=== PATIENT | male | born 1945 | race Caucasian/White ===

== ENCOUNTER 2016-09-28 15:08 | Inpatient (IN) | payer MEDICARE ==
[2016-09-28] MEDS ORDERED: MECLIZINE 25 MG TAB PO STA (15:15)
[2016-09-28] MEDS ORDERED: METOCLOPRAMIDE 5 MG/ML 2 ML VIAL IVP STA (15:15)
[2016-09-28] MEDS ORDERED: SODIUM CHLORIDE 0.9% 500 ML IV ONE (15:16)
[2016-09-28] MEDS ORDERED: DIAZEPAM 5 MG/ML 2 ML SYRINGE IVP STA (15:16)
[2016-09-28 16:15] LABS: INR 1.2 (<1.1); Partial Thromboplastin Time 22.5 sec (22.0-30.0); Prothrombin Time 11.7 sec (9.0-12.0)
[2016-09-28 16:17] LABS: ALT 80 U/L (21-72); AST 43 U/L (17-59); Alkaline Phosphatase 104 U/L (38-126); Anion Gap 13 mmol/L; Blood Urea Nitrogen 18 mg/dL (9-20); Calcium 9.4 mg/dL (8.4-10.2); Carbon Dioxide 26 mmol/L (22-30); Chloride 103 mmol/L (98-107); Glucose 159 mg/dL (74-99); Magnesium 1.7 mg/dL (1.6-2.3); Non-African American GFR(MDRD) >60 (>60 ml/min/1.73 sqM); Potassium 3.7 mmol/L (3.5-5.1); Sodium 142 mmol/L (137-145); Total Bilirubin 0.8 mg/dL (0.2-1.3); Total Protein 7.1 g/dL (6.3-8.2)
--- NOTE | 2016-09-28 16:17 | ED ---
General Adult HPI - General Stated complaint: NAUEA, VOMITING, DIZZINESS Time Seen by Provider: 09/28/16 15:10 Source: RN notes reviewed - History of Present Illness Initial comments: This is a 70-year-old male who presents to the emergency department stating that all of a sudden he turned around the whole room started spinning he became very off balance nauseated and started to vomit. Patient states every time he turns his head the symptoms get worse per patient states he shut his eye the symptoms improve. Patient denies any headache patient denies numbness or focal weakness. Patient denies any chest pain palpitations difficulty breathing or shortness of breath per patient denies any recent fever chills or cough. Patient denies abdominal pain. Patient denies any recent diarrhea. Patient denies any similar symptoms. Patient denies any ringing in ears recently or hearing loss. - Related Data Home Medications Medication Instructions Recorded Confirmed Cholecalciferol [Vitamin D3] 1,000 unit PO DAILY 07/01/15 09/28/16 Losartan/Hydrochlorothiazide 1 tab PO DAILY 07/01/15 09/28/16 [Losartan-Hctz 100-25 mg Tab] Metoprolol Tartrate [Lopressor] 100 mg PO BID 07/01/15 09/28/16 Multivitamin [Men's Multi-Vitamin] 1 tab PO DAILY 07/01/15 09/28/16 Simvastatin 10 mg PO HS 07/01/15 09/28/16 Verapamil HCl [Verapamil ER] 360 mg PO DAILY 07/01/15 09/28/16 Gabapentin [Neurontin] 100 mg PO TID 06/02/16 09/28/16 Glimepiride [Amaryl] 1 mg PO BID 06/07/16 09/28/16 Aspirin EC [Ecotrin Low Dose] 81 mg PO DAILY 09/28/16 09/28/16 Fish Oil/Dha/Epa [Fish Oil 1,200 1 cap PO DAILY 09/28/16 09/28/16 mg Fish Oil] metFORMIN HCL [Glucophage] 1,000 mg PO BID 09/28/16 09/28/16 Allergies Allergy/AdvReac Type Severity Reaction Status Date / Time No Known Allergies Allergy Verified 09/28/16 15:49 Review of Systems ROS Statement: Those systems with pertinent positive or pertinent negative responses have been documented in the HPI. ROS Other: All systems not noted in ROS Statement are negative. Past Medical History Past Medical History: Coronary Artery Disease (CAD), Diabetes Mellitus, Hyperlipidemia, Hypertension Additional Past Medical History / Comment(s): "thin, dry skin", Last Myocardial Infarction Date:: 1996 History of Any Multi-Drug Resistant Organisms: None Reported Past Surgical History: Heart Catheterization With Stent, Joint Replacement Additional Past Surgical History / Comment(s): RT HIP REPLACEMENT, EXPLORATORY LAP, EPIDURAL INJ. STENT X1 Past Anesthesia/Blood Transfusion Reactions: Previous Problems w/ Anesthesia Additional Past Anesthesia/Blood Transfusion Reaction / Comment(s): STATES POST EPIDURAL INJ HAD A HARD TIME WAKING UP Date of Last Stent Placement:: 1996 Past Psychological History: No Psychological Hx Reported Smoking Status: Former smoker Past Alcohol Use History: Rare Additional Past Alcohol Use History / Comment(s): quit smoking 45 yrs ago, smoked for 5 yrs Past Drug Use History: None Reported - Past Family History Mother Family Medical History: No Reported History Father Family Medical History: Coronary Artery Disease (CAD), Myocardial Infarction (PA ) General Exam - General Exam Comments Initial Comments: GENERAL: Patient is well-developed and well-nourished. Patient is nontoxic and well- hydrated and is in mild distress. ENT: Neck is soft and supple. No significant lymphadenopathy is noted. Oropharynx is clear. Moist mucous membranes. Neck has full range of motion without eliciting any pain. Patient has some nystagmus looking to the right EYES: The sclera were anicteric and conjunctiva were pink and moist. Extraocular movements were intact and pupils were equal round and reactive to light. Eyelids were unremarkable. PULMONARY: Unlabored respirations. Good breath sounds bilaterally. No audible rales rhonchi or wheezing was noted. CARDIOVASCULAR: There is a regular rate and rhythm without any murmurs gallops or rubs. ABDOMEN: Soft and nontender with normal bowel sounds. No palpable organomegaly was noted. There is no palpable pulsatile mass. SKIN: Skin is clear with no lesions or rashes and otherwise unremarkable. NEUROLOGIC: Patient is alert and oriented x3. Cranial nerves II through XII are grossly intact. Motor and sensory are also intact. Normal speech, volume and content. Symmetrical smile. Finger-nose testing is normal bilaterally MUSCULOSKELETAL: Normal extremities with adequate strength and full range of motion. No lower extremity swelling or edema. No calf tenderness. LYMPHATICS: No significant lymphadenopathy is noted PSYCHIATRIC: Normal psychiatric evaluation. Normal interpersonal interactions appears functionally intact in deals appropriately with others. No signs of depression. No signs of anxiety. Medical Decision Making - Medical Decision Making A G shows normal sinus rhythm at 64 bpm TN interval 166 dresses 90 QT interval 464 QTC is 478. Patient's EKG shows Q waves in leads 3 and aVF there is no ST segment elevation or T wave abnormalities. Patient was given Antivert Valium and Reglan when he arrived his symptoms seemed to improve. Patient's troponin came back elevated 0.12 because of this the patient needs to be admitted and ruled out. Patient never expressed any chest pain difficult to breathing or shortness of breath. - Lab Data Result diagrams: 09/28/16 15:25 09/28/16 15:25 Lab Results 09/28/16 09/28/16 09/28/16 Range/Units 15:25 15:25 15:25 WBC 5.6 (3.8-10.6) k/uL RBC 4.90 (4.30-5.90) m/uL Hgb 15.4 (13.0-17.5) gm/dL Hct 45.8 (39.0-53.0) % MCV 93.5 (80.0-100.0) fL MCH 31.3 (25.0-35.0) pg MCHC 33.5 (31.0-37.0) g/dL RDW 15.0 (11.5-15.5) % Plt Count 206 (150-450) k/uL Neutrophils % 72 % Lymphocytes % 18 % Monocytes % 7 % Eosinophils % 2 % Basophils % 1 % Neutrophils # 4.0 (1.3-7.7) k/uL Lymphocytes # 1.0 (1.0-4.8) k/uL Monocytes # 0.4 (0-1.0) k/uL Eosinophils # 0.1 (0-0.7) k/uL Basophils # 0.1 (0-0.2) k/uL PT (9.0-12.0) sec INR (<1.1) APTT (22.0-30.0) sec Sodium 142 (137-145) mmol/L Potassium 3.7 (3.5-5.1) mmol/L Chloride 103 (98-107) mmol/L Carbon Dioxide 26 (22-30) mmol/L Anion Gap 13 mmol/L BUN 18 (9-20) mg/dL Creatinine 0.67 (0.66-1.25) mg/dL Est GFR (MDRD) Af Amer >60 (>60 ml/min/1.73 sqM) Est GFR (MDRD) Non-Af >60 (>60 ml/min/1.73 sqM) Glucose 159 H (74-99) mg/dL Calcium 9.4 (8.4-10.2) mg/dL Magnesium 1.7 (1.6-2.3) mg/dL Total Bilirubin 0.8 (0.2-1.3) mg/dL AST 43 (17-59) U/L ALT 80 H (21-72) U/L Alkaline Phosphatase 104 (38-126) U/L Total Creatine Kinase 24 L (55-170) U/L CK-MB (CK-2) 0.4 (0.0-2.4) ng/mL CK-MB (CK-2) Rel Index 1.7 Troponin I 0.120 H* (0.000-0.034) ng/mL Total Protein 7.1 (6.3-8.2) g/dL Albumin 4.3 (3.5-5.0) g/dL 09/28/16 Range/Units 15:25 WBC (3.8-10.6) k/uL RBC (4.30-5.90) m/uL Hgb (13.0-17.5) gm/dL Hct (39.0-53.0) % MCV (80.0-100.0) fL MCH (25.0-35.0) pg MCHC (31.0-37.0) g/dL RDW (11.5-15.5) % Plt Count (150-450) k/uL Neutrophils % % Lymphocytes % % Monocytes % % Eosinophils % % Basophils % % Neutrophils # (1.3-7.7) k/uL Lymphocytes # (1.0-4.8) k/uL Monocytes # (0-1.0) k/uL Eosinophils # (0-0.7) k/uL Basophils # (0-0.2) k/uL PT 11.7 (9.0-12.0) sec INR 1.2 (<1.1) APTT 22.5 (22.0-30.0) sec Sodium (137-145) mmol/L Potassium (3.5-5.1) mmol/L Chloride (98-107) mmol/L Carbon Dioxide (22-30) mmol/L Anion Gap mmol/L BUN (9-20) mg/dL Creatinine (0.66-1.25) mg/dL Est GFR (MDRD) Af Amer (>60 ml/min/1.73 sqM) Est GFR (MDRD) Non-Af (>60 ml/min/1.73 sqM) Glucose (74-99) mg/dL Calcium (8.4-10.2) mg/dL Magnesium (1.6-2.3) mg/dL Total Bilirubin (0.2-1.3) mg/dL AST (17-59) U/L ALT (21-72) U/L Alkaline Phosphatase (38-126) U/L Total Creatine Kinase (55-170) U/L CK-MB (CK-2) (0.0-2.4) ng/mL CK-MB (CK-2) Rel Index Troponin I (0.000-0.034) ng/mL Total Protein (6.3-8.2) g/dL Albumin (3.5-5.0) g/dL Disposition Clinical Impression: Vertigo, Elevated troponin Disposition: ADMITTED IP TO THIS [facility] Time of Disposition: 16:51
[2016-09-28 16:18] LABS: Basophils # (A) 0.1 k/uL (0-0.2); Basophils % (A) 1 %; CH 32.9; CHCM 35.4; Eosinophils # (A) 0.1 k/uL (0-0.7); Eosinophils % (A) 2 %; HCT 45.8 % (39.0-53.0); HDW 3.14; HGB 15.4 gm/dL (13.0-17.5); Luc # (Auto) 0.08; Luc % (Auto) 1; Lymphocytes % (A) 18 %; MCH 31.3 pg (25.0-35.0); MCHC 33.5 g/dL (31.0-37.0); MCV 93.5 fL (80.0-100.0); Mean Platelet Volume 7.6; Monocytes # (A) 0.4 k/uL (0-1.0); Monocytes % (A) 7 %; Neutrophils % (A) 72 %; WBC 5.6 k/uL (3.8-10.6); WBC (Perox) 5.52
[2016-09-28 16:40] LABS: Creatine Kinase MB 0.4 ng/mL (0.0-2.4)
[2016-09-28 16:43] LABS: Troponin I 0.12 ng/mL (0.000-0.034)
[2016-09-28] MEDS ORDERED: ASPIRIN 81 MG CHEW PO STA (16:51)
[2016-09-28] MEDS ORDERED: NITROGLYCERIN SL TABS 0.4 MG TAB SUBLINGUAL PRN (16:51)
[2016-09-28] MEDS ORDERED: MECLIZINE 25 MG TAB PO PRN (16:55)
--- NOTE | 2016-09-28 17:06 | CT ---
EXAMINATION TYPE: CT brain wo con DATE OF EXAM: 09/28/2016 4:55 PM HISTORY: weakness CT DLP: 1266 mGycm. Automated Exposure Control for Dose Reduction was Utilized. TECHNIQUE: CT scan of the head is performed without contrast. COMPARISON: CT brain May 11, 2010. FINDINGS: There is no acute intracranial hemorrhage or midline shift identified. There is diffuse v entricular and sulcal prominence consistent with diffuse age-related cerebral atrophy. There is low- attenuation in the periventricular white matter consistent with chronic small vessel ischemic change. There is mild to moderate mucosal thickening in the visualized portion of bilateral maxillary sinuse s. Nondeformed right frontal sinus is noted. Vascular consultation of distal internal carotid arterie s is present bilaterally. Visualized portion of both globes are intact. IMPRESSION: No acute intracranial hemorrhage or midline shift. There is mild diffuse age-related ce rebral atrophy and chronic small vessel ischemic change noted on current study. Some chronic bilater al maxillary sinus disease is present.
--- NOTE | 2016-09-28 17:08 | XR ---
EXAMINATION TYPE: XR chest 2V DATE OF EXAM: 09/28/2016 5:04 PM COMPARISON: Prior chest x-ray July 09, 2015 HISTORY: Chest pain. TECHNIQUE: Frontal and lateral views of the chest are obtained. FINDINGS: There is no focal air space opacity, pleural effusion, or pneumothorax seen. The cardiac silhouette size is stable and enlarged. Multilevel spurring and spine is present. IMPRESSION: Cardiomegaly without acute pulmonary process.
[2016-09-28] MEDS: NITROGLYCERIN OINT 1 INCH/GM PACKET TOPICAL SCH (18:37)
[2016-09-28 19:59] LABS: Glucose,Whole Blood 143 mg/dL (75-99)
[2016-09-28] MEDS ORDERED: ATORVASTATIN 10 MG TAB PO SCH (21:00)
[2016-09-28] MEDS: METOPROLOL TARTRATE 50 MG TAB PO SCH (21:29)
[2016-09-28] MEDS: GABAPENTIN 100 MG CAP PO SCH (21:29)
[2016-09-28] MEDS: INSULIN LISPRO (humaLOG) 300 UNIT/3 ML VIAL SQ SCH (21:30)
[2016-09-28] MEDS: metFORMIN 500 MG TAB PO SCH (21:30)
[2016-09-28 22:33] LABS: Creatine Kinase <20 U/L (55-170)
[2016-09-28 22:46] LABS: Creatine Kinase MB 0.3 ng/mL (0.0-2.4)
[2016-09-28 22:47] LABS: Troponin I 0.085 ng/mL (0.000-0.034)
[2016-09-29] MEDS: NITROGLYCERIN OINT 1 INCH/GM PACKET TOPICAL SCH ×3 (02:33→12:59)
[2016-09-29 03:49] LABS: Cholesterol 179 mg/dL (<200); HDL Cholesterol 41 mg/dL (40-60); Triglycerides 268 mg/dL (<150)
[2016-09-29 03:58] LABS: Creatine Kinase 20 U/L (55-170)
[2016-09-29 04:12] LABS: Creatine Kinase MB <0.2 ng/mL (0.0-2.4)
[2016-09-29 04:14] LABS: Troponin I 0.102 ng/mL (0.000-0.034)
[2016-09-29 06:14] LABS: Glucose,Whole Blood 110 mg/dL (75-99)
[2016-09-29] MEDS: INSULIN LISPRO (humaLOG) 300 UNIT/3 ML VIAL SQ SCH ×2 (06:43→12:59)
[2016-09-29] MEDS: metFORMIN 500 MG TAB PO SCH (06:44)
[2016-09-29 07:14] VITALS: TEMP 98.1
[2016-09-29] MEDS ORDERED: GLIMEPIRIDE 1 MG TAB PO SCH (07:30)
[2016-09-29] MEDS ORDERED: AMINOPHYLLINE 500 MG/20 ML VIAL IV PRN (08:29)
[2016-09-29] MEDS ORDERED: REGADENOSON 0.4 MG/5 ML SYRINGE IV ONE (08:45)
[2016-09-29] MEDS ORDERED: ALPRAZolam 0.25 MG TAB PO STA (08:53)
[2016-09-29] MEDS ORDERED: LOSARTAN-HCTZ 50-12.5 MG 1 EACH TAB PO SCH (09:00)
[2016-09-29] MEDS ORDERED: VERAPAMIL SR 180 MG TABLET.ER PO SCH (09:00)
[2016-09-29] MEDS ORDERED: ASPIRIN 325 MG TAB PO SCH (09:00)
--- NOTE | 2016-09-29 09:31 | CONS ---
DATE OF CONSULTATION: CHIEF COMPLAINT: Dizziness and vertigo. Abdoulaye is a 70-year-old gentleman with history of CAD, status post angioplasty, hypertension, dyslipidemia, [id number] diabetes who follows with my associate, Dr. Calzada on a regular basis, comes in complaining of having had an episode of severe dizziness. It came on at rest, came on suddenly, severe intensity without clear-cut relieving or exacerbating factors. He felt that the room was spinning. He became nauseous and on his way to hospital had episodes of vomiting. He did not have chest pain, difficulty in breathing, palpitations, syncope, or focal neurological deficits. After coming to the hospital, his symptoms have gradually subsided. They did troponins on him. They came back abnormal at 0.1, 0.08 and 0.1. EKG does not reveal ischemic changes. Given the unexplained elevation in troponin, I am advising the patient to undergo a stress test to evaluate for ischemia. I am not asking him to go through a cardiac catheterization at this stage as he really did not have any symptoms suggestive of angina or any coronary artery disease at this time. His symptoms were clearly related to vertigo and he has had problems with his ears and is to see an ENT doctor in the near future. Past medical history is significant for CAD, status post angioplasty, hypertension, dyslipidemia, diabetes. Medications at home included metformin 1000 b.i.d., verapamil 360 q. daily, simvastatin 10 q. daily, multivitamin, Lopressor 100 b.i.d., losartan, Amaryl, Neurontin, fish oil, aspirin. ALLERGIES: No known drug allergies. Family history is negative for premature coronary artery disease. Social history is negative for current smoking, EtOH abuse or drug abuse. REVIEW OF SYSTEMS: HEENT: Significant for vertigo. CARDIAC: As described above. RESPIRATORY: Negative. GI: Negative. GENITOURINARY: Negative. ALLERGY/IMMUNOLOGY: Negative. SKIN: Negative. MUSCULOSKELETAL: Negative. ENDOCRINE: Negative. DERMATOLOGIC: Negative. CONSTITUTIONAL: Negative. ONCOLOGICAL: Negative. The rest of the system review is not relevant. On exam, comfortable at rest. Vital signs are stable. There is no jugular venous distention. Carotid upstroke is normal. There is no bruit. Chest exam reveals good air entry bilaterally. Heart exam reveals first and second heart sounds. No gallop. No murmur, no rub. Abdomen is soft, nontender. Exam of the extremities revealed trace edema. Peripheral pulses are felt. EKG is reviewed. Labs are as described above. Hemoglobin is normal at 15.4 platelet count is 204. Creatinine is 0.67. ASSESSMENT: 1. Elevated troponin of unclear clinical significance. 2. Coronary artery disease, status post angioplasty. 3. Vertigo. 4. Hypertension. 5. Diabetes. PLAN: I am advising the patient to undergo an echocardiogram to evaluate LV function and wall motion and the patient will also have a stress test done to evaluate for ischemic heart disease. If the stress test is normal, he can be discharged home and pursue workup for vertigo. If it is abnormal, I am going to have Dr. Calzada do cardiac catheterization on him.
--- NOTE | 2016-09-29 11:39 | EST ---
DATE OF SERVICE: 09/29/2016 AGE: 70Y SEX: M HT: 5'9" WT: 260 lbs. Protocol Alonso: Other: Lexiscan Cardiolite Stage: Dur. of Exercise: *Heart Rate Blood Pressure *Rest: 67 Rest: 139/48 * *Max. Achieved: 86 Maximum BP: 146/53 85% PMHR: 100% PMHR: *METS: INDICATIONS: Elevated troponin. MEDICATIONS: INDICATION OF THE STUDY: Chest pain. STRESS DATA: Heart rate 67, pressure is 139/48 mmHg. Baseline EKG showed sinus mechanism. 0.4 mg of Lexiscan was given to the patient over 15 seconds per protocol. Max heart rate was 86 beats per minute and maximum pressure was 146/53 mmHg. Clinically, the patient developed some shortness of breath. The EKG did not show any significant ST or T wave abnormalities consistent with ischemia. CONCLUSION: 1. Nondiagnostic electrocardiogram stress testing in response to Lexiscan. 2. Please follow up on the Cardiolite portion on a separate report from the radiology department.
[2016-09-29 12:53] LABS: Glucose,Whole Blood 148 mg/dL (75-99)
[2016-09-29 12:56] VITALS: BP 138/83; PULSE 78; RESP 18
[2016-09-29] MEDS: GABAPENTIN 100 MG CAP PO SCH ×2 (12:58→15:59)
[2016-09-29] MEDS: METOPROLOL TARTRATE 50 MG TAB PO SCH (12:59)
--- NOTE | 2016-09-29 15:14 | NM ---
EXAMINATION TYPE: NM stress lexiscan cardiolite DATE OF EXAM: 09/29/2016 12:10 PM COMPARISON: Nuclear medicine stress test May 04, 2010 HISTORY: History of prior tobacco use, hypertension, prior heart attack 1969, hypercholesterolemia, f amily history of coronary artery disease, diabetes, and prior catheterization with 1 vessel angioplas ty presents with shortness of breath and elevated troponin. TECHNIQUE: After the intravenous administration of 11 mCi Tc 99m Sestamibi - Cardiolite resting SPEC T images acquired 45 minutes post injection. The patient received 0.4mg Lexiscan, 27.5 mCi Tc 99m Sestamibi - Stress images obtained [address] injection FINDINGS: Review of stress and rest SPECT images demonstrates no distinct perfusion abnormality. Some diminishe d uptake inferolateral left ventricular wall towards the apex on stress and rest SPECT images may ref lect area of old infarct. Gated analysis shows normal wall motion with an estimated left ventricular ejection fraction of 55 %. IMPRESSION: No scintigraphic evidence for reversible ischemia.
--- NOTE | 2016-09-29 17:08 | HP ---
DATE OF ADMISSION: This dictation is both H&P and discharge summary. Patient is a 70-year-old who came in with complaints of vertigo with the room spinning around, which started yesterday morning around 10:00 a.m. Patient was having URI symptoms, nasal congestion and has been going on for about a few days and patient's vertigo is constant, does not change with the movement of the head. He had an episode of vomiting. Patient was diagnosed with vertigo, which is probably related to labyrinthitis with resolved symptoms at this point of time. Patient was although admitted because of elevated troponin. Patient's highest troponin was 0.0120 followed by 0.085, followed by 0.102. Patient was evaluated by Cardiology. Patient underwent a stress test, which was negative. Patient denied any chest pain, denied any shortness of breath, denied any fevers or chills, lightheadedness, shortness of breath. REVIEW OF SYSTEMS: CONSTITUTIONAL: No fever, no malaise, no fatigue. HEENT: No recent visual problems or hearing problems. Denied any sore throat. CARDIOVASCULAR: No chest pain, orthopnea, PND, no palpitations, no syncope. PULMONARY: No shortness of breath, no cough, no hemoptysis. GASTROINTESTINAL: No diarrhea, no nausea, no vomiting, no abdominal pain. Normoactive bowel sounds. NEUROLOGICAL: As described in HPI. HEMATOLOGICAL: Denies any bleeding or petechiae. GENITOURINARY: Denies any burning micturition, frequency, or urgency. MUSCULOSKELETAL/RHEUMATOLOGICAL: Denies any joint pain, swelling, or any muscle pain. ENDOCRINE: Denies any polyuria or polydipsia. The rest of the 14 point review of systems is negative. Home medications include: Cholecalciferol, losartan, hydrochlorothiazide, metoprolol, simvastatin, verapamil, gabapentin, glimepiride, aspirin, metformin. ALLERGIES: No known drug allergies. PAST MEDICAL HISTORY: Coronary artery disease, diabetes mellitus, hyperlipidemia, hypertension, cardiac catheterization, stent placement in the past. SOCIAL HISTORY: Former smoker. Quit smoking about 5 years ago. Denied any alcohol abuse or drug abuse. FAMILY HISTORY: Coronary artery disease and myocardial infarction in the family. Mother had no reported history. PHYSICAL EXAMINATION: VITAL SIGNS: Temperature 98.1, pulse of 98, respiratory rate of 18, blood pressure 138/83, saturating at 97% on room air. GENERAL: Patient appears to have some generalized ( ), which as per the family is normal for him. Alert and oriented x3. HEENT: Pupils are round and equally reacting to light. EOMI. No scleral icterus. No conjunctival pallor. Normocephalic, atraumatic. No pharyngeal erythema. No thyromegaly. CARDIOVASCULAR: S1 and S2 present. No murmurs, rubs, or gallops. PULMONARY: Chest is clear to auscultation, no wheezing or crackles. ABDOMEN: Soft, nontender, nondistended, normoactive bowel sounds. No palpable organomegaly. MUSCULOSKELETAL: No joint swelling or deformity. EXTREMITIES: No cyanosis, clubbing, or pedal edema. NEUROLOGICAL: Gross neurological examination did not reveal any focal deficits. SKIN: No rashes. LABORATORY DATA: CBC, CMP, essentially within normal. Troponins as mentioned above. EKG did not show any acute ST-T wave changes. ASSESSMENT AND PLAN: 1. Peripheral vertigo secondary to labyrinthitis, which improved. No medications are necessary at this point of time. Possibly labyrinthitis. 2. Labyrinthitis and viral in etiology. Symptoms have resolved and will not need any further intervention regarding that. 3. Elevated troponins. Etiology is unclear. The patient had a recent angioplasty. Patient's stress test is negative. 4. Diabetes mellitus type 2. 5. Hyperlipidemia. 6. Hypertension. 7. Obesity. Regarding obesity counseling was provided. For the rest of the above-mentioned chronic medical problems, patient will continue his home medications. Patient will be discharged today. Patient will follow with Dr. Erick Cheatham as an outpatient. Activity as tolerated. Cardiac and diabetic 1800 calorie diet.
--- NOTE | 2016-09-30 10:08 | ECHOF ---
Referral Reason:tropo MEASUREMENTS -------- HEIGHT: 170.2 cm WEIGHT: 121.1 kg BP: 123/65 RVIDd: 3.1 cm (< 3.3) IVSd: 1.5 cm (0.6 - 1.1) LVIDd: 4.7 cm (3.9 - 5.3) LVPWd: 1.5 cm (0.6 - 1.1) IVSs: 1.9 cm LVIDs: 3.4 cm LVPWs: 2.0 cm LA Diam: 3.4 cm (2.7 - 3.8) LAESV Index (A-L): 24.88 ml/m Ao Diam: 3.7 cm (2.0 - 3.7) AV Cusp: 2.6 cm (1.5 - 2.6) MV EXCURSION: 20.282 mm (> 18.000) MV EF SLOPE: 48 mm/s (70 - 150) EPSS: 0.7 cm MV E Landry: 0.74 m/s MV DecT: 236 ms MV A Landry: 0.94 m/s MV E/A Ratio: 0.79 RAP: 5.00 mmHg RVSP: 36.57 mmHg FINDINGS -------- Sinus rhythm. This was a technically difficult study with suboptimal apical views. The left ventricular size is normal. There is moderate concentric left ventricular hypertrophy. Overall left ventricular systolic function is mildly impaired with, an EF between 45 - 50 %. Basal inferoseptal LV wall motion is hypokinetic. The right ventricle is normal in size and function. The left atrium is normal in size. Normal LA size by volume 22+/-6 ml/m2. The right atrium is normal in size. 1.5mg of Definity was utilized for enhancement of images Aortic valve is trileaflet and is mildly thickened. Mild mitral annular calcification present. Mild tricuspid regurgitation present. There is mild pulmonary hypertension. The pulmonic valve was not well visualized. The aortic root is dilated measuring 3.7cm. There is no pericardial effusion. CONCLUSIONS -------- 1. Sinus rhythm. 2. 1.5mg of Definity was utilized for enhancement of images 3. Aortic valve is trileaflet and is mildly thickened. 4. Mild mitral annular calcification present. 5. Mild tricuspid regurgitation present. 6. There is mild pulmonary hypertension. 7. The pulmonic valve was not well visualized. 8. The aortic root is dilated measuring 3.7cm. 9. There is no pericardial effusion. 10. This was a technically difficult study with suboptimal apical views. 11. The left ventricular size is normal. 12. There is moderate concentric left ventricular hypertrophy. 13. Overall left ventricular systolic function is mildly impaired with, an EF between 45 - 50 %. 14. Basal inferoseptal LV wall motion is hypokinetic. 15. The right ventricle is normal in size and function. 16. Normal LA size by volume 22+/-6 ml/m2. 17. The right atrium is normal in size. BRAND PLANNER: Judy Glover RDCS
== END 2016-09-29 16:59 | disposition home or self-care (01) | DRG 149 ==
LOC: EC 15:08 → 6SEL 16:51
PROVIDERS: ADMIT Family Medicine; ATTEND Family Medicine
DX: H83.09 Labyrinthitis, unspecified ear (principal); I10 Essential (primary) hypertension; H81.399 Other peripheral vertigo, unspecified ear; E11.9 Type 2 diabetes mellitus without complications; R74.8 Abnormal levels of other serum enzymes; E66.9 Obesity, unspecified; E78.5 Hyperlipidemia, unspecified; I25.10 Atherosclerotic heart disease of native coronary artery without angina pectoris; I25.2 Old myocardial infarction; Z68.41 Body mass index [BMI] 40.0-44.9, adult; Z96.641 Presence of right artificial hip joint; Z87.891 Personal history of nicotine dependence; Z79.82 Long term (current) use of aspirin; Z79.84 Long term (current) use of oral hypoglycemic drugs; Z79.899 Other long term (current) drug therapy; Z98.61 Coronary angioplasty status; Z82.49 Family history of ischemic heart disease and other diseases of the circulatory system
CPT/HCPCS: 36415; 70450; 71020; 78452; 80053; 80061; 82550; 82553; 83036; 83735; 84484; 85025; 85610; 85730; 93005; 93017; 93306; 96361; 96374; 96375; 99285

== ENCOUNTER 2016-12-14 11:26 | Observation (INO) | payer MEDICARE ==
--- NOTE | 2016-12-14 11:50 | ED ---
General Adult HPI - General Chief complaint: Chest Pain Stated complaint: Chest Pain Time Seen by Provider: 12/14/16 11:34 Source: EMS, RN notes reviewed, old records reviewed Mode of arrival: EMS Limitations: no limitations - History of Present Illness Initial comments: This is a 71-year-old male the ER for evaluation of chest pain. Patient has anterior substernal heaviness, elephant sitting on chest classic chest pain. Patient also collated shortness of breath and she diaphoresis. Patient has history of CAD with stent. Patient states he had some vertigo symptoms month ago and the urinary stress test. Since there is had no pain. Since his heart attack 7 years ago he has had no cardiac issues. Patient denies fever cough or congestion, no travel history. - Related Data Home Medications Medication Instructions Recorded Confirmed Cholecalciferol [Vitamin D3] 1,000 unit PO DAILY 07/01/15 09/28/16 Losartan/Hydrochlorothiazide 1 tab PO DAILY 07/01/15 09/28/16 [Losartan-Hctz 100-25 mg Tab] Metoprolol Tartrate [Lopressor] 100 mg PO BID 07/01/15 09/28/16 Multivitamin [Men's Multi-Vitamin] 1 tab PO DAILY 07/01/15 09/28/16 Simvastatin 10 mg PO HS 07/01/15 09/28/16 Verapamil HCl [Verapamil ER] 360 mg PO DAILY 07/01/15 09/28/16 Gabapentin [Neurontin] 100 mg PO TID 06/02/16 09/28/16 Glimepiride [Amaryl] 1 mg PO BID 06/07/16 09/28/16 Aspirin EC [Ecotrin Low Dose] 81 mg PO DAILY 09/28/16 09/28/16 Fish Oil/Dha/Epa [Fish Oil 1,200 1 cap PO DAILY 09/28/16 09/28/16 mg Fish Oil] metFORMIN HCL [Glucophage] 1,000 mg PO BID 09/28/16 09/28/16 Allergies Allergy/AdvReac Type Severity Reaction Status Date / Time No Known Allergies Allergy Verified 12/14/16 11:33 Review of Systems ROS Statement: Those systems with pertinent positive or pertinent negative responses have been documented in the HPI. ROS Other: All systems not noted in ROS Statement are negative. Past Medical History Past Medical History: Coronary Artery Disease (CAD), Diabetes Mellitus, Hyperlipidemia, Hypertension Additional Past Medical History / Comment(s): "thin, dry skin", Last Myocardial Infarction Date:: 1996 History of Any Multi-Drug Resistant Organisms: None Reported Past Surgical History: Heart Catheterization With Stent, Joint Replacement Additional Past Surgical History / Comment(s): RT HIP REPLACEMENT, EXPLORATORY LAP, EPIDURAL INJ. STENT X1 Past Anesthesia/Blood Transfusion Reactions: Previous Problems w/ Anesthesia Additional Past Anesthesia/Blood Transfusion Reaction / Comment(s): STATES POST EPIDURAL INJ HAD A HARD TIME WAKING UP.pt /family stated pt can't take any narcotics-becomes very confused. pt can take tylenol extra strength for pain. Date of Last Stent Placement:: 1996 Past Psychological History: No Psychological Hx Reported Smoking Status: Former smoker Past Alcohol Use History: None Reported Additional Past Alcohol Use History / Comment(s): started smoking 1965, quit in 1970 Past Drug Use History: None Reported - Past Family History Mother Family Medical History: Congestive Heart Failure (CHF), Hypertension Additional Family Medical History / Comment(s): bipolar dad hx- bp, cholesterol chf,cad, cabg. Father Family Medical History: Coronary Artery Disease (CAD), Myocardial Infarction ([place] ) General Exam Limitations: no limitations General appearance: alert, in no apparent distress, anxious Head exam: Present: atraumatic, normocephalic, normal inspection Eye exam: Present: normal appearance, PERRL, EOMI. Absent: scleral icterus, conjunctival injection, periorbital swelling ENT exam: Present: normal exam, mucous membranes moist Neck exam: Present: normal inspection. Absent: tenderness, meningismus, lymphadenopathy Respiratory exam: Present: normal lung sounds bilaterally. Absent: respiratory distress, wheezes, rales, rhonchi, stridor Cardiovascular Exam: Present: regular rate, normal rhythm, normal heart sounds. Absent: systolic murmur, diastolic murmur, rubs, gallop, clicks GI/Abdominal exam: Present: soft, normal bowel sounds. Absent: distended, tenderness, guarding, rebound, rigid Extremities exam: Present: normal inspection, full ROM, normal capillary refill. Absent: tenderness, pedal edema, joint swelling, calf tenderness Back exam: Present: normal inspection Neurological exam: Present: alert, oriented X3, CN II-XII intact Psychiatric exam: Present: normal affect, normal mood Skin exam: Present: warm, dry, intact, normal color. Absent: rash Course Vital Signs 12/14/16 11:30 Temperature 98.2 F Pulse Rate 74 Respiratory 20 Rate Blood Pressure 181/86 O2 Sat by Pulse 97 Oximetry - Reevaluation(s) Reevaluation #1: 12/14/16 12:07 Patient remains with chest pain Reevaluation #2: 12/14/16 12:07 Patient did have stress test 2 months ago EKG Findings - EKG Comments: EKG Findings:: EKG shows normal sinus rhythm rate of 65, NC 150, QRS 90, QTc 459 Medical Decision Making - Medical Decision Making 71 mallear for evaluation of chest pain. 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 Initial EKG is negative, patient be admitted for serial troponins cardiac observation and anticoagulation telemetry - Lab Data Result diagrams: 12/14/16 11:45 Lab Results 12/14/16 Range/Units 11:45 WBC 5.2 (3.8-10.6) k/uL RBC 4.77 (4.30-5.90) m/uL Hgb 16.1 (13.0-17.5) gm/dL Hct 44.4 (39.0-53.0) % MCV 93.1 (80.0-100.0) fL MCH 33.7 (25.0-35.0) pg MCHC 36.2 (31.0-37.0) g/dL RDW 14.6 (11.5-15.5) % Plt Count 188 (150-450) k/uL Neutrophils % 67 % Lymphocytes % 21 % Monocytes % 7 % Eosinophils % 3 % Basophils % 1 % Neutrophils # 3.5 (1.3-7.7) k/uL Lymphocytes # 1.1 (1.0-4.8) k/uL Monocytes # 0.4 (0-1.0) k/uL Eosinophils # 0.2 (0-0.7) k/uL Basophils # 0.0 (0-0.2) k/uL - Radiology Data Radiology results: report reviewed (Chest x-ray negative for acute disease), image reviewed Critical Care Time Critical Care Time: Yes Total Critical Care Time: 31 Disposition Clinical Impression: Unstable angina pectoris, Chest pain Disposition: ADMITTED IP TO THIS [facility] Condition: Undetermined
[2016-12-14 12:01] LABS: Basophils % (A) 1 %; CH 34.1; CHCM 36.8; Eosinophils # (A) 0.2 k/uL (0-0.7); Eosinophils % (A) 3 %; HCT 44.4 % (39.0-53.0); HDW 3.08; HGB 16.1 gm/dL (13.0-17.5); Luc # (Auto) 0.07; Luc % (Auto) 1; Lymphocytes # (A) 1.1 k/uL (1.0-4.8); Lymphocytes % (A) 21 %; MCH 33.7 pg (25.0-35.0); MCHC 36.2 g/dL (31.0-37.0); MCV 93.1 fL (80.0-100.0); Mean Platelet Volume 6.4; Monocytes # (A) 0.4 k/uL (0-1.0); Monocytes % (A) 7 %; Neutrophils # (A) 3.5 k/uL (1.3-7.7); Neutrophils % (A) 67 %; RBC 4.77 m/uL (4.30-5.90); RDW 14.6 % (11.5-15.5); WBC 5.2 k/uL (3.8-10.6); WBC (Perox) 5.27
[2016-12-14] MEDS ORDERED: NITROGLYCERIN SL TABS 0.4 MG TAB SUBLINGUAL PRN (12:05)
[2016-12-14] MEDS ORDERED: HEPARIN SODIUM,PORCINE 5,000 UNIT/ML 1 ML VIAL IV ONE (12:05)
[2016-12-14] MEDS ORDERED: ASPIRIN 81 MG CHEW PO STA (12:05)
[2016-12-14 12:09] LABS: INR 1.2 (<1.1); Prothrombin Time 11.7 sec (9.0-12.0)
--- NOTE | 2016-12-14 12:10 | XR ---
EXAMINATION TYPE: XR chest 2V DATE OF EXAM: 12/14/2016 12:06 PM COMPARISON: 09/28/2016 INDICATION: Chest pain TECHNIQUE: 2 view chest FINDINGS: The heart size is normal. The pulmonary vasculature is normal. The lungs are clear. IMPRESSION: 1. No acute pulmonary process.
[2016-12-14] MEDS ORDERED: HEPARIN SODIUM,PORCINE/D5W PMX 25,000 UNIT in DEXTROSE/WATER 1 500ML.BAG IV SCH (12:15)
[2016-12-14 12:16] LABS: ALT 82 U/L (21-72); AST 52 U/L (17-59); Alkaline Phosphatase 81 U/L (38-126); Anion Gap 12 mmol/L; Blood Urea Nitrogen 19 mg/dL (9-20); Calcium 9.1 mg/dL (8.4-10.2); Carbon Dioxide 25 mmol/L (22-30); Chloride 104 mmol/L (98-107); Glucose 137 mg/dL (74-99); Magnesium 1.7 mg/dL (1.6-2.3); Non-African American GFR(MDRD) >60 (>60 ml/min/1.73 sqM); Potassium 3.8 mmol/L (3.5-5.1); Sodium 141 mmol/L (137-145); Total Protein 6.6 g/dL (6.3-8.2)
[2016-12-14 12:23] LABS: Partial Thromboplastin Time 23.4 sec (22.0-30.0)
[2016-12-14 12:31] LABS: Creatine Kinase 37 U/L (55-170)
[2016-12-14 12:44] LABS: Creatine Kinase MB 0.4 ng/mL (0.0-2.4); Troponin I <0.012 ng/mL (0.000-0.034)
[2016-12-14] MEDS ORDERED: FUROSEMIDE 20 MG TAB PO PRN (13:54)
--- NOTE | 2016-12-14 13:58 | P.HPIM ---
History of Present Illness 71-year-old male presented to the emergency room with complaints of chest pain pressure reading to the left arm with shortness of breath. Patient has history of coronary disease with stent history of [place] in 1996. Patient has a history of hypertension and hyperlipidemia patient's diabetic states that is stable. Patient had recent stress test that he stated was negative Review of Systems Cardiovascular: Reports chest pain Respiratory: Reports dyspnea Past Medical History Past Medical History: Coronary Artery Disease (CAD), Diabetes Mellitus, Hyperlipidemia, Hypertension Additional Past Medical History / Comment(s): "thin, dry skin", Last Myocardial Infarction Date:: 1996 History of Any Multi-Drug Resistant Organisms: None Reported Past Surgical History: Heart Catheterization With Stent, Joint Replacement Additional Past Surgical History / Comment(s): RT HIP REPLACEMENT, EXPLORATORY LAP, EPIDURAL INJ. STENT X1 Past Anesthesia/Blood Transfusion Reactions: Previous Problems w/ Anesthesia Additional Past Anesthesia/Blood Transfusion Reaction / Comment(s): STATES POST EPIDURAL INJ HAD A HARD TIME WAKING UP.pt /family stated pt can't take any narcotics-becomes very confused. pt can take tylenol extra strength for pain. Date of Last Stent Placement:: 1996 Past Psychological History: No Psychological Hx Reported Smoking Status: Former smoker Past Alcohol Use History: None Reported Additional Past Alcohol Use History / Comment(s): started smoking 1965, quit in 1970 Past Drug Use History: None Reported - Past Family History Mother Family Medical History: Congestive Heart Failure (CHF), Hypertension Additional Family Medical History / Comment(s): bipolar dad hx- bp, cholesterol chf,cad, cabg. Father Family Medical History: Coronary Artery Disease (CAD), Myocardial Infarction ([place] ) Medications and Allergies Home Medications Medication Instructions Recorded Confirmed Type Cholecalciferol [Vitamin D3] 1,000 unit PO DAILY 07/01/15 12/14/16 History Losartan/Hydrochlorothiazide 1 tab PO DAILY 07/01/15 12/14/16 History [Losartan-Hctz 100-25 mg Tab] Metoprolol Tartrate [Lopressor] 100 mg PO BID 07/01/15 12/14/16 History Multivitamin [Men's Multi-Vitamin] 1 tab PO DAILY 07/01/15 12/14/16 History Simvastatin 10 mg PO HS 07/01/15 12/14/16 History Verapamil HCl [Verapamil ER] 360 mg PO DAILY 07/01/15 12/14/16 History Gabapentin [Neurontin] 100 mg PO TID 06/02/16 12/14/16 History Glimepiride [Amaryl] 1 mg PO BID 06/07/16 12/14/16 History Aspirin EC [Ecotrin Low Dose] 81 mg PO DAILY 09/28/16 12/14/16 History Fish Oil/Dha/Epa [Fish Oil 1,200 1 cap PO DAILY 09/28/16 12/14/16 History mg Fish Oil] Furosemide [Lasix] 20 mg PO DAILY PRN 12/14/16 12/14/16 History metFORMIN HCL [Glucophage] 1,000 mg PO BID 12/14/16 12/14/16 History Allergies Allergy/AdvReac Type Severity Reaction Status Date / Time No Known Allergies Allergy Verified 12/14/16 12:27 Physical Exam Vitals: Vital Signs Temp Pulse Resp BP Pulse Ox 12/14/16 12:50 97.8 F 73 18 149/74 98 - Constitutional General appearance: obese - EENT Eyes: PERRLA Ears: bilateral: normal - Neck Neck: normal ROM - Respiratory Respiratory: bilateral: CTA - Cardiovascular Rhythm: regular - Gastrointestinal General gastrointestinal: soft - Integumentary Integumentary: normal - Neurologic Neurologic: CNII-XII intact - Psychiatric Psychiatric: A&O x's 3, appropriate affect, intact judgment & insight Results CBC & Chem 7: 12/14/16 11:45 12/14/16 11:45 Chest x-ray: report reviewed Assessment and Plan Plan: Assessment Chest pain unstable angina History of coronary disease with stent history of [place] 1996 Diabetes type 2 hyperlipidemia Hypertension Plan Anticoagulation nitro and evaluation by cardiology
[2016-12-14 14:02] LABS: Glucose,Whole Blood 125 mg/dL (75-99)
[2016-12-14] MEDS: GABAPENTIN 100 MG CAP PO SCH ×2 (16:01→19:40)
[2016-12-14 17:09] LABS: Glucose,Whole Blood 116 mg/dL (75-99)
[2016-12-14 18:50] LABS: Creatine Kinase 39 U/L (55-170)
[2016-12-14 19:03] LABS: Creatine Kinase MB 0.4 ng/mL (0.0-2.4); Troponin I <0.012 ng/mL (0.000-0.034)
[2016-12-14] MEDS: HEPARIN SODIUM,PORCINE 5,000 UNIT/ML 1 ML VIAL IV PRN (19:39)
[2016-12-14] MEDS: metFORMIN 500 MG TAB PO SCH (19:40)
[2016-12-14] MEDS: GLIMEPIRIDE 1 MG TAB PO SCH (19:40)
[2016-12-14] MEDS: METOPROLOL TARTRATE 50 MG TAB PO SCH (19:41)
[2016-12-14 20:20] LABS: Glucose,Whole Blood 107 mg/dL (75-99)
[2016-12-14] MEDS: ACETAMINOPHEN TAB 325 MG TAB PO PRN (20:30)
[2016-12-14] MEDS ORDERED: ATORVASTATIN 10 MG TAB PO SCH (21:00)
[2016-12-15 01:47] LABS: Creatine Kinase 36 U/L (55-170)
[2016-12-15 02:00] LABS: Creatine Kinase MB 0.4 ng/mL (0.0-2.4); Troponin I <0.012 ng/mL (0.000-0.034)
[2016-12-15] MEDS: HEPARIN SODIUM,PORCINE 5,000 UNIT/ML 1 ML VIAL IV PRN (02:08)
[2016-12-15] MEDS: ACETAMINOPHEN TAB 325 MG TAB PO PRN ×2 (02:16→08:00)
[2016-12-15 07:12] LABS: Glucose,Whole Blood 120 mg/dL (75-99)
--- NOTE | 2016-12-15 08:22 | P.CRDCN ---
History of Present Illness Consult date: 12/15/16 History of present illness: This is a 71-year-old gentleman who follows with Dr. Calzada regularly, came to the hospital with complaints of sudden onset of discomfort in the throat associated with shortness of breath and radiation to the left arm. This happened while patient was sitting in the chair and trying to get up. The pain was unrelenting and paramedics were called. He was advised to take couple of aspirins and subsequently was brought to the emergency room. By the time he came to the emergency room is pains improved somewhat. Overall the pain lasted about couple of hours and since then patient has been stable at rest. However, whenever he walks to the bathroom , the symptoms are coming back. The symptoms are promptly relieved with rest. His EKGs did not reveal any acute changes. Cardiac enzymes are negative. Because of recurrence of the symptoms and known ischemic heart disease, patient is advised to have a cardiac catheterization for definitive diagnosis. Patient is fully aware of the risks and benefits of the procedure. Review of Systems REVIEW OF SYSTEMS: CONSTITUTIONAL:. Patient is doing well. No complaints of fever or chills EYES: Denies diplopia, blurring of vision EARS, NOSE, MOUTH, THROAT: Denies headaches, denies sore throat. CARDIOVASCULAR: As per the chart RESPIRATORY: Denies shortness of breath, denies cough. GASTROINTESTINAL: Denies change in appetite, denies abdominal pain, denies diarrhea GENITOURINARY: Denies hematuria, denies infections. MUSKULOSKELETAL: Denies pain, denies swelling. Denies any cramps or claudication INTEGUMENTARY: Denies rash, denies eczema. NEUROLOGICAL: Denies focal weakness, or visual disturbance. Denies any dizziness or syncope PSYCHIATRIC: Denies anxiety, denies depression. HEMATOLOGIC/LYMPHATIC: Denies any bleeding, denies enlarged lymph nodes. Past Medical History Past Medical History: Coronary Artery Disease (CAD), Diabetes Mellitus, Hyperlipidemia, Hypertension, Myocardial Infarction (CA), Osteoarthritis (OA) Additional Past Medical History / Comment(s): NIDDM type II, vertigo in September 2016 thought to be labyrinthitis-also had elevated troponins-stress test done and was negative, arthritis multiple joints. Last Myocardial Infarction Date:: 1996 History of Any Multi-Drug Resistant Organisms: None Reported Past Surgical History: Heart Catheterization With Stent, Joint Replacement, Tonsillectomy Additional Past Surgical History / Comment(s): 1996 PCI with stent, L/RT HIP REPLACEMENTS, EXPLORATORY LAP with spleen injury, EPIDURAL INJ. in back, lumbar fusion, colonoscopy, vasectomy. Past Anesthesia/Blood Transfusion Reactions: Previous Problems w/ Anesthesia Additional Past Anesthesia/Blood Transfusion Reaction / Comment(s): STATES POST EPIDURAL INJ HAD A HARD TIME WAKING UP.pt /family stated pt can't take any narcotics-becomes very confused. pt can take tylenol extra strength for pain. Date of Last Stent Placement:: 1996 Past Psychological History: No Psychological Hx Reported Additional Psychological History / Comment(s): Pt resides with his spouse who happens to be recovering from a total knee replacement. Pt is independent. Smoking Status: Former smoker Past Alcohol Use History: None Reported Additional Past Alcohol Use History / Comment(s): started smoking 1965, quit in 1988. Past Drug Use History: None Reported - Past Family History Mother Family Medical History: Congestive Heart Failure (CHF), Hypertension Additional Family Medical History / Comment(s): bipolar Father Family Medical History: Coronary Artery Disease (CAD), Myocardial Infarction ([place] ) Medications and Allergies Home Medications Medication Instructions Recorded Confirmed Type Cholecalciferol [Vitamin D3] 1,000 unit PO DAILY 07/01/15 12/14/16 History Losartan/Hydrochlorothiazide 1 tab PO DAILY 07/01/15 12/14/16 History [Losartan-Hctz 100-25 mg Tab] Metoprolol Tartrate [Lopressor] 100 mg PO BID 07/01/15 12/14/16 History Multivitamin [Men's Multi-Vitamin] 1 tab PO DAILY 07/01/15 12/14/16 History Simvastatin 10 mg PO HS 07/01/15 12/14/16 History Verapamil HCl [Verapamil ER] 360 mg PO DAILY 07/01/15 12/14/16 History Gabapentin [Neurontin] 100 mg PO TID 06/02/16 12/14/16 History Glimepiride [Amaryl] 1 mg PO BID 06/07/16 12/14/16 History Aspirin EC [Ecotrin Low Dose] 81 mg PO DAILY 09/28/16 12/14/16 History Fish Oil/Dha/Epa [Fish Oil 1,200 1 cap PO DAILY 09/28/16 12/14/16 History mg Fish Oil] Furosemide [Lasix] 20 mg PO DAILY PRN 12/14/16 12/14/16 History metFORMIN HCL [Glucophage] 1,000 mg PO BID 12/14/16 12/14/16 History Allergies Allergy/AdvReac Type Severity Reaction Status Date / Time No Known Allergies Allergy Verified 12/14/16 12:27 Physical Exam Vitals: Vital Signs Temp Pulse Pulse Resp BP BP Pulse Ox 12/15/16 07:21 97.5 F L 72 18 146/87 98 12/15/16 03:35 18 12/15/16 03:26 97.4 F L 76 18 136/61 97 12/14/16 23:35 18 12/14/16 23:31 97.9 F 79 18 135/61 97 12/14/16 19:45 16 12/14/16 19:34 74 16 137/79 97 12/14/16 16:00 98.0 F 69 16 116/69 95 12/14/16 15:51 68 16 12/14/16 14:27 68 16 12/14/16 13:30 97.6 F 68 16 153/75 97 12/14/16 12:50 97.8 F 73 18 149/74 98 Intake and Output 12/14/16 12/15/16 12/15/16 22:59 06:59 14:59 Intake Total 1006 694.858 Balance 1006 694.858 Intake: IV 80 320 0.9@20 40 160 Heparin Sodium,Porcine/ 40 160 D5w Pmx 25,000 unit In Dextrose/Water 1 500ml. bag @ 8.3 UNITS/KG/HR 19. 95 mls/hr IV .Q24H [facility] Rx #:[id number] Intake, IV Titration 136 174.858 Amount Heparin Sodium,Porcine/ 136 174.858 D5w Pmx 25,000 unit In Dextrose/Water 1 500ml. bag @ 8.3 UNITS/KG/HR 19. 95 mls/hr IV .Q24H [facility] Rx #:[id number] Oral 790 200 Other: Voiding Method Toilet Toilet # Voids 2 2 GENERAL EXAM: Patient is alert and oriented and doesn't appear to be in any acute distress HEENT: Normocephalic. Normal reaction of pupils, equal size, normal range of extraocular motion. No erythema or exudates in the throat. NECK: No masses, no nuchal rigidity. CHEST: No chest wall deformity. LUNGS: Equal air entry with no crackles or wheeze. HEART: S1 and S2 normal with no audible mumurs or gallops. Regular rhythm, femorals equal on both sides.. ABDOMEN: No hepatosplenomegaly, normal bowel sounds, no guarding or rigidity. SKIN: No rashes CENTRAL NERVOUS SYSTEM: No focal deficits. EXTREMITIES: No cyanosis, clubbing or edema. Results 12/14/16 11:45 12/14/16 11:45 Cardiac Enzymes 12/14/16 12/15/16 Range/Units 18:13 01:04 CK-MB (CK-2) 0.4 0.4 (0.0-2.4) ng/mL Troponin I <0.012 <0.012 (0.000-0.034) ng/mL Coagulation 12/14/16 12/15/16 Range/Units 18:13 01:04 APTT 28.0 42.6 H (22.0-30.0) sec Current Medications Generic Name Dose Route Start Last Admin Trade Name Freq PRN Reason Stop Dose Admin Acetaminophen 650 mg 12/14/16 19:59 12/15/16 08:00 Tylenol Tab PO 650 mg Q4HR PRN Administration Fever and/ or Pain Aspirin 81 mg 12/15/16 09:00 Aspirin PO DAILY [facility] Atorvastatin Calcium 10 mg 12/14/16 21:00 12/14/16 19:40 Lipitor PO 10 mg HS DAVID Administration Cholecalciferol 1,000 unit 12/15/16 12:00 Vitamin D3 PO DAILY@1200 [facility]ID Furosemide 20 mg 12/14/16 13:54 Lasix PO DAILY PRN Edema Gabapentin 100 mg 12/14/16 16:00 12/14/16 19:40 Neurontin PO 100 mg TID DAVID Administration Glimepiride 1 mg 12/14/16 21:00 12/14/16 19:40 Amaryl PO 1 mg BID DAVID Administration HCTZ/Losartan Potassium 1 each 12/15/16 09:00 Hyzaar 50-12.5 PO DAILY [facility] Heparin Sodium (Porcine) 0 unit 12/14/16 12:05 12/15/16 02:08 Heparin IV 3,025 unit Q6HR PRN Administration Low PTT Protocol Heparin Sodium/Dextrose 25,000 500 mls @ 19.95 mls/hr 12/14/16 12:15 02:03 unit/ IV Solution IV 13.31 units/kg/hr .Q24H DAVID 31.99 mls/hr Protocol Titration 8.3 UNITS/KG/HR Metformin HCl 1,000 mg 12/14/16 21:00 12/14/16 19:40 Glucophage PO 1,000 mg BID [facility]ID Administration Metoprolol Tartrate 100 mg 12/14/16 21:00 12/14/16 19:41 Lopressor PO 100 mg BID [facility]ID Administration Multivitamins 1 each 12/15/16 12:00 Theragran PO DAILY@1200 [facility] Nitroglycerin 0.4 mg 12/14/16 12:05 Nitrostat SUBLINGUAL Q5M PRN Chest Pain Verapamil HCl 360 mg 12/15/16 09:00 Isoptin Sr PO DAILY [facility] Intake and Output 12/14/16 12/15/16 12/15/16 22:59 06:59 14:59 Intake Total 1006 694.858 Balance 1006 694.858 Intake: IV 80 320 0.9@20 40 160 Heparin Sodium,Porcine/ 40 160 D5w Pmx 25,000 unit In Dextrose/Water 1 500ml. bag @ 8.3 UNITS/KG/HR 19. 95 mls/hr IV .Q24H [facility] Rx #:[id number] Intake, IV Titration 136 174.858 Amount Heparin Sodium,Porcine/ 136 174.858 D5w Pmx 25,000 unit In Dextrose/Water 1 500ml. bag @ 8.3 UNITS/KG/HR 19. 95 mls/hr IV .Q24H [facility] Rx #:[id number] Oral 790 200 Other: Voiding Method Toilet Toilet # Voids 2 2 EKG Interpretations (text) Sinus rhythm with evidence of old inferior wall CA Assessment and Plan (1) CAD (coronary artery disease) Status: Acute (2) Unstable angina pectoris Status: Acute (3) Old inferior wall myocardial infarction Status: Acute (4) Hypertension Status: Acute (5) Diabetes mellitus Status: Acute Plan: This patient is admitted with throat and chest pain suggestive of unstable angina picture. EKGs and cardiac enzymes are negative. Patient is being scheduled for a cardiac catheter Dr. Calzada. Further recommendations will depend upon the findings on the cardiac catheterization.
[2016-12-15 08:31] LABS: Mean Platelet Volume 6.3
[2016-12-15] MEDS ORDERED: ASPIRIN 81 MG CHEW PO SCH (09:00)
[2016-12-15] MEDS ORDERED: ASPIRIN 325 MG TAB PO SCH (09:00)
[2016-12-15] MEDS ORDERED: NON-FORMULARY DRUG (Fish Oil/Dha/Epa [Fish Oil 1,200 Mg Fish Oil] 1 CAP) PO SCH (09:00)
[2016-12-15 09:04] LABS: Cholesterol 162 mg/dL (<200); HDL Cholesterol 38 mg/dL (40-60); Triglycerides 273 mg/dL (<150)
[2016-12-15] MEDS ORDERED: ALPRAZolam 0.25 MG TAB PO PRN (09:08)
[2016-12-15] MEDS ORDERED: ALPRAZolam 0.5 MG TAB PO PRN (09:08)
[2016-12-15] MEDS ORDERED: NITROGLYCERIN SL TABS 0.4 MG TAB SUBLINGUAL PRN ×2 (09:08→12:24)
[2016-12-15] MEDS ORDERED: ASPIRIN 325 MG TAB PO STA (09:08)
[2016-12-15] MEDS ORDERED: ATORVASTATIN 80 MG TAB PO STA (09:08)
[2016-12-15] MEDS ORDERED: SODIUM CHLORIDE 0.9% 1,000 ML in EMPTY BAG 1 BAG IV ONE (09:08)
[2016-12-15] MEDS: metFORMIN 500 MG TAB PO SCH ×2 (09:11→17:17)
[2016-12-15] MEDS: GLIMEPIRIDE 1 MG TAB PO SCH ×2 (09:11→20:04)
[2016-12-15] MEDS: METOPROLOL TARTRATE 50 MG TAB PO SCH ×2 (09:48→20:04)
[2016-12-15] MEDS: LOSARTAN-HCTZ 50-12.5 MG 1 EACH TAB PO SCH (09:48)
[2016-12-15] MEDS: VERAPAMIL SR 180 MG TABLET.ER PO SCH (09:48)
[2016-12-15] MEDS: GABAPENTIN 100 MG CAP PO SCH ×3 (09:48→20:04)
[2016-12-15] MEDS ORDERED: VERAPAMIL 2.5 MG/ML 2 ML AMP ONE ×2 (10:23→10:57)
[2016-12-15] MEDS ORDERED: LIDOCAINE 2% INJ 20 MG/ML (20 ML MDV) ONE (10:23)
[2016-12-15] MEDS ORDERED: fentaNYL (PF) 50 MCG/ML 2 ML AMP IV ONE (10:30)
[2016-12-15] MEDS ORDERED: diphenhydrAMINE 50 MG/ML 1 ML VIAL IVP ONE (10:30)
[2016-12-15] MEDS ORDERED: fentaNYL (PF) 50 MCG/ML 2 ML AMP ONE (10:31)
[2016-12-15] MEDS ORDERED: diphenhydrAMINE 50 MG/ML 1 ML VIAL ONE (10:31)
[2016-12-15] MEDS ORDERED: LIDOCAINE 2% INJ 20 MG/ML SQ ONE (10:38)
[2016-12-15] MEDS ORDERED: IV FLUID CONTINUATION 1,000 ML IV ONE (10:40)
[2016-12-15] MEDS: VERAPAMIL SYRINGE (5 MG/10 ML) INTRAARTER ONE ×2 (10:40→10:58)
[2016-12-15] MEDS ORDERED: VERAPAMIL 2.5 MG/ML 4 ML VIAL INTRAARTER ONE (10:40)
[2016-12-15] MEDS ORDERED: MIDAZOLAM 2 MG/2 ML VIAL ONE (10:52)
[2016-12-15] MEDS ORDERED: BIVALIRUDIN BOLUS 250 MG/50 ML IV ONE (10:57)
[2016-12-15] MEDS ORDERED: CLOPIDOGREL 75 MG TAB ONE (10:58)
[2016-12-15] MEDS ORDERED: VERAPAMIL SYRINGE (5 MG/10 ML) INTRAARTER ONE (10:58)
[2016-12-15] MEDS ORDERED: BIVALIRUDIN 250 MG in SODIUM CHLORIDE 0.9% 50 ML IV ONE ×2 (10:59→11:31)
[2016-12-15] MEDS ORDERED: MIDAZOLAM 2 MG/2 ML VIAL IV ONE (11:00)
[2016-12-15] MEDS ORDERED: SODIUM CHLORIDE 0.9% 1,000 ML IV ONE (11:08)
[2016-12-15] MEDS ORDERED: HYDROmorphone 2 MG/ML 1 ML SYRINGE ONE (11:19)
[2016-12-15] MEDS ORDERED: CLOPIDOGREL 75 MG TAB PO ONE (11:20)
[2016-12-15] MEDS ORDERED: HYDROmorphone 2 MG/ML 1 ML SYRINGE IV ONE ×2 (11:20)
[2016-12-15] MEDS ORDERED: IOHEXOL 350 MG/ML 125ML BOTTLE INJ ONE (12:18)
[2016-12-15] MEDS ORDERED: ZOLPIDEM 5 MG TAB PO PRN (12:24)
[2016-12-15] MEDS ORDERED: MAG HYDROX/AL HYDROX/SIMETH 30 ML CUP PO PRN (12:24)
[2016-12-15] MEDS ORDERED: ATROPINE SULFATE 0.1 MG/ML 10ML SYRINGE IV PRN (12:24)
[2016-12-15] MEDS ORDERED: RX INFO: IV CONTRAST WAS GIVEN 1 EACH MISC MISCELLANE PRN (12:24)
[2016-12-15] MEDS ORDERED: SODIUM CHLORIDE 0.9% 1,000 ML IV SCH (12:30)
[2016-12-15 12:38] LABS: Glucose,Whole Blood 151 mg/dL (75-99)
[2016-12-15 13:11] LABS: Hemoglobin A1C 5.9 % (4.2-6.1)
--- NOTE | 2016-12-15 13:51 | P.PN ---
Subjective Principal diagnosis: Patient has return of 4 from cardiac cath states he had 4 stents. States shortness of breath improved Objective - Vital Signs Vital signs: Vital Signs Temp 98.2 F 12/15/16 12:30 Pulse 71 12/15/16 12:45 Resp 16 12/15/16 12:45 BP 130/71 12/15/16 12:45 Pulse Ox 93 L 12/15/16 12:45 Intake & Output 12/14/16 12/15/16 12/15/16 18:59 06:59 18:59 Intake Total 540 1160.858 294 Output Total 850 Balance 540 1160.858 -556 Weight 121.2 kg Intake: IV 400 294 0.9@20 200 Heparin Sodium,Porcine/ 200 D5w Pmx 25,000 unit In Dextrose/Water 1 500ml. bag @ 8.3 UNITS/KG/HR 19. 95 mls/hr IV .Q24H [facility] Rx #:[id number] Intake, IV Titration 310.858 Amount Heparin Sodium,Porcine/ 310.858 D5w Pmx 25,000 unit In Dextrose/Water 1 500ml. bag @ 8.3 UNITS/KG/HR 19. 95 mls/hr IV .Q24H [facility] Rx #:[id number] Oral 540 450 Output: Urine 850 Other: Voiding Method Toilet Toilet Toilet # Voids 2 - Constitutional General appearance: Present: obese - EENT Eyes: Present: PERRLA Ears: bilateral: normal - Neck Neck: Present: normal ROM - Respiratory Respiratory: bilateral: CTA - Cardiovascular Rhythm: regular - Gastrointestinal General gastrointestinal: Present: soft - Integumentary Integumentary: Present: normal - Neurologic Neurologic: Present: CNII-XII intact - Psychiatric Psychiatric: Present: A&O x's 3, appropriate affect, intact judgment & insight - Labs CBC & Chem 7: 12/15/16 07:59 12/14/16 11:45 Labs: Abnormal Lab Results - Last 24 Hours (Table) 12/14/16 12/14/16 12/14/16 Range/Units 14:01 17:07 18:13 APTT (22.0-30.0) sec POC Glucose (mg/dL) 125 H 116 H (75-99) mg/dL Total Creatine Kinase 39 L (55-170) U/L Triglycerides (<150) mg/dL HDL Cholesterol (40-60) mg/dL 12/14/16 12/15/16 12/15/16 Range/Units 20:16 01:04 01:04 APTT 42.6 H (22.0-30.0) sec POC Glucose (mg/dL) 107 H (75-99) mg/dL Total Creatine Kinase 36 L (55-170) U/L Triglycerides (<150) mg/dL HDL Cholesterol (40-60) mg/dL 12/15/16 12/15/16 12/15/16 Range/Units 07:11 07:59 07:59 APTT 55.4 H (22.0-30.0) sec POC Glucose (mg/dL) 120 H (75-99) mg/dL Total Creatine Kinase (55-170) U/L Triglycerides 273 H (<150) mg/dL HDL Cholesterol 38 L (40-60) mg/dL 12/15/16 Range/Units 12:36 APTT (22.0-30.0) sec POC Glucose (mg/dL) 151 H (75-99) mg/dL Total Creatine Kinase (55-170) U/L Triglycerides (<150) mg/dL HDL Cholesterol (40-60) mg/dL Assessment and Plan Plan: Assessment Chest pain unstable angina post cardiac cath with stents History of coronary disease on the [place] 1996 with stents Diabetes type 2 Hyperlipidemia Hypertension Plan Continue consultation with cardiology hopeful discharge tomorrow
[2016-12-15 16:34] LABS: Glucose,Whole Blood 157 mg/dL (75-99)
[2016-12-15] MEDS: INSULIN LISPRO (humaLOG) 300 UNIT/3 ML VIAL SQ SCH ×3 (17:15→22:42)
[2016-12-15] MEDS: CHOLECALCIFEROL 1,000 UNIT TAB PO SCH (17:18)
[2016-12-15] MEDS: MULTIVITAMINS, THERA 1 EACH TAB PO SCH (17:19)
[2016-12-15 21:02] LABS: Glucose,Whole Blood 95 mg/dL (75-99)
[2016-12-16 06:01] LABS: Glucose,Whole Blood 119 mg/dL (75-99)
[2016-12-16 06:17] VITALS: RESP 18
[2016-12-16] MEDS: INSULIN LISPRO (humaLOG) 300 UNIT/3 ML VIAL SQ SCH ×2 (06:19→11:56)
[2016-12-16 06:35] LABS: Anion Gap 8 mmol/L; Blood Urea Nitrogen 17 mg/dL (9-20); Calcium 9.2 mg/dL (8.4-10.2); Carbon Dioxide 27 mmol/L (22-30); Chloride 107 mmol/L (98-107); Glucose 112 mg/dL (74-99); Non-African American GFR(MDRD) >60 (>60 ml/min/1.73 sqM); Potassium 3.7 mmol/L (3.5-5.1); Sodium 142 mmol/L (137-145)
[2016-12-16 06:40] LABS: Mean Platelet Volume 6.2
[2016-12-16] MEDS: metFORMIN 500 MG TAB PO SCH (06:41)
--- NOTE | 2016-12-16 08:32 | CC ---
DATE OF SERVICE: Mr. Ennis is a 71-year-old male with a known history of hypertension, hyperlipidemia, diabetes mellitus, history of coronary artery disease, who presented with symptoms of unstable angina. He had no evidence of EKG or enzymatic changes but because of the above symptoms, recommendation made regarding cardiac catheterization. The procedure as well as the risks and complications were discussed with the patient who is in full understanding and agreement. PROCEDURE: Patient was brought to the [facility] in fasting semi-sedated state after receiving fentanyl and Benadryl and after achieving moderate conscious sedated state, using Xylocaine anesthesia and Seldinger technique, a 6 Kiswahili sheath was introduced in the right radial artery. Selective right and left coronary angiography was performed using 5 Kiswahili 3-1/2 Bend right He catheter. Multiple views of the right coronary artery including hemiaxial views were obtained. Following that, a 5 Kiswahili tight pigtail catheter was introduced into the left ventricle and a 30 degree NEELY view of the left ventricle was obtained. Following that, catheters were removed. Images were reviewed. Of note, the patient received intra-arterial verapamil. FINDINGS: LEFT MAIN: This is a large-size vessel bifurcating into left circumflex, left anterior descending artery, left main coronary artery without any significant obstructive coronary artery disease. LEFT ANTERIOR DESCENDING ARTERY: This is a large-size vessel coursing to the apex with a wraparound apex segment, giving rise to a large diagonal branch. The proximal stented segment is patent, has a 30% to 40% plaque distally. In the mid segment there is an eccentric 50% plaque. Beyond that, the vessel is smaller in caliber. LEFT CIRCUMFLEX: This is a large nondominant vessel, giving rise to a large obtuse marginal branch. In the proximal segment of the obtuse marginal branch there is a 95% lesions. The rest of the vessel has no high-grade stenosis. RIGHT CORONARY ARTERY: This is a large dominant vessel, bifurcating distally into PDA and posterolateral segmental branches. The right coronary artery has diffuse intimal disease in the proximal mid segment. After the acute marginal branch, it has an area of stenosis up to 95%. The rest of the vessel has no high-grade stenosis. LEFT VENTRICULOGRAM: Left ventriculogram is performed in 30 degree NEELY view and revealed a normal left ventricular size and systolic function. Ejection fraction is 55%. There was no significant mitral regurgitation. HEMODYNAMICS: There was no gradient across the aortic valve. The left ventricular end-diastolic pressure was 14 to 15 mmHg. CONCLUSION: 1. Critical stenosis involving the proximal obtuse marginal branch. 2. Significant stenosis in the mid right coronary artery. 3. Mild to moderate disease in the left anterior descending. 4. Normal left ventricular size and systolic function. RECOMMENDATION: In view of the findings and anatomy, I have recommended proceeding with angioplasty and stenting, the procedure as well as risk and complications were discussed with the patient and he is in full understanding and agreement.
--- NOTE | 2016-12-16 08:46 | PTCA ---
DATE OF SERVICE: Mr. Ennis is a 71-year-old male with known history of hypertension, hyperlipidemia, diabetes mellitus, history of coronary artery disease, who presented with unstable angina, underwent cardiac catheterization, was found to have critical stenosis involving the proximal first obtuse marginal branch as well as the proximal and mid right coronary artery. In view of that, recommendation made regarding angioplasty and stenting, the procedure as well as the risks and complications were discussed with the patient who is in full understanding and agreement. PROCEDURE: Using 6 Martiniquais 3-1/2 Bend FL4 guiding catheter, after cannulating the left main, a 0.014 Best medium weight J-wire was advanced across the lesion, positioned distally then a 2.5 x 12 mm Trek balloon was advanced, one inflation at 8 atmospheres was done. Following that, the balloon was removed and a 3.0 x 15 Xience Alpine stent was deployed, postdilated at 14 atmospheres. After the last inflation, after appropriate wait, the balloon and the guidewire were withdrawn back in the guiding catheter. Images were obtained, repeated. Those images reveal stable successful stenting. At that point, the guiding catheter, the balloon and the guidewire were removed. An attempt to cannulate the right coronary artery using a 6 Martiniquais FR4 guiding catheter was unsuccessful, that catheter was removed and a 6 Martiniquais Ikari right 3.75 was advanced. After cannulating the right coronary artery, a 0.014 Best medium weight J-wire was advanced across the lesion, positioned distally. Following that, another 0.014 balanced medium J-wire was advanced in the tori fashion and subsequently the 2.5 x 12 mm Trek balloon was advanced and one inflation at 8 atmospheres was done. Following that, the balloon was removed. Following that, the 2.5 x 23 mm Xience Alpine stent was deployed, postdilated at 14 atmospheres. Following that, the balloon was removed and the attempt to advance a 2.75 x 18 mm Xience Alpine stent proximal to the percent were unsuccessful. Subsequently, the stent was removed and the guideline was advanced and with the help of the guideline, the stent was advanced, deployed and postdilated at 16 atmospheres. After the last inflation, after appropriate wait, the balloon and the guideline were withdrawn back in the guiding catheter. Images were obtained, repeated. Those images reveal stable successful stenting. At that point, the guiding catheter, the balloon and the guidewire were removed. The sheath was removed. Hemostasis was obtained with deployment of a TR band. There were no immediate complication. Patient was returned to his room in stable condition. Of note, the patient received Angiomax per protocol as well as oral loading dose of clopidogrel. He had chest discomfort with the inflation that resulted in the procedure. The duration of procedure is 87 minutes. RESULTS: 1. Successful stenting of the proximal first obtuse marginal branch with reduction in stenosis from 95% to 0%. 2. Successful stenting of the proximal and mid right coronary artery with reduction in stenosis from 95% to 0%. RECOMMENDATION: Patient will be continued on aspirin, Plavix, beta sanket, JOEL inhibitor and statin. The importance of dual-antiplatelet treatment was discussed with the patient and his family and they are in full understanding and agreement. TIMOTHY
--- NOTE | 2016-12-16 08:50 | LTR ---
December 15, 2016 RE: Abdoulaye Ennis Dear Dr. Cheatham; I had the pleasure to perform cardiac catheterization and coronary angioplasty and stenting on Mr. Ennis at [facility] on December 15, 2016 and a full copy of the procedure note will be forwarded to you. In brief, he underwent successful stenting of the first obtuse marginal branch as well as mid right coronary artery using a drug-eluting stent. I am hopeful that this procedure will stabilized his status and thank you again for allowing me to participate in this patient's care. Please feel free to call for any questions. Sincerely yours, WADE SULLIVAN MD
[2016-12-16] MEDS ORDERED: ATORVASTATIN 40 MG TAB PO SCH (09:00)
[2016-12-16] MEDS ORDERED: ASPIRIN 81 MG CHEW PO SCH (09:00)
[2016-12-16] MEDS: GLIMEPIRIDE 1 MG TAB PO SCH (09:15)
[2016-12-16] MEDS: VERAPAMIL SR 180 MG TABLET.ER PO SCH (09:15)
[2016-12-16] MEDS: METOPROLOL TARTRATE 50 MG TAB PO SCH (09:15)
[2016-12-16] MEDS: GABAPENTIN 100 MG CAP PO SCH (09:15)
[2016-12-16] MEDS: LOSARTAN-HCTZ 50-12.5 MG 1 EACH TAB PO SCH (09:15)
[2016-12-16] MEDS: MULTIVITAMINS, THERA 1 EACH TAB PO SCH (11:20)
[2016-12-16] MEDS: CHOLECALCIFEROL 1,000 UNIT TAB PO SCH (11:20)
[2016-12-16 11:23] VITALS: BP 129/74; PULSE 67; TEMP 97.8
[2016-12-16 11:58] LABS: Glucose,Whole Blood 123 mg/dL (75-99)
[2016-12-16] MEDS ORDERED: CLOPIDOGREL 75 MG TAB PO SCH (12:00)
--- NOTE | 2016-12-16 15:28 | P.PN ---
Subjective Principal diagnosis: Stenting of the RCA and OM This is a 71-year-old gentleman who follows with Dr. Calzada regularly, came to the hospital with complaints of sudden onset of discomfort in the throat associated with shortness of breath and radiation to the left arm. This happened while patient was sitting in the chair and trying to get up. The pain was unrelenting and paramedics were called. He was advised to take couple of aspirins and subsequently was brought to the emergency room. By the time he came to the emergency room is pains improved somewhat. Patient was taken to the cardiac catheterization yesterday by Dr. Calzada where he underwent angioplasty and stenting of the RCA and OM. EKG this morning shows normal sinus rhythm with no changes from post-PCI. Hemodynamically stable. Denies any chest pain or difficulty in breathing. Objective - Vital Signs Vital signs: Vital Signs Temp 97.8 F 12/16/16 11:22 Pulse 67 12/16/16 11:22 Resp 18 12/16/16 11:22 BP 129/74 12/16/16 11:22 Pulse Ox 95 12/16/16 11:22 Intake & Output 12/15/16 12/16/16 12/16/16 18:59 06:59 18:59 Intake Total 414 540 360 Output Total 1150 200 Balance -736 340 360 Weight 122.2 kg Intake: IV 294 300 0.9@20 300 Oral 120 240 360 Output: Urine 1150 200 Other: Voiding Method Toilet Toilet Toilet # Voids 1 - Exam GENERAL EXAM: Patient is alert and oriented and doesn't appear to be in any acute distress HEENT: Normocephalic. Normal reaction of pupils, equal size, normal range of extraocular motion. No erythema or exudates in the throat. NECK: No masses, no nuchal rigidity. CHEST: No chest wall deformity. LUNGS: Equal air entry with no crackles or wheeze. HEART: S1 and S2 normal with no audible mumurs or gallops. Regular rhythm, femorals equal on both sides.. ABDOMEN: No hepatosplenomegaly, normal bowel sounds, no guarding or rigidity. SKIN: No rashes CENTRAL NERVOUS SYSTEM: No focal deficits. EXTREMITIES: No cyanosis, clubbing or edema. Radial site clean and dry, good distal pulse. - Labs CBC & Chem 7: 12/16/16 05:48 12/16/16 05:48 Labs: Abnormal Lab Results - Last 24 Hours (Table) 12/15/16 12/16/16 12/16/16 Range/Units 16:26 05:48 05:59 Glucose 112 H (74-99) mg/dL POC Glucose (mg/dL) 157 H 119 H (75-99) mg/dL 12/16/16 Range/Units 11:51 Glucose (74-99) mg/dL POC Glucose (mg/dL) 123 H (75-99) mg/dL Assessment and Plan (1) Hyperlipemia Status: Acute (2) Diabetes mellitus Status: Acute (3) Hypertension Status: Acute Plan: Patient underwent angioplasty with stenting of the right coronary artery and OM. He may be able to be discharged home today from cardiology's follow-up appointment will be made with Dr. Calzada on Monday at 245. Patient will be discharged home on aspirin 81 mg daily, Lipitor 40 mg daily, Plavix 75 mg daily , Lasix 20 mg daily, Hyzaar 50/12.5 mg daily, Lopressor 100 mg by mouth twice a day, Isoptin 360 mg daily and sublingual nitroglycerin as needed for chest pain. DNP note has been reviewed, I agree with a documented findings and plan of care. Patient was seen and examined.
== END 2016-12-16 14:08 | disposition home or self-care (01) ==
LOC: EC 11:26 → 3OBS 12:06 → 6SEL 12-15 12:05
PROVIDERS: ADMIT Family Medicine; ATTEND Family Medicine
DX: I25.10 Atherosclerotic heart disease of native coronary artery without angina pectoris (principal); I25.2 Old myocardial infarction; E78.5 Hyperlipidemia, unspecified; I10 Essential (primary) hypertension; Z96.641 Presence of right artificial hip joint; Z95.5 Presence of coronary angioplasty implant and graft; Z87.891 Personal history of nicotine dependence; Z79.82 Long term (current) use of aspirin; Z79.84 Long term (current) use of oral hypoglycemic drugs; Z82.49 Family history of ischemic heart disease and other diseases of the circulatory system; Z79.899 Other long term (current) drug therapy
CPT/HCPCS: 93458; 96365; 96376; 99291; C9600; 36415; 71020; 80048; 80053; 80061; 82550; 82553; 83036; 83690; 83735; 84484; 85025; 85049; 85610; 85730; 93005; 96366; 96375

== ENCOUNTER → 2016-12-30 | Outpatient (CLI) | payer MEDICARE ==
[2016-12-30 09:12] LABS: ALT 48 U/L (21-72); AST 26 U/L (17-59); Alkaline Phosphatase 92 U/L (38-126); Anion Gap 13 mmol/L; Blood Urea Nitrogen 18 mg/dL (9-20); Calcium 9.6 mg/dL (8.4-10.2); Carbon Dioxide 25 mmol/L (22-30); Chloride 106 mmol/L (98-107); Cholesterol 141 mg/dL (<200); Glucose 119 mg/dL (74-99); HDL Cholesterol 47 mg/dL (40-60); Non-African American GFR(MDRD) >60 (>60 ml/min/1.73 sqM); Potassium 3.9 mmol/L (3.5-5.1); Sodium 144 mmol/L (137-145); Total Bilirubin 0.8 mg/dL (0.2-1.3); Total Protein 7.3 g/dL (6.3-8.2); Triglycerides 165 mg/dL (<150)
== END | disposition home or self-care (01) ==
LOC: LABWHC1 08:25
PROVIDERS: ATTEND Internal Medicine Interventional Cardiology
DX: E78.2 Mixed hyperlipidemia (principal)
CPT/HCPCS: 36415; 80053; 80061

== ENCOUNTER → 2017-05-15 | Outpatient (CLI) | payer MEDICARE ==
[2017-05-15 10:58] LABS: ALT 63 U/L (21-72); AST 27 U/L (17-59); Cholesterol 153 mg/dL (<200); HDL Cholesterol 46 mg/dL (40-60)
== END | disposition home or self-care (01) ==
LOC: LABWHC1 09:34
PROVIDERS: ATTEND Internal Medicine Interventional Cardiology
DX: E78.2 Mixed hyperlipidemia (principal)
CPT/HCPCS: 36415; 80061; 84450; 84460

== ENCOUNTER → 2017-09-01 | Outpatient (CLI) | payer MEDICARE ==
[2017-09-01 19:12] LABS: ALT 101 U/L (21-72); AST 53 U/L (17-59); Albumin 4.4 g/dL (3.5-5.0); Alkaline Phosphatase 96 U/L (38-126); Amylase 57 U/L (30-110); Anion Gap 14 mmol/L; Blood Urea Nitrogen 27 mg/dL (9-20); Calcium 10.1 mg/dL (8.4-10.2); Carbon Dioxide 29 mmol/L (22-30); Chloride 100 mmol/L (98-107); GGT 25 U/L (15-73); Glucose 91 mg/dL (74-99); Lipase 90 U/L (23-300); Potassium 3.5 mmol/L (3.5-5.1); Sodium 143 mmol/L (137-145); Total Bilirubin 0.7 mg/dL (0.2-1.3); Total Protein 7.1 g/dL (6.3-8.2)
[2017-09-02 01:21] LABS: Hepatitis A Antibody IgM Non-Reactive (Non-Reactive); Hepatitis B Core IgM Non-Reactive (Non-Reactive)
--- NOTE | 2017-09-02 14:57 | CT ---
EXAMINATION TYPE: CT brain wo con DATE OF EXAM: 09/01/2017 COMPARISON: Prior CT brain 09/28/2016 HISTORY: weakness and increased confusion CT DLP: 1269 mGycm Automated exposure control for dose reduction was used. Helical acquisition through the brain. FINDINGS: There is no significant interval change. No hemorrhage or hydrocephalus. Cortical atrophy is stable. Periventricular white matter demyelination is also unchanged. Calvarium is intact. Cerumen present in the external auditory canal on the right. Cerebral vascular calcifications are noted. Paranasal sinu ses no longer show inflammatory change. The orbits show symmetric appearance. IMPRESSION: IMPROVEMENT IN SINUS DISEASE. STABLE BRAIN CT. PROBABLE AGE-RELATED CHANGES.
--- NOTE | 2017-09-03 14:03 | US ---
EXAMINATION TYPE: US carotid duplex BILAT DATE OF EXAM: 09/01/2017 COMPARISON: NONE CLINICAL HISTORY: R25.1 Tremor, F44.89 Confusion. EXAM MEASUREMENTS: RIGHT: Peak Systolic Velocity (PSV) cm/sec ----- Right CCA: 61.2 ----- Right ICA: 51.2 ----- Right ECA: 8.8 ICA/CCA ratio: 0.83 RIGHT: End Diastole cm/sec ----- Right CCA: 10.3 ----- Right ICA: 15.7 ----- Right ECA: 8.8 LEFT: Peak Systolic Velocity (PSV) cm/sec ----- Left CCA: 66.6 ----- Left ICA: 40.7 ----- Left ECA: 66.3 ICA/CCA ratio: 0.6 LEFT: End Diastole cm/sec ----- Left CCA: 14.9 ----- Left ICA: 12.5 ----- Left ECA: 8.2 VERTEBRALS (direction of flow): Right Vertebral: Antegrade Left Vertebral: Antegrade Rhythm: Normal Large thick neck, minimal atherosclerotic changes with no significant velocity elevations. IMPRESSION: No sonographic hemodynamically significant stenosis within either carotid arterial syste m.
== END | disposition home or self-care (01) ==
LOC: RADUSMAIN 17:48
PROVIDERS: ATTEND Family Medicine
DX: R25.1 Tremor, unspecified (principal); F44.89 Other dissociative and conversion disorders; R79.89 Other specified abnormal findings of blood chemistry
CPT/HCPCS: 36415; 70450; 80053; 80074; 82140; 82150; 82977; 83690; 93880

== ENCOUNTER → 2017-09-05 | Outpatient (CLI) | payer MEDICARE ==
--- NOTE | 2017-09-06 07:48 | ECHOF ---
Referral Reason:I10 Hypertension MEASUREMENTS -------- HEIGHT: 172.7 cm WEIGHT: 117.9 kg BP: RVIDd: 3.1 cm (< 3.3) IVSd: 1.1 cm (0.6 - 1.1) LVIDd: 5.6 cm (3.9 - 5.3) LVPWd: 1.3 cm (0.6 - 1.1) IVSs: 1.5 cm LVIDs: 3.0 cm LVPWs: 1.5 cm Ao Diam: 3.7 cm (2.0 - 3.7) AV Cusp: 2.4 cm (1.5 - 2.6) LA Diam: 2.8 cm (2.7 - 3.8) MV EXCURSION: 13.601 mm (> 18.000) MV EF SLOPE: 79 mm/s (70 - 150) EPSS: 0.8 cm MV E Landry: 0.63 m/s MV DecT: 249 ms MV A Landry: 0.79 m/s MV E/A Ratio: 0.81 FINDINGS -------- Sinus rhythm. This was a technically difficult study with suboptimal views. The left ventricular size is normal. There is mild concentric left ventricular hypertrophy. Overa ll left ventricular systolic function is normal with, an EF between 55 - 60 %. The right ventricle is normal in size and function. The left atrium was not well visualized. The right atrium was not well visualized. 3 ml of Lumason was utilized for enhancement of images. Aortic valve is trileaflet and is mildly thickened. There is no evidence of aortic regurgitation. There is no evidence of aortic stenosis. The mitral valve leaflets are mildly thickened. There is trace to mild mitral regurgitation. The tricuspid valve was not well visualized. Trace tricuspid regurgitation present. Right ventric ular systolic pressure is normal at < 35 mmHg. There is no evidence of pulmonary hypertension. The pulmonic valve was not well visualized. The aortic root size is normal. IVC Not well visulized. The pericardium is normal. There is no pericardial effusion. CONCLUSIONS -------- 1. Sinus rhythm. 2. This was a technically difficult study with suboptimal views. 3. The left ventricular size is normal. 4. There is mild concentric left ventricular hypertrophy. 5. Overall left ventricular systolic function is normal with, an EF between 55 - 60 %. 6. The left atrium was not well visualized. 7. The right atrium was not well visualized. 8. 3 ml of Lumason was utilized for enhancement of images. 9. Aortic valve is trileaflet and is mildly thickened. 10. The mitral valve leaflets are mildly thickened. 11. There is trace to mild mitral regurgitation. 12. The tricuspid valve was not well visualized. 13. Trace tricuspid regurgitation present. 14. Right ventricular systolic pressure is normal at < 35 mmHg. 15. There is no evidence of pulmonary hypertension. 16. The pulmonic valve was not well visualized. 17. The aortic root size is normal. 18. IVC Not well visulized. 19. There is no pericardial effusion. [employer] SUPERVISOR: Shmuel Zhou RDCS
== END | disposition home or self-care (01) ==
LOC: RADECHMAIN 14:42
PROVIDERS: ATTEND Family Medicine
DX: I08.0 Rheumatic disorders of both mitral and aortic valves (principal); I10 Essential (primary) hypertension
CPT/HCPCS: C8929; Q9950; 93306

== ENCOUNTER → 2017-09-28 | Outpatient (CLI) | payer MEDICARE ==
[2017-09-28 10:12] LABS: ALT 111 U/L (21-72); AST 46 U/L (17-59); Albumin 4.3 g/dL (3.5-5.0); Alkaline Phosphatase 84 U/L (38-126); Amylase 40 U/L (30-110); Anion Gap 12 mmol/L; Blood Urea Nitrogen 17 mg/dL (9-20); Calcium 9.6 mg/dL (8.4-10.2); Carbon Dioxide 29 mmol/L (22-30); Chloride 101 mmol/L (98-107); GGT 31 U/L (15-73); Glucose 131 mg/dL (74-99); Lipase 49 U/L (23-300); Sodium 142 mmol/L (137-145); Total Bilirubin 0.8 mg/dL (0.2-1.3)
[2017-09-28 10:24] LABS: T4, Free (Free Thyroxine) 0.91 ng/dL (0.78-2.19)
[2017-09-28 15:35] LABS: Protein, Total 6.7 g/dL (6.2-8.2)
[2017-09-28 15:44] LABS: Vitamin D 25 Hydroxy 20.2 ng/mL (30.0-100.0)
== END | disposition home or self-care (01) ==
LOC: LABWHC1 09:17
PROVIDERS: ATTEND Psychiatry & Neurology Neurology
DX: G62.9 Polyneuropathy, unspecified (principal); R41.3 Other amnesia; R74.8 Abnormal levels of other serum enzymes
CPT/HCPCS: 36415; 80053; 82140; 82150; 82306; 82607; 82747; 82977; 83690; 84165; 84439; 84443; 85652; 86334

== ENCOUNTER → 2018-12-31 | Outpatient (CLI) | payer MEDICARE ==
[2018-12-31 14:52] LABS: Blood Urea Nitrogen 23 mg/dL (9-20)
--- NOTE | 2018-12-31 16:02 | CT ---
EXAMINATION TYPE: CT iac w con DATE OF EXAM: 12/31/2018 COMPARISON: MR internal auditory canal from outside institution 12/11/2018 HISTORY: LEFT SIDE HEARING LOSS CT DLP: 142.7 mGycm Automated exposure control for dose reduction was used. CONTRAST: CT scan of the IACs is performed with IV Contrast, patient injected with 100 mL of Isovue 300. FINDINGS: The external auditory canals are patent bilaterally. Mastoid air cells show no evidence of abnormal opacification bilaterally. The middle ear ossicles are symmetric and unremarkable. There is no evidence of suspicious surrounding soft tissue density to suggest cholesteatoma. The scutum is preserved bilaterally. The cochlea and the semicircular canals are symmetric and unremarkable. Ves tibular aqueduct and internal carotid canal appear unremarkable. Temporomandibular joints are mainta ined bilaterally. Some mucosal thickening present within the maxillary sinuses, there may be polyp p resent in the antrum on the right, inflammatory change also noted in the sphenoid sinus IMPRESSION: No significant abnormality seen to account for patient's symptoms. Mild sinus disease.
== END | disposition home or self-care (01) ==
LOC: RADCTMAIN 14:03
PROVIDERS: ATTEND Otolaryngology
DX: H91.92 Unspecified hearing loss, left ear (principal); H93.3X2 Disorders of left acoustic nerve
CPT/HCPCS: 82565; 84520; 70481; 36415; Q9967

== ENCOUNTER → 2019-04-05 | Outpatient (CLI) | payer MEDICARE ==
--- NOTE | 2019-04-05 12:57 | XR ---
EXAMINATION TYPE: XR chest 2V DATE OF EXAM: 04/05/2019 COMPARISON: 12/08/2016 HISTORY: Cough and congestion for 3 weeks TECHNIQUE: Frontal and lateral views of the chest are obtained. FINDINGS: There is no focal air space opacity, pleural effusion, or pneumothorax seen. Right midlung subsegmental atelectasis is present. Minimal strand-like left basilar subsegmental atelectasis near the costophrenic a cardiophrenic angles. The cardiac silhouette size is mildly enlarged. The osseou s structures are intact. Moderate multilevel degenerative changes of the thoracic spine with bridging anterior osteophytes suggesting diffuse idiopathic skeletal hyperostosis. Degenerative changes of th e right acromioclavicular joint are also seen. IMPRESSION: Minimal multifocal left basilar and right midlung subsegmental atelectasis. No focal con solidation to suggest pneumonia. Stable mildly enlarged cardiac mediastinal silhouette.
== END | disposition home or self-care (01) ==
LOC: RADXRMAIN 12:25
PROVIDERS: ATTEND Family Medicine
DX: J98.11 Atelectasis (principal); I51.7 Cardiomegaly
CPT/HCPCS: 71046

== ENCOUNTER → 2019-09-24 | Outpatient (CLI) | payer MEDICARE ==
[2019-09-24 14:05] LABS: HCT 47.9 % (39.0-53.0); HGB 16.3 gm/dL (13.0-17.5); MCH 33.1 pg (25.0-35.0); MCV 97.3 fL (80.0-100.0); Mean Platelet Volume 6.7; Platelet Count 230 k/uL (150-450); RBC 4.92 m/uL (4.30-5.90); RDW 13.7 % (11.5-15.5); WBC 7.1 k/uL (3.8-10.6)
[2019-09-24 14:43] LABS: Erythrocyte Sedimentation Rate 10 mm/hr (0-15)
[2019-09-25 07:39] LABS: Free Kappa Lt Chain Qnt, Serum 1.49 mg/dL (0.33-1.94)
[2019-09-25 13:54] LABS: C-ANCA <1:20 Titer (<1:20)
== END | disposition home or self-care (01) ==
LOC: LABWHC1 12:47
PROVIDERS: ATTEND Psychiatry & Neurology Neurology
DX: G20 Parkinson's disease (principal); E11.42 Type 2 diabetes mellitus with diabetic polyneuropathy
CPT/HCPCS: 36415; 82607; 83883; 84166; 85027; 85652; 86038; 86160; 86162; 86255; 86334

== ENCOUNTER 2019-12-13 18:16 | Emergency (ER) | payer MEDICARE ==
[2019-12-13 18:24] VITALS: RESP 18
[2019-12-13] MEDS ORDERED: ONDANSETRON 4 MG/2 ML VIAL IVP STA (18:40)
[2019-12-13] MEDS ORDERED: MORPHINE SULFATE 2 MG/ML SYRINGE IVP STA (18:40)
[2019-12-13] MEDS ORDERED: SODIUM CHLORIDE 0.9% 1,000 ML IV STA (18:40)
--- NOTE | 2019-12-13 18:46 | ED ---
Abdominal Pain HPI - General Chief Complaint: Abdominal Pain Stated Complaint: RLQ pain Time Seen by Provider: 12/13/19 18:31 Source: patient Mode of arrival: wheelchair Limitations: no limitations - History of Present Illness Initial Comments: Patient is a 74-year-old male presenting to emergency Department with complaints of right-sided abdominal pain 3 days. Patient reports associated nausea and 3 episodes diarrhea as well. Patient states his appetite has been decreased for the last few days as well. He admits to previous exploratory laparotomy, no other abdominal surgeries. He denies history of kidney stones. He denies fever, chills, cough, chest pain. He states he's been taking Tylenol at home that does not help with this pain. He denies any recent antibiotic use. Patient states he came in today because his pain has been increasing. Patient has no other complaints at this time. Upon arrival to the ER, his vital signs are stable. - Related Data Home Medications Medication Instructions Recorded Confirmed Cholecalciferol [Vitamin D3 (25 1,000 unit PO DAILY@1000 07/01/15 12/13/19 Mcg = 1000 Iu)] Metoprolol Tartrate [Lopressor] 100 mg PO BID@1000,219907/01/15 12/13/19 Multivitamin [Men's Multi-Vitamin] 1 tab PO DAILY@1000 07/01/15 12/13/19 Verapamil HCl [Verapamil ER] 180 mg PO BID@1000,219907/01/15 12/13/19 Aspirin EC [Ecotrin Low Dose] 81 mg PO DAILY 09/28/16 12/13/19 metFORMIN HCL [Glucophage] 1,000 mg PO BID@1000,219912/14/16 12/13/19 Acetaminophen Tab [Tylenol] 650 mg PO ONCE PRN 12/13/19 12/13/19 Atorvastatin [Lipitor] 40 mg PO DAILY@1000 12/13/19 12/13/19 Bacillus Coagulans/Inulin 1 cap PO DAILY@1000 12/13/19 12/13/19 [Probiotic with Prebiotic Cap] Carbidopa-Levodopa 25-100 mg 2 tab PO TID@0900,1300,1700 12/13/19 12/13/19 [Sinemet 25-100 mg] Clopidogrel [Plavix] 75 mg PO DAILY@1000 12/13/19 12/13/19 DULoxetine HCL [Cymbalta] 60 mg PO BID@1000,2200 12/13/19 12/13/19 Donepezil [Aricept] 10 mg PO DAILY@1700 12/13/19 12/13/19 Glimepiride [Amaryl] 1 mg PO BID@1000,2200 12/13/19 12/13/19 Hydrochlorothiazide 25 mg PO DAILY@1000 12/13/19 12/13/19 Losartan Potassium [Cozaar] 100 mg PO DAILY@1000 12/13/19 12/13/19 Previous Rx's Medication Instructions Recorded Nitroglycerin Sl Tabs [Nitrostat] 0.4 mg SUBLINGUAL Q5M PRN #25 tab 12/16/16 Allergies Allergy/AdvReac Type Severity Reaction Status Date / Time No Known Allergies Allergy Verified 12/13/19 20:31 Review of Systems ROS Statement: Those systems with pertinent positive or pertinent negative responses have been documented in the HPI. ROS Other: All systems not noted in ROS Statement are negative. Past Medical History Past Medical History: Coronary Artery Disease (CAD), Diabetes Mellitus, Hyperlipidemia, Hypertension, Myocardial Infarction ([place]), Osteoarthritis (OA) Additional Past Medical History / Comment(s): NIDDM type II, vertigo in September 2016 thought to be labyrinthitis-also had elevated troponins-stress test done and was negative, arthritis multiple joints. Last Myocardial Infarction Date:: 1996 History of Any Multi-Drug Resistant Organisms: None Reported Past Surgical History: Heart Catheterization With Stent, Joint Replacement, Tonsillectomy Additional Past Surgical History / Comment(s): 1996 PCI with stent, L/RT HIP REPLACEMENTS, EXPLORATORY LAP with spleen injury, EPIDURAL INJ. in back, lumbar fusion, colonoscopy, vasectomy. Past Anesthesia/Blood Transfusion Reactions: Previous Problems w/ Anesthesia Additional Past Anesthesia/Blood Transfusion Reaction / Comment(s): STATES POST EPIDURAL INJ HAD A HARD TIME WAKING UP.pt /family stated pt can't take any narcotics-becomes very confused. pt can take tylenol extra strength for pain. Date of Last Stent Placement:: 1996 Past Psychological History: No Psychological Hx Reported Smoking Status: Former smoker Past Alcohol Use History: None Reported Past Drug Use History: None Reported - Past Family History Mother Family Medical History: Congestive Heart Failure (CHF), Hypertension Additional Family Medical History / Comment(s): bipolar Father Family Medical History: Coronary Artery Disease (CAD), Myocardial Infarction ([place]) General Exam - General Exam Comments Initial Comments: GENERAL: Well-appearing, well-nourished and in no acute distress. HEAD: Atraumatic, normocephalic. EYES: Pupils equal round and reactive to light, extraocular movements intact, sclera anicteric, conjunctiva are normal. ENT: TMs normal, nares patent, oropharynx clear without exudates. Moist mucous membranes. NECK: Normal range of motion, supple without lymphadenopathy or JVD. LUNGS: Breath sounds clear to auscultation bilaterally and equal. No wheezes rales or rhonchi. HEART: Regular rate and rhythm without murmurs, rubs or gallops. ABDOMEN: Tender to palpation right upper and lower quadrant as well as mild left lower quadrant pain. Soft, hyperactive bowel sounds. No guarding, no rebound. No masses appreciated. : Deferred EXTREMITIES: Normal range of motion, no pitting or edema. No clubbing or cyanosis. NEUROLOGICAL: Normal speech, normal gait. PSYCH: Normal mood, normal affect. SKIN: Warm, Dry, normal turgor, no rashes or lesions noted. Limitations: no limitations Course Vital Signs 12/13/19 12/13/19 12/13/19 18:20 19:07 20:04 Temperature 97.9 F Pulse Rate 69 63 62 Respiratory 18 18 18 Rate Blood Pressure 120/73 111/59 111/66 O2 Sat by Pulse 96 94 L 94 L Oximetry 12/13/19 20:47 Temperature 98.8 F Pulse Rate Respiratory Rate Blood Pressure O2 Sat by Pulse Oximetry Medical Decision Making - Medical Decision Making Patient is 74-year-old male with right-sided abdominal pain 3 days. His vitals are stable, afebrile. Lab work shows normal white count at 10.1 slight increase in BUN/creatinine 29, 1.30. Lactic acid is 2.8, lipase was normal. Urine shows moderate amount of blood, small amount of leukocyte Estrace. Computed tomography scan of the abdomen shows an obstructing 0.5 cm proximal right ureteral stone with mild right hydronephrosis. Patient was given pain control, Zofran, fluids. He reports improvement in his symptoms. I discussed these findings with the patient. He is stable for discharge. He was given referral to urology. Patient is agreement with this plan of care. Return parameters were discussed with the patient and he verbalized understanding. Case discussed with Dr. Webber. - Lab Data Result diagrams: 12/13/19 19:05 12/13/19 19:05 Lab Results 12/13/19 12/13/19 12/13/19 Range/Units 19:05 19:05 19:05 WBC 10.1 (3.8-10.6) k/uL RBC 4.58 (4.30-5.90) m/uL Hgb 15.1 (13.0-17.5) gm/dL Hct 45.0 (39.0-53.0) % MCV 98.2 (80.0-100.0) fL MCH 32.9 (25.0-35.0) pg MCHC 33.6 (31.0-37.0) g/dL RDW 13.6 (11.5-15.5) % Plt Count 265 (150-450) k/uL Neutrophils % 79 % Lymphocytes % 12 % Monocytes % 5 % Eosinophils % 3 % Basophils % 1 % Neutrophils # 7.9 H (1.3-7.7) k/uL Lymphocytes # 1.2 (1.0-4.8) k/uL Monocytes # 0.5 (0-1.0) k/uL Eosinophils # 0.3 (0-0.7) k/uL Basophils # 0.1 (0-0.2) k/uL PT 10.3 (9.0-12.0) sec INR 1.0 (<1.2) APTT 24.4 (22.0-30.0) sec Sodium (137-145) mmol/L Potassium (3.5-5.1) mmol/L Chloride (98-107) mmol/L Carbon Dioxide (22-30) mmol/L Anion Gap mmol/L BUN (9-20) mg/dL Creatinine (0.66-1.25) mg/dL Est GFR (CKD-EPI)AfAm (>60 ml/min/1.73 sqM) Est GFR (CKD-EPI)NonAf (>60 ml/min/1.73 sqM) Glucose (74-99) mg/dL Lactic Ac Sepsis Rflx Plasma Lactic Acid Maicol (0.7-2.0) mmol/L Calcium (8.4-10.2) mg/dL Magnesium (1.6-2.3) mg/dL Total Bilirubin (0.2-1.3) mg/dL AST (17-59) U/L ALT (4-49) U/L Alkaline Phosphatase (38-126) U/L Total Protein (6.3-8.2) g/dL Albumin (3.5-5.0) g/dL Amylase (30-110) U/L Lipase (23-300) U/L Urine Color Yellow Urine Appearance Cloudy (Clear) Urine pH 5.5 (5.0-8.0) Ur Specific [place] 1.029 (1.001-1.035) Urine Protein 1+ H (Negative) Urine Glucose (UA) Negative (Negative) Urine Ketones Trace H (Negative) Urine Blood Moderate H (Negative) Urine Nitrite Negative (Negative) Urine Bilirubin Negative (Negative) Urine Urobilinogen 2.0 (<2.0) mg/dL Ur Leukocyte Esterase Small H (Negative) Urine RBC 80 H (0-5) /hpf Urine WBC 16 H (0-5) /hpf Ur Squamous Epith Cells 3 (0-4) /hpf Hyaline Casts 4 H (0-2) /lpf Urine Mucus Many H (None) /hpf 12/13/19 12/13/19 12/13/19 Range/Units 19:05 19:05 19:36 WBC (3.8-10.6) k/uL RBC (4.30-5.90) m/uL Hgb (13.0-17.5) gm/dL Hct (39.0-53.0) % MCV (80.0-100.0) fL MCH (25.0-35.0) pg MCHC (31.0-37.0) g/dL RDW (11.5-15.5) % Plt Count (150-450) k/uL Neutrophils % % Lymphocytes % % Monocytes % % Eosinophils % % Basophils % % Neutrophils # (1.3-7.7) k/uL Lymphocytes # (1.0-4.8) k/uL Monocytes # (0-1.0) k/uL Eosinophils # (0-0.7) k/uL Basophils # (0-0.2) k/uL PT (9.0-12.0) sec INR (<1.2) APTT (22.0-30.0) sec Sodium 137 (137-145) mmol/L Potassium 3.7 (3.5-5.1) mmol/L Chloride 99 (98-107) mmol/L Carbon Dioxide 25 (22-30) mmol/L Anion Gap 13 mmol/L BUN 29 H (9-20) mg/dL Creatinine 1.30 H (0.66-1.25) mg/dL Est GFR (CKD-EPI)AfAm 63 (>60 ml/min/1.73 sqM) Est GFR (CKD-EPI)NonAf 54 (>60 ml/min/1.73 sqM) Glucose 122 H (74-99) mg/dL Lactic Ac Sepsis Rflx Y Plasma Lactic Acid Maicol 2.8 H* (0.7-2.0) mmol/L Calcium 9.3 (8.4-10.2) mg/dL Magnesium 1.8 (1.6-2.3) mg/dL Total Bilirubin 0.9 (0.2-1.3) mg/dL AST 19 (17-59) U/L ALT 7 (4-49) U/L Alkaline Phosphatase 89 (38-126) U/L Total Protein 6.6 (6.3-8.2) g/dL Albumin 3.8 (3.5-5.0) g/dL Amylase <30 L (30-110) U/L Lipase 67 (23-300) U/L Urine Color Urine Appearance (Clear) Urine pH (5.0-8.0) Ur Specific [place] (1.001-1.035) Urine Protein (Negative) Urine Glucose (UA) (Negative) Urine Ketones (Negative) Urine Blood (Negative) Urine Nitrite (Negative) Urine Bilirubin (Negative) Urine Urobilinogen (<2.0) mg/dL Ur Leukocyte Esterase (Negative) Urine RBC (0-5) /hpf Urine WBC (0-5) /hpf Ur Squamous Epith Cells (0-4) /hpf Hyaline Casts (0-2) /lpf Urine Mucus (None) /hpf Disposition Clinical Impression: Right ureteral stone, Right flank pain, Dehydration Disposition: HOME SELF-CARE Condition: Stable Instructions (If sedation given, give patient instructions): Kidney Stones (ED) Additional Instructions: Please return to the Emergency Department if symptoms worsen or any other concerns. Take medications as prescribed. Follow-up with urology as discussed. Is patient prescribed a controlled substance at d/c from ED?: No Referrals: Erick Cheatham MD [Primary Care Provider] - 1-2 days Lul Oscar MD [STAFF PHYSICIAN] - 1-2 days
[2019-12-13 19:18] LABS: Basophils # (A) 0.1 k/uL (0-0.2); Basophils % (A) 1 %; Eosinophils # (A) 0.3 k/uL (0-0.7); Eosinophils % (A) 3 %; HGB 15.1 gm/dL (13.0-17.5); Lymphocytes # (A) 1.2 k/uL (1.0-4.8); Lymphocytes % (A) 12 %; MCH 32.9 pg (25.0-35.0); MCHC 33.6 g/dL (31.0-37.0); MCV 98.2 fL (80.0-100.0); Mean Platelet Volume 6.9; Monocytes # (A) 0.5 k/uL (0-1.0); Monocytes % (A) 5 %; Neutrophils # (A) 7.9 k/uL (1.3-7.7); Neutrophils % (A) 79 %; Platelet Count 265 k/uL (150-450); RBC 4.58 m/uL (4.30-5.90); RDW 13.6 % (11.5-15.5); WBC 10.1 k/uL (3.8-10.6)
[2019-12-13 19:22] LABS: Appearance,Urine Cloudy (Clear); Bilirubin,Urine Negative (Negative); Blood,Urine Moderate (Negative); Color,Urine Yellow; Glucose,Urine (UA) Negative (Negative); Hyaline Casts,Urine 4 /lpf (0-2); Ketones,Urine Trace (Negative); Leukocyte Esterase,Urine Small (Negative); Mucus,Urine Many /hpf; Nitrite,Urine Negative (Negative); PH, Urine 5.5 (5.0-8.0); Protein,Urine 1+ (Negative); RBC,Urine 80 /hpf (0-5); Specific Gravity,Urine 1.029 (1.001-1.035); Squamous Epithelial Cell,Urine 3 /hpf (0-4); WBC,Urine 16 /hpf (0-5)
[2019-12-13 19:28] LABS: Partial Thromboplastin Time 24.4 sec (22.0-30.0); Prothrombin Time 10.3 sec (9.0-12.0)
[2019-12-13 19:32] LABS: ALT 7 U/L (4-49); AST 19 U/L (17-59); African American GFR (CKD) 63 (>60 ml/min/1.73 sqM); Albumin 3.8 g/dL (3.5-5.0); Alkaline Phosphatase 89 U/L (38-126); Anion Gap 13 mmol/L; Blood Urea Nitrogen 29 mg/dL (9-20); Calcium 9.3 mg/dL (8.4-10.2); Carbon Dioxide 25 mmol/L (22-30); Chloride 99 mmol/L (98-107); Glucose 122 mg/dL (74-99); Magnesium 1.8 mg/dL (1.6-2.3); Non-African American GFR(CKD) 54 (>60 ml/min/1.73 sqM); Potassium 3.7 mmol/L (3.5-5.1); Sodium 137 mmol/L (137-145); Total Bilirubin 0.9 mg/dL (0.2-1.3); Total Protein 6.6 g/dL (6.3-8.2)
[2019-12-13 19:35] LABS: Amylase <30 U/L (30-110)
[2019-12-13 20:05] VITALS: BP 111/66; PULSE 62
--- NOTE | 2019-12-13 20:11 | CT ---
EXAMINATION TYPE: CT abdomen pelvis w con DATE OF EXAM: 12/13/2019 COMPARISON: None INDICATION: left sided abdominal pain DLP: 2844.7 mGycm, Automated exposure control for dose reduction was used. CONTRAST: 80cc mL of Isovue 300. Study performed without Oral Contrast TECHNIQUE: Axial images were obtained from above the diaphragm to the pubic rami in the axial plane a t 5 mm thick sections. Reconstructed images are reviewed on the computer in the coronal plane. FINDINGS: Limited CT sections are obtained the lung bases. The lung bases are clear. CT ABDOMEN: Liver: Normal Spleen: Normal Pancreas: Normal Adrenal glands: The adrenal glands are normal. Gallbladder: Normal Kidneys: No masses are evident. There is a mild right hydronephrosis. The proximal ureter is somewhat prominent 2 a 0.5 cm calcification. More distal ureter appears normal. Some mild right perinephric s tranding is present. There may be an additional nonobstructing renal stone within the inferior pole r ight kidney measuring 0.5 cm. There is a large left renal cyst measuring 8.9 cm and 10 [place] uni ts on the anterior inferior left kidney. Aorta: Vascular calcification is within the aorta. Inferior vena cava: Normal. CT PELVIS: Beam hardening artifact from bilateral hip prostheses as well as postsurgical changes with in the lumbar spine cause some limitation at these levels. Loops of bowel within the abdomen and pelvis are normal. Studies performed without oral contrast limiting bowel evaluation. Appendix: Normal as visualized. Urinary bladder: Urinary bladder cannot be well evaluated. Genitourinary structures: Prostate is not visualized Osseous structures: No suspicious lytic or sclerotic lesions are evident. IMPRESSIONS: 1. Obstructing 0.5 cm proximal right ureteral stone with mild right hydronephrosis. 2. Nonobstructing mid right renal calcification measuring 0.5 cm. 3. Left renal cyst. 4. Some limitation due to surgical hardware including bilateral hips and postsurgical changes within the lumbar spine.
[2019-12-13 20:51] VITALS: TEMP 98.8
== END 2019-12-13 20:53 | disposition home or self-care (01) ==
LOC: EC 18:16
DX: N20.1 Calculus of ureter (principal); E86.0 Dehydration; R19.7 Diarrhea, unspecified; I25.10 Atherosclerotic heart disease of native coronary artery without angina pectoris; E11.9 Type 2 diabetes mellitus without complications; I10 Essential (primary) hypertension; I25.2 Old myocardial infarction; M19.90 Unspecified osteoarthritis, unspecified site; Z95.5 Presence of coronary angioplasty implant and graft; Z96.643 Presence of artificial hip joint, bilateral; Z87.891 Personal history of nicotine dependence; Z79.84 Long term (current) use of oral hypoglycemic drugs; Z79.82 Long term (current) use of aspirin; Z79.899 Other long term (current) drug therapy; Z53.29 Procedure and treatment not carried out because of patient's decision for other reasons
CPT/HCPCS: 36415; 80053; 82150; 83605; 83690; 83735; 85025; 85610; 85730; 81001; 87086; 74177; 99284; 96374; 96361 ×2; J2405; Q9967

== ENCOUNTER → 2020-01-08 | Outpatient (CLI) | payer MEDICARE ==
--- NOTE | 2020-01-08 10:45 | CT ---
EXAMINATION TYPE: CT abdomen pelvis wo con DATE OF EXAM: 01/08/2020 HISTORY: Calculus of kidney. Urinary problems for 2.[address] DLP: 1209 mGycm. Automated Exposure Control for Dose Reduction was Utilized. TECHNIQUE: CT scan of the abdomen and pelvis is performed without oral or IV contrast. COMPARISON: CT December 13, 2019 FINDINGS: Within the limitations of a non-contrast study, the following observations are made. LUNG BASES: Redemonstration of patchy bibasilar scarring and/or atelectasis. Redemonstration of coron patricia artery calcification and/or stents in the left circumflex and right coronary artery distribution. Stable cardiomegaly with mild/moderate right atrial and right ventricular dilatation. LIVER/GB: Tiny dependent calcified gallstones in gallbladder activity was 51 redemonstrated. PANCREAS: No significant abnormality is seen. SPLEEN: No significant abnormality is seen. ADRENALS: No significant abnormality is seen. KIDNEYS: Asymmetric diminished size to the right kidney versus left kidney redemonstrated. Interval s uccessful treatment or clearance of the obstructing proximal 5 mm right ureter calculus with resoluti on of right-sided hydronephrosis. Interval clearance or successful treatment of the nonobstructing 5 mm lower pole right renal calculus prior study coronal image 47. There is redemonstration and better visualization due to lack of IV contrast LEFT-sided nephrolithias is involving the lower pole and central pelvis measuring up to 8 mm in size coronal image 56. Additio nal calculi noted coronal images the 7 and 58 inferiorly. Redemonstration of roughly 9 cm simple appe aring exophytic cyst anteriorly lower pole of the left kidney. No left-sided hydronephrosis or obstru cting ureteral calculi. Suboptimal evaluation of bladder due to bilateral hip prosthesis. BOWEL: Some redundancy of the sigmoid colon redemonstrated. No suspicious bowel dilatation. GENITAL ORGANS: Suboptimal evaluation of prostate due to bilateral hip prosthesis. LYMPH NODES: No greater than 1cm abdominal or pelvic lymph nodes are appreciated. OSSEOUS STRUCTURES: Metallic hardware from bilateral hip arthroplasty causes streak artifact limiting evaluation of pelvic structures.0 postsurgical change with intervertebral rods and screws along with artificial disc material transfixing L3-S1 levels bilaterally. Moderate to severe multilevel anterio r and lateral spurring in the lower thoracic spine with preservation of disc spaces. Correlate for DI SH. OTHER: Mild calcified plaque of the distal abdominal aorta extending into iliac branch vessel. IMPRESSION: Interval successful treatment or clearance of the right-sided calculi with resolution of right-sided hydronephrosis. Better visualization nonobstructing left renal calculi. No new left-sided hydronephrosis or obstructing ureteral calculi.
== END | disposition home or self-care (01) ==
LOC: RADCTMAIN 09:56
PROVIDERS: ATTEND Family Medicine
DX: N20.0 Calculus of kidney (principal)
CPT/HCPCS: 74176

== ENCOUNTER 2020-03-06 16:13 | Emergency (ER) | payer MEDICARE ==
[2020-03-06 16:18] VITALS: BP 133/79; PULSE 64; RESP 20; TEMP 98.4
--- NOTE | 2020-03-06 16:28 | ED ---
General Adult HPI - General Chief complaint: Extremity Problem,Nontraumatic Stated complaint: Feet swelling Time Seen by Provider: 03/06/20 16:20 Source: patient, family Mode of arrival: wheelchair Limitations: physical limitation - History of Present Illness Initial comments: Dictation was produced using [employer] dictation software. please excuse any grammatical, word or spelling errors. This patient was cared for during a federal and state declared state of emergency secondary to Covid 19 Chief Complaint: 74-year-old male with cardiac history presents with bilateral lower extremity swelling. History of Present Illness: 74-year-old male who presents today with bilateral lower extremity swelling. He arrives to the emergency Department with his . Patient was seen paced his office approximately 10 days ago where he was abi luated for some very mild confusion. Patient was found to be dehydrated on his urine studies according to the . They called the primary care physician today for lower extremity swelling. He did have a cough. Primary care physician suggest the patient go to the emergency department because they would not see the patient due to respiratory symptoms secondary to current coronavirus pandemic. at bedside reports that over the last 2-3 days patient has been having worsening lower showing any swelling. I sent it was read however the redness disappeared. Patient denies any lower extremity pain. Denies any dyspnea. Patient otherwise feels well. The ROS documented in this emergency department record has been reviewed and confirmed by me. Those systems with pertinent positive or negative responses have been documented in the HPI. All other systems are other negative and/or noncontributory. PHYSICAL EXAM: General Impression: Alert and oriented x3, not in acute distress HEENT: Normocephalic atraumatic, extra-ocular movements intact, pupils equal and reactive to light bilaterally, mucous membranes moist. Cardiovascular: Heart regular rate and rhythm Chest: Able to complete full sentences, no retractions, no tachypnea Abdomen: abdomen soft, non-tender, non-distended, no organomegaly Musculoskeletal: Pulses present and equal in all extremities, 2+ pitting edema to bilateral anterior tibial areas, no calf tenderness, popliteal tenderness or medial thigh tenderness Motor: no focal deficits noted Neurological: CN II-XII grossly intact, no focal motor or sensory deficits noted Skin: Intact with no visualized rashes Psych: Normal affect and mood ED course: 74-year-old male presents with bilateral lower extremity swelling. All signs upon arrival are within acceptable limits Laboratory evaluation obtained. CBC, coag panel, metabolic panel is unremarkable. Brain natruretic peptide is 138. Negative troponin. Chest x-ray is clear. Clinical presentation likely secondary to heat versus dependent edema in the bilateral lower extremities. Patient given 20 mg IV dose of Lasix. They're told that they should not rule out Lasix because it has negative affects. They're advised to buy compression socks and elevate the legs. Also told to avoid advised follow-up with primary care physician upon discharge. EKG interpretation: Ventricular rate 61, normal sinus rhythm,. 142, QRS 86, QTC 463. No DC prolongation, no QTC prolongation, no ST or T-wave changes noted. EKG compared to 12/08/2016 showing no changes. Overall, this EKG is unremarkable - Related Data Home Medications Medication Instructions Recorded Confirmed Cholecalciferol [Vitamin D3 (25 1,000 unit PO DAILY@99907/01/15 03/06/20 Mcg = 1000 Iu)] Metoprolol Tartrate [Lopressor] 100 mg PO BID@1000,219907/01/15 03/06/20 Multivitamin [Men's Multi-Vitamin] 1 tab PO DAILY@99907/01/15 03/06/20 Verapamil HCl [Verapamil ER] 180 mg PO BID@1000,219907/01/15 03/06/20 Aspirin EC [Ecotrin Low Dose] 81 mg PO DAILY@99909/28/16 03/06/20 metFORMIN HCL [Glucophage] 1,000 mg PO BID@1000,219912/14/16 03/06/20 Atorvastatin [Lipitor] 40 mg PO DAILY@99912/13/19 03/06/20 Bacillus Coagulans/Inulin 1 cap PO DAILY@99912/13/19 03/06/20 [Probiotic with Prebiotic Cap] Carbidopa-Levodopa 25-100 mg 2 tab PO TID@0900,1300,169912/13/19 03/06/20 [Sinemet 25-100 mg] Clopidogrel [Plavix] 75 mg PO DAILY@99912/13/19 03/06/20 DULoxetine HCL [Cymbalta] 60 mg PO BID@1000,219912/13/19 03/06/20 Donepezil [Aricept] 10 mg PO DAILY@1700 12/13/19 03/06/20 Glimepiride [Amaryl] 1 mg PO BID@1000,2200 12/13/19 03/06/20 Hydrochlorothiazide 25 mg PO DAILY@1000 12/13/19 03/06/20 Losartan Potassium [Cozaar] 100 mg PO DAILY@1000 12/13/19 03/06/20 Cyanocobalamin (Vitamin B-12) 1,000 mcg PO BID@1000,2200 03/06/20 03/06/20 [Vitamin B-12] Pregabalin [Lyrica] 75 mg PO BID@0900,1700 03/06/20 03/06/20 Tamsulosin HCl [Flomax] 0.4 mg PO DAILY@1200 03/06/20 03/06/20 Allergies Allergy/AdvReac Type Severity Reaction Status Date / Time narcotics AdvReac Hallucinati Uncoded 03/06/20 17:08 ons opiates AdvReac Hallucinati Uncoded 03/06/20 17:08 ons Review of Systems ROS Statement: Those systems with pertinent positive or pertinent negative responses have been documented in the HPI. ROS Other: All systems not noted in ROS Statement are negative. Past Medical History Past Medical History: Coronary Artery Disease (CAD), Diabetes Mellitus, Hyperlipidemia, Hypertension, Myocardial Infarction ([place]), Osteoarthritis ([place]) Additional Past Medical History / Comment(s): NIDDM type II, vertigo in September 2016 thought to be labyrinthitis-also had elevated troponins-stress test done and was negative, arthritis multiple joints. Last Myocardial Infarction Date:: 1996 History of Any Multi-Drug Resistant Organisms: None Reported Past Surgical History: Heart Catheterization With Stent, Joint Replacement, Tonsillectomy Additional Past Surgical History / Comment(s): 1996 PCI with stent, L/RT HIP REPLACEMENTS, EXPLORATORY LAP with spleen injury, EPIDURAL INJ. in back, lumbar fusion, colonoscopy, vasectomy. Past Anesthesia/Blood Transfusion Reactions: Previous Problems w/ Anesthesia Additional Past Anesthesia/Blood Transfusion Reaction / Comment(s): STATES POST EPIDURAL INJ HAD A HARD TIME WAKING UP.pt /family stated pt can't take any narcotics-becomes very confused. pt can take tylenol extra strength for pain. Date of Last Stent Placement:: 1996 Past Psychological History: No Psychological Hx Reported Smoking Status: Never smoker Past Alcohol Use History: None Reported Past Drug Use History: None Reported - Past Family History Mother Family Medical History: Congestive Heart Failure (CHF), Hypertension Additional Family Medical History / Comment(s): bipolar Father Family Medical History: Coronary Artery Disease (CAD), Myocardial Infarction ([place]) General Exam Limitations: physical limitation Course Vital Signs 03/06/20 16:14 Temperature 98.4 F Pulse Rate 64 Respiratory 20 Rate Blood Pressure 133/79 O2 Sat by Pulse 95 Oximetry Medical Decision Making - Lab Data Result diagrams: 03/06/20 17:08 03/06/20 17:08 Lab Results 03/06/20 03/06/20 03/06/20 Range/Units 17:08 17:08 17:08 WBC 6.8 (3.8-10.6) k/uL RBC 4.29 L (4.30-5.90) m/uL Hgb 14.0 (13.0-17.5) gm/dL Hct 41.0 (39.0-53.0) % MCV 95.7 (80.0-100.0) fL MCH 32.6 (25.0-35.0) pg MCHC 34.0 (31.0-37.0) g/dL RDW 13.9 (11.5-15.5) % Plt Count 208 (150-450) k/uL Neutrophils % 75 % Lymphocytes % 15 % Monocytes % 6 % Eosinophils % 2 % Basophils % 1 % Neutrophils # 5.1 (1.3-7.7) k/uL Lymphocytes # 1.0 (1.0-4.8) k/uL Monocytes # 0.4 (0-1.0) k/uL Eosinophils # 0.2 (0-0.7) k/uL Basophils # 0.1 (0-0.2) k/uL PT 10.7 (9.0-12.0) sec INR 1.0 (<1.2) APTT 22.9 (22.0-30.0) sec Sodium 136 L (137-145) mmol/L Potassium 3.7 (3.5-5.1) mmol/L Chloride 103 (98-107) mmol/L Carbon Dioxide 24 (22-30) mmol/L Anion Gap 9 mmol/L BUN 18 (9-20) mg/dL Creatinine 0.70 (0.66-1.25) mg/dL Est GFR (CKD-EPI)AfAm >90 (>60 ml/min/1.73 sqM) Est GFR (CKD-EPI)NonAf >90 (>60 ml/min/1.73 sqM) Glucose 120 H (74-99) mg/dL Calcium 8.9 (8.4-10.2) mg/dL Total Bilirubin 0.5 (0.2-1.3) mg/dL AST 22 (17-59) U/L ALT 18 (4-49) U/L Alkaline Phosphatase 95 (38-126) U/L Troponin I (0.000-0.034) ng/mL NT-Pro-B Natriuret Pep pg/mL Total Protein 5.8 L (6.3-8.2) g/dL Albumin 3.5 (3.5-5.0) g/dL 03/06/20 03/06/20 Range/Units 17:08 17:08 WBC (3.8-10.6) k/uL RBC (4.30-5.90) m/uL Hgb (13.0-17.5) gm/dL Hct (39.0-53.0) % MCV (80.0-100.0) fL MCH (25.0-35.0) pg MCHC (31.0-37.0) g/dL RDW (11.5-15.5) % Plt Count (150-450) k/uL Neutrophils % % Lymphocytes % % Monocytes % % Eosinophils % % Basophils % % Neutrophils # (1.3-7.7) k/uL Lymphocytes # (1.0-4.8) k/uL Monocytes # (0-1.0) k/uL Eosinophils # (0-0.7) k/uL Basophils # (0-0.2) k/uL PT (9.0-12.0) sec INR (<1.2) APTT (22.0-30.0) sec Sodium (137-145) mmol/L Potassium (3.5-5.1) mmol/L Chloride (98-107) mmol/L Carbon Dioxide (22-30) mmol/L Anion Gap mmol/L BUN (9-20) mg/dL Creatinine (0.66-1.25) mg/dL Est GFR (CKD-EPI)AfAm (>60 ml/min/1.73 sqM) Est GFR (CKD-EPI)NonAf (>60 ml/min/1.73 sqM) Glucose (74-99) mg/dL Calcium (8.4-10.2) mg/dL Total Bilirubin (0.2-1.3) mg/dL AST (17-59) U/L ALT (4-49) U/L Alkaline Phosphatase (38-126) U/L Troponin I <0.012 (0.000-0.034) ng/mL NT-Pro-B Natriuret Pep 138 pg/mL Total Protein (6.3-8.2) g/dL Albumin (3.5-5.0) g/dL Disposition Clinical Impression: Leg swelling Disposition: HOME SELF-CARE Condition: Good Instructions (If sedation given, give patient instructions): Leg Edema (ED) Is patient prescribed a controlled substance at d/c from ED?: No Referrals: Erick Cheatham MD [Primary Care Provider] - 1-2 days Time of Disposition: 18:04
[2020-03-06 17:20] LABS: Basophils # (A) 0.1 k/uL (0-0.2); Basophils % (A) 1 %; Eosinophils # (A) 0.2 k/uL (0-0.7); Eosinophils % (A) 2 %; Lymphocytes % (A) 15 %; MCH 32.6 pg (25.0-35.0); MCV 95.7 fL (80.0-100.0); Mean Platelet Volume 6.8; Monocytes # (A) 0.4 k/uL (0-1.0); Monocytes % (A) 6 %; Neutrophils # (A) 5.1 k/uL (1.3-7.7); Neutrophils % (A) 75 %; Platelet Count 208 k/uL (150-450); RBC 4.29 m/uL (4.30-5.90); RDW 13.9 % (11.5-15.5); WBC 6.8 k/uL (3.8-10.6)
[2020-03-06 17:30] LABS: ALT 18 U/L (4-49); AST 22 U/L (17-59); African American GFR (CKD) >90 (>60 ml/min/1.73 sqM); Albumin 3.5 g/dL (3.5-5.0); Alkaline Phosphatase 95 U/L (38-126); Anion Gap 9 mmol/L; Blood Urea Nitrogen 18 mg/dL (9-20); Calcium 8.9 mg/dL (8.4-10.2); Carbon Dioxide 24 mmol/L (22-30); Chloride 103 mmol/L (98-107); Glucose 120 mg/dL (74-99); Non-African American GFR(CKD) >90 (>60 ml/min/1.73 sqM); Potassium 3.7 mmol/L (3.5-5.1); Sodium 136 mmol/L (137-145); Total Bilirubin 0.5 mg/dL (0.2-1.3); Total Protein 5.8 g/dL (6.3-8.2)
[2020-03-06 17:35] LABS: Partial Thromboplastin Time 22.9 sec (22.0-30.0); Prothrombin Time 10.7 sec (9.0-12.0)
--- NOTE | 2020-03-06 17:42 | XR ---
EXAMINATION TYPE: XR chest 2V DATE OF EXAM: 03/06/2020 COMPARISON: 04/05/2019 HISTORY: Leg swelling TECHNIQUE: FINDINGS: There is no heart failure nor confluent pneumonic infiltrate. Costophrenic angles are clear . There are no hilar masses. Bony thorax is intact. IMPRESSION: No active cardiopulmonary disease. Normal heart. No change.
[2020-03-06] MEDS ORDERED: FUROSEMIDE 10 MG/ML 2 ML VIAL IV STA (17:58)
== END 2020-03-06 18:30 | disposition home or self-care (01) ==
LOC: EC 16:13
DX: M79.89 Other specified soft tissue disorders (principal); R05 Cough; R41.0 Disorientation, unspecified; I25.10 Atherosclerotic heart disease of native coronary artery without angina pectoris; E11.9 Type 2 diabetes mellitus without complications; E78.5 Hyperlipidemia, unspecified; I10 Essential (primary) hypertension; I25.2 Old myocardial infarction; M19.90 Unspecified osteoarthritis, unspecified site; Z79.82 Long term (current) use of aspirin; Z79.84 Long term (current) use of oral hypoglycemic drugs; Z79.899 Other long term (current) drug therapy; Z79.02 Long term (current) use of antithrombotics/antiplatelets; Z88.5 Allergy status to narcotic agent; Z95.5 Presence of coronary angioplasty implant and graft; Z96.643 Presence of artificial hip joint, bilateral
CPT/HCPCS: 96374; 99284; 36415; 93005; 83880; 80053; 84484; 85025; 85610; 85730; 71046; J1940

== ENCOUNTER → 2020-11-10 | Outpatient (CLI) | payer MEDICARE ==
[~2020-11-10] MED LIST: REGADENOSON 0.4 MG/5 ML SYRINGE IV PRN
--- NOTE | 2020-11-10 11:26 | ECHOF ---
Referral Reason:I10 Essential hypertension, CHEST PAIN MEASUREMENTS -------- HEIGHT: 175.3 cm WEIGHT: 117.9 kg BP: RVIDd: 4.0 cm (< 3.3) IVSd: 1.6 cm (0.6 - 1.1) LVIDd: 4.7 cm (3.9 - 5.3) LVPWd: 1.7 cm (0.6 - 1.1) IVSs: 2.3 cm LVIDs: 3.3 cm LVPWs: 2.0 cm LAESV Index (A-L): 36.12 ml/m Ao Diam: 3.5 cm (2.0 - 3.7) AV Cusp: 2.4 cm (1.5 - 2.6) MV EXCURSION: 18.378 mm (> 18.000) MV EF SLOPE: 50 mm/s (70 - 150) EPSS: 0.6 cm MV E Landry: 0.75 m/s MV DecT: 280 ms MV A Landry: 0.87 m/s MV E/A Ratio: 0.87 FINDINGS -------- Sinus rhythm. This was a technically difficult study with suboptimal views. The left ventricular size is normal. There is moderate concentric left ventricular hypertrophy. O verall left ventricular systolic function is normal with, an EF between 55 - 60 %. The right ventricle is moderate to severely enlarged. LA is moderately dilated 34-39 ml/m2 The right atrium was not well visualized. 5.0mg of Lumason was utilized for enhancement of images Interatrial and interventricular septum intact. The aortic valve is trileaflet and appears structurally normal. There is mild aortic valve sclerosi s. There is no evidence of aortic regurgitation. There is no evidence of aortic stenosis. No mitral regurgitation. Trace tricuspid regurgitation present. Unable to estimate RVSP due to inadequate TR jet spectral do ppler profile. There is no pulmonic regurgitation present. The aortic root size is normal. IVC Not well visulized. There is no pericardial effusion. CONCLUSIONS -------- 1. The left ventricular size is normal. 2. There is moderate concentric left ventricular hypertrophy. 3. Overall left ventricular systolic function is normal with, an EF between 55 - 60 %. 4. The right ventricle is moderate to severely enlarged. 5. LA is moderately dilated 34-39 ml/m2 6. There is mild aortic valve sclerosis. 7. Trace tricuspid regurgitation present. T[employer]IAL [employer]OR[employer]ORY SUPERVISOR: Grazyan Kearns RDCS
--- NOTE | 2020-11-10 12:16 | P.STRESS ---
- Stress Test Note Stress Test Results/Findings: Exam Performed: NM stress lexiscan cardiolite Exam Date: 11/10/20 Reason for Exam: CP Height: 5 ft 8 in Weight: 120 kg Protocol: LEXISCAN CARDIOLITE Stage: NA Duration of Exercise: NA Resting Heart Rate: 57 Resting Blood Pressure: 165/84 Maximum Achieved Heart Rate: 67 Maximum Achieved Blood Pressure: 165/84 85% PMHR: 124 100% PMHR: 146 METS: NA Technologist Comment: Stress Test Results/Findings: This is a 75-year-old gentleman being evaluated for cardiac status. Patient has history of hypertension, diabetes, smoking history and has been having chest pains. There is also history of possible previous [place]. Stress data: Baseline EKG showed sinus rhythm, normal MI interval and QRS durat ion. Blood pressure at rest is 165/84, pulse rate of 57. A standard dose of Lexiscan was infused EKGs taken during and after infusion did not reveal any significant change from the baseline. Final impression: #1. Negative Lexiscan stress test #2. Report on the nuclear images to be provided by the radiologist.
--- NOTE | 2020-11-10 12:30 | NM ---
"EXAMINATION TYPE: NM stress lexiscan cardiolite DATE OF EXAM: 11/10/2020 COMPARISON: Prior exam 09/29/2018 HISTORY: TECHNIQUE: After the intravenous administration of 9.8 mCi Tc 99m Sestamibi - Cardiolite resting SPE CT images acquired 60 minutes post injection. The patient received 0.4mg Lexiscan, 24.9 mCi Tc 99m Sestamibi - Stress images obtained [address] injection FINDINGS: Review of stress and rest SPECT images demonstrates decreased uptake on stress and rest images along the inferolateral left ventricle similar to prior exam. Towards the base of the heart there is some decreased uptake along the inferior septal left ventricle on stress as compared to rest images, possi ble decreased uptake along the lateral wall towards the base of the heart at stress as compared to re st images. Gated analysis shows normal wall motion with an estimated left ventricular ejection fracti on of 56 %. IMPRESSION: Findings suggest possible prior infarct as well as possible stress-induced left ventricular myocardia l ischemia. A Yellow level critical message alert has been initiated for Erick Cheatham MD via the [employer] [facility] 0 | Critical Results System on 11/10/2020 12:28 PM. This message alert has been sent to Erick Cheatham MD via the preferences provided by the clinician for the receipt of Radiology Critical Findings. Ok ssage ID [id number]."
--- NOTE | 2020-11-11 14:51 | EST ---
Stress Test Results/Findings: Exam Performed: NM stress lexiscan cardiolite Exam Date: 11/10/20 Reason for Exam: CP Height: 5 ft 8 in Weight: 120 kg Protocol: LEXISCAN CARDIOLITE Stage: NA Duration of Exercise: NA Resting Heart Rate: 57 Resting Blood Pressure: 165/84 Maximum Achieved Heart Rate: 67 Maximum Achieved Blood Pressure: 165/84 85% PMHR: 124 100% PMHR: 146 METS: NA Technologist Comment: Stress Test Results/Findings: This is a 75-year-old gentleman being evaluated for cardiac status. Patient has history of hypertension, diabetes, smoking history and has been having chest pains. There is also history of possible previous [place]. Stress data: Baseline EKG showed sinus rhythm, normal OH interval and QRS duration. Blood pressure at rest is 165/84, pulse rate of 57. A standard dose of Lexiscan was infused EKGs taken during and after infusion did not reveal any significant change from the baseline. Final impression: #1. Negative Lexiscan stress test #2. Report on the nuclear images to be provided by the radiologist. TIMOTHY
== END ==
LOC: RADNMMAIN 08:25
PROVIDERS: ATTEND Family Medicine
DX: E11.9 Type 2 diabetes mellitus without complications (principal); E78.5 Hyperlipidemia, unspecified; R31.29 Other microscopic hematuria; Z68.41 Body mass index [BMI] 40.0-44.9, adult; E66.9 Obesity, unspecified
CPT/HCPCS: 93017; 78452; C8929; A9500; J2785; Q9950; 93306

== ENCOUNTER 2020-11-12 11:10 | Inpatient (IN) | payer MEDICARE ==
[2020-11-12 13:19] LABS: INR 1.1 (<1.2); Partial Thromboplastin Time 22.4 sec (22.0-30.0); Prothrombin Time 11.1 sec (9.0-12.0)
[2020-11-12 13:26] LABS: Basophils # (A) 0.1 k/uL (0-0.2); Basophils % (A) 1 %; Eosinophils # (A) 0.2 k/uL (0-0.7); Eosinophils % (A) 2 %; HCT 45.8 % (39.0-53.0); HGB 15.2 gm/dL (13.0-17.5); Lymphocytes # (A) 1.6 k/uL (1.0-4.8); Lymphocytes % (A) 20 %; MCH 31.9 pg (25.0-35.0); MCHC 33.2 g/dL (31.0-37.0); Mean Platelet Volume 6.8; Monocytes # (A) 0.5 k/uL (0-1.0); Monocytes % (A) 6 %; Neutrophils # (A) 5.6 k/uL (1.3-7.7); Neutrophils % (A) 70 %; Platelet Count 201 k/uL (150-450); RBC 4.77 m/uL (4.30-5.90); RDW 14.5 % (11.5-15.5)
--- NOTE | 2020-11-12 13:27 | XR ---
EXAMINATION TYPE: XR chest 2V DATE OF EXAM: 11/12/2020 COMPARISON: 03/06/2020 HISTORY: Shortness of breath TECHNIQUE: Frontal and lateral views of the chest are obtained. FINDINGS: Scattered senescent parenchymal changes noted. Hyperinflation compatible with COPD. No evidence for infiltrate. No evidence for atelectasis. Heart size is stable. Mediastinal structures are stable and grossly unremarkable. No evidence for hilar prominence. Degenerative changes dorsal spine. IMPRESSION: 1. No evidence for acute pulmonary disease.
[2020-11-12 13:29] LABS: ALT 7 U/L (4-49); AST 23 U/L (17-59); African American GFR (CKD) >90 (>60 ml/min/1.73 sqM); Albumin 3.7 g/dL (3.5-5.0); Alkaline Phosphatase 96 U/L (38-126); Anion Gap 7 mmol/L; Blood Urea Nitrogen 26 mg/dL (9-20); Calcium 9.5 mg/dL (8.4-10.2); Carbon Dioxide 35 mmol/L (22-30); Chloride 98 mmol/L (98-107); Glucose 100 mg/dL (74-99); Magnesium 1.7 mg/dL (1.6-2.3); Non-African American GFR(CKD) 82 (>60 ml/min/1.73 sqM); Potassium 3.4 mmol/L (3.5-5.1); Sodium 140 mmol/L (137-145); Total Bilirubin 0.6 mg/dL (0.2-1.3); Total Protein 6.2 g/dL (6.3-8.2)
--- NOTE | 2020-11-12 14:30 | ED ---
Chest Pain HPI - General Source: patient, family, RN notes reviewed Mode of arrival: wheelchair Limitations: no limitations <Devante Rothman - Last Filed: 11/12/20 14:38> <Merly Arredondo - Last Filed: 11/16/20 15:42> - General Chief Complaint: Chest Pain Stated Complaint: Heart Failure Time Seen by Provider: 11/12/20 11:55 - History of Present Illness Initial Comments: This a 75-year-old male presents emergency Department from cardiology's office chief complaint of chest pain, possible heart failure. Patient had chest pain earlier this week and was sent over for evaluation. Patient recent echocardiogram. Patient states that he has no current chest pain no history of CHF. Patient denies any other complaints. (Devante Rothman) - Related Data Home Medications Medication Instructions Recorded Confirmed Cholecalciferol [Vitamin D3 (25 50 mcg PO DAILY@1000 07/01/15 11/12/20 Mcg = 1000 Iu)] Metoprolol Tartrate [Lopressor] 100 mg PO BID@1000,219907/01/15 11/12/20 Multivitamin [Men's Multi-Vitamin] 1 tab PO DAILY@1000 07/01/15 11/12/20 Verapamil HCl [Verapamil ER] 180 mg PO BID@1000,0 07/01/15 11/12/20 Aspirin EC [Ecotrin Low Dose] 81 mg PO DAILY@1000 09/28/16 11/12/20 metFORMIN HCL [Glucophage] 1,000 mg PO BID@1000,2200 12/14/16 11/12/20 Atorvastatin [Lipitor] 40 mg PO HS@219912/13/19 11/12/20 Bacillus Coagulans/Inulin 1 cap PO DAILY@1000 12/13/19 11/12/20 [Probiotic with Prebiotic Cap] Carbidopa-Levodopa 25-100 mg 2 tab PO TID@0900,1300,1700 12/13/19 11/12/20 [Sinemet 25-100 mg] Clopidogrel [Plavix] 75 mg PO HS@219912/13/19 11/12/20 DULoxetine HCL [Cymbalta] 60 mg PO BID@1000,2200 12/13/19 11/12/20 Donepezil [Aricept] 10 mg PO DAILY@17012/13/19 11/12/20 Glimepiride [Amaryl] 1 mg PO BID@1000,2200 12/13/19 11/12/20 Losartan Potassium [Cozaar] 100 mg PO HS@2200 12/13/19 11/12/20 hydroCHLOROthiazide 50 mg PO HS@2200 12/13/19 11/12/20 Cyanocobalamin (Vitamin B-12) 1,000 mcg PO DAILY@1000 03/06/20 11/12/20 [Vitamin B-12] Pregabalin [Lyrica] 75 mg PO BID@0900,1700 03/06/20 11/12/20 Tamsulosin HCl [Flomax] 0.4 mg PO DAILY@1200 03/06/20 11/12/20 SILVER sulfADIAZINE Cream 1 applic TOPICAL DAILY PRN 11/12/20 11/12/20 [Silvadene 1% Cream] Terbinafine [LamISIL] 250 mg PO HS@2200 11/12/20 11/12/20 Previous Rx's Medication Instructions Recorded Isosorbide Mononitrate ER [Imdur] 30 mg PO DAILY #30 tab.er.24h 11/16/20 Nitroglycerin Sl Tabs [Nitrostat] 0.4 mg SUBLINGUAL Q5M PRN #20 tab 11/16/20 Allergies Allergy/AdvReac Type Severity Reaction Status Date / Time narcotics AdvReac Hallucinati Uncoded 11/12/20 14:10 ons opiates AdvReac Hallucinati Uncoded 11/12/20 14:10 ons Review of Systems ROS Other: All systems not noted in ROS Statement are negative. <Devante Rothman - Last Filed: 11/12/20 14:38> ROS Other: All systems not noted in ROS Statement are negative. <Merly Arredondo - Last Filed: 11/16/20 15:42> ROS Statement: Those systems with pertinent positive or pertinent negative responses have been documented in the HPI. Past Medical History Past Medical History: Coronary Artery Disease (CAD), Diabetes Mellitus, Hyperlipidemia, Hypertension, Myocardial Infarction ([place]), Osteoarthritis (OA) Additional Past Medical History / Comment(s): NIDDM type II, vertigo in September 2016 thought to be labyrinthitis-also had elevated troponins-stress test done and was negative, arthritis multiple joints. Last Myocardial Infarction Date:: 1996 History of Any Multi-Drug Resistant Organisms: None Reported Past Surgical History: Heart Catheterization With Stent, Joint Replacement, Tonsillectomy Additional Past Surgical History / Comment(s): 1996 PCI with stent, L/RT HIP REPLACEMENTS, EXPLORATORY LAP with spleen injury, EPIDURAL INJ. in back, lumbar fusion, colonoscopy, vasectomy. Past Anesthesia/Blood Transfusion Reactions: Previous Problems w/ Anesthesia Additional Past Anesthesia/Blood Transfusion Reaction / Comment(s): STATES POST EPIDURAL INJ HAD A HARD TIME WAKING UP.pt /family stated pt can't take any narcotics-becomes very confused. pt can take tylenol extra strength for pain. Date of Last Stent Placement:: 1996 Past Psychological History: No Psychological Hx Reported Smoking Status: Never smoker Past Alcohol Use History: None Reported Past Drug Use History: None Reported - Past Family History Mother Family Medical History: Congestive Heart Failure (CHF), Hypertension Additional Family Medical History / Comment(s): bipolar Father Family Medical History: Coronary Artery Disease (CAD), Myocardial Infarction ([place]) <Devante Rothman - Last Filed: 11/12/20 14:38> General Exam Limitations: no limitations General appearance: alert, in no apparent distress Head exam: Present: atraumatic, normocephalic, normal inspection Eye exam: Present: normal appearance, PERRL, EOMI. Absent: scleral icterus, conjunctival injection, periorbital swelling ENT exam: Present: normal exam, normal oropharynx, mucous membranes moist Neck exam: Present: normal inspection. Absent: tenderness, meningismus, lymphadenopathy Respiratory exam: Present: normal lung sounds bilaterally. Absent: respiratory distress, wheezes, rales, rhonchi, stridor Cardiovascular Exam: Present: regular rate, normal rhythm, normal heart sounds. Absent: systolic murmur, diastolic murmur, rubs, gallop, clicks GI/Abdominal exam: Present: soft, normal bowel sounds. Absent: distended, tenderness, guarding, rebound, rigid Extremities exam: Present: pedal edema Neurological exam: Present: alert <Devante Rothman - Last Filed: 11/12/20 14:38> Course Vital Signs 11/12/20 11/12/20 11/12/20 11:23 14:24 15:35 Temperature 98.1 F 98.8 F Pulse Rate 58 L 55 L Pulse Rate [ 63 Pulse Oximetery ] Respiratory 18 18 18 Rate Blood Pressure 116/69 125/64 Blood Pressure 136/79 [Left Arm] O2 Sat by Pulse 93 L 94 L 96 Oximetry 11/12/20 17:25 Temperature Pulse Rate 60 Pulse Rate [ Pulse Oximetery ] Respiratory 18 Rate Blood Pressure 135/73 Blood Pressure [Left Arm] O2 Sat by Pulse 95 Oximetry Chest Pain [facility] <Devante Rothman - Last Filed: 11/12/20 14:38> <Merly Arredondo - Last Filed: 11/16/20 15:42> - [facility] Patient's workup at this time is negative though upon further review patient had recent stress echo shows evidence of probable old infarct in ischemic changes. Patient will be admitted for cardiology treatment. (Devante Rothman) I was available for consultation in the emergency department. The history and physical exam were done by the midlevel provider. I was consulted for this patients care. I reviewed the case with the midlevel provider and based on their presentation of the patient, I agree with the assessment, medical decision making and plan of care as documented. Chart was dictated using [employer] dictation software. Attempts were made to correct any dictation errors however some typographical errors may persist. Patient was seen during a national state of emergency due to the Covid-19 pandemic. (Merly Arredondo) Disposition <Devante Rothman - Last Filed: 11/12/20 14:38> <Merly Arredondo - Last Filed: 11/16/20 15:42> Clinical Impression: Chest pain, Abnormal stress test Disposition: ADMITTED IP TO THIS HOSP Condition: Fair
[2020-11-12] MEDS ORDERED: NITROGLYCERIN SL TABS 0.4 MG TAB SUBLINGUAL PRN (14:39)
[2020-11-12] MEDS ORDERED: HEPARIN SODIUM,PORCINE 5,000 UNIT/ML 1 ML VIAL IV ONE (14:39)
[2020-11-12] MEDS ORDERED: ASPIRIN 81 MG PO STA (14:39)
[2020-11-12] MEDS: HEPARIN SOD,PORK IN 0.45% NACL 25,000 UNIT in 0.45% NACL 1 250ML.BAG IV SCH (15:41)
--- NOTE | 2020-11-12 17:47 | P.HPIM ---
History of Present Illness H&P Date: 11/12/20 Chief Complaint: Positive stress test Mr. 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 His is at the bedside and most of the history was provided by her. She mentions that [facility], where he was evaluated by Dr. Barron, was sent to the hospital for further evaluation. 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 Patient complains of chest heaviness and the pain radiating to the upper jaw on both sides. It is more like a chest heaviness rather than chest pain. This has been ongoing for the past few weeks. He also mentions about having swelling of his lower extremities that has been going on for the past 2-3 months. Patient denies having any recent travel. He denies having any fevers chills or rigors. No cough or difficulty in breathing. No abdominal pain nausea vomiting or diarrhea. No dysuria or hematuria. In the ER patient had a chest x-ray showing no evidence of acute pulmonary disease. He had blood work done showing white count of 8, hemoglobin 15.2, platelets 201. Sodium 140, potassium 3.4, chloride 98, bicarb 35, BNP 26, creatinine 0.92. Troponin less than 0.022. BNP 123. Hdez virus negative. Patient is admitted for further evaluation and management with cardiology consult. Review of Systems REVIEW OF SYSTEMS: CONSTITUTIONAL: Denies having any fevers chills or rigors. HEENT: No recent visual problems or hearing problems. Denied any sore throat. CARDIOVASCULAR: As per HPI PULMONARY: No cough or difficulty in breathing. GASTROINTESTINAL: No abdominal pain or constipation. No abdominal pain nausea vomiting or diarrhea NEUROLOGICAL: No headaches, no weakness. HEMATOLOGICAL: Denies any bleeding or petechiae. GENITOURINARY: Denies any burning micturition, frequency, or urgency. MUSCULOSKELETAL/RHEUMATOLOGICAL: Denies any joint pain, swelling ENDOCRINE: Denies any polyuria or polydipsia. The rest of the 14-point review of systems is negative. Past Medical History Past Medical History: Coronary Artery Disease (CAD), Diabetes Mellitus, Hyperlipidemia, Hypertension, Myocardial Infarction ([place]), Osteoarthritis (OA) Additional Past Medical History / Comment(s): NIDDM type II, vertigo in September 2016 thought to be labyrinthitis-also had elevated troponins-stress test done and was negative, arthritis multiple joints. Last Myocardial Infarction Date:: 1996 History of Any Multi-Drug Resistant Organisms: None Reported Past Surgical History: Heart Catheterization With Stent, Joint Replacement, Tonsillectomy Additional Past Surgical History / Comment(s): 1996 PCI with stent, L/RT HIP REPLACEMENTS, EXPLORATORY LAP with spleen injury, EPIDURAL INJ. in back, lumbar fusion, colonoscopy, vasectomy. Past Anesthesia/Blood Transfusion Reactions: Previous Problems w/ Anesthesia Additional Past Anesthesia/Blood Transfusion Reaction / Comment(s): STATES POST EPIDURAL INJ HAD A HARD TIME WAKING UP.pt /family stated pt can't take any narcotics-becomes very confused. pt can take tylenol extra strength for pain. Date of Last Stent Placement:: 1996 Past Psychological History: No Psychological Hx Reported Smoking Status: Never smoker Past Alcohol Use History: None Reported Past Drug Use History: None Reported - Past Family History Mother Family Medical History: Congestive Heart Failure (CHF), Hypertension Additional Family Medical History / Comment(s): bipolar Father Family Medical History: Coronary Artery Disease (CAD), Myocardial Infarction (MO) Medications and Allergies Home Medications Medication Instructions Recorded Confirmed Type Cholecalciferol [Vitamin D3 (25 50 mcg PO DAILY@1000 07/01/15 11/12/20 History Mcg = 1000 Iu)] Metoprolol Tartrate [Lopressor] 100 mg PO BID@1000,219907/01/15 11/12/20 History Multivitamin [Men's Multi-Vitamin] 1 tab PO DAILY@99907/01/15 11/12/20 History Verapamil HCl [Verapamil ER] 180 mg PO BID@1000,0 07/01/15 11/12/20 History Aspirin EC [Ecotrin Low Dose] 81 mg PO DAILY@1000 09/28/16 11/12/20 History metFORMIN HCL [Glucophage] 1,000 mg PO BID@1000,0 12/14/16 11/12/20 History Atorvastatin [Lipitor] 40 mg PO HS@219912/13/19 11/12/20 History Bacillus Coagulans/Inulin 1 cap PO DAILY@99912/13/19 11/12/20 History [Probiotic with Prebiotic Cap] Carbidopa-Levodopa 25-100 mg 2 tab PO TID@0900,1300,1700 12/13/19 11/12/20 History [Sinemet 25-100 mg] Clopidogrel [Plavix] 75 mg PO HS@2200 12/13/19 11/12/20 History DULoxetine HCL [Cymbalta] 60 mg PO BID@1000,2200 12/13/19 11/12/20 History Donepezil [Aricept] 10 mg PO DAILY@1700 12/13/19 11/12/20 History Glimepiride [Amaryl] 1 mg PO BID@1000,2200 12/13/19 11/12/20 History Losartan Potassium [Cozaar] 100 mg PO HS@2200 12/13/19 11/12/20 History hydroCHLOROthiazide 50 mg PO HS@2200 12/13/19 11/12/20 History Cyanocobalamin (Vitamin B-12) 1,000 mcg PO DAILY@1000 03/06/20 11/12/20 History [Vitamin B-12] Pregabalin [Lyrica] 75 mg PO BID@0900,1700 03/06/20 11/12/20 History Tamsulosin HCl [Flomax] 0.4 mg PO DAILY@1200 03/06/20 11/12/20 History SILVER sulfADIAZINE Cream 1 applic TOPICAL DAILY PRN 11/12/20 11/12/20 History [Silvadene 1% Cream] Terbinafine [LamISIL] 250 mg PO HS@2200 11/12/20 11/12/20 History Allergies Allergy/AdvReac Type Severity Reaction Status Date / Time narcotics AdvReac Hallucinati Uncoded 11/12/20 14:10 ons opiates AdvReac Hallucinati Uncoded 11/12/20 14:10 ons Physical Exam Vitals: Vital Signs Temp Pulse Resp BP Pulse Ox 11/12/20 14:24 55 L 18 125/64 94 L 11/12/20 11:23 98.1 F 58 L 18 116/69 93 L Intake and Output 11/12/20 11/12/20 11/12/20 06:59 14:59 22:59 Other: Weight 119.748 kg PHYSICAL EXAMINATION: GENERAL: The patient is alert and oriented x3, not in any acute distress. Obese. HEENT: Pupils are round and equally reacting to light. EOMI. No scleral icterus. No pallor. CARDIOVASCULAR: S1 and S2 present. PULMONARY: Bilateral breath sounds are positive. Diminished at the lower lung b ases. No crackles or wheeze. ABDOMEN: Abdomen is soft. Nontender. Nondistended. Normal bowel sounds. MUSCULOSKELETAL: No joint swelling or deformity. EXTREMITIES: No cyanosis, clubbing. Positive for pitting edema bilaterally NEUROLOGICAL: Gross neurological examination did not reveal any focal deficits. SKIN: No rashes. Results CBC & Chem 7: 11/15/20 06:26 11/15/20 06:26 Labs: Abnormal Lab Results - Last 24 Hours (Table) 11/12/20 Range/Units 12:19 Potassium 3.4 L (3.5-5.1) mmol/L Carbon Dioxide 35 H (22-30) mmol/L BUN 26 H (9-20) mg/dL Glucose 100 H (74-99) mg/dL Total Protein 6.2 L (6.3-8.2) g/dL Assessment and Plan Assessment: ASSESSMENT Unstable angina Abnormal stress test History of coronary artery disease status post stenting Dilated right ventricle on echo done on 11/10/2020 Type 2 diabetes mellitus Hypertension Hyperlipidemia Osteoarthritis Parkinson's disease Obesity with BMI of 39 Hypokalemia PLAN: Patient had troponins 2 that are negative. Due to recent stress test being positive, he has been started on IV heparin. Cardiology has been consulted for possible cath. Patient has been restarted on his home medicati ons. The treatment plan was discussed in detail with the patient and his at bedside. Further recommendations to follow depending on the progress of the patient.
[2020-11-12] MEDS: DULoxetine HCL 60 MG CAPSULE.DR PO SCH (21:36)
[2020-11-12] MEDS: ATORVASTATIN 40 MG TAB PO SCH (21:36)
[2020-11-12] MEDS: CARBIDOPA-LEVODOPA 25-100 MG 1 EACH TAB PO SCH (21:36)
[2020-11-12] MEDS: PREGABALIN 75 MG CAP PO SCH (21:38)
[2020-11-12] MEDS: DONEPEZIL 10 MG TAB PO SCH (21:38)
[2020-11-12] MEDS: hydroCHLOROthiazide 25 MG TAB PO SCH (21:39)
[2020-11-12] MEDS: LOSARTAN 50 MG TAB PO SCH (21:39)
[2020-11-12] MEDS: METOPROLOL TARTRATE 50 MG TAB PO SCH (21:39)
[2020-11-12] MEDS: VERAPAMIL SR 180 MG TABLET.ER PO SCH (21:41)
[2020-11-12] MEDS: GLIMEPIRIDE 2 MG TAB PO SCH (21:41)
[2020-11-12] MEDS: TERBINAFINE 250 MG TAB PO SCH (21:42)
[2020-11-12] MEDS: HEPARIN SODIUM,PORCINE 5,000 UNIT/ML 1 ML VIAL IV PRN (22:05)
[2020-11-13 06:47] LABS: Mean Platelet Volume 6.7; Platelet Count 156 k/uL (150-450)
[2020-11-13] MEDS: CARBIDOPA-LEVODOPA 25-100 MG 1 EACH TAB PO SCH ×3 (08:56→17:06)
[2020-11-13] MEDS: PREGABALIN 75 MG CAP PO SCH ×2 (08:56→17:06)
[2020-11-13] MEDS: ASPIRIN 325 MG TAB PO SCH (08:56)
[2020-11-13 09:33] LABS: Chol/HDL Ratio 5.58; LDL Cholesterol,Calculated 40.8 mg/dL (0.0-131.0); VLDL Calculation 69.2 mg/dL (5.00-40.00)
[2020-11-13] MEDS ORDERED: NON FORMULARY DRUG (Aspirin Ec 81 MG Tablet.Dr) PO SCH (10:00)
[2020-11-13] MEDS: CYANOCOBALAMIN 500 MCG TAB PO SCH (10:41)
[2020-11-13] MEDS: LACTOBACILLUS ACIDOPH & BULGAR 1 EACH PACKET PO SCH (10:41)
[2020-11-13] MEDS: DULoxetine HCL 60 MG CAPSULE.DR PO SCH ×2 (10:41→20:09)
[2020-11-13] MEDS: METOPROLOL TARTRATE 50 MG TAB PO SCH ×2 (10:41→20:08)
[2020-11-13] MEDS: MULTIVITAMINS, THERA 1 EACH TAB PO SCH (10:41)
[2020-11-13] MEDS: CHOLECALCIFEROL 25 MCG (1000 IU) TABLET PO SCH (10:41)
[2020-11-13] MEDS: VERAPAMIL SR 180 MG TABLET.ER PO SCH ×2 (10:41→20:09)
[2020-11-13 11:58] LABS: D-Dimer <0.17 mg/L FEU (<0.60); Partial Thromboplastin Time 40.2 sec (22.0-30.0)
[2020-11-13 13:10] LABS: Basophils % (A) 1 %; Eosinophils # (A) 0.1 k/uL (0-0.7); Eosinophils % (A) 2 %; HCT 43.5 % (39.0-53.0); HGB 14.8 gm/dL (13.0-17.5); Lymphocytes # (A) 1.2 k/uL (1.0-4.8); Lymphocytes % (A) 22 %; MCH 32.3 pg (25.0-35.0); MCHC 33.9 g/dL (31.0-37.0); MCV 95.1 fL (80.0-100.0); Mean Platelet Volume 6.8; Monocytes # (A) 0.4 k/uL (0-1.0); Monocytes % (A) 6 %; Neutrophils # (A) 3.8 k/uL (1.3-7.7); Neutrophils % (A) 68 %; Platelet Count 155 k/uL (150-450); RBC 4.58 m/uL (4.30-5.90); RDW 14.3 % (11.5-15.5); WBC 5.6 k/uL (3.8-10.6)
[2020-11-13] MEDS: HEPARIN SOD,PORK IN 0.45% NACL 25,000 UNIT in 0.45% NACL 1 250ML.BAG IV SCH (13:50)
[2020-11-13] MEDS: TAMSULOSIN 0.4 MG CAP.ER.24H PO SCH (13:50)
[2020-11-13] MEDS: HEPARIN SODIUM,PORCINE 5,000 UNIT/ML 1 ML VIAL IV PRN ×2 (14:03→21:38)
[2020-11-13] MEDS: GLIMEPIRIDE 2 MG TAB PO SCH ×2 (14:10→20:09)
--- NOTE | 2020-11-13 14:58 | P.CRDCN ---
History of Present Illness History of present illness: HISTORY OF PRESENTING ILLNESS This is a 75-year-old male with a past medical history of coronary artery disease status post PCI to his LAD in 1996, OM 1 and RCA in 2017, type 2 diabetes mellitus, hypertension, hyperlipidemia, osteoarthritis, Parkinson's disease sent in [facility] for chest heaviness. His is at the bedside. [facility] yesterday, where he was evaluated by Dr. Barron, was sent to the hospital for further evaluation. Patient usually sees Dr. Calzada however has not followed up in the office 2017 since things are fairly stable. Patient was therefore being followed by Dr. Cheatham. 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 Patient complains of chest heaviness and the pain radiating to the upper jaw on both sides. It is more like a chest heaviness rather than chest pain. This has been ongoing for the past few weeks. He states started in August it was fairly mild and normally chest with exertion are now occurs when he lies flat and well as with minimal activity such as doing the dishes. He states he is unable to even walk up a half a flight of stairs without having chest pressure and becoming short of breath. The chest pressure feels similar to his prior stenting. He last stenting was in 2017 he states since that time he is to been doing fairly well. He has been having increased lower extremity edema and therefore his hydrochlorothiazide was doubled earlier this week however without much of any response. He admits he is always been able to sleep lying flat for the past 20+ years second orthopedic issues however admits that now when he lies flat he becomes short of breath and has chest pressure. He denies a history of a heart failure in the past. At yesterday's visit patients bilateral lower extremity edema noted to be 3+ Dr. Cheatham ordered an echocardiogram performed on 11/10/2020 which showed normal ejection fraction 5560 percent, moderate to severely enlarged right ventricle, left atrium moderately dilated unable to obtain an RVSP. He had a Lexiscan stress test performed on 11/10/2020 which showed decreased inferior uptake was read out as possible prior infarct with possible stress-induced I can't ischemia, apparently in the inferior and lateral areas. Laboratory data reviewed, troponin negative 3, d-dimer 0.17, triglycerides 346, cholesterol 134, LDL 40, HDL 24, WBC 5.6, hemoglobin 14.8, platelets 155, covid- 19 negative. Vital signs blood pressure 171/89, heart rate 63, afebrile, maintaining oxygen saturation is on room air. Current home cardiac medications include hydrochlorothiazide 50 mg nightly, verapamil 180 mg twice a day, metoprolol titrate 100 mg twice daily, losartan 100 mg nightly, Plavix 75 mg nightly, atorvastatin 40 mg nightly. DIAGNOSTICS EKG reveals normal sinus rhythm with T wave flattening in lead III, and V3. Second EKG, sinus bradycardia, similar ST changes. Similar to prior EKGs and No significant ST-T wave abnormalities Telemetry tracings indicate sinus mechanism.. Chest xray no evidence of acute cardiopulmonary disease.. REVIEW OF SYSTEMS At the time of my exam: CONSTITUTIONAL: Denies fever or chills. CARDIOVASCULAR: + chest pain,+ shortness of breath, +orthopnea, Denies PND or palpitations. RESPIRATORY: Denies cough. GASTROINTESTINAL: Denies abdominal pain, diarrhea, constipation, nausea or vomiting. MUSCULOSKELETAL: Denies myalgias. NEUROLOGIC: Denies numbness, tingling, headacbe or weakness. ENDOCRINE: Denies fatigue, weight change, polydipsia or polyurina. GENITOURINARY: Denies burning, hematuria or urgency with micturation. HEMATOLOGIC: Denies history of anemia or bleeding. PHYSICAL EXAMINATION CONSTITUTIONAL: No apparent distress. HEENT: Head is normocephalic. Pupils are equal, round. Sclerae anicteric. Mucous membranes of the mouth are moist. No JVD. No carotid bruit. CHEST EXAMINATION: Lungs are clear to auscultation. No chest wall tenderness is noted on palpation or with deep breathing. HEART EXAMINATION: Regular rate and rhythm. S1, S2 heard. No murmurs, gallops or rub. ABDOMEN: Soft, nontender. Positive bowel sounds. EXTREMITIES: 2+ peripheral pulses, 1+ lower extremity edema and no calf tenderness. NEUROLOGIC EXAMINATION: Patient is awake, alert and oriented x3. ASSESSMENT Coronary artery disease status post PCI to his LAD in 1996, OM 1 and RCA in 2017 Type 2 diabetes mellitus Hypertension Hyperlipidemia Parkinson's disease PLAN -Patients lower extremity edema greatly improved from yesterday, will not add on lasix at this time. -Will resume hydrochlorothiazide 50 mg nightly, verapamil 180 mg twice a day, metoprolol titrate 100 mg twice daily, losartan 100 mg nightly, Plavix 75 mg nightly, atorvastatin 40 mg nightly. -Plan for cardiac catheterization on Monday11/16/[address] Calzada. I have discussed risks, benefits and alternative therapies aren't involved mentioned procedure and for both sedation/analgesia as well as necessary blood product administration, if indicated as they pertain to this patient. Patient's indicate understanding symptoms of the risks and procedures discussed. Nurse Practitioner note has been reviewed, I agree with a documented findings and plan of care. Patient was seen and examined. Past Medical History Past Medical History: Coronary Artery Disease (CAD), Diabetes Mellitus, Hyperlipidemia, Hypertension, Myocardial Infarction ([place]), Osteoarthritis (OA) Additional Past Medical History / Comment(s): NIDDM type II, vertigo in September 2016 thought to be labyrinthitis-also had elevated troponins-stress test done and was negative, arthritis multiple joints. Last Myocardial Infarction Date:: 1996 History of Any Multi-Drug Resistant Organisms: None Reported Past Surgical History: Heart Catheterization With Stent, Joint Replacement, Tonsillectomy Additional Past Surgical History / Comment(s): 1996 PCI with stent, L/RT HIP REPLACEMENTS, EXPLORATORY LAP with spleen injury, EPIDURAL INJ. in back, lumbar fusion, colonoscopy, vasectomy. Past Anesthesia/Blood Transfusion Reactions: Previous Problems w/ Anesthesia Additional Past Anesthesia/Blood Transfusion Reaction / Comment(s): STATES POST EPIDURAL INJ HAD A HARD TIME WAKING UP.pt /family stated pt can't take any narcotics-becomes very confused. pt can take tylenol extra strength for pain. Date of Last Stent Placement:: 1996 Past Psychological History: No Psychological Hx Reported Smoking Status: Never smoker Past Alcohol Use History: None Reported Past Drug Use History: None Reported - Past Family History Mother Family Medical History: Congestive Heart Failure (CHF), Hypertension Additional Family Medical History / Comment(s): bipolar Father Family Medical History: Coronary Artery Disease (CAD), Myocardial Infarction (PR) Medications and Allergies Home Medications Medication Instructions Recorded Confirmed Type RX: Cholecalciferol [Vitamin D3 50 mcg PO DAILY@1000 07/01/15 11/12/20 History (25 Mcg = 1000 Iu)] RX: Metoprolol Tartrate [Lopressor] 100 mg PO BID@1000,2200 07/01/15 11/12/20 History RX: Multivitamin [Men's 1 tab PO DAILY@1000 07/01/15 11/12/20 History Multi-Vitamin] RX: Verapamil HCl [Verapamil ER] 180 mg PO BID@1000,2200 07/01/15 11/12/20 History RX: Aspirin EC [Ecotrin Low Dose] 81 mg PO DAILY@1000 09/28/16 11/12/20 History metFORMIN HCL [Glucophage] 1,000 mg PO BID@1000,2200 12/14/16 11/12/20 History Bacillus Coagulans/Inulin 1 cap PO DAILY@1000 12/13/19 11/12/20 History [Probiotic with Prebiotic Cap] DULoxetine HCL [Cymbalta] 60 mg PO BID@1000,219912/13/19 11/12/20 History Glimepiride [Amaryl] 1 mg PO BID@1000,2200 12/13/19 11/12/20 History RX: Atorvastatin [Lipitor] 40 mg PO HS@219912/13/19 11/12/20 History RX: Carbidopa-Levodopa 25-100 mg 2 tab PO TID@0900,1300,1700 12/13/19 11/12/20 History [Sinemet 25-100 mg] RX: Clopidogrel [Plavix] 75 mg PO HS@22012/13/19 11/12/20 History RX: Donepezil [Aricept] 10 mg PO DAILY@1700 12/13/19 11/12/20 History RX: Losartan Potassium [Cozaar] 100 mg PO HS@219912/13/19 11/12/20 History RX: hydroCHLOROthiazide 50 mg PO HS@22012/13/19 11/12/20 History Cyanocobalamin (Vitamin B-12) 1,000 mcg PO DAILY@1000 03/06/20 11/12/20 History [Vitamin B-12] Pregabalin [Lyrica] 75 mg PO BID@0900,1700 03/06/20 11/12/20 History Tamsulosin HCl [Flomax] 0.4 mg PO DAILY@1200 03/06/20 11/12/20 History SILVER sulfADIAZINE Cream 1 applic TOPICAL DAILY PRN 11/12/20 11/12/20 History [Silvadene 1% Cream] Terbinafine [LamISIL] 250 mg PO HS@2200 11/12/20 11/12/20 History Allergies Allergy/AdvReac Type Severity Reaction Status Date / Time narcotics AdvReac Hallucinati Uncoded 11/12/20 14:10 ons opiates AdvReac Hallucinati Uncoded 11/12/20 14:10 ons Physical Exam Vitals: Vital Signs Temp Pulse Pulse Resp BP BP Pulse Ox 11/13/20 02:00 63 18 11/12/20 20:30 98.8 F 63 18 136/79 96 11/12/20 17:25 60 18 135/73 95 11/12/20 15:35 98.8 F 63 18 136/79 96 11/12/20 14:24 55 L 18 125/64 94 L 11/12/20 11:23 98.1 F 58 L 18 116/69 93 L Intake and Output 11/12/20 11/13/20 11/13/20 22:59 06:59 14:59 Intake Total 64.16 100.185 Output Total 200 Balance 64.16 -99.815 Intake: Intake, IV Titration 64.16 100.185 Amount Heparin Sod,Pork in 0.45% 64.16 100.185 NaCl 25,000 unit In 0.45 % NaCl 1 250ml.bag @ 8.35 UNITS/KG/HR 9.999 mls/hr IV .Q24H [facility] Rx#: [id number] Output: Urine 200 Other: Voiding Method Urinal Urinal # Voids 1 1 Weight 119.748 kg Results 11/13/20 03:50 11/12/20 12:19 Cardiac Enzymes 11/12/20 11/12/20 11/12/20 Range/Units 12:19 12:19 16:28 AST 23 (17-59) U/L Troponin I <0.012 <0.012 (0.000-0.034) ng/mL 11/12/20 Range/Units 20:45 AST (17-59) U/L Troponin I <0.012 (0.000-0.034) ng/mL Coagulation 11/12/20 11/12/20 11/13/20 Range/Units 12:19 20:45 03:50 PT 11.1 (9.0-12.0) sec APTT 22.4 37.0 H 66.9 H (22.0-30.0) sec CBC 11/12/20 11/13/20 Range/Units 12:19 03:50 WBC 8.0 (3.8-10.6) k/uL RBC 4.77 (4.30-5.90) m/uL Hgb 15.2 (13.0-17.5) gm/dL Hct 45.8 (39.0-53.0) % Plt Count 201 156 (150-450) k/uL Comprehensive Metabolic Panel 11/12/20 Range/Units 12:19 Sodium 140 (137-145) mmol/L Potassium 3.4 L (3.5-5.1) mmol/L Chloride 98 (98-107) mmol/L Carbon Dioxide 35 H (22-30) mmol/L BUN 26 H (9-20) mg/dL Creatinine 0.92 (0.66-1.25) mg/dL Glucose 100 H (74-99) mg/dL Calcium 9.5 (8.4-10.2) mg/dL AST 23 (17-59) U/L ALT 7 (4-49) U/L Alkaline Phosphatase 96 (38-126) U/L Total Protein 6.2 L (6.3-8.2) g/dL Albumin 3.7 (3.5-5.0) g/dL Current Medications Generic Name Dose Route Start Last Admin Trade Name Freq PRN Reason Stop Dose Admin Aspirin 325 mg 11/13/20 09:00 Aspirin 325 Mg Tab PO DAILY [facility] Atorvastatin Calcium 40 mg 11/12/20 22:00 11/12/20 21:36 Atorvastatin 40 Mg Tab PO 40 mg HS@2200 [facility] Administration Carbidopa/Levodopa 2 each 11/12/20 19:00 11/12/20 21:36 Carbidopa-Levodopa 25-100 Mg 1 Each Tab PO Not Given TID@0900,1300,1700 [facility] Cholecalciferol 50 mcg 11/13/20 10:00 Cholecalciferol 25 Mcg (1000 Iu) Tablet PO DAILY@1000 [facility] Cyanocobalamin 1,000 mcg 11/13/20 10:00 Cyanocobalamin 500 Mcg Tab PO DAILY@1000 [facility] Donepezil HCl 10 mg 11/12/20 18:00 11/12/20 21:38 Donepezil 10 Mg Tab PO Not Given DAILY@1700 [facility] Duloxetine HCl 60 mg 11/12/20 22:00 11/12/20 21:36 Duloxetine Hcl 60 Mg Capsule.Dr PO 60 mg BID@1000,2200 [facility] Administration Glimepiride 1 mg 11/12/20 22:00 11/12/20 21:41 Glimepiride 2 Mg Tab PO 1 mg BID@1000,2200 [facility] Administration Heparin Sodium (Porcine) 0 unit 11/12/20 14:39 11/12/20 22:05 Heparin Sodium,Porcine 5,000 Unit/Ml 1 Ml Vial IV 2,993 unit Q6HR PRN Administration Low PTT Protocol Hydrochlorothiazide 50 mg 11/12/20 22:00 11/12/20 21:39 Hydrochlorothiazide 25 Mg Tab PO 50 mg HS@2200 [facility] Administration Heparin Sodium/Sodium Chloride 250 mls @ 9.999 mls/hr 11/12/20 14:45 11/13/20 06:11 25,000 unit/ Sodium Chloride IV 8.35 units/kg/hr .Q24H [facility] 9.999 mls/hr Titration Protocol 8.35 UNITS/KG/HR Lactobacillus Acidoph/Bulgaricus 1 each 11/13/20 10:00 Lactobacillus Acidoph & Bulgar 1 Each Packet PO DAILY@1000 [facility] Losartan Potassium 100 mg 11/12/20 22:00 11/12/20 21:39 Losartan 50 Mg Tab PO 100 mg HS@2200 [facility] Administration Metoprolol Tartrate 100 mg 11/12/20 22:00 11/12/20 21:39 Metoprolol Tartrate 50 Mg Tab PO 100 mg BID@1000,2200 [facility] Administration Multivitamins 1 each 11/13/20 10:00 Multivitamins, Thera 1 Each Tab PO DAILY@1000 [facility] Nitroglycerin 0.4 mg 11/12/20 14:39 Nitroglycerin Sl Tabs 0.4 Mg Tab SUBLINGUAL Q5M PRN Chest Pain Pregabalin 75 mg 11/12/20 18:00 11/12/20 21:38 Pregabalin 75 Mg Cap PO Not Given BID@0900,1700 [facility] Silver Sulfadiazine 1 applic 11/12/20 17:41 Silver Sulfadiazine 1% Cream 25 Gm Tube TOPICAL DAILY PRN sores on buttocks Tamsulosin HCl 0.4 mg 11/13/20 12:00 Tamsulosin 0.4 Mg Cap.Er.24h PO DAILY@1200 [facility] Terbinafine HCl 250 mg 11/12/20 22:00 11/12/20 21:42 Terbinafine 250 Mg Tab PO 250 mg HS@2200 [facility] Administration Verapamil HCl 180 mg 11/12/20 22:00 11/12/20 21:41 Verapamil Sr 180 Mg Tablet.Er PO 180 mg BID@1000,2200 [facility] Administration Intake and Output 11/12/20 11/13/20 11/13/20 22:59 06:59 14:59 Intake Total 64.16 100.185 Output Total 200 Balance 64.16 -99.815 Intake: Intake, IV Titration 64.16 100.185 Amount Heparin Sod,Pork in 0.45% 64.16 100.185 NaCl 25,000 unit In 0.45 % NaCl 1 250ml.bag @ 8.35 UNITS/KG/HR 9.999 mls/hr IV .Q24H [facility] Rx#: [id number] Output: Urine 200 Other: Voiding Method Urinal Urinal # Voids 1 1 Weight 119.748 kg 11/13/20 03:50 11/12/20 12:19
[2020-11-13 16:54] LABS: Glucose,Whole Blood 120 mg/dL (75-99)
[2020-11-13] MEDS: DONEPEZIL 10 MG TAB PO SCH (17:06)
[2020-11-13 20:05] LABS: Glucose,Whole Blood 146 mg/dL (75-99)
[2020-11-13] MEDS: LOSARTAN 50 MG TAB PO SCH (20:08)
[2020-11-13] MEDS: TERBINAFINE 250 MG TAB PO SCH (20:08)
[2020-11-13] MEDS: ATORVASTATIN 40 MG TAB PO SCH (20:08)
[2020-11-13] MEDS: hydroCHLOROthiazide 25 MG TAB PO SCH (20:09)
--- NOTE | 2020-11-14 00:08 | P.PN ---
Subjective Progress Note Date: 11/13/20 Principal diagnosis: Abnormal Stress test Mr. 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 His is at the bedside and most of the history was provided by her. She mentions that [facility] went [facility] today, where he was evaluated by Dr. Barron, was sent to the hospital for further evaluation. 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 Patient complains of chest heaviness and the pain radiating to the upper jaw on both sides. It is more like a chest heaviness rather than chest pain. This has been ongoing for the past few weeks. He also mentions about having swelling of his lower extremities that has been going on for the past 2-3 months. Patient denies having any recent travel. He denies having any fevers chills or rigors. No cough or difficulty in breathing. No abdominal pain nausea vomiting or diarrhea. No dysuria or hematuria. In the ER patient had a chest x-ray showing no evidence of acute pulmonary disease. He had blood work done showing white count of 8, hemoglobin 15.2, platelets 201. Sodium 140, potassium 3.4, chloride 98, bicarb 35, BNP 26, creatinine 0.92. Troponin less than 0.022. BNP 123. Hdez virus negative. Patient is admitted for further evaluation and management with cardiology consult. On 11/13/2020 -patient was seen and examined at bedside. Patient's at the bedside. Patient still continues to have mild difficulty in breathing. He states that his lower extremity swelling has improved. Denies having any fevers chills or rigors. No abdominal pain nausea vomiting or diarrhea. No dysuria or hematuria. On reviewing his vitals temperature of 97.5, heart rate 61 respiratory rate 19, blood pressure 154 x 69 saturating at 94% on 2 L of nasal cannula. On reviewing the labs from this morning white count of 5.6, hemoglobin 4.8, platelets 155. Triglycerides 346, LDL 40. Active Medications Alprazolam (Alprazolam 0.25 Mg Tab) 0.25 mg PO Q6HR PRN PRN Reason: Mild Anxiety Alprazolam (Alprazolam 0.5 Mg Tab) 0.5 mg PO Q6HR PRN PRN Reason: Moderate Anxiety Aspirin (Aspirin 325 Mg Tab) 325 mg PO DAILY [facility] Last Admin: 11/13/20 08:56 Dose: 325 mg Documented by: Atorvastatin Calcium (Atorvastatin 40 Mg Tab) 40 mg PO HS@2200 [facility] Last Admin: 11/13/20 20:08 Dose: 40 mg Documented by: Carbidopa/Levodopa (Carbidopa-Levodopa 25-100 Mg 1 Each Tab) 2 each PO TID@09 00,1300,1700 [facility] Last Admin: 11/13/20 17:06 Dose: 2 each Documented by: Cholecalciferol (Cholecalciferol 25 Mcg (1000 Iu) Tablet) 50 mcg PO DAILY@1000 [facility] Last Admin: 11/13/20 10:41 Dose: 50 mcg Documented by: Cyanocobalamin (Cyanocobalamin 500 Mcg Tab) 1,000 mcg PO DAILY@1000 [facility] Last Admin: 11/13/20 10:41 Dose: 1,000 mcg Documented by: Donepezil HCl (Donepezil 10 Mg Tab) 10 mg PO DAILY@1700 [facility] Last Admin: 11/13/20 17:06 Dose: 10 mg Documented by: Duloxetine HCl (Duloxetine Hcl 60 Mg Capsule.Dr) 60 mg PO BID@1000,2200 [facility] Last Admin: 11/13/20 20:09 Dose: 60 mg Documented by: Glimepiride (Glimepiride 2 Mg Tab) 1 mg PO BID@1000,2200 [facility] Last Admin: 11/13/20 20:09 Dose: 1 mg Documented by: Heparin Sodium (Porcine) (Heparin Sodium,Porcine 5,000 Unit/Ml 1 Ml Vial) 0 unit IV Q6HR PRN; Protocol PRN Reason: Low PTT Last Admin: 11/13/20 21:38 Dose: 2,975 unit Documented by: Hydrochlorothiazide (Hydrochlorothiazide 25 Mg Tab) 50 mg PO HS@2200 [facility] Last Admin: 11/13/20 20:09 Dose: 50 mg Documented by: Heparin Sodium/Sodium Chloride (25,000 unit/ Sodium Chloride) 250 mls @ 9.999 mls/hr IV .Q24H [facility]; Protocol Last Titration: 11/13/20 21:33 Dose: 12.35 units/kg/hr, 14.789 mls/hr Documented by: Sodium Chloride 1,000 ml/ IV (Solution) 1,000 mls @ 119.6 mls/hr IV .Q8H22M ONE Stop: 11/15/20 21:05 Heparin Sodium (Porcine) 10, (000 unit/ Sodium Chloride) 1,001 mls @ 999 mls/hr IRRIGATION ONCE PRN PRN Reason: INTRA-OP Stop: 11/16/20 23:00 Heparin Sodium (Porcine) 2,500 (unit/ Sodium Chloride) 250.5 mls @ 250 mls/hr IRRIGATION ONCE PRN PRN Reason: INTRA-OP Stop: 11/16/20 23:00 Lactobacillus Acidoph/Bulgaricus (Lactobacillus Acidoph & Bulgar 1 Each Packet) 1 each PO DAILY@1000 [facility] Last Admin: 11/13/20 10:41 Dose: 1 each Documented by: Losartan Potassium (Losartan 50 Mg Tab) 100 mg PO HS@2200 [facility] Last Admin: 11/13/20 20:08 Dose: 100 mg Documented by: Metoprolol Tartrate (Metoprolol Tartrate 50 Mg Tab) 100 mg PO BID@1000,2200 [facility] Last Admin: 11/13/20 20:08 Dose: 100 mg Documented by: Multivitamins (Multivitamins, Thera 1 Each Tab) 1 each PO DAILY@1000 [facility] Last Admin: 11/13/20 10:41 Dose: 1 each Documented by: Nitroglycerin (Nitroglycerin Sl Tabs 0.4 Mg Tab) 0.4 mg SUBLINGUAL Q5M PRN PRN Reason: Chest Pain Pregabalin (Pregabalin 75 Mg Cap) 75 mg PO BID@0900,1700 [facility] Last Admin: 11/13/20 17:06 Dose: 75 mg Documented by: Silver Sulfadiazine (Silver Sulfadiazine 1% Cream 25 Gm Tube) 1 applic TOPICAL DAILY PRN PRN Reason: sores on buttocks Tamsulosin HCl (Tamsulosin 0.4 Mg Cap.Er.24h) 0.4 mg PO DAILY@1200 [facility] Last Admin: 11/13/20 13:50 Dose: 0.4 mg Documented by: Terbinafine HCl (Terbinafine 250 Mg Tab) 250 mg PO HS@2200 [facility] Last Admin: 11/13/20 20:08 Dose: 250 mg Documented by: Verapamil HCl (Verapamil Sr 180 Mg Tablet.Er) 180 mg PO BID@1000,2200 [facility] Last Admin: 11/13/20 20:09 Dose: 180 mg Documented by: Objective - Vital Signs Vital signs: Vital Signs Temp 97.5 F L 11/13/20 07:38 Pulse 63 11/13/20 07:38 Resp 18 11/13/20 07:38 BP 171/89 11/13/20 07:38 Pulse Ox 98 11/13/20 07:38 Intake & Output 11/12/20 11/13/20 11/13/20 18:59 06:59 18:59 Intake Total 164.345 0 Output Total 200 Balance -35.655 0 Weight 119.748 kg 119.6 kg Intake: Intake, IV Titration 164.345 Amount Heparin Sod,Pork in 0.45% 164.345 NaCl 25,000 unit In 0.45 % NaCl 1 250ml.bag @ 8.35 UNITS/KG/HR 9.999 mls/hr IV .Q24H [facility] Rx#: [id number] Oral 0 Output: Urine 200 Other: Voiding Method Urinal # Voids 1 1 - Exam PHYSICAL EXAMINATION: GENERAL: The patient is alert and oriented x3, not in any acute distress. Obese. HEENT: Pupils are round and equally reacting to light. EOMI. No scleral icterus. No pallor. CARDIOVASCULAR: S1 and S2 present. PULMONARY: Bilateral breath sounds are positive. Diminished at the lower lung bases. No crackles or wheeze. ABDOMEN: Abdomen is soft. Nontender. Nondistended. Normal bowel sounds. EXTREMITIES: No cyanosis, clubbing. Positive for pitting edema bilaterally NEUROLOGICAL: Gross neurological examination did not reveal any focal deficits. SKIN: No rashes. - Labs CBC & Chem 7: 11/13/20 03:50 11/12/20 12:19 Labs: Abnormal Lab Results - Last 24 Hours (Table) 11/12/20 11/12/20 11/13/20 Range/Units 12:19 20:45 03:50 APTT 37.0 H 66.9 H (22.0-30.0) sec Potassium 3.4 L (3.5-5.1) mmol/L Carbon Dioxide 35 H (22-30) mmol/L BUN 26 H (9-20) mg/dL Glucose 100 H (74-99) mg/dL Total Protein 6.2 L (6.3-8.2) g/dL Triglycerides (0.0-149.0) mg/dL VLDL Cholesterol, Calc (5.00-40.00) mg/dL HDL Cholesterol (40.0-60.0) mg/dL 11/13/20 Range/Units 03:50 APTT (22.0-30.0) sec Potassium (3.5-5.1) mmol/L Carbon Dioxide (22-30) mmol/L BUN (9-20) mg/dL Glucose (74-99) mg/dL Total Protein (6.3-8.2) g/dL Triglycerides 346.0 H (0.0-149.0) mg/dL VLDL Cholesterol, Calc 69.20 H (5.00-40.00) mg/dL HDL Cholesterol 24.0 L (40.0-60.0) mg/dL Assessment and Plan Assessment: ASSESSMENT Unstable angina Abnormal stress test History of coronary artery disease Type 2 diabetes mellitus Hypertension Hyperlipidemia Osteoarthritis Parkinson's disease Obesity with BMI of 39 Hypokalemia PLAN: Due to recent stress test being positive, he has been started on IV heparin. Patient showed significant improvement in his lower extremity edema compared to yesterday. Cardiology has seen the patient and planning for cardiac cath on Monday morning. Patient has been started on hydrochlorothiazide, verapamil, metoprolol and losartan. The treatment plan was discussed in detail with the patient and his at bedside. Further recommendations to follow depending on the progress of the patient.
[2020-11-14] MEDS: HEPARIN SOD,PORK IN 0.45% NACL 25,000 UNIT in 0.45% NACL 1 250ML.BAG IV SCH (04:19)
[2020-11-14 05:04] LABS: Mean Platelet Volume 6.6; Platelet Count 176 k/uL (150-450)
[2020-11-14 07:19] LABS: Glucose,Whole Blood 147 mg/dL (75-99)
[2020-11-14] MEDS: ASPIRIN 325 MG TAB PO SCH (08:47)
[2020-11-14] MEDS: PREGABALIN 75 MG CAP PO SCH ×2 (08:47→16:54)
[2020-11-14] MEDS: CARBIDOPA-LEVODOPA 25-100 MG 1 EACH TAB PO SCH ×3 (08:47→16:54)
[2020-11-14] MEDS: DULoxetine HCL 60 MG CAPSULE.DR PO SCH ×2 (10:10→21:16)
[2020-11-14] MEDS: METOPROLOL TARTRATE 50 MG TAB PO SCH ×2 (10:10→21:16)
[2020-11-14] MEDS: GLIMEPIRIDE 2 MG TAB PO SCH ×2 (10:10→21:16)
[2020-11-14] MEDS: CYANOCOBALAMIN 500 MCG TAB PO SCH (10:10)
[2020-11-14] MEDS: VERAPAMIL SR 180 MG TABLET.ER PO SCH ×2 (10:10→21:16)
[2020-11-14] MEDS: LACTOBACILLUS ACIDOPH & BULGAR 1 EACH PACKET PO SCH (10:10)
[2020-11-14] MEDS: MULTIVITAMINS, THERA 1 EACH TAB PO SCH (10:10)
[2020-11-14] MEDS: CHOLECALCIFEROL 25 MCG (1000 IU) TABLET PO SCH (10:10)
[2020-11-14 11:17] LABS: African American GFR (CKD) 107.7 (60.0-200.0); BUN/Creat Ratio 32.86 Ratio (12.00-20.00); Calcium 9.3 mg/dL (8.7-10.3); Potassium 3.5 mmol/L (3.5-5.5)
[2020-11-14 11:28] LABS: Glucose,Whole Blood 113 mg/dL (75-99)
[2020-11-14] MEDS: TAMSULOSIN 0.4 MG CAP.ER.24H PO SCH (12:09)
--- NOTE | 2020-11-14 13:04 | P.PN ---
Subjective Progress Note Date: 11/14/20 The patient is a 75-year-old male with past medical history of coronary artery disease status post stenting in 1996 in 2016, who presented to the hospital with new onset of chest pains. He follows in the office with Dr. Calzada, who plans on proceeding with coronary angiogram Monday. Overnight the patient had one episode of chest discomfort. He states it started out as a sharp sensation in his mid chest and then progressed to a heaviness. He states it lasted approximately 5 minutes. The nurse took his vital signs, which she states was unremarkable. He does not believe he was given any nitroglycerin. He states he is feeling well this morning sitting up in the recliner chair. No chest pain or chest pressure. No dyspnea, orthopnea, palpitations, dizziness, or lightheadedness. He states he does have chronic edema and he has improved since his admission. GENERAL: Well-appearing, well-nourished and in no acute distress. NECK: Supple without JVD or thyromegaly. LUNGS: Breath sounds diminishedto auscultation bilaterally. Respiration equal and unlabored. No wheezes, rales or rhonchi. HEART: Regular rate and rhythm without murmurs, rubs or gallops. S1 and S2 heard. EXTREMITIES: Normal range of m. Moderate lower extremity edema. No clubbing or cyanosis. Peripheral pulses intact and strong. VITALS: 138/82, pulse rate 57, respiratory rate 16, temp 97.7F, SpO2 94% on room air TELEMETRY: Sinus bradycardia in the 50s LABS: Sodium 141, potassium 3.5, BUN 23, creatinine 0.7 IMPRESSION: Coronary artery disease, previous stenting in 1996 and 2016 Diabetes mellitus Hypertension, recently well controlled Hyperlipidemia, triglycerides 346 and LDL 40 PLAN: Start nitro paste If patient has recurrent episodes of chest discomfort, consider emergent cath Further recommendations based on clinical course The patient has been seen and evaluated. Plan of care has been reviewed and agreed upon by Dr Jordan. Objective - Vital Signs Vital signs: Vital Signs Temp 97.7 F 11/14/20 06:49 Pulse 57 L 11/14/20 06:49 Resp 16 11/14/20 06:49 BP 138/82 11/14/20 06:49 Pulse Ox 94 L 11/14/20 06:49 Intake & Output 11/13/20 11/14/20 11/14/20 18:59 06:59 18:59 Intake Total 798.325 210.694 91.096 Output Total 300 Balance 798.325 -89.306 91.096 Weight 119.6 kg 117.8 kg Intake: Intake, IV Titration 78.325 210.694 91.096 Amount Heparin Sod,Pork in 0.45% 78.325 210.694 91.096 NaCl 25,000 unit In 0.45 % NaCl 1 250ml.bag @ 8.35 UNITS/KG/HR 9.999 mls/hr IV .Q24H [facility] Rx#: [id number] Oral 720 Output: Urine 300 Other: Voiding Method Urinal # Voids 2 - Labs CBC & Chem 7: 11/14/20 04:39 11/14/20 04:39 Labs: Abnormal Lab Results - Last 24 Hours (Table) 11/13/20 11/13/20 11/13/20 Range/Units 16:52 20:02 20:52 APTT 40.5 H (22.0-30.0) sec Anion Gap (4.00-12.00) mmol/L BUN/Creatinine Ratio (12.00-20.00) Ratio Glucose (70-110) mg/dL POC Glucose (mg/dL) 120 H 146 H (75-99) mg/dL 11/14/20 11/14/20 11/14/20 Range/Units 04:39 04:39 07:17 APTT 73.4 H (22.0-30.0) sec Anion Gap 13.00 H (4.00-12.00) mmol/L BUN/Creatinine Ratio 32.86 H (12.00-20.00) Ratio Glucose 151 H (70-110) mg/dL POC Glucose (mg/dL) 147 H (75-99) mg/dL 11/14/20 11/14/20 Range/Units 11:27 11:46 APTT 47.8 H (22.0-30.0) sec Anion Gap (4.00-12.00) mmol/L BUN/Creatinine Ratio (12.00-20.00) Ratio Glucose (70-110) mg/dL POC Glucose (mg/dL) 113 H (75-99) mg/dL
[2020-11-14 13:29] VITALS: BMI 38.3
[2020-11-14] MEDS: DONEPEZIL 10 MG TAB PO SCH (16:54)
[2020-11-14 17:34] LABS: Glucose,Whole Blood 107 mg/dL (75-99)
[2020-11-14 20:55] LABS: Glucose,Whole Blood 327 mg/dL (75-99)
[2020-11-14] MEDS: LOSARTAN 50 MG TAB PO SCH (21:15)
[2020-11-14] MEDS: hydroCHLOROthiazide 25 MG TAB PO SCH (21:15)
[2020-11-14] MEDS: ATORVASTATIN 40 MG TAB PO SCH (21:16)
[2020-11-14] MEDS: TERBINAFINE 250 MG TAB PO SCH (21:16)
--- NOTE | 2020-11-14 22:11 | P.PN ---
Subjective Progress Note Date: 11/14/20 Principal diagnosis: Abnormal Stress test Mr. 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 His is at the bedside and most of the history was provided by her. She mentions that she went to [facility] today, where he was evaluated by Dr. Barron, was sent to the hospital for further evaluation. 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 Patient complains of chest heaviness and the pain radiating to the upper jaw on both sides. It is more like a chest heaviness rather than chest pain. This has been ongoing for the past few weeks. He also mentions about having swelling of his lower extremities that has been going on for the past 2-3 months. Patient denies having any recent travel. He denies having any fevers chills or rigors. No cough or difficulty in breathing. No abdominal pain nausea vomiting or diarrhea. No dysuria or hematuria. In the ER patient had a chest x-ray showing no evidence of acute pulmonary disease. He had blood work done showing white count of 8, hemoglobin 15.2, platelets 201. Sodium 140, potassium 3.4, chloride 98, bicarb 35, BNP 26, creatinine 0.92. Troponin less than 0.022. BNP 123. Hdez virus negative. Patient is admitted for further evaluation and management with cardiology consult. On 11/13/2020 -patient was seen and examined at bedside. Patient's at the bedside. Patient still continues to have mild difficulty in breathing. He states that his lower extremity swelling has improved. Denies having any fevers chills or rigors. No abdominal pain nausea vomiting or diarrhea. No dysuria or hematuria. On reviewing his vitals temperature of 97.5, heart rate 61 respiratory rate 19, blood pressure 154 x 69 saturating at 94% on 2 L of nasal cannula. On reviewing the labs from this morning white count of 5.6, hemoglobin 4.8, platelets 155. Triglycerides 346, LDL 40. On 11/14/2020 -patient was seen and examined at bedside. His is also at the bedside. Patient had one episode of chest discomfort, stated sharp sensation around his mid chest which lasted for around 4 to 5 minutes. He states that nurse checked his vitals and was within normal limits. Currently patient is chest pain-free. Patient states that his lower extremity swelling did not show much improvement since yesterday. He denies having any chest pain or palpitations. Patient denies having any cough or difficulty in breathing. No abdominal pain nausea vomiting or diarrhea. No dysuria or hematuria. On reviewing the vitals temperature of 96.4, heart rate 61, respiratory rate 16, blood pressure 121 x 59 and saturating at 92% on room air. Patient continues to be on IV heparin. Reviewing the labs sodium 141, potassium 3.5, chloride 98, bicarb 30, BUN 23, creatinine 0.7. All medications have been reviewed. Objective - Vital Signs Vital signs: Vital Signs Temp 97.7 F 11/14/20 06:49 Pulse 57 L 11/14/20 06:49 Resp 16 11/14/20 06:49 BP 138/82 11/14/20 06:49 Pulse Ox 94 L 11/14/20 06:49 Intake & Output 11/13/20 11/14/20 11/14/20 18:59 06:59 18:59 Intake Total 798.325 210.694 Output Total 300 Balance 798.325 -89.306 Weight 119.6 kg 117.8 kg Intake: Intake, IV Titration 78.325 210.694 Amount Heparin Sod,Pork in 0.45% 78.325 210.694 NaCl 25,000 unit In 0.45 % NaCl 1 250ml.bag @ 8.35 UNITS/KG/HR 9.999 mls/hr IV .Q24H [facility] Rx#: [id number] Oral 720 Output: Urine 300 Other: Voiding Method Urinal # Voids 2 - Exam PHYSICAL EXAMINATION: GENERAL: The patient is alert and oriented x3, not in any acute distress. Obese. HEENT: Pupils are round and equally reacting to light. EOMI. No scleral icterus. No pallor. CARDIOVASCULAR: S1 and S2 present. PULMONARY: Bilateral breath sounds are positive. Diminished at the lower lung bases. No crackles or wheeze. ABDOMEN: Abdomen is soft. Nontender. Nondistended. Normal bowel sounds. EXTREMITIES: No cyanosis, clubbing. Positive for mild pitting edema bilaterally NEUROLOGICAL: Gross neurological examination did not reveal any focal deficits. SKIN: No rashes. - Labs CBC & Chem 7: 11/14/20 04:39 11/14/20 04:39 Labs: Abnormal Lab Results - Last 24 Hours (Table) 11/13/20 11/13/20 11/13/20 Range/Units 16:52 20:02 20:52 APTT 40.5 H (22.0-30.0) sec Anion Gap (4.00-12.00) mmol/L BUN/Creatinine Ratio (12.00-20.00) Ratio Glucose (70-110) mg/dL POC Glucose (mg/dL) 120 H 146 H (75-99) mg/dL 11/14/20 11/14/20 11/14/20 Range/Units 04:39 04:39 07:17 APTT 73.4 H (22.0-30.0) sec Anion Gap 13.00 H (4.00-12.00) mmol/L BUN/Creatinine Ratio 32.86 H (12.00-20.00) Ratio Glucose 151 H (70-110) mg/dL POC Glucose (mg/dL) 147 H (75-99) mg/dL 11/14/20 Range/Units 11:27 APTT (22.0-30.0) sec Anion Gap (4.00-12.00) mmol/L BUN/Creatinine Ratio (12.00-20.00) Ratio Glucose (70-110) mg/dL POC Glucose (mg/dL) 113 H (75-99) mg/dL Assessment and Plan Assessment: ASSESSMENT Unstable angina Abnormal stress test History of coronary artery disease Type 2 diabetes mellitus Hypertension Hyperlipidemia Osteoarthritis Parkinson's disease Obesity with BMI of 39 Hypokalemia PLAN: Patient is to be continued on IV heparin drip. He showed improvement in his lower extremity edema since admission. Cardiology on board and following the patient closely. He is chest pain-free currently. Continue the patient on the current medication regimen. The treatment plan was discussed in detail with the patient and his at bedside. Further recommendations to follow depending on the progress of the patient.
[2020-11-15] MEDS: HEPARIN SOD,PORK IN 0.45% NACL 25,000 UNIT in 0.45% NACL 1 250ML.BAG IV SCH ×2 (02:34→21:34)
[2020-11-15 07:42] LABS: Glucose,Whole Blood 153 mg/dL (75-99)
[2020-11-15] MEDS: CARBIDOPA-LEVODOPA 25-100 MG 1 EACH TAB PO SCH ×3 (08:39→17:01)
[2020-11-15] MEDS: PREGABALIN 75 MG CAP PO SCH ×2 (08:39→17:01)
[2020-11-15] MEDS: ASPIRIN 325 MG TAB PO SCH (08:39)
[2020-11-15 08:58] LABS: Basophils # (A) 0.03 X 10*3/uL (0.00-0.10); Basophils % (A) 0.5 %; Eosinophils # (A) 0.18 X 10*3/uL (0.04-0.35); Eosinophils % (A) 3.2 %; HCT 40.2 % (39.6-50.0); HGB 13.5 g/dL (13.0-17.0); Lymphocytes # (A) 1.15 X 10*3/uL (0.90-5.00); Lymphocytes % (A) 20.1 %; MCH 32.2 pg (27.0-32.0); MCHC 33.6 g/dL (32.0-37.0); MCV 95.9 fL (80.0-97.0); Mean Platelet Volume 9.9 fL (9.5-12.2); Monocytes % (A) 10.5 %; Neutrophils # (A) 3.74 X 10*3/uL (1.80-7.70); Neutrophils % (A) 65.5 %; Platelet Count 146 X 10*3/uL (140-440); RBC 4.19 X 10*6/uL (4.40-5.60); RDW 13.7 % (11.5-14.5); WBC 5.71 X 10*3/uL (4.50-10.00)
[2020-11-15 09:03] LABS: African American GFR (CKD) 85.6 (60.0-200.0); Anion Gap 7.8 mmol/L (4.00-12.00); Calcium 8.7 mg/dL (8.7-10.3); Carbon Dioxide 32.2 mmol/L (21.6-31.8); Non-African American GFR(CKD) 73.8 (60.0-200.0); Potassium 3.6 mmol/L (3.5-5.5)
[2020-11-15] MEDS: GLIMEPIRIDE 2 MG TAB PO SCH ×2 (10:04→21:27)
[2020-11-15] MEDS: CHOLECALCIFEROL 25 MCG (1000 IU) TABLET PO SCH (10:04)
[2020-11-15] MEDS: DULoxetine HCL 60 MG CAPSULE.DR PO SCH ×2 (10:04→21:26)
[2020-11-15] MEDS: VERAPAMIL SR 180 MG TABLET.ER PO SCH ×2 (10:04→21:26)
[2020-11-15] MEDS: METOPROLOL TARTRATE 50 MG TAB PO SCH ×2 (10:04→21:27)
[2020-11-15] MEDS: CYANOCOBALAMIN 500 MCG TAB PO SCH (10:04)
[2020-11-15] MEDS: MULTIVITAMINS, THERA 1 EACH TAB PO SCH (10:04)
[2020-11-15] MEDS: LACTOBACILLUS ACIDOPH & BULGAR 1 EACH PACKET PO SCH (10:05)
[2020-11-15 11:08] LABS: Glucose,Whole Blood 183 mg/dL (75-99)
[2020-11-15] MEDS: TAMSULOSIN 0.4 MG CAP.ER.24H PO SCH (12:36)
[2020-11-15] MEDS ORDERED: SODIUM CHLORIDE 0.9% 1,000 ML in EMPTY BAG 1 BAG IV ONE (12:44)
[2020-11-15] MEDS ORDERED: ALPRAZolam 0.5 MG TAB PO PRN (12:44)
[2020-11-15] MEDS ORDERED: ALPRAZolam 0.25 MG TAB PO PRN (12:44)
--- NOTE | 2020-11-15 13:24 | P.PN ---
Subjective Progress Note Date: 11/15/20 The patient is a 75-year-old male with past medical history of coronary artery disease status post stenting in 1996 in 2017, who presented to the hospital with new onset of chest pains. He follows in the office with Dr. Calzada, who plans on proceeding with coronary angiogram Monday. He states he is feeling well this morning sitting up in the recliner chair. No more chest pain or chest pressure. No dyspnea, orthopnea, palpitations, dizziness, or lightheadedness. He states he does have chronic edema and he states it has improved since his admission. GENERAL: Well-appearing, well-nourished and in no acute distress. NECK: Supple without JVD or thyromegaly. LUNGS: Breath sounds diminishedto auscultation bilaterally. Respiration equal and unlabored. No wheezes, rales or rhonchi. HEART: Regular rate and rhythm without murmurs, rubs or gallops. S1 and S2 heard. EXTREMITIES: Normal range of m. Moderate lower extremity edema. No clubbing or cyanosis. Peripheral pulses intact and strong. VITALS: Blood pressure 99/64, pulse rate 59, respiratory rate 16, temp 97.7F, SpO2 95% on room air TELEMETRY: Sinus bradycardia in the 50s LABS: No new laboratory data IMPRESSION: Coronary artery disease, previous stenting in 1996 and 2016 Diabetes mellitus Hypertension, recently well controlled Hyperlipidemia, triglycerides 346 and LDL 40 PLAN: Continues current medication regimen Nothing by mouth after midnight for heart cath with Dr. Calzada tomorrow The patient has been seen and evaluated. Plan of care has been reviewed and agreed upon by Dr Jordan. Objective - Vital Signs Vital signs: Vital Signs Temp 97.7 F 11/15/20 06:50 Pulse 59 L 11/15/20 06:50 Resp 16 11/15/20 06:50 BP 99/64 11/15/20 06:50 Pulse Ox 95 11/15/20 06:50 Intake & Output 11/14/20 11/15/20 11/15/20 18:59 06:59 18:59 Intake Total 571.096 481.65 Output Total 650 Balance 571.096 -168.35 Weight 117.8 kg 121.1 kg Intake: Intake, IV Titration 91.096 141.65 Amount Heparin Sod,Pork in 0.45% .096 141.65 NaCl 25,000 unit In 0.45 % NaCl 1 250ml.bag @ 8.35 UNITS/KG/HR 9.999 mls/hr IV .Q24H [facility] Rx#: [id number] Oral 480 340 Output: Urine 650 Other: # Voids 3 2 - Labs CBC & Chem 7: 11/15/20 06:26 11/15/20 06:26 Labs: Abnormal Lab Results - Last 24 Hours (Table) 11/14/20 11/14/20 11/15/20 Range/Units 17:32 20:54 06:26 RBC 4.19 L (4.40-5.60) X 10*6/uL MCH 32.2 H (27.0-32.0) pg APTT (22.0-30.0) sec Carbon Dioxide (21.6-31.8) mmol/L BUN/Creatinine Ratio (12.00-20.00) Ratio Glucose (70-110) mg/dL POC Glucose (mg/dL) 107 H 327 H (75-99) mg/dL 11/15/20 11/15/20 11/15/20 Range/Units 06:26 06:26 07:40 RBC (4.40-5.60) X 10*6/uL MCH (27.0-32.0) pg APTT 48.0 H (22.0-30.0) sec Carbon Dioxide 32.2 H (21.6-31.8) mmol/L BUN/Creatinine Ratio 21.00 H (12.00-20.00) Ratio Glucose 157 H (70-110) mg/dL POC Glucose (mg/dL) 153 H (75-99) mg/dL 11/15/20 Range/Units 11:07 RBC (4.40-5.60) X 10*6/uL MCH (27.0-32.0) pg APTT (22.0-30.0) sec Carbon Dioxide (21.6-31.8) mmol/L BUN/Creatinine Ratio (12.00-20.00) Ratio Glucose (70-110) mg/dL POC Glucose (mg/dL) 183 H (75-99) mg/dL
--- NOTE | 2020-11-15 15:37 | P.PN ---
Subjective Progress Note Date: 11/15/20 Principal diagnosis: Abnormal Stress test Mr. 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 His is at the bedside and most of the history was provided by her. She mentions that she went [facility] today, where he was evaluated by Dr. Barron, was sent to the hospital for further evaluation. 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 Patient complains of chest heaviness and the pain radiating to the upper jaw on both sides. It is more like a chest heaviness rather than chest pain. This has been ongoing for the past few weeks. He also mentions about having swelling of his lower extremities that has been going on for the past 2-3 months. Patient denies having any recent travel. He denies having any fevers chills or rigors. No cough or difficulty in breathing. No abdominal pain nausea vomiting or diarrhea. No dysuria or hematuria. In the ER patient had a chest x-ray showing no evidence of acute pulmonary disease. He had blood work done showing white count of 8, hemoglobin 15.2, platelets 201. Sodium 140, potassium 3.4, chloride 98, bicarb 35, BNP 26, creatinine 0.92. Troponin less than 0.022. BNP 123. Hdez virus negative. Patient is admitted for further evaluation and management with cardiology consult. On 11/13/2020 -patient was seen and examined at bedside. Patient's at the bedside. Patient still continues to have mild difficulty in breathing. He states that his lower extremity swelling has improved. Denies having any fevers chills or rigors. No abdominal pain nausea vomiting or diarrhea. No dysuria or hematuria. On reviewing his vitals temperature of 97.5, heart rate 61 respiratory rate 19, blood pressure 154 x 69 saturating at 94% on 2 L of nasal cannula. On reviewing the labs from this morning white count of 5.6, hemoglobin 4.8, platelets 155. Triglycerides 346, LDL 40. On 11/14/2020 -patient was seen and examined at bedside. His is also at the bedside. Patient had one episode of chest discomfort, stated sharp sensation around his mid chest which lasted for around 4 to 5 minutes. He states that nurse checked his vitals and was within normal limits. Currently patient is chest pain-free. Patient states that his lower extremity swelling did not show much improvement since yesterday. He denies having any chest pain or palpitations. Patient denies having any cough or difficulty in breathing. No abdominal pain nausea vomiting or diarrhea. No dysuria or hematuria. On reviewing the vitals temperature of 96.4, heart rate 61, respiratory rate 16, blood pressure 121 x 59 and saturating at 92% on room air. Patient continues to be on IV heparin. Reviewing the labs sodium 141, potassium 3.5, chloride 98, bicarb 30, BUN 23, creatinine 0.7. On 11/15 2020 - patient is seen and examined bedside. He is sitting in a chair by the bedside and appears to be no acute distress. He still complains of swelling of his lower extremities. He denies having any active chest pain. No palpitations or difficulty in breathing. No fever chills or rigors. No acute events reported by nursing staff overnight. Patient denies having any abdominal pain nausea vomiting or diarrhea. He denies having any dysuria or hematuria. On reviewing his vitals temperature 97.7, heart rate 50s to 60s, respiratory 16, blood pressure 1 11 x 73, saturating at 95% on room air. Repeat a.m. labs from this morning white count of 5.7, hemoglobin 13.5, platelets 146. APTT 48. Sodium 141, 3.6, chloride 101, bicarb 32, BUN 21, creatinine 1. Blood sugars running within normal limits. All medications have been reviewed and pertinent changes made. Objective - Vital Signs Vital signs: Vital Signs Temp 97.7 F 11/15/20 06:50 Pulse 59 L 11/15/20 06:50 Resp 16 11/15/20 06:50 BP 99/64 11/15/20 06:50 Pulse Ox 95 11/15/20 06:50 Intake & Output 11/14/20 11/15/20 11/15/20 18:59 06:59 18:59 Intake Total 571.096 481.65 Output Total 650 Balance 571.096 -168.35 Weight 117.8 kg 121.1 kg Intake: Intake, IV Titration 91.096 141.65 Amount Heparin Sod,Pork in 0.45% 91.096 141.65 NaCl 25,000 unit In 0.45 % NaCl 1 250ml.bag @ 8.35 UNITS/KG/HR 9.999 mls/hr IV .Q24H [facility] Rx#: [id number] Oral 480 340 Output: Urine 650 Other: # Voids 3 2 - Exam PHYSICAL EXAMINATION: GENERAL: The patient is alert and oriented x3, not in any acute distress. Obese. Sitting in his chair by bedside HEENT: Pupils are round and equally reacting to light. EOMI. No scleral icterus. No pallor. CARDIOVASCULAR: S1 and S2 present. PULMONARY: Bilateral breath sounds are positive. Diminished at the lower lung bases. No crackles or wheeze. ABDOMEN: Abdomen is soft. Nontender. Nondistended. Normal bowel sounds. EXTREMITIES: No cyanosis, clubbing. Positive for mild pitting edema bilaterally NEUROLOGICAL: Gross neurological examination did not reveal any focal deficits. SKIN: No rashes. - Labs CBC & Chem 7: 11/15/20 06:26 11/15/20 06:26 Labs: Abnormal Lab Results - Last 24 Hours (Table) 11/14/20 11/14/20 11/15/20 Range/Units 17:32 20:54 06:26 RBC 4.19 L (4.40-5.60) X 10*6/uL MCH 32.2 H (27.0-32.0) pg APTT (22.0-30.0) sec Carbon Dioxide (21.6-31.8) mmol/L BUN/Creatinine Ratio (12.00-20.00) Ratio Glucose (70-110) mg/dL POC Glucose (mg/dL) 107 H 327 H (75-99) mg/dL 11/15/20 11/15/20 11/15/20 Range/Units 06:26 06:26 07:40 RBC (4.40-5.60) X 10*6/uL MCH (27.0-32.0) pg APTT 48.0 H (22.0-30.0) sec Carbon Dioxide 32.2 H (21.6-31.8) mmol/L BUN/Creatinine Ratio 21.00 H (12.00-20.00) Ratio Glucose 157 H (70-110) mg/dL POC Glucose (mg/dL) 153 H (75-99) mg/dL 11/15/20 Range/Units 11:07 RBC (4.40-5.60) X 10*6/uL MCH (27.0-32.0) pg APTT (22.0-30.0) sec Carbon Dioxide (21.6-31.8) mmol/L BUN/Creatinine Ratio (12.00-20.00) Ratio Glucose (70-110) mg/dL POC Glucose (mg/dL) 183 H (75-99) mg/dL Assessment and Plan Assessment: ASSESSMENT Unstable angina Abnormal stress test History of coronary artery disease status post stenting Right ventricular hypertrophy on echo done on 11/10/2020 Possible pulmonary hypertension Type 2 diabetes mellitus Hypertension Hyperlipidemia Osteoarthritis Parkinson's disease Obesity with BMI of 39 Hypokalemia PLAN: Patient is to be continued on IV heparin drip. He showed improvement in his lower extremity edema since admission. Cardiology on board and following the patient closely. He is chest pain-free currently. Continue the patient on the current medication regimen. The treatment plan was discussed in detail with the patient and his at bedside. Patient to be kept nothing by mouth tonight as he boarded for cardiac cath tomorrow morning. Further recommendations to follow depending on the progress of the patient.
[2020-11-15] MEDS: DONEPEZIL 10 MG TAB PO SCH (17:01)
[2020-11-15 17:16] LABS: Glucose,Whole Blood 162 mg/dL (75-99)
[2020-11-15 20:39] LABS: Glucose,Whole Blood 216 mg/dL (75-99)
[2020-11-15] MEDS: ATORVASTATIN 40 MG TAB PO SCH (21:26)
[2020-11-15] MEDS: TERBINAFINE 250 MG TAB PO SCH (21:26)
[2020-11-15] MEDS: hydroCHLOROthiazide 25 MG TAB PO SCH (21:27)
[2020-11-15] MEDS: LOSARTAN 50 MG TAB PO SCH (21:27)
[2020-11-16] MEDS: CARBIDOPA-LEVODOPA 25-100 MG 1 EACH TAB PO SCH ×2 (05:51→12:08)
[2020-11-16] MEDS: PREGABALIN 75 MG CAP PO SCH (05:51)
[2020-11-16] MEDS: ASPIRIN 325 MG TAB PO SCH (05:51)
[2020-11-16 05:56] LABS: Glucose,Whole Blood 179 mg/dL (75-99)
[2020-11-16] MEDS ORDERED: HEPARIN SODIUM,PORCINE 10,000 UNIT in SODIUM CHLORIDE 0.9% 1,000 ML IRRIGATION PRN (07:00)
[2020-11-16] MEDS ORDERED: HEPARIN SODIUM,PORCINE 2,500 UNIT in SODIUM CHLORIDE 0.9% 250 ML IRRIGATION PRN (07:00)
[2020-11-16 07:08] LABS: Glucose,Whole Blood 175 mg/dL (75-99)
[2020-11-16] MEDS ORDERED: LIDOCAINE 1% INJ 10MG/ML (20 ML MDV) ONE (07:19)
[2020-11-16] MEDS ORDERED: VERAPAMIL 2.5 MG/ML 2 ML AMP ONE (07:29)
[2020-11-16] MEDS ORDERED: IV FLUID CONTINUATION 300 ML IV ONE (07:32)
[2020-11-16] MEDS ORDERED: SODIUM CHLORIDE 0.9% 500 ML 500 ML IV ONE (08:00)
[2020-11-16] MEDS ORDERED: MIDAZOLAM 2 MG/2 ML VIAL IV ONE (08:02)
[2020-11-16] MEDS ORDERED: LIDOCAINE 1% INJ 10MG/ML (20 ML MDV) SQ ONE (08:02)
[2020-11-16 08:03] VITALS: RESP 18
[2020-11-16] MEDS ORDERED: VERAPAMIL SYRINGE (5 MG/10 ML) INTRAARTER ONE (08:04)
[2020-11-16] MEDS ORDERED: HEPARIN SODIUM 1,000 UN/ML (10ML VL) ONE (08:10)
[2020-11-16] MEDS ORDERED: IOPAMIDOL-370 125ML BTL INJ ONE (08:20)
[2020-11-16] MEDS ORDERED: RX INFO: IV CONTRAST WAS GIVEN 1 EACH MISC MISCELLANE PRN (08:35)
[2020-11-16] MEDS ORDERED: SODIUM CHLORIDE 0.9% 1,000 ML IV SCH (08:45)
[2020-11-16] MEDS ORDERED: ISOSORBIDE MONONITRATE ER 30 MG TAB.ER.24H PO SCH (09:00)
--- NOTE | 2020-11-16 10:24 | CC ---
CARDIAC CATHETERIZATION REPORT Mr. Ennis is a 75-year-old male with a known history of coronary artery disease, status post multiple percutaneous revascularization who was last seen in our office a few years ago and presented recently with symptoms of chest discomfort and abnormal myocardial perfusion imaging. In view of that, recommendation was made regarding cardiac catheterization. The procedure as well as the risks and the complications were discussed with the patient who is in full understanding and agreement. PROCEDURE: Patient was brought to the labor mediator in a fasting semi-sedated state after receiving fentanyl and Benadryl and achieving moderate conscious sedated state. Using Xylocaine anesthesia and Seldinger technique, a 6-Mongolian sheath was introduced in the right radial artery. Selective right and left coronary angiography performed using 5-Mongolian 3.5 bend right and left He catheter. Multiple views of the coronary artery including hemiaxial views were obtained. Following that, 5-Mongolian tight pigtail catheter was introduced in the left ventricle and a 30-degree NEELY view of the left ventricle was obtained. Following that, catheter and sheaths were removed hemostasis was obtained with deployment of a TR band. There was no immediate complication. Patient was returned to his room in stable condition. Of note, the patient received 5000 units of intravenous heparin as well as intra-arterial verapamil. FINDINGS: LEFT MAIN: This is a large-sized vessel, bifurcating into left circumflex, left anterior descending artery. Left main coronary artery has no evidence of high-grade stenosis. LEFT ANTERIOR DESCENDING ARTERY: This is a large-sized vessel reaching to the apex with a wraparound apex segment giving rise to a large diagonal branch in the mid segment. The proximal segment of the LAD in the mid has 10% to 20% plaque. In the mid distal segment, there is a 40% to 50% plaque. The stented segment is patent. There is no evidence of significant in-stent restenosis. LEFT CIRCUMFLEX: This is a large nondominant vessel giving rise to a large obtuse marginal branch. The proximal stented segment is patent. There is mild disease in the proximal segment of 20%. The rest of the vessel has no high-grade stenosis. RIGHT CORONARY ARTERY: This is a dominant vessel, chronically occluded in mid segment with no significant antegrade flow. COLLATERALS: There are ipsilateral and contralateral collaterals to the distal RCA. LEFT VENTRICULOGRAM: Left ventriculogram was performed in 30-degree NEELY view and revealed inferior wall hypokinesis. The estimated ejection fraction is 45% to 50%. There was no significant mitral regurgitation. HEMODYNAMICS: There was no gradient across the aortic valve. The left ventricular end-diastolic pressure was 14 to 16 mmHg. CONCLUSION: 1. Chronic total occlusion of the mid RCA with ipsilateral and contralateral collaterals. 2. Patent stented segment in the LAD and left circumflex with mild disease in both vessels. 3. Mildly impaired left ventricular systolic function. RECOMMENDATION: In view of finding anatomy, I recommend continue medical therapy with aggressive coronary risk modifications that have been initiated. Those findings and recommendation were discussed with the patient and his family and they are in full understand and agreement. Duration of sedation is 20 minutes. MMODL / IJN: [id number] /
--- NOTE | 2020-11-16 10:30 | LTR ---
November 16, 2020 Re: Abdoulaye Raesami Dear Dr. Cheatham: I had the opportunity to perform cardiac catheterization on Mr. Ennis at [facility] on the 16 of November and a full copy of the procedure note will be forwarded to you. In brief, he was found to have a chronically occluded mid right coronary artery with stent in the LAD and the left circumflex and based on those finding, I will maximize his medical therapy and depending on his progress, further recommendations will be made. Thank you again for allowing me the opportunity to participate in his care. Please feel free to call for any questions. Sincerely yours, MD JASON Tom / LUISN: [id number] /
[2020-11-16] MEDS: CHOLECALCIFEROL 25 MCG (1000 IU) TABLET PO SCH (12:01)
[2020-11-16] MEDS: GLIMEPIRIDE 2 MG TAB PO SCH (12:01)
[2020-11-16] MEDS: DULoxetine HCL 60 MG CAPSULE.DR PO SCH (12:02)
[2020-11-16] MEDS: LACTOBACILLUS ACIDOPH & BULGAR 1 EACH PACKET PO SCH (12:02)
[2020-11-16] MEDS: CYANOCOBALAMIN 500 MCG TAB PO SCH (12:02)
[2020-11-16] MEDS: MULTIVITAMINS, THERA 1 EACH TAB PO SCH (12:02)
[2020-11-16 12:03] LABS: Glucose,Whole Blood 181 mg/dL (75-99)
[2020-11-16] MEDS: VERAPAMIL SR 180 MG TABLET.ER PO SCH (12:04)
[2020-11-16] MEDS: METOPROLOL TARTRATE 50 MG TAB PO SCH (12:04)
[2020-11-16] MEDS: TAMSULOSIN 0.4 MG CAP.ER.24H PO SCH (12:08)
[2020-11-16 14:47] VITALS: BP 120/70; PULSE 78; TEMP 97.4
--- NOTE | 2020-11-16 22:37 | DS ---
DISCHARGE SUMMARY FINAL DIAGNOSES: 1. Chest pain, possible unstable angina, status post cardiac catheterization showing chronically occluded right coronary artery. 2. Abnormal stress test. 3. History of coronary artery disease, stenting. 4. Right ventricular hypertrophy. 5. Possible pulmonary hypertension. 6. Diabetes mellitus, type 2. 7. Hypertension. 8. Hyperlipidemia. 9. Degenerative joint disease. 10.Parkinson's disease. 11.Obesity with body mass index of 39. 12.Hypokalemia. DISCHARGE DISPOSITION: The patient will be discharged in stable condition with guarded prognosis. HISTORY OF PRESENT ILLNESS: This 75-year-old gentleman with a past medical history of multiple medical problems, being followed Dr. Erick Cheatham in the outpatient setting, was admitted with chest pain and abnormal stress test. The patient underwent a cardiac catheterization which showed a chronically occluded RCA with some collaterals. Medical treatment was recommended. The patient improved significantly. On exam, vitals are stable. CARDIOVASCULAR SYSTEM: S1, S2 muffled. ABDOMEN: Soft. NERVOUS SYSTEM: No focal deficit. The patient will be discharged in stable condition with guarded prognosis after clearance from Cardiology. DISCHARGE ADVICE AND MEDICATIONS: 1. Diet is cardiac. 2. Activity limited until followup. 3. Follow up with Dr. Cheatham in 2-3 days. 4. Follow up with Dr. Barron as recommended. 5. Amaryl 1 mg p.o. b.i.d. 6. Aricept 10 mg p.o. daily. 7. Cozaar 100 mg p.o. at bedtime. 8. Cymbalta 60 mg p.o. b.i.d. 9. Ecotrin 81 mg p.o. daily. 10.Flomax 0.4 daily. 11.Glucophage 1000 mg p.o. b.i.d. 12.Hydrochlorothiazide 50 mg at bedtime. 13.Lamisil 250 mg at bedtime. 14.Lipitor 40 mg at bedtime. 15.Lopressor 100 mg p.o. b.i.d. 16.Lyrica 75 mg p.o. b.i.d. 17.Multivitamins 1 p.o. daily. 18.Plavix 75 mg at bedtime. 19.Silver sulfadiazine as before. 20.Carbidopa L-dopa 2 tablets p.o. t.i.d. 21.Verapamil ER 180 mg p.o. b.i.d. 22.Vitamin B12, 1000 mg p.o. daily. 23.Vitamin D3 50 mcg p.o. daily. 24.Imdur ER 30 mg p.o. daily. 25.Nitrostat 0.4 sublingually p.r.n. Once again, the patient will be discharged in stable condition with guarded prognosis. MMODL / LUISN: [id number] /
[2020-11-17] MEDS ORDERED: ASPIRIN 81 MG PO SCH (09:00)
== END 2020-11-16 16:25 | disposition home or self-care (01) | DRG 287 ==
LOC: EC 11:10 → 3SCARD 14:39 → 6NMEDSUR 18:01 → OBSVTOIN 11-13 12:58
PROVIDERS: ADMIT Family Medicine; ATTEND Family Medicine
PROC: B2151ZZ Fluoroscopy of Left Heart using Low Osmolar Contrast (ICD-10-PCS; principal; 2020-11-16 07:30)
PROC: B2111ZZ Fluoroscopy of Multiple Coronary Arteries using Low Osmolar Contrast (ICD-10-PCS; principal; 2020-11-16 07:30)
DX: I25.110 Atherosclerotic heart disease of native coronary artery with unstable angina pectoris (principal); I27.20 Pulmonary hypertension, unspecified; G20 Parkinson's disease; I11.9 Hypertensive heart disease without heart failure; E11.9 Type 2 diabetes mellitus without complications; Z20.822 Contact with and (suspected) exposure to COVID-19; F41.9 Anxiety disorder, unspecified; I25.82 Chronic total occlusion of coronary artery; E78.5 Hyperlipidemia, unspecified; E87.6 Hypokalemia; I25.2 Old myocardial infarction; M19.90 Unspecified osteoarthritis, unspecified site; E66.9 Obesity, unspecified; Z68.39 Body mass index [BMI] 39.0-39.9, adult; Z79.82 Long term (current) use of aspirin; Z79.84 Long term (current) use of oral hypoglycemic drugs; Z79.02 Long term (current) use of antithrombotics/antiplatelets; Z79.899 Other long term (current) drug therapy; Z90.89 Acquired absence of other organs; Z96.643 Presence of artificial hip joint, bilateral; Z95.5 Presence of coronary angioplasty implant and graft; Z98.52 Vasectomy status; Z98.1 Arthrodesis status; Z87.19 Personal history of other diseases of the digestive system; Z98.890 Other specified postprocedural states; Z71.3 Dietary counseling and surveillance; Z88.5 Allergy status to narcotic agent; Z82.49 Family history of ischemic heart disease and other diseases of the circulatory system; Z81.8 Family history of other mental and behavioral disorders
CPT/HCPCS: 36415; 71046; 80048; 80053; 80061; 83735; 83880; 84484; 85025; 85049; 85379; 85610; 85730; 87635; 93005; 93458; 96365; 96366; 96375; 99285

== ENCOUNTER → 2020-12-16 | Outpatient (CLI) | payer MEDICARE ==
--- NOTE | 2020-12-16 12:06 | XR ---
EXAMINATION TYPE: XR KUB DATE OF EXAM: 12/16/2020 HISTORY: Pain Comparison: None.Single KUB is submitted for interpretation. Findings: Right renal calculi: None Visualized. Right ureteral calculi: None Visualized. Left renal calculi: None Visualized. Left ureteral calculi: None Visualized. Pelvic calcifications: None Visualized. Bowel gas pattern is unremarkable. No free air. No mass effects. IMPRESSION: 1. No radiopaque calculi seen.
== END | disposition home or self-care (01) ==
LOC: RADXRMAIN 10:53
PROVIDERS: ATTEND Urology
DX: N20.0 Calculus of kidney (principal)
CPT/HCPCS: 74018

== ENCOUNTER → 2021-02-08 | Outpatient (CLI) | payer MEDICARE ==
[2021-02-08 15:08] LABS: African American GFR (CKD) 52.4 (60.0-200.0); Albumin 3.9 g/dL (3.80-4.90); Albumin/Globulin Ratio 1.77 (1.60-3.17); Anion Gap 10.1 mmol/L (4.00-12.00); BUN/Creat Ratio 22.67 Ratio (12.00-20.00); Calcium 8.7 mg/dL (8.7-10.3); Carbon Dioxide 34.9 mmol/L (21.6-31.8); Chol/HDL Ratio 3.91; Globulin 2.2 g/dL (1.6-3.3); LDL Cholesterol,Calculated 61.8 mg/dL (0.0-131.0); Non-African American GFR(CKD) 45.2 (60.0-200.0); Potassium 3.4 mmol/L (3.5-5.5); Total Bilirubin 0.4 mg/dL (0.3-1.2); Total Protein 6.1 g/dL (6.2-8.2); VLDL Calculation 37.2 mg/dL (5.00-40.00)
== END | disposition home or self-care (01) ==
LOC: LABWHC1 09:17
PROVIDERS: ATTEND Internal Medicine Interventional Cardiology
DX: E78.2 Mixed hyperlipidemia (principal)
CPT/HCPCS: 36415; 80053; 80061

== ENCOUNTER 2021-12-07 20:29 | Inpatient (IN) | payer MEDICARE ==
[2021-12-07 21:16] LABS: Basophils % (A) 0 %; Eosinophils # (A) 0.2 k/uL (0-0.7); Eosinophils % (A) 2 %; HCT 45.6 % (39.0-53.0); HGB 14.8 gm/dL (13.0-17.5); Lymphocytes # (A) 0.9 k/uL (1.0-4.8); Lymphocytes % (A) 9 %; MCH 31.7 pg (25.0-35.0); MCHC 32.4 g/dL (31.0-37.0); Mean Platelet Volume 7.2; Monocytes # (A) 0.5 k/uL (0-1.0); Monocytes % (A) 5 %; Neutrophils % (A) 84 %; Platelet Count 164 k/uL (150-450); RBC 4.66 m/uL (4.30-5.90); RDW 14.3 % (11.5-15.5); WBC 9.6 k/uL (3.8-10.6)
--- NOTE | 2021-12-07 21:19 | ED ---
Chest Pain HPI - General Chief Complaint: Chest Pain Stated Complaint: Chest Pain Time Seen by Provider: 12/07/21 21:06 Source: patient, EMS Mode of arrival: EMS Limitations: no limitations - History of Present Illness Initial Comments: This patient is a 76-year-old man who presents to be evaluated for substernal chest tightness and dyspnea. He states that he had been seated and was watching television. This and followed eating dinner. He noted that symptoms came on initially with some chest pain followed by development of shortness of breath. When the symptoms persisted over 10 minutes they called EMS and had him transported here. Patient states that symptoms have resolved now. MD Complaint: chest pain -: hour(s) Onset: during rest Pain Location: left chest Pain Radiation: none Severity: moderate Quality: tightness Consistency: constant Improves With: nothing Worsens With: nothing Anginal Symptoms: dyspnea Treatments Prior to Arrival: none - Related Data Home Medications Medication Instructions Recorded Confirmed Metoprolol Tartrate [Lopressor] 100 mg PO BID@1000,219907/01/15 12/07/21 Multivitamin [Men's Multi-Vitamin] 1 tab PO DAILY@99907/01/15 12/07/21 Verapamil HCl [Verapamil ER] 180 mg PO BID@1000,219907/01/15 12/07/21 Aspirin EC [Ecotrin Low Dose] 81 mg PO DAILY@99909/28/16 12/07/21 metFORMIN HCL [Glucophage] 1,000 mg PO BID@1000,219912/14/16 12/07/21 Atorvastatin [Lipitor] 40 mg PO DAILY@99912/13/19 12/07/21 Bacillus Coagulans/Inulin 1 cap PO DAILY@99912/13/19 12/07/21 [Probiotic with Prebiotic Cap] Carbidopa-Levodopa 25-100 mg 2 tab PO TID@0900,1300,169912/13/19 12/07/21 [Sinemet 25-100 mg] DULoxetine HCL [Cymbalta] 60 mg PO BID@1000,219912/13/19 12/07/21 Donepezil [Aricept] 10 mg PO DAILY@1700 12/13/19 12/07/21 Glimepiride [Amaryl] 1 mg PO BID@1000,219912/13/19 12/07/21 Losartan Potassium [Cozaar] 100 mg PO DAILY@1000 12/13/19 12/07/21 hydroCHLOROthiazide 25 mg PO DAILY@1000 12/13/19 12/07/21 Cyanocobalamin (Vitamin B-12) 1,000 mcg PO DAILY@1000 03/06/20 12/07/21 [Vitamin B-12] Pregabalin [Lyrica] 75 mg PO BID@0900,1700 03/06/20 12/07/21 Tamsulosin HCl [Flomax] 0.4 mg PO DAILY@1200 03/06/20 12/07/21 Cholecalciferol [Vitamin D3 (25 50 mcg PO DAILY@1000 12/07/21 12/07/21 Mcg = 1000 Iu)] Isosorbide Mononitrate ER [Imdur] 30 mg PO DAILY@1000 12/07/21 12/07/21 amantadine HCL 100 mg PO DAILY@0900 12/07/21 12/07/21 Previous Rx's Medication Instructions Recorded Clopidogrel [Plavix] 75 mg PO DAILY #30 tab 12/11/21 Nitroglycerin Sl Tabs [Nitrostat] 0.4 mg SUBLINGUAL Q5M PRN #30 tab 12/11/21 Allergies Allergy/AdvReac Type Severity Reaction Status Date / Time narcotics AdvReac Hallucinati Uncoded 12/07/21 21:53 ons opiates AdvReac Hallucinati Uncoded 12/07/21 21:53 ons Review of Systems ROS Statement: Those systems with pertinent positive or pertinent negative responses have been documented in the HPI. ROS Other: All systems not noted in ROS Statement are negative. Constitutional: Denies: fever, chills Respiratory: Reports: dyspnea. Denies: cough Cardiovascular: Reports: chest pain, edema (Chronic). Denies: palpitations, syncope Gastrointestinal: Denies: abdominal pain, nausea, vomiting, diarrhea, melena, hematochezia Genitourinary: Denies: dysuria, hematuria Musculoskeletal: Denies: back pain Skin: Denies: rash Neurological: Denies: headache, weakness, numbness EKG Findings - EKG Results: EKG: interpreted by ERMD, sinus rhythm, normal axis, normal ST/T - [place], Pacemaker, Normal: Myocardial infarction: inferior [place] (old age indeterminate) Past Medical History Past Medical History: Coronary Artery Disease (CAD), Diabetes Mellitus, Hyperlipidemia, Hypertension, Myocardial Infarction ([place]), Osteoarthritis (OA) Additional Past Medical History / Comment(s): NIDDM type II, vertigo in September 2016 thought to be labyrinthitis-also had elevated troponins-stress test done and was negative, arthritis multiple joints. Last Myocardial Infarction Date:: 1996 History of Any Multi-Drug Resistant Organisms: None Reported Past Surgical History: Heart Catheterization With Stent, Joint Replacement, Tonsillectomy Additional Past Surgical History / Comment(s): 1996 PCI with stent, L/RT HIP REPLACEMENTS, EXPLORATORY LAP with spleen injury, EPIDURAL INJ. in back, lumbar fusion, colonoscopy, vasectomy. Past Anesthesia/Blood Transfusion Reactions: Previous Problems w/ Anesthesia Additional Past Anesthesia/Blood Transfusion Reaction / Comment(s): STATES POST EPIDURAL INJ HAD A HARD TIME WAKING UP.pt /family stated pt can't take any narcotics-becomes very confused. pt can take tylenol extra strength for pain. Date of Last Stent Placement:: 1996 Past Psychological History: No Psychological Hx Reported Smoking Status: Never smoker Past Alcohol Use History: None Reported Past Drug Use History: None Reported - Past Family History Mother Family Medical History: Congestive Heart Failure (CHF), Hypertension Additional Family Medical History / Comment(s): bipolar Father Family Medical History: Coronary Artery Disease (CAD), Myocardial Infarction ([place]) General Exam Limitations: no limitations General appearance: alert, in no apparent distress Head exam: Present: atraumatic, normocephalic Eye exam: Present: normal appearance. Absent: scleral icterus, conjunctival injection Neck exam: Present: normal inspection Respiratory exam: Present: normal lung sounds bilaterally. Absent: respiratory distress, wheezes, rales, rhonchi, stridor Cardiovascular Exam: Present: regular rate, normal rhythm, normal heart sounds. Absent: systolic murmur, diastolic murmur, rubs, gallop GI/Abdominal exam: Present: soft. Absent: distended, tenderness, guarding, rebound, rigid, mass, pulsatile mass Extremities exam: Present: normal inspection, normal capillary refill. Absent: pedal edema, calf tenderness Back exam: Present: normal inspection Neurological exam: Present: alert Skin exam: Present: warm, dry, intact, normal color. Absent: rash Course Vital Signs 12/07/21 12/07/21 12/07/21 20:40 23:00 23:55 Temperature 98.7 F Pulse Rate 91 74 72 Pulse Rate [ Pulse Oximetery ] Respiratory 18 22 18 Rate Blood Pressure 171/94 102/62 135/79 Blood Pressure [Left Arm Supine] O2 Sat by Pulse 96 95 95 Oximetry 12/08/21 00:00 Temperature 98.4 F Pulse Rate Pulse Rate [ 68 Pulse Oximetery ] Respiratory 18 Rate Blood Pressure Blood Pressure 135/84 [Left Arm Supine] O2 Sat by Pulse 94 L Oximetry Disposition Clinical Impression: Elevated troponin I level, Acute kidney injury, NSTEMI (non-ST elevated myocardial infarction) Disposition: ADMITTED IP TO THIS HOSP Condition: Serious
[2021-12-07 21:28] LABS: Albumin 3.5 g/dL (3.5-5.0); Calcium 8.7 mg/dL (8.4-10.2); Magnesium 1.6 mg/dL (1.6-2.3); Potassium 3.6 mmol/L (3.5-5.1); Total Bilirubin 0.9 mg/dL (0.2-1.3); Total Protein 6.3 g/dL (6.3-8.2)
[2021-12-07 21:32] LABS: Partial Thromboplastin Time 22.7 sec (22.0-30.0); Prothrombin Time 11.2 sec (9.0-12.0)
--- NOTE | 2021-12-07 21:46 | XR ---
EXAMINATION TYPE: XR chest 2V DATE OF EXAM: 12/07/2021 9:23 PM COMPARISON: Multiple radiographs, with the most recent on 11/12/2020 TECHNIQUE: XR chest 2V Frontal and lateral views of the chest. CLINICAL INDICATION:Male, 76 years old with history of Chest Pain; FINDINGS: Lungs/Pleura: There is no evidence of pleural effusion, focal consolidation, or pneumothorax. Pulmonary vascularity: Unremarkable. Heart/mediastinum: Cardiomediastinal silhouette is unremarkable. Musculoskeletal: No acute osseous pathology. IMPRESSION: No acute cardiopulmonary disease/process.
[2021-12-07] MEDS ORDERED: ASPIRIN 81 MG PO STA (21:47)
[2021-12-07] MEDS ORDERED: ENOXAPARIN 120 MG/0.8 ML SYRINGE SQ STA (21:47)
[2021-12-07 22:12] LABS: Appearance,Urine Clear (Clear); Bilirubin,Urine Negative (Negative); Blood,Urine Small (Negative); Color,Urine Yellow; Glucose,Urine (UA) 3+ (Negative); Ketones,Urine Negative (Negative); Leukocyte Esterase,Urine Negative (Negative); Mucus,Urine Rare /hpf; Nitrite,Urine Negative (Negative); Protein,Urine Trace (Negative); RBC,Urine 20 /hpf (0-5); Specific Gravity,Urine 1.017 (1.001-1.035); Urobilinogen,Urine <2.0 mg/dL (<2.0); WBC,Urine 3 /hpf (0-5)
[2021-12-07] MEDS ORDERED: SODIUM CHLORIDE 0.9% 500 ML 500 ML IV STA (23:22)
[2021-12-07] MEDS ORDERED: SODIUM CHLORIDE 0.9% 1,000 ML IV STA (23:22)
[2021-12-07] MEDS ORDERED: NITROGLYCERIN SL TABS 0.4 MG TAB SUBLINGUAL PRN (23:23)
[2021-12-08] MEDS: SODIUM CHLORIDE 0.9% 1,000 ML IV SCH ×3 (01:35→10:04)
[2021-12-08 06:20] LABS: Glucose,Whole Blood 152 mg/dL (75-99)
[2021-12-08] MEDS: METOPROLOL TARTRATE 50 MG TAB PO SCH ×2 (08:43→20:41)
[2021-12-08] MEDS: CHOLECALCIFEROL 25 MCG (1000 IU) TABLET PO SCH (08:43)
[2021-12-08] MEDS: ISOSORBIDE MONONITRATE ER 30 MG TAB.ER.24H PO SCH (08:43)
[2021-12-08] MEDS: MULTIVITAMINS, THERA 1 EACH TAB PO SCH (08:44)
[2021-12-08] MEDS: PREGABALIN 75 MG CAP PO SCH ×2 (08:44→20:41)
[2021-12-08] MEDS: CARBIDOPA-LEVODOPA 25-100 MG 1 EACH TAB PO SCH ×3 (08:45→20:41)
[2021-12-08] MEDS: CYANOCOBALAMIN 500 MCG TAB PO SCH (08:45)
[2021-12-08] MEDS: ASPIRIN 81 MG PO SCH (08:45)
[2021-12-08] MEDS: LOSARTAN 50 MG TAB PO SCH (08:45)
[2021-12-08] MEDS: DULoxetine HCL 60 MG CAPSULE.DR PO SCH ×2 (08:46→20:41)
[2021-12-08] MEDS: GLIMEPIRIDE 1 MG TAB PO SCH ×2 (08:46→20:41)
[2021-12-08] MEDS: VERAPAMIL SR 180 MG TABLET.ER PO SCH ×2 (08:48→20:41)
[2021-12-08] MEDS ORDERED: ATORVASTATIN 40 MG TAB PO SCH (09:00)
[2021-12-08] MEDS ORDERED: ASPIRIN 325 MG TAB PO SCH (09:00)
[2021-12-08] MEDS ORDERED: metFORMIN 500 MG TAB PO SCH (09:00)
[2021-12-08] MEDS ORDERED: HEPARIN SODIUM 1,000 UN/ML (10ML VL) IV ONE (09:16)
[2021-12-08 09:26] LABS: Chol/HDL Ratio 3.06 Ratio; LDL Cholesterol,Calculated 45.6 mg/dL (0.0-131.0)
[2021-12-08 09:35] LABS: Basophils % (A) 0 %; Eosinophils # (A) 0.1 k/uL (0-0.7); Eosinophils % (A) 2 %; HCT 40.3 % (39.0-53.0); HGB 13.6 gm/dL (13.0-17.5); Lymphocytes # (A) 1.1 k/uL (1.0-4.8); Lymphocytes % (A) 15 %; MCH 33.3 pg (25.0-35.0); MCHC 33.8 g/dL (31.0-37.0); MCV 98.5 fL (80.0-100.0); Monocytes # (A) 0.4 k/uL (0-1.0); Monocytes % (A) 6 %; Neutrophils # (A) 5.7 k/uL (1.3-7.7); Neutrophils % (A) 76 %; Platelet Count 160 k/uL (150-450); RBC 4.09 m/uL (4.30-5.90); RDW 14.3 % (11.5-15.5); WBC 7.5 k/uL (3.8-10.6)
[2021-12-08 09:57] LABS: INR 1.1 (<1.2); Prothrombin Time 11.8 sec (9.0-12.0)
[2021-12-08 09:58] LABS: Partial Thromboplastin Time 28.5 sec (22.0-30.0)
[2021-12-08] MEDS: HEPARIN SOD,PORK IN 0.45% NACL 25,000 UNIT in 0.45% NACL 1 250ML.BAG IV SCH (10:04)
--- NOTE | 2021-12-08 11:35 | P.HPIM ---
History of Present Illness H&P Date: 12/08/21 Chief Complaint: Chest pain Patient is a pleasant 76-year-old male was brought to the emergency room by ambulance for chest pain and shortness of breath. Patient describes pain as tight pressure that started on the left side of his chest and progressed up his neck. Patient reports after some time of the pain not going away and shortness of breath starting, his called 911. Patient reports improvement of pain after being treated in the emergency room. Patient has a pertinent medical history of Parkinson's, hypertension, hyperlipidemia, type 2 diabetes, previous [place] with stent placement, osteoarthritis. Chest x-ray was negative for acute process. Troponins were positive at 0.23, 0.46 & 0.47. Kidney function was slightly off with BUN at 34, and creatinine 1.4. Cardiology was consulted. Review of Systems Constitutional: Denies chills, Denies fever Ears, nose, mouth and throat: Denies headache, Denies vertigo Cardiovascular: Denies chest pain, Denies high blood pressure, Denies shortness of breath Respiratory: Denies cough, Denies dyspnea Gastrointestinal: Denies abdominal pain, Denies diarrhea, Denies nausea Genitourinary: Denies dysuria Musculoskeletal: Reports limitation of motion, Reports muscle weakness Integumentary: Denies change in hair/nails, Denies rash Neurological: Reports balance difficulties, Reports tremors, Denies headaches Psychiatric: Reports confusion, Denies anxiety Endocrine: Denies cold intolerance, Denies high blood sugars Hematologic/Lymphatic: Denies easy bruising Allergic/Immunologic: Denies angioedema, Denies wheezing Past Medical History Past Medical History: Coronary Artery Disease (CAD), Diabetes Mellitus, Hyperlipidemia, Hypertension, Myocardial Infarction ([place]), Osteoarthritis (OA) Additional Past Medical History / Comment(s): NIDDM type II, vertigo in September 2016 thought to be labyrinthitis-also had elevated troponins-stress test done and was negative, arthritis multiple joints. Last Myocardial Infarction Date:: 1996 History of Any Multi-Drug Resistant Organisms: None Reported Past Surgical History: Heart Catheterization With Stent, Joint Replacement, Tonsillectomy Additional Past Surgical History / Comment(s): 1996 PCI with stent, L/RT HIP REPLACEMENTS, EXPLORATORY LAP with spleen injury, EPIDURAL INJ. in back, lumbar fusion, colonoscopy, vasectomy. Past Anesthesia/Blood Transfusion Reactions: Previous Problems w/ Anesthesia Additional Past Anesthesia/Blood Transfusion Reaction / Comment(s): STATES POST EPIDURAL INJ HAD A HARD TIME WAKING UP.pt /family stated pt can't take any narcotics-becomes very confused. pt can take tylenol extra strength for pain. Date of Last Stent Placement:: 1996 Past Psychological History: No Psychological Hx Reported Additional Psychological History / Comment(s): Pt resides with his spouse who happens to be recovering from a total knee replacement. Pt is independent. Smoking Status: Never smoker Past Alcohol Use History: None Reported Additional Past Alcohol Use History / Comment(s): started smoking 1965, quit in 1988. Past Drug Use History: None Reported - Past Family History Mother Family Medical History: Congestive Heart Failure (CHF), Hypertension Additional Family Medical History / Comment(s): bipolar Father Family Medical History: Coronary Artery Disease (CAD), Myocardial Infarction ([place]) Medications and Allergies Home Medications Medication Instructions Recorded Confirmed Type Metoprolol Tartrate [Lopressor] 100 mg PO BID@1000,219907/01/15 12/07/21 History Multivitamin [Men's Multi-Vitamin] 1 tab PO DAILY@99907/01/15 12/07/21 History Verapamil HCl [Verapamil ER] 180 mg PO BID@1000,219907/01/15 12/07/21 History Aspirin EC [Ecotrin Low Dose] 81 mg PO DAILY@1000 09/28/16 12/07/21 History metFORMIN HCL [Glucophage] 1,000 mg PO BID@1000,219912/14/16 12/07/21 History Atorvastatin [Lipitor] 40 mg PO DAILY@1000 12/13/19 12/07/21 History Bacillus Coagulans/Inulin 1 cap PO DAILY@99912/13/19 12/07/21 History [Probiotic with Prebiotic Cap] Carbidopa-Levodopa 25-100 mg 2 tab PO TID@0900,1300,1700 12/13/19 12/07/21 History [Sinemet 25-100 mg] DULoxetine HCL [Cymbalta] 60 mg PO BID@1000,219912/13/19 12/07/21 History Donepezil [Aricept] 10 mg PO DAILY@1700 12/13/19 12/07/21 History Glimepiride [Amaryl] 1 mg PO BID@1000,219912/13/19 12/07/21 History Losartan Potassium [Cozaar] 100 mg PO DAILY@1000 12/13/19 12/07/21 History hydroCHLOROthiazide 25 mg PO DAILY@1000 12/13/19 12/07/21 History Cyanocobalamin (Vitamin B-12) 1,000 mcg PO DAILY@1000 03/06/20 12/07/21 History [Vitamin B-12] Pregabalin [Lyrica] 75 mg PO BID@0900,1700 03/06/20 12/07/21 History Tamsulosin HCl [Flomax] 0.4 mg PO DAILY@1200 03/06/20 12/07/21 History Cholecalciferol [Vitamin D3 (25 50 mcg PO DAILY@1000 12/07/21 12/07/21 History Mcg = 1000 Iu)] Isosorbide Mononitrate ER [Imdur] 30 mg PO DAILY@1000 12/07/21 12/07/21 History amantadine HCL 100 mg PO DAILY@0900 12/07/21 12/07/21 History Allergies Allergy/AdvReac Type Severity Reaction Status Date / Time narcotics AdvReac Hallucinati Uncoded 12/07/21 21:53 ons opiates AdvReac Hallucinati Uncoded 12/07/21 21:53 ons Physical Exam Vitals: Vital Signs Temp Pulse Pulse Resp BP BP Pulse Ox 12/08/21 08:00 98.1 F 70 18 154/73 91 L 12/08/21 04:00 97.6 F 64 18 134/67 92 L 12/08/21 00:59 98.2 F 68 18 135/84 94 L 12/08/21 00:00 98.4 F 68 18 135/84 94 L 12/07/21 23:55 72 18 135/79 95 12/07/21 23:00 74 22 102/62 95 12/07/21 20:40 98.7 F 91 18 171/94 96 Intake and Output 12/07/21 12/08/21 12/08/21 22:59 06:59 14:59 Intake Total 0 Output Total 250 Balance -250 Intake: Oral 0 Output: Urine 250 Other: Weight 113.398 kg 120 kg - Constitutional General appearance: cooperative, no acute distress, obese - EENT Eyes: EOMI, PERRLA ENT: normal oropharynx - Neck Neck: normal ROM - Respiratory Respiratory: bilateral: diminished - Cardiovascular Heart rate: 70 Rhythm: regular Heart sounds: normal: S1, S2 leg Peripheral Edema: bilateral: 1+ radial pulse Peripheral Pulses: bilateral: Normal - Gastrointestinal General gastrointestinal: normal bowel sounds, soft - Integumentary Integumentary: normal - Neurologic Neurologic: focal deficits - Musculoskeletal Musculoskeletal: generalized weakness - Psychiatric Alert, oriented to person and place, not time Psychiatric: appropriate affect Results CBC & Chem 7: 12/08/21 09:24 12/07/21 21:10 Labs: Abnormal Lab Results - Last 24 Hours (Table) 12/07/21 12/07/21 12/07/21 Range/Units 21:10 21:10 21:10 RBC (4.30-5.90) m/uL Neutrophils # 8.0 H (1.3-7.7) k/uL Lymphocytes # 0.9 L (1.0-4.8) k/uL Carbon Dioxide 34 H (22-30) mmol/L BUN 34 H (9-20) mg/dL Creatinine 1.43 H (0.66-1.25) mg/dL Glucose 233 H (74-99) mg/dL POC Glucose (mg/dL) (75-99) mg/dL AST 16 L (17-59) U/L Troponin I 0.052 H* (0.000-0.034) ng/mL Triglycerides (0.00-149.00) mg/dL VLDL Cholesterol, Calc (5.00-40.00) mg/dL Urine Protein (Negative) Urine Glucose (UA) (Negative) Urine Blood (Negative) Urine RBC (0-5) /hpf Urine Mucus (None) /hpf 12/07/21 12/07/21 12/08/21 Range/Units 21:45 23:56 03:10 RBC (4.30-5.90) m/uL Neutrophils # (1.3-7.7) k/uL Lymphocytes # (1.0-4.8) k/uL Carbon Dioxide (22-30) mmol/L BUN (9-20) mg/dL Creatinine (0.66-1.25) mg/dL Glucose (74-99) mg/dL POC Glucose (mg/dL) (75-99) mg/dL AST (17-59) U/L Troponin I 0.238 H* 0.462 H* (0.000-0.034) ng/mL Triglycerides (0.00-149.00) mg/dL VLDL Cholesterol, Calc (5.00-40.00) mg/dL Urine Protein Trace H (Negative) Urine Glucose (UA) 3+ H (Negative) Urine Blood Small H (Negative) Urine RBC 20 H (0-5) /hpf Urine Mucus Rare H (None) /hpf 12/08/21 12/08/21 12/08/21 Range/Units 03:10 06:15 09:24 RBC (4.30-5.90) m/uL Neutrophils # (1.3-7.7) k/uL Lymphocytes # (1.0-4.8) k/uL Carbon Dioxide (22-30) mmol/L BUN (9-20) mg/dL Creatinine (0.66-1.25) mg/dL Glucose (74-99) mg/dL POC Glucose (mg/dL) 152 H (75-99) mg/dL AST (17-59) U/L Troponin I 0.473 H* (0.000-0.034) ng/mL Triglycerides 213.00 H (0.00-149.00) mg/dL VLDL Cholesterol, Calc 42.60 H (5.00-40.00) mg/dL Urine Protein (Negative) Urine Glucose (UA) (Negative) Urine Blood (Negative) Urine RBC (0-5) /hpf Urine Mucus (None) /hpf 12/08/21 Range/Units 09:24 RBC 4.09 L (4.30-5.90) m/uL Neutrophils # (1.3-7.7) k/uL Lymphocytes # (1.0-4.8) k/uL Carbon Dioxide (22-30) mmol/L BUN (9-20) mg/dL Creatinine (0.66-1.25) mg/dL Glucose (74-99) mg/dL POC Glucose (mg/dL) (75-99) mg/dL AST (17-59) U/L Troponin I (0.000-0.034) ng/mL Triglycerides (0.00-149.00) mg/dL VLDL Cholesterol, Calc (5.00-40.00) mg/dL Urine Protein (Negative) Urine Glucose (UA) (Negative) Urine Blood (Negative) Urine RBC (0-5) /hpf Urine Mucus (None) /hpf Chest x-ray: report reviewed Thrombosis Risk Factor Assmnt - DVT/VTE Prophylaxis DVT/VTE Prophylaxis: Pharmacologic Prophylaxis ordered (heparin) - Choose All That Apply Any of the Below Risk Factors Present?: Yes Each Factor Represents 1 point: Obesity (BMI >25) Other Risk Factors: Yes Each Risk Factor Represents 3 Points: Age 75 years or older Thrombosis Risk Factor Assessment Total Risk Factor Score: 4 Thrombosis Risk Factor Assessment Level: Moderate Risk Assessment and Plan Assessment: Chest pain, ruling out acs Coronary artery disease with previous stent placement Acute kidney injury Hypertension Hyperlipidemia Type 2 diabetes Parkinson's disease Osteoarthritis Plan: Cardiology consult, echo ordered IV hydration for acute kidney injury Monitor blood glucose ACHS, sliding scale insulin while metformin is held Continue monitoring vital signs and for recurrent chest pain Repeat blood work in AM further recommendations to come based on patient's clinical course Time with Patient: Greater than 30
--- NOTE | 2021-12-08 11:54 | P.CRDCN ---
History of Present Illness History of present illness: HISTORY OF PRESENT ILLNESS: This is a 76-year-old male with a past medical history significant for coronary artery disease with previous stenting, hypertension, hyperlipidemia, and diabetes. Patient follows in the office with Dr. Calzada. We have been asked to see the patient in consultation for abnormal troponins. Patient examined at the bedside. Patient states yesterday after eating lunch she was sitting down in his living room and began having chest pain. He states the pain was on the left side of his chest. He reported some SOB and felt as though his breathing was shallow. He denied any radiation of the pain. He denied any nausea or vomiting. He denies any pain with chest wall palpation. He does report increased pain with deep inspiration. He states the pain persisted or while so he called EMS and came to the hospital. He states by the time he came to the emergency room his pain was almost gone. This morning he denies any chest pain or pressure. The patient was found to have an acute kidney injury with a creatinine of 1.43. The patient states he has been eating and drinking well at home and reports a good appetite. Patient's vital signs this morning are stable. * EKG reveals sinus mechanism with no signs of acute ischemia * Chest xray no acute cardiopulmonary process * Laboratory data: WBC 7.5. Hemoglobin 13.6. Platelet count 160. Sodium 140. Potassium 3.6. BUN 34. Creatinine 1.43. Troponin 0.052. 0.238. 0.462. 0.473. * Current home cardiac medications include aspirin 81 mg daily, hydrochlorothiazide 25 mg daily, Imdur 30 mg daily, Lipitor 40 mg daily, verapamil 180 mg twice a day, metoprolol tartrate 100 mg twice a day, losartan 100 mg daily * Most recent echocardiogram obtained in October 2020 revealed ejection fraction 55-60%, trace TR * Cardiac catheterization history: October 2020 revealing chronic total occlusion of the mid RCA with ipsilateral and contralateral collaterals, patent stented segment in the LAD and left circumflex with mild disease in both vessels. Medical management was recommended. REVIEW OF SYSTEMS: At the time of my exam: CONSTITUTIONAL: Denies fever or chills. HEENT: Denies blurred vision, vision changes, or eye pain. Denies hemoptysis CARDIOVASCULAR: Denies chest pain. Denies orthopnea. Denies PND. Denies palpitations RESPIRATORY: Denies shortness of breath. GASTROINTESTINAL: Denies abdominal pain. Denies nausea or vomiting. HEMATOLOGIC: Denies bleeding disorders. GENITOURINARY: Denies any blood in urine. SKIN: Denies pruitis. Denies rash. PHYSICAL EXAM: VITAL SIGNS: Reviewed. GENERAL: Well-developed in no acute distress. HEENT: Head is normocephalic. Pupils are equal, round. Sclerae anicteric. Mucous membranes of the mouth are moist. Neck supple. No JVD or thyromegaly LUNGS: Respirations even and unlabored. Lungs essentially clear to auscultation bilaterally. HEART: Regular rate and rhythm. S1 and S2 heard. ABDOMEN: Soft. Nondistended. Nontender. EXTREMITIES: Normal range of motion. No clubbing or cyanosis. Peripheral pulses intact. 2+ bilateral lower extremity edema NEUROLOGIC: Awake and alert. Oriented x 3. ASSESSMENT: Chest pain Non-STEMI Coronary artery disease with previous stenting Acute kidney injury Hypertension Hyperlipidemia Diabetes Parkinson's disease PLAN: Obtain 2-D echo to assess cardiac structure and function Begin Normal saline at 50 mL an hour. Monitor kidney function. Repeat in a.m. Begin IV heparin Increase atorvastatin to 80 mg daily Resume additional home cardiac medications Nothing by mouth at midnight Patient will require cardiac cath in the next 24-48 hours pending his kidney function Further recommendations pending patient's course Nurse practitioner note has been reviewed by physician. Signing provider agrees with the documented findings, assessment, and plan of care. Past Medical History Past Medical History: Coronary Artery Disease (CAD), Diabetes Mellitus, Hyperlipidemia, Hypertension, Myocardial Infarction ([place]), Osteoarthritis (OA) Additional Past Medical History / Comment(s): NIDDM type II, vertigo in September 2016 thought to be labyrinthitis-also had elevated troponins-stress test done and was negative, arthritis multiple joints. Last Myocardial Infarction Date:: 1996 History of Any Multi-Drug Resistant Organisms: None Reported Past Surgical History: Heart Catheterization With Stent, Joint Replacement, Tonsillectomy Additional Past Surgical History / Comment(s): 1996 PCI with stent, L/RT HIP REPLACEMENTS, EXPLORATORY LAP with spleen injury, EPIDURAL INJ. in back, lumbar fusion, colonoscopy, vasectomy. Past Anesthesia/Blood Transfusion Reactions: Previous Problems w/ Anesthesia Additional Past Anesthesia/Blood Transfusion Reaction / Comment(s): STATES POST EPIDURAL INJ HAD A HARD TIME WAKING UP.pt /family stated pt can't take any narcotics-becomes very confused. pt can take tylenol extra strength for pain. Date of Last Stent Placement:: 1996 Past Psychological History: No Psychological Hx Reported Additional Psychological History / Comment(s): Pt resides with his spouse who happens to be recovering from a total knee replacement. Pt is independent. Smoking Status: Never smoker Past Alcohol Use History: None Reported Additional Past Alcohol Use History / Comment(s): started smoking 1965, quit in 1988. Past Drug Use History: None Reported - Past Family History Mother Family Medical History: Congestive Heart Failure (CHF), Hypertension Additional Family Medical History / Comment(s): bipolar Father Family Medical History: Coronary Artery Disease (CAD), Myocardial Infarction ([place]) Medications and Allergies Home Medications Medication Instructions Recorded Confirmed Type Metoprolol Tartrate [Lopressor] 100 mg PO BID@1000,219907/01/15 12/07/21 History Multivitamin [Men's Multi-Vitamin] 1 tab PO DAILY@99907/01/15 12/07/21 History Verapamil HCl [Verapamil ER] 180 mg PO BID@1000,219907/01/15 12/07/21 History Aspirin EC [Ecotrin Low Dose] 81 mg PO DAILY@1000 09/28/16 12/07/21 History metFORMIN HCL [Glucophage] 1,000 mg PO BID@1000,219912/14/16 12/07/21 History Atorvastatin [Lipitor] 40 mg PO DAILY@1000 12/13/19 12/07/21 History Bacillus Coagulans/Inulin 1 cap PO DAILY@99912/13/19 12/07/21 History [Probiotic with Prebiotic Cap] Carbidopa-Levodopa 25-100 mg 2 tab PO TID@0900,1300,1700 12/13/19 12/07/21 History [Sinemet 25-100 mg] DULoxetine HCL [Cymbalta] 60 mg PO BID@1000,219912/13/19 12/07/21 History Donepezil [Aricept] 10 mg PO DAILY@169912/13/19 12/07/21 History Glimepiride [Amaryl] 1 mg PO BID@1000,219912/13/19 12/07/21 History Losartan Potassium [Cozaar] 100 mg PO DAILY@1000 12/13/19 12/07/21 History hydroCHLOROthiazide 25 mg PO DAILY@1000 12/13/19 12/07/21 History Cyanocobalamin (Vitamin B-12) 1,000 mcg PO DAILY@1000 03/06/20 12/07/21 History [Vitamin B-12] Pregabalin [Lyrica] 75 mg PO BID@0900,1700 03/06/20 12/07/21 History Tamsulosin HCl [Flomax] 0.4 mg PO DAILY@1200 03/06/20 12/07/21 History Cholecalciferol [Vitamin D3 (25 50 mcg PO DAILY@1000 12/07/21 12/07/21 History Mcg = 1000 Iu)] Isosorbide Mononitrate ER [Imdur] 30 mg PO DAILY@1000 12/07/21 12/07/21 History amantadine HCL 100 mg PO DAILY@0900 12/07/21 12/07/21 History Allergies Allergy/AdvReac Type Severity Reaction Status Date / Time narcotics AdvReac Hallucinati Uncoded 12/07/21 21:53 ons opiates AdvReac Hallucinati Uncoded 12/07/21 21:53 ons Physical Exam Vitals: Vital Signs Temp Pulse Pulse Resp BP BP Pulse Ox 12/08/21 08:00 98.1 F 70 18 154/73 91 L 12/08/21 04:00 97.6 F 64 18 134/67 92 L 12/08/21 00:59 98.2 F 68 18 135/84 94 L 12/08/21 00:00 98.4 F 68 18 135/84 94 L 12/07/21 23:55 72 18 135/79 95 12/07/21 23:00 74 22 102/62 95 12/07/21 20:40 98.7 F 91 18 171/94 96 Intake and Output 12/07/21 12/08/21 12/08/21 22:59 06:59 14:59 Intake Total 0 Output Total 250 Balance -250 Intake: Oral 0 Output: Urine 250 Other: Weight 113.398 kg 120 kg Results 12/08/21 09:24 12/07/21 21:10 Cardiac Enzymes 12/07/21 12/07/21 12/07/21 Range/Units 21:10 21:10 23:56 AST 16 L (17-59) U/L Troponin I 0.052 H* 0.238 H* (0.000-0.034) ng/mL 12/08/21 Range/Units 03:10 AST (17-59) U/L Troponin I 0.462 H* (0.000-0.034) ng/mL Coagulation 12/07/21 Range/Units 21:10 PT 11.2 (9.0-12.0) sec APTT 22.7 (22.0-30.0) sec CBC 12/07/21 Range/Units 21:10 WBC 9.6 (3.8-10.6) k/uL RBC 4.66 (4.30-5.90) m/uL Hgb 14.8 (13.0-17.5) gm/dL Hct 45.6 (39.0-53.0) % Plt Count 164 (150-450) k/uL Comprehensive Metabolic Panel 12/07/21 Range/Units 21:10 Sodium 140 (137-145) mmol/L Potassium 3.6 (3.5-5.1) mmol/L Chloride 100 (98-107) mmol/L Carbon Dioxide 34 H (22-30) mmol/L BUN 34 H (9-20) mg/dL Creatinine 1.43 H (0.66-1.25) mg/dL Glucose 233 H (74-99) mg/dL Calcium 8.7 (8.4-10.2) mg/dL AST 16 L (17-59) U/L ALT 8 (4-49) U/L Alkaline Phosphatase 118 (38-126) U/L Total Protein 6.3 (6.3-8.2) g/dL Albumin 3.5 (3.5-5.0) g/dL Current Medications Generic Name Dose Route Start Last Admin Trade Name Freq PRN Reason Stop Dose Admin Amantadine HCl 100 mg 12/08/21 09:00 12/08/21 08:43 Amantadine Hcl 100 Mg Cap PO 100 mg DAILY DAVID Administration Aspirin 81 mg 12/08/21 09:00 12/08/21 08:45 Aspirin 81 Mg PO 81 mg DAILY DAVID Administration Atorvastatin Calcium 40 mg 12/08/21 09:00 12/08/21 08:44 Atorvastatin 40 Mg Tab PO 40 mg DAILY DAVID Administration Carbidopa/Levodopa 2 each 12/08/21 09:00 12/08/21 08:45 Carbidopa-Levodopa 25-100 Mg 1 Each Tab PO 2 each TID DAVID Administration Cholecalciferol 50 mcg 12/08/21 09:00 12/08/21 08:43 Cholecalciferol 25 Mcg (1000 Iu) Tablet PO 50 mcg DAILY DAVID Administration Cyanocobalamin 1,000 mcg 12/08/21 09:00 12/08/21 08:45 Cyanocobalamin 500 Mcg Tab PO 1,000 mcg DAILY DAVID Administration Donepezil HCl 10 mg 12/08/21 21:00 Donepezil 10 Mg Tab PO HS DAVID Duloxetine HCl 60 mg 12/08/21 09:00 12/08/21 08:46 Duloxetine Hcl 60 Mg Capsule.Dr PO 60 mg BID DAVID Administration Glimepiride 1 mg 12/08/21 09:00 12/08/21 08:46 Glimepiride 1 Mg Tab PO 1 mg BID DAVID Administration Sodium Chloride 1,000 mls @ 100 mls/hr 12/07/21 23:30 12/08/21 01:35 Saline 0.9% IV Not Given .Q10H [facility] Isosorbide Mononitrate 30 mg 12/08/21 09:00 12/08/21 08:43 Isosorbide Mononitrate Er 30 Mg Tab.Er.24h PO 30 mg DAILY DAVID Administration Losartan Potassium 100 mg 12/08/21 09:00 12/08/21 08:45 Losartan 50 Mg Tab PO 100 mg DAILY DAVID Administration Metformin HCl 1,000 mg 12/08/21 09:00 Metformin 500 Mg Tab PO BID [facility] Metoprolol Tartrate 100 mg 12/08/21 09:00 12/08/21 08:43 Metoprolol Tartrate 50 Mg Tab PO 100 mg BID [facility] Administration Multivitamins 1 each 12/08/21 09:00 12/08/21 08:44 Multivitamins, Thera 1 Each Tab PO 1 each DAILY DAVID Administration Nitroglycerin 0.4 mg 12/07/21 23:23 Nitroglycerin Sl Tabs 0.4 Mg Tab SUBLINGUAL Q5M PRN Chest Pain Pregabalin 75 mg 12/08/21 09:00 12/08/21 08:44 Pregabalin 75 Mg Cap PO 75 mg BID DAVID Administration Tamsulosin HCl 0.4 mg 12/08/21 12:00 Tamsulosin 0.4 Mg Cap.Er.24h PO DAILY@1200 DAVID Verapamil HCl 180 mg 12/08/21 09:00 12/08/21 08:48 Verapamil Sr 180 Mg Tablet.Er PO 180 mg BID DAVID Administration Intake and Output 12/07/21 12/08/21 12/08/21 22:59 06:59 14:59 Intake Total 0 Output Total 250 Balance -250 Intake: Oral 0 Output: Urine 250 Other: Weight 113.398 kg 120 kg 12/07/21 21:10 12/07/21 21:10
[2021-12-08] MEDS: TAMSULOSIN 0.4 MG CAP.ER.24H PO SCH (12:06)
[2021-12-08] MEDS: INSULIN ASPART (NovoLOG) 100 UNIT/ML VIAL SQ SCH ×3 (12:08→20:42)
[2021-12-08 12:13] LABS: Glucose,Whole Blood 149 mg/dL (75-99)
[2021-12-08 16:33] LABS: Glucose,Whole Blood 176 mg/dL (75-99)
[2021-12-08] MEDS: HEPARIN SODIUM 1,000 UN/ML (10ML VL) IV PRN (17:23)
[2021-12-08 20:31] LABS: Glucose,Whole Blood 155 mg/dL (75-99)
[2021-12-08] MEDS: DONEPEZIL 10 MG TAB PO SCH (20:42)
[2021-12-09] MEDS: HEPARIN SODIUM 1,000 UN/ML (10ML VL) IV PRN (00:44)
[2021-12-09] MEDS: SODIUM CHLORIDE 0.9% 1,000 ML IV SCH (04:31)
[2021-12-09] MEDS: HEPARIN SOD,PORK IN 0.45% NACL 25,000 UNIT in 0.45% NACL 1 250ML.BAG IV SCH ×2 (04:32→19:57)
[2021-12-09 05:06] LABS: Glucose,Whole Blood 172 mg/dL (75-99)
[2021-12-09] MEDS: INSULIN ASPART (NovoLOG) 100 UNIT/ML VIAL SQ SCH ×4 (06:18→19:56)
[2021-12-09 08:00] LABS: Basophils % (A) 0 %; Eosinophils # (A) 0.1 k/uL (0-0.7); Eosinophils % (A) 2 %; HCT 38.4 % (39.0-53.0); HGB 13.1 gm/dL (13.0-17.5); Lymphocytes % (A) 15 %; MCH 33.8 pg (25.0-35.0); MCHC 34.2 g/dL (31.0-37.0); MCV 98.9 fL (80.0-100.0); Mean Platelet Volume 7.2; Monocytes # (A) 0.4 k/uL (0-1.0); Monocytes % (A) 5 %; Neutrophils # (A) 5.1 k/uL (1.3-7.7); Neutrophils % (A) 76 %; Platelet Count 154 k/uL (150-450); RBC 3.88 m/uL (4.30-5.90); RDW 14.8 % (11.5-15.5); WBC 6.8 k/uL (3.8-10.6)
[2021-12-09 08:23] LABS: Partial Thromboplastin Time 54.3 sec (22.0-30.0); Prothrombin Time 11.3 sec (9.0-12.0)
[2021-12-09 08:50] LABS: Calcium 8.2 mg/dL (8.4-10.2); Potassium 3.5 mmol/L (3.5-5.1)
[2021-12-09] MEDS ORDERED: ATORVASTATIN 80 MG TAB PO SCH (09:00)
[2021-12-09] MEDS: ISOSORBIDE MONONITRATE ER 30 MG TAB.ER.24H PO SCH (09:15)
[2021-12-09] MEDS: DULoxetine HCL 60 MG CAPSULE.DR PO SCH ×2 (09:15→19:56)
[2021-12-09] MEDS: LOSARTAN 50 MG TAB PO SCH (09:15)
[2021-12-09] MEDS: ASPIRIN 81 MG PO SCH (09:15)
[2021-12-09] MEDS: METOPROLOL TARTRATE 50 MG TAB PO SCH ×2 (09:15→19:56)
[2021-12-09] MEDS: MULTIVITAMINS, THERA 1 EACH TAB PO SCH (09:15)
[2021-12-09] MEDS: CARBIDOPA-LEVODOPA 25-100 MG 1 EACH TAB PO SCH ×3 (09:15→19:56)
[2021-12-09] MEDS: CHOLECALCIFEROL 25 MCG (1000 IU) TABLET PO SCH (09:15)
[2021-12-09] MEDS: GLIMEPIRIDE 1 MG TAB PO SCH ×2 (09:16→19:56)
[2021-12-09] MEDS: PREGABALIN 75 MG CAP PO SCH ×2 (09:16→19:56)
[2021-12-09] MEDS: VERAPAMIL SR 180 MG TABLET.ER PO SCH ×2 (09:16→19:56)
[2021-12-09] MEDS: CYANOCOBALAMIN 500 MCG TAB PO SCH (09:25)
--- NOTE | 2021-12-09 09:58 | CA ---
Transthoracic Echo Report Name: Abdoulaye Ennis Age: 76 Gender: M : 1945 Exam Date: 12/08/2021 11:11 Exam Location: [facility] Ht (in): 69 Wt (lb): 264 Ordering Physician: Cinthia Holcomb Attending/Referring Phys: [id number], [employer] Supervisor Judy Glover, VI Procedure CPT: Indications: LV function Cardiac Hx: Technical Quality: Technically difficult study Contrast 1: Lumason Total Dose (mL): 3 Contrast 2: Agitated Saline Total Dose (mL): MEASUREMENTS (Male / Female) Normal Values 2D ECHO LV Diastolic Diameter PLAX 4.3 cm 4.2 - 5.9 / 3.9 - 5.3 cm LV Systolic Diameter PLAX 2.8 cm IVS Diastolic Thickness 1.4 cm 0.6 - 1.0 / 0.6 - 0.9 cm LVPW Diastolic Thickness 1.5 cm 0.6 - 1.0 / 0.6 - 0.9 cm LV Relative Wall Thickness 0.7 RV Internal Dim ED PLAX 3.5 cm LA Systolic Diameter LX 4.0 cm 3.0 - 4.0 / 2.7 - 3.8 cm M-MODE Aortic Root Diameter MM 3.5 cm MV E Point Septal Separation 0.7 cm AV Cusp Separation MM 2.4 cm DOPPLER AV Peak Velocity 131.8 cm/s AV Peak Gradient 7.0 mmHg MV Area PHT 3.8 cm Mitral E Point Velocity 86.6 cm/s Mitral A Point Velocity 87.1 cm/s Mitral E to A Ratio 1.0 MV Deceleration Time 198.6 ms MV E' Velocity 5.8 cm/s Mitral E to MV E' Ratio 15.0 TR Peak Velocity 285.4 cm/s TR Peak Gradient 32.6 mmHg Right Ventricular Systolic Press 36.7 mmHg FINDINGS Left Ventricle Left ventricular ejection fraction is estimated at 55-60%. Moderately increased left ventricular wall thickness. Right Ventricle Mild pulmonary hypertension. Mild right ventricular dilatation. Right Atrium The right atrium is normal in size. Left Atrium The left atrium is normal in size. Mitral Valve Mitral valve thickened. Mitral annular calcification. Aortic Valve Aortic valve sclerosis. Tricuspid Valve Mild tricuspid regurgitation. Pulmonic Valve Trace pulmonic regurgitation. Pericardium No pericardial or pleural effusion. Aorta Normal size aortic root and proximal ascending aorta. CONCLUSIONS #1. Normal left ventricle size and function with an ejection fraction of 55- 60%. Mild concentric left ventricle hypertrophy. #2. Mild right ventricular dilatation with mild pulmonary hypertension. #3. Mitral annular calcification and thickening of the leaflets. #4. Mild tricuspid regurgitation. #5. No pericardial effusion Previewed by: Dr. Tessa Evans MD (Electronically Signed) Final Date: 09 December 2021 09:56
[2021-12-09] MEDS ORDERED: ACETAMINOPHEN TAB 325 MG TAB PO PRN (11:12)
--- NOTE | 2021-12-09 11:15 | P.PN ---
Subjective Progress Note Date: 12/09/21 Principal diagnosis: chest pain Patient is a pleasant 76-year-old male was brought to the emergency room by ambulance for chest pain and shortness of breath. Patient describes pain as tight pressure that started on the left side of his chest and progressed up his neck. Patient reports after some time of the pain not going away and shortness of breath starting, his called 911. Patient reports improvement of pain after being treated in the emergency room. Patient has a pertinent medical history of Parkinson's, hypertension, hyperlipidemia, type 2 diabetes, previous [place] with stent placement, osteoarthritis. Chest x-ray was negative for acute process. Troponins were positive at 0.23, 0.46 & 0.47. Kidney function was slightly off with BUN at 34, and creatinine 1.4. Cardiology was consulted. 12/09/21 Patient was seen and assessed at bedside. Patient was sitting up in the chair in no acute distress. Patient denies chest pain, shortness of breath, headache or chills. Reports not getting much sleep overnight and is tired today. Kidney function improved, BUN 24, creatinine 1.38, GFR 50. Echocardiogram found mild left ventricle hypertrophy with an ejection fraction of 55-60% and mild pulmonary hypertension. Cardiology recommending heart catheterization tomorrow. Objective - Vital Signs Vital signs: Vital Signs Temp 97.7 F 12/09/21 08:00 Pulse 72 12/09/21 08:00 Resp 17 12/09/21 08:00 BP 155/70 12/09/21 08:00 Pulse Ox 95 12/09/21 08:00 Intake & Output 12/08/21 12/09/21 12/09/21 18:59 06:59 18:59 Intake Total 309.804 146.429 Output Total 525 300 Balance -215.196 -153.571 Weight 116 kg Intake: Intake, IV Titration 73.804 146.429 Amount Heparin Sod,Pork in 0.45% 73.804 146.429 NaCl 25,000 unit In 0.45 % NaCl 1 250ml.bag @ 8.33 UNITS/KG/HR 9.996 mls/hr IV .Q24H [facility] Rx#: [id number] Oral 236 0 Output: Urine 525 300 Other: Voiding Method External Catheter External Catheter External Catheter # Bowel Movements 1 - Constitutional General appearance: Present: cooperative, morbidly obese, no acute distress - EENT Eyes: Present: EOMI, PERRLA ENT: Present: normal oropharynx - Neck Neck: Present: normal ROM - Respiratory Respiratory: bilateral: CTA - Cardiovascular Heart rate: 60 Rhythm: regular Heart sounds: normal: S1, S2 - Peripheral edema leg Peripheral Edema: bilateral: 1+ - Peripheral pulses radial pulse Peripheral Pulses: bilateral: Normal - Gastrointestinal General gastrointestinal: Present: normal bowel sounds, soft - Integumentary Integumentary: Present: normal turgor - Neurologic Neurologic: Present: focal deficits - Musculoskeletal Musculoskeletal: Present: generalized weakness - Psychiatric Psychiatric Comment(s): alert, oriented to person and place, not time - Allied health notes Allied health notes reviewed: nursing - Labs CBC & Chem 7: 12/09/21 07:32 12/09/21 07:32 Labs: Abnormal Lab Results - Last 24 Hours (Table) 12/08/21 12/08/21 12/08/21 Range/Units 11:47 14:59 16:25 RBC (4.30-5.90) m/uL Hct (39.0-53.0) % APTT 38.9 H (22.0-30.0) sec BUN (9-20) mg/dL Creatinine (0.66-1.25) mg/dL Glucose (74-99) mg/dL POC Glucose (mg/dL) 149 H 176 H (75-99) mg/dL Hemoglobin A1c (0.0-6.0) % Calcium (8.4-10.2) mg/dL 12/08/21 12/08/21 12/09/21 Range/Units 20:29 23:20 04:51 RBC (4.30-5.90) m/uL Hct (39.0-53.0) % APTT 41.9 H (22.0-30.0) sec BUN (9-20) mg/dL Creatinine (0.66-1.25) mg/dL Glucose (74-99) mg/dL POC Glucose (mg/dL) 155 H 172 H (75-99) mg/dL Hemoglobin A1c (0.0-6.0) % Calcium (8.4-10.2) mg/dL 12/09/21 12/09/21 12/09/21 Range/Units 07:32 07:32 07:32 RBC 3.88 L (4.30-5.90) m/uL Hct 38.4 L (39.0-53.0) % APTT (22.0-30.0) sec BUN 24 H (9-20) mg/dL Creatinine 1.38 H (0.66-1.25) mg/dL Glucose 150 H (74-99) mg/dL POC Glucose (mg/dL) (75-99) mg/dL Hemoglobin A1c 7.8 H (0.0-6.0) % Calcium 8.2 L (8.4-10.2) mg/dL 12/09/21 Range/Units 07:32 RBC (4.30-5.90) m/uL Hct (39.0-53.0) % APTT 54.3 H (22.0-30.0) sec BUN (9-20) mg/dL Creatinine (0.66-1.25) mg/dL Glucose (74-99) mg/dL POC Glucose (mg/dL) (75-99) mg/dL Hemoglobin A1c (0.0-6.0) % Calcium (8.4-10.2) mg/dL Assessment and Plan Assessment: Chest pain, ruling out acs Coronary artery disease with previous stent placement Acute kidney injury, improving Hypertension Hyperlipidemia Type 2 diabetes Parkinson's disease Osteoarthritis Plan: Cardiology consult, planning heart catheterization for tomorrow IV hydration for acute kidney injury Monitor blood glucose ACHS, sliding scale insulin while metformin is held Continue monitoring vital signs and for recurrent chest pain Repeat blood work in AM further recommendations to come based on patient's clinical course Time with Patient: Greater than 30
[2021-12-09 11:52] LABS: Glucose,Whole Blood 222 mg/dL (75-99)
[2021-12-09] MEDS: TAMSULOSIN 0.4 MG CAP.ER.24H PO SCH (12:17)
[2021-12-09] MEDS ORDERED: ALPRAZolam 0.25 MG TAB PO PRN (12:24)
[2021-12-09] MEDS ORDERED: ALPRAZolam 0.5 MG TAB PO PRN (12:24)
[2021-12-09] MEDS ORDERED: NITROGLYCERIN SL TABS 0.4 MG TAB SUBLINGUAL PRN (12:24)
--- NOTE | 2021-12-09 13:30 | P.PN ---
Subjective Progress Note Date: 12/09/21 HISTORY OF PRESENT ILLNESS: This is a 76-year-old male with a past medical history significant for coronary artery disease with previous stenting, hypertension, hyperlipidemia, and d iabetes. Patient follows in the office with Dr. Calzada. We have been asked to see the patient in consultation for abnormal troponins. Patient examined at the bedside. Patient states yesterday after eating lunch she was sitting down in his living room and began having chest pain. He states the pain was on the left side of his chest. He reported some SOB and felt as though his breathing was shallow. He denied any radiation of the pain. He denied any nausea or vomiting. He denies any pain with chest wall palpation. He does report increased pain with deep inspiration. He states the pain persisted or while so he called EMS and came to the hospital. He states by the time he came to the emergency room his pain was almost gone. This morning he denies any chest pain or pressure. The patient was found to have an acute kidney injury with a creatinine of 1.43. The patient states he has been eating and drinking well at home and reports a good appetite. Patient's vital signs this morning are stable. * EKG reveals sinus mechanism with no signs of acute ischemia * Chest xray no acute cardiopulmonary process * Laboratory data: WBC 7.5. Hemoglobin 13.6. Platelet count 160. Sodium 140. Potassium 3.6. BUN 34. Creatinine 1.43. Troponin 0.052. 0.238. 0.462. 0.473. * Current home cardiac medications include aspirin 81 mg daily, hydrochlorothiazide 25 mg daily, Imdur 30 mg daily, Lipitor 40 mg daily, verapamil 180 mg twice a day, metoprolol tartrate 100 mg twice a day, losartan 100 mg daily * Most recent echocardiogram obtained in October 2020 revealed ejection fraction 55-60%, trace TR * Cardiac catheterization history: October 2020 revealing chronic total occlusion of the mid RCA with ipsilateral and contralateral collaterals, patent stented segment in the LAD and left circumflex with mild disease in both vessels. Medical management was recommended. 12/09/2021 Patient examined this morning at the bedside. Patient denies chest pain or pressure. Patient denies shortness of breath. He remains on IV heparin. He remains on IV fluids. Creatinine today 1.38. Echocardiogram completed revealed ejection fraction 55-60% with mild TR. PHYSICAL EXAM: VITAL SIGNS: Reviewed. GENERAL: Well-developed in no acute distress. HEENT: Head is normocephalic. Pupils are equal, round. Sclerae anicteric. Mucous membranes of the mouth are moist. Neck supple. No JVD or thyromegaly LUNGS: Respirations even and unlabored. Lungs essentially clear to auscultation bilaterally. HEART: Regular rate and rhythm. S1 and S2 heard. ABDOMEN: Soft. Nondistended. Nontender. EXTREMITIES: Normal range of motion. No clubbing or cyanosis. Peripheral pulses intact. 2+ bilateral lower extremity edema NEUROLOGIC: Awake and alert. Oriented x 3. ASSESSMENT: Chest pain Non-STEMI Coronary artery disease with previous stenting Acute kidney injury Hypertension Hyperlipidemia Diabetes Parkinson's disease PLAN: Continue current cardiac medications Continue IV fluids Monitor kidney function. Repeat in a.m. Continue IV heparin Patient to undergo cardiac catheterization tomorrow with Dr. Calzada Further recommendations pending patient's course Nurse practitioner note has been reviewed by physician. Signing provider agrees with the documented findings, assessment, and plan of care. Objective - Vital Signs Vital signs: Vital Signs Temp 96.7 F L 12/09/21 12:00 Pulse 58 L 12/09/21 12:00 Resp 17 12/09/21 12:00 BP 122/64 12/09/21 12:00 Pulse Ox 94 L 12/09/21 12:00 Intake & Output 12/08/21 12/09/21 12/09/21 18:59 06:59 18:59 Intake Total 309.804 146.429 540 Output Total 525 300 Balance -215.196 -153.571 540 Weight 116 kg Intake: Intake, IV Titration 73.804 146.429 Amount Heparin Sod,Pork in 0.45% 73.804 146.429 NaCl 25,000 unit In 0.45 % NaCl 1 250ml.bag @ 8.33 UNITS/KG/HR 9.996 mls/hr IV .Q24H [facility] Rx#: [id number] Oral 236 0 540 Output: Urine 525 300 Other: Voiding Method External Catheter External Catheter External Catheter # Bowel Movements 1 - Labs CBC & Chem 7: 12/09/21 07:32 12/09/21 07:32 Labs: Abnormal Lab Results - Last 24 Hours (Table) 12/08/21 12/08/21 12/08/21 Range/Units 14:59 16:25 20:29 RBC (4.30-5.90) m/uL Hct (39.0-53.0) % APTT 38.9 H (22.0-30.0) sec BUN (9-20) mg/dL Creatinine (0.66-1.25) mg/dL Glucose (74-99) mg/dL POC Glucose (mg/dL) 176 H 155 H (75-99) mg/dL Hemoglobin A1c (0.0-6.0) % Calcium (8.4-10.2) mg/dL 12/08/21 12/09/21 12/09/21 Range/Units 23:20 04:51 07:32 RBC (4.30-5.90) m/uL Hct (39.0-53.0) % APTT 41.9 H (22.0-30.0) sec BUN (9-20) mg/dL Creatinine (0.66-1.25) mg/dL Glucose (74-99) mg/dL POC Glucose (mg/dL) 172 H (75-99) mg/dL Hemoglobin A1c 7.8 H (0.0-6.0) % Calcium (8.4-10.2) mg/dL 12/09/21 12/09/21 12/09/21 Range/Units 07:32 07:32 07:32 RBC 3.88 L (4.30-5.90) m/uL Hct 38.4 L (39.0-53.0) % APTT 54.3 H (22.0-30.0) sec BUN 24 H (9-20) mg/dL Creatinine 1.38 H (0.66-1.25) mg/dL Glucose 150 H (74-99) mg/dL POC Glucose (mg/dL) (75-99) mg/dL Hemoglobin A1c (0.0-6.0) % Calcium 8.2 L (8.4-10.2) mg/dL 12/09/21 Range/Units 11:50 RBC (4.30-5.90) m/uL Hct (39.0-53.0) % APTT (22.0-30.0) sec BUN (9-20) mg/dL Creatinine (0.66-1.25) mg/dL Glucose (74-99) mg/dL POC Glucose (mg/dL) 222 H (75-99) mg/dL Hemoglobin A1c (0.0-6.0) % Calcium (8.4-10.2) mg/dL
[2021-12-09 16:11] LABS: Glucose,Whole Blood 162 mg/dL (75-99)
[2021-12-09 19:53] LABS: Glucose,Whole Blood 207 mg/dL (75-99)
[2021-12-09] MEDS: DONEPEZIL 10 MG TAB PO SCH (19:56)
[2021-12-09] MEDS: SODIUM CHLORIDE 0.9% 1,000 ML in EMPTY BAG 1 BAG IV SCH (22:57)
[2021-12-10] MEDS: SODIUM CHLORIDE 0.9% 1,000 ML IV SCH ×2 (00:05→20:04)
[2021-12-10] MEDS ORDERED: ASPIRIN 325 MG TAB PO ONE (05:00)
[2021-12-10] MEDS ORDERED: ATORVASTATIN 80 MG TAB PO ONE (05:00)
[2021-12-10] MEDS: GLIMEPIRIDE 1 MG TAB PO SCH ×2 (05:35→19:57)
[2021-12-10] MEDS: PREGABALIN 75 MG CAP PO SCH ×2 (05:41→20:04)
[2021-12-10] MEDS: MULTIVITAMINS, THERA 1 EACH TAB PO SCH (05:41)
[2021-12-10] MEDS: CHOLECALCIFEROL 25 MCG (1000 IU) TABLET PO SCH (05:41)
[2021-12-10] MEDS: METOPROLOL TARTRATE 50 MG TAB PO SCH ×2 (05:41→20:04)
[2021-12-10] MEDS: CARBIDOPA-LEVODOPA 25-100 MG 1 EACH TAB PO SCH ×3 (05:41→20:04)
[2021-12-10] MEDS: DULoxetine HCL 60 MG CAPSULE.DR PO SCH ×2 (05:41→20:04)
[2021-12-10] MEDS: LOSARTAN 50 MG TAB PO SCH (05:41)
[2021-12-10] MEDS: ISOSORBIDE MONONITRATE ER 30 MG TAB.ER.24H PO SCH (05:41)
[2021-12-10] MEDS: CYANOCOBALAMIN 500 MCG TAB PO SCH (05:41)
[2021-12-10] MEDS: SODIUM CHLORIDE 0.9% 1,000 ML in EMPTY BAG 1 BAG IV SCH (05:42)
[2021-12-10] MEDS: INSULIN ASPART (NovoLOG) 100 UNIT/ML VIAL SQ SCH ×4 (05:42→20:04)
[2021-12-10] MEDS: VERAPAMIL SR 180 MG TABLET.ER PO SCH ×2 (06:09→20:04)
[2021-12-10 06:16] LABS: Glucose,Whole Blood 149 mg/dL (75-99)
[2021-12-10] MEDS ORDERED: HEPARIN SODIUM,PORCINE 10,000 UNIT in SODIUM CHLORIDE 0.9% 1,000 ML IRRIGATION PRN (07:00)
[2021-12-10] MEDS ORDERED: HEPARIN SODIUM,PORCINE 2,500 UNIT in SODIUM CHLORIDE 0.9% 250 ML IRRIGATION PRN (07:00)
[2021-12-10 08:35] LABS: Basophils # (A) 0.1 k/uL (0-0.2); Basophils % (A) 1 %; Eosinophils # (A) 0.2 k/uL (0-0.7); Eosinophils % (A) 3 %; HCT 37.3 % (39.0-53.0); HGB 12.6 gm/dL (13.0-17.5); Lymphocytes # (A) 1.1 k/uL (1.0-4.8); Lymphocytes % (A) 20 %; MCH 33.3 pg (25.0-35.0); MCHC 33.9 g/dL (31.0-37.0); MCV 98.3 fL (80.0-100.0); Mean Platelet Volume 7.2; Monocytes # (A) 0.4 k/uL (0-1.0); Monocytes % (A) 7 %; Neutrophils # (A) 3.8 k/uL (1.3-7.7); Neutrophils % (A) 67 %; Platelet Count 154 k/uL (150-450); RDW 14.1 % (11.5-15.5); WBC 5.7 k/uL (3.8-10.6)
[2021-12-10 09:00] LABS: ALT <6 U/L (4-49); AST 14 U/L (17-59); African American GFR (CKD) 61 (>60 ml/min/1.73 sqM); Albumin 2.7 g/dL (3.5-5.0); Alkaline Phosphatase 65 U/L (38-126); Anion Gap 6 mmol/L; Blood Urea Nitrogen 26 mg/dL (9-20); Calcium 7.9 mg/dL (8.4-10.2); Carbon Dioxide 27 mmol/L (22-30); Chloride 104 mmol/L (98-107); Glucose 132 mg/dL (74-99); Magnesium 1.6 mg/dL (1.6-2.3); Non-African American GFR(CKD) 53 (>60 ml/min/1.73 sqM); Potassium 3.6 mmol/L (3.5-5.1); Sodium 137 mmol/L (137-145); Total Protein 5.2 g/dL (6.3-8.2)
[2021-12-10] MEDS ORDERED: VERAPAMIL 2.5 MG/ML 2 ML AMP ONE (11:00)
[2021-12-10] MEDS ORDERED: HEPARIN SODIUM 1,000 UN/ML (10ML VL) ONE (11:00)
--- NOTE | 2021-12-10 11:00 | P.PN ---
Subjective Progress Note Date: 12/10/21 Principal diagnosis: chest pain Patient is a pleasant 76-year-old male was brought to the emergency room by ambulance for chest pain and shortness of breath. Patient describes pain as tight pressure that started on the left side of his chest and progressed up his neck. Patient reports after some time of the pain not going away and shortness of breath starting, his called 911. Patient reports improvement of pain after being treated in the emergency room. Patient has a pertinent medical history of Parkinson's, hypertension, hyperlipidemia, type 2 diabetes, previous [place] with stent placement, osteoarthritis. Chest x-ray was negative for acute process. Troponins were positive at 0.23, 0.46 & 0.47. Kidney function was slightly off with BUN at 34, and creatinine 1.4. Cardiology was consulted. 12/09/21 Patient was seen and assessed at bedside. Patient was sitting up in the chair in no acute distress. Patient denies chest pain, shortness of breath, headache or chills. Reports not getting much sleep overnight and is tired today. Kidney function improved, BUN 24, creatinine 1.38, GFR 50. Echocardiogram found mild left ventricle hypertrophy with an ejection fraction of 55-60% and mild pulmonary hypertension. Cardiology recommending heart catheterization tomorrow. 12/10/2021 Patient was seen and assessed at bedside. Patient was sitting up in bed, no acute distress. Patient denies chest pain, headache, fever, chills. Does endorse some shortness of breath with activity. Kidney function improved again today, BUN 26, creatinine 1.32, GFR 53. Patient is to undergo heart catheterization today. Objective - Vital Signs Vital signs: Vital Signs Temp 96.3 F L 12/10/21 08:00 Pulse 55 L 12/10/21 08:00 Resp 18 12/10/21 08:00 BP 93/50 12/10/21 08:00 Pulse Ox 92 L 12/10/21 08:00 Intake & Output 12/09/21 12/10/21 12/10/21 18:59 06:59 18:59 Intake Total 980 468.105 215.282 Output Total 1900 700 Balance -920 -231.895 215.282 Weight 116 kg 124 kg Intake: Intake, IV Titration 228.105 215.282 Amount Heparin Sod,Pork in 0.45% 228.105 215.282 NaCl 25,000 unit In 0.45 % NaCl 1 250ml.bag @ 8.33 UNITS/KG/HR 9.996 mls/hr IV .Q24H [facility] Rx#: [id number] Oral 980 240 Output: Urine 1900 700 Other: Voiding Method External Catheter External Catheter External Catheter - Constitutional General appearance: Present: cooperative, no acute distress, obese - EENT Eyes: Present: EOMI, PERRLA ENT: Present: normal oropharynx - Neck Neck: Present: normal ROM - Respiratory Respiratory: bilateral: CTA - Cardiovascular Heart rate: 60 Rhythm: regular Heart sounds: normal: S1, S2 - Peripheral pulses radial pulse Peripheral Pulses: bilateral: Normal - Gastrointestinal General gastrointestinal: Present: normal bowel sounds, soft - Integumentary Integumentary: Present: normal - Neurologic Neurologic: Present: focal deficits - Musculoskeletal Musculoskeletal: Present: gait normal - Psychiatric Psychiatric: Present: A&O x's 3, appropriate affect, intact judgment & insight - Allied health notes Allied health notes reviewed: nursing - Labs CBC & Chem 7: 12/10/21 08:23 12/10/21 08:23 Labs: Abnormal Lab Results - Last 24 Hours (Table) 12/09/21 12/09/21 12/09/21 Range/Units 11:50 16:09 19:26 RBC (4.30-5.90) m/uL Hgb (13.0-17.5) gm/dL Hct (39.0-53.0) % APTT (22.0-30.0) sec BUN (9-20) mg/dL Creatinine (0.66-1.25) mg/dL Glucose (74-99) mg/dL POC Glucose (mg/dL) 222 H 162 H 207 H (75-99) mg/dL Calcium (8.4-10.2) mg/dL AST (17-59) U/L Total Protein (6.3-8.2) g/dL Albumin (3.5-5.0) g/dL 12/10/21 12/10/21 12/10/21 Range/Units 05:34 08:23 08:23 RBC 3.80 L (4.30-5.90) m/uL Hgb 12.6 L (13.0-17.5) gm/dL Hct 37.3 L (39.0-53.0) % APTT 41.1 H (22.0-30.0) sec BUN (9-20) mg/dL Creatinine (0.66-1.25) mg/dL Glucose (74-99) mg/dL POC Glucose (mg/dL) 149 H (75-99) mg/dL Calcium (8.4-10.2) mg/dL AST (17-59) U/L Total Protein (6.3-8.2) g/dL Albumin (3.5-5.0) g/dL 12/10/21 Range/Units 08:23 RBC (4.30-5.90) m/uL Hgb (13.0-17.5) gm/dL Hct (39.0-53.0) % APTT (22.0-30.0) sec BUN 26 H (9-20) mg/dL Creatinine 1.32 H (0.66-1.25) mg/dL Glucose 132 H (74-99) mg/dL POC Glucose (mg/dL) (75-99) mg/dL Calcium 7.9 L (8.4-10.2) mg/dL AST 14 L (17-59) U/L Total Protein 5.2 L (6.3-8.2) g/dL Albumin 2.7 L (3.5-5.0) g/dL Assessment and Plan Assessment: Chest pain, ruling out acs Coronary artery disease with previous stent placement Acute kidney injury, improving Hypertension Hyperlipidemia Type 2 diabetes Parkinson's disease Osteoarthritis Plan: Cardiology consult, heart catheterization today IV hydration for acute kidney injury Monitor blood glucose ACHS, sliding scale insulin while metformin is held Continue monitoring vital signs and for recurrent chest pain Repeat blood work in AM to monitor kidney function further recommendations to come based on patient's clinical course Time with Patient: Greater than 30
[2021-12-10] MEDS ORDERED: fentaNYL (PF) 50 MCG/ML 2 ML AMP ONE (11:12)
[2021-12-10] MEDS ORDERED: MIDAZOLAM 2 MG/2 ML VIAL IVP ONE (11:40)
[2021-12-10] MEDS ORDERED: LIDOCAINE 1% INJ 10MG/ML (5 ML VIAL-PF) SQ ONE ×2 (11:43→11:57)
[2021-12-10] MEDS ORDERED: IV FLUID CONTINUATION 1,000 ML IV ONE (11:49)
[2021-12-10] MEDS ORDERED: VERAPAMIL SYRINGE (5 MG/10 ML) INTRAARTER ONE (11:58)
[2021-12-10] MEDS: HEPARIN SODIUM 1,000 UN/ML (10ML VL) IV ONE ×2 (12:03→12:08)
[2021-12-10] MEDS ORDERED: CLOPIDOGREL 75 MG TAB ONE (12:10)
[2021-12-10] MEDS ORDERED: CLOPIDOGREL 75 MG TAB PO ONE (12:12)
[2021-12-10] MEDS ORDERED: IOPAMIDOL-370 125ML BTL INJ ONE (12:16)
[2021-12-10] MEDS ORDERED: MAG HYDROX/AL HYDROX/SIMETH 30 ML CUP PO PRN (12:37)
[2021-12-10] MEDS ORDERED: ATROPINE SULFATE 0.1 MG/ML 10ML SYRINGE IV PRN (12:37)
[2021-12-10] MEDS ORDERED: RX INFO: IV CONTRAST WAS GIVEN 1 EACH MISC MISCELLANE PRN (12:37)
[2021-12-10] MEDS ORDERED: NITROGLYCERIN SL TABS 0.4 MG TAB SUBLINGUAL PRN (12:37)
[2021-12-10] MEDS ORDERED: ZOLPIDEM 5 MG TAB PO PRN (12:37)
[2021-12-10] MEDS ORDERED: SODIUM CHLORIDE 0.9% 1,000 ML in EMPTY BAG 1 BAG IV SCH (12:45)
--- NOTE | 2021-12-10 12:51 | P.CARDCATH ---
Date of Procedure: 12/10/21 Description of Procedure: Cardiac Catheterization: The patient is a 76-year-old male with a known history of CAD, post stenting in 2017, known chronically occluded RCA who presented with chest discomfort and mild troponin elevation consistent with non-STEMI. He has baseline renal insufficiency. Recommendations were made regarding cardiac catheterization, the risks and the complications were discussed with the patient who is in full understanding and agreement. 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 Using Xylocaine Anesthesia and Seldinger technique, attempt to cannulate the right radial artery were unsuccessful in advancing the wire, a 6-Jamaican sheath was introduced in the right ulnar artery . Subsequently, selective coronary angiography performed using a 5-Jamaican 3.5 bend He catheter. Multiple views of the coronary artery including hemiaxial views were obtained. The 5-Jamaican Pigatial catheter was used to cross the aortic valve and LV EDP was calculated. Following that, catheter were removed. There was no immediate complication. Of note, the patient received a total of 5000 units of intravenous heparin as well as intra-arterial verapamil. There was no immediate complications. Findings: Left main: This is a large size vessel, bifurcating to LAD and left circumflex, left main has no evidence of high-grade stenosis LAD: This is a large size vessel giving rise to a large diagonal branch proximally, the proximal LAD has 30-40% plaque affecting the takeoff of the diagonal branch with no high-grade stenosis. Left circumflex: This is a large nondominant vessel giving rise to a large obtuse marginal branch, the stented segment the obtuse marginal branch is patent, the proximal left circumflex has 20-30% plaque. The mid segment of the obtuse marginal branch 1 has a 90% stenosis, the rest of the vessel has no high- grade stenosis RCA: Images of the RCA were not obtained to limit the dye use, the vessel is known to be chronically occluded. There is collaterals from the left system to the right PDA and PLV Left Ventriculogram: Was not performed Hemodynamics: There was no gradient across the aortic valve, LVEDP 15-18 mmHg Conclusion: 1. Critical stenosis in the obtuse marginal branch 1 2. Moderate disease in the LAD 3. Chronically occluded RCA 4. Collaterals to the right PDA and PLV Recommendations: In view of the findings and the anatomy I have recommended to proceed with angioplasty and stenting of the left circumflex, the procedure as well as is the risks and the complications were discussed with the patient who was in full understanding and agreement.
--- NOTE | 2021-12-10 12:55 | P.CARDCATH ---
Date of Procedure: 12/10/21 Description of Procedure: PERCUTANEOUS TRANSLUMINAL CORONARY ANGIOPLASTY CLINICAL INFORMATION: This is a 76-year-old male with known history of CAD who presented with non-STEMI, his cardiac catheterization revealed critical stenosis in the OM1. Recommendations were made regarding coronary angioplasty and stenting, the procedure as well as the risks and the complications were discussed with the patient was informed understanding and agreement. PROCEDURE: A 6 Amharic 3.5 left He guiding catheter was introduced into the system. After cannulating the left main, a 0.014 balanced medium J-wire was advanced across the lesion and positioned distally. Following that a 3.25 x 15 mm Xience karri point stent was deployed. It was dilated at 16. Another 3.25 x 12 mm Xience karri point stent was deployed proximal to the first one and post dilated at 16 kaylynn. After the last inflation, after appropriate wait, the balloon and the guidewire were withdrawn back into the guiding catheter. Images were obtained and repeated. Those images reveal stable successful stenting. At that point, the guiding catheter, the balloon, and guidewire were removed. The sheath was removed. Hemostasis was obtained with deployment of a TR band. There were no immediate complications. The patient was returned to the room in stable condition. Of note, the patient received additional 4000 units of heparin as well as Plavix. His ACT was followed. He had chest discomfort that resolved at the end of the procedure. RESULTS: Successful stenting of the obtuse marginal branch 1 with reduction of stenosis from 90% to 0 %. RECOMMENDATIONS: Patient will be continued on dual antiplatelet treatment with aspirin and Plavix for 1 year, aggressive coronary risk modification will be continued. The findings and recommendations were discussed with the patient and his family and they are in full understanding and agreement. Duration of severe 47 minutes
[2021-12-10 13:32] LABS: Glucose,Whole Blood 145 mg/dL (75-99)
[2021-12-10] MEDS: TAMSULOSIN 0.4 MG CAP.ER.24H PO SCH (13:51)
[2021-12-10 14:10] VITALS: BMI 40.4
[2021-12-10 16:54] LABS: Glucose,Whole Blood 170 mg/dL (75-99)
[2021-12-10 19:58] LABS: Glucose,Whole Blood 145 mg/dL (75-99)
[2021-12-10] MEDS: DONEPEZIL 10 MG TAB PO SCH (20:04)
[2021-12-11 06:02] LABS: Glucose,Whole Blood 134 mg/dL (75-99)
[2021-12-11] MEDS: INSULIN ASPART (NovoLOG) 100 UNIT/ML VIAL SQ SCH (06:24)
[2021-12-11] MEDS ORDERED: ATORVASTATIN 80 MG TAB PO SCH (09:00)
[2021-12-11] MEDS ORDERED: CLOPIDOGREL 75 MG TAB PO SCH (09:00)
[2021-12-11] MEDS ORDERED: ASPIRIN 81 MG PO SCH (09:00)
[2021-12-11] MEDS: CARBIDOPA-LEVODOPA 25-100 MG 1 EACH TAB PO SCH (09:48)
[2021-12-11] MEDS: PREGABALIN 75 MG CAP PO SCH (09:48)
[2021-12-11] MEDS: MULTIVITAMINS, THERA 1 EACH TAB PO SCH (09:48)
[2021-12-11] MEDS: CYANOCOBALAMIN 500 MCG TAB PO SCH (09:48)
[2021-12-11] MEDS: LOSARTAN 50 MG TAB PO SCH (09:48)
[2021-12-11] MEDS: CHOLECALCIFEROL 25 MCG (1000 IU) TABLET PO SCH (09:49)
[2021-12-11] MEDS: GLIMEPIRIDE 1 MG TAB PO SCH (09:49)
[2021-12-11] MEDS: DULoxetine HCL 60 MG CAPSULE.DR PO SCH (09:50)
[2021-12-11] MEDS: ISOSORBIDE MONONITRATE ER 30 MG TAB.ER.24H PO SCH (09:50)
[2021-12-11] MEDS: VERAPAMIL SR 180 MG TABLET.ER PO SCH (09:50)
[2021-12-11] MEDS: METOPROLOL TARTRATE 50 MG TAB PO SCH (09:50)
[2021-12-11 11:06] LABS: Potassium 3.9 mmol/L (3.5-5.1)
[2021-12-11 11:35] LABS: Glucose,Whole Blood 146 mg/dL (75-99)
[2021-12-11 11:50] VITALS: BP 126/60; PULSE 73; RESP 17; TEMP 97.6
--- NOTE | 2021-12-11 13:53 | P.PN ---
Subjective Progress Note Date: 12/11/21 This is Derek muñoz NP, I'm dictating on behalf of Dr. Jordan's H&P and A&P. Patient was interviewed and examined. Patient is a pleasant 76-year-old male who initially presented to the hospital for chest pain, subsequently found to have a 90% blockage in the patient's obtuse marginal artery. Patient underwent stent placement yesterday, with complete resolution of the blockage. Patient reports today's having no pain, no new breathing issues. States that he's done well overnight and is feeling good today. GENERAL: Well-appearing, well-nourished and in no acute distress. NECK: Supple without JVD or thyromegaly. LUNGS: Breath sounds clear to auscultation bilaterally. Respiration equal and unlabored. No wheezes, rales or rhonchi. HEART: Regular rate and rhythm without murmurs, rubs or gallops. S1 and S2 heard. EXTREMITIES: Normal range of motion, no edema. No clubbing or cyanosis. Essie pheral pulses intact and strong. VITALS: Temp 97.6, pulse 73, respirations 17, blood pressure 126/60, O2 saturation 94% on room air TELEMETRY: Normal sinus rhythm LABS: White count 5.7, hemoglobin 12.6, platelets 154, sodium 137, potassium 3.9, chloride 107, B1 22, creatinine 1.18, calcium 8.0 IMPRESSION/PLAN: 1. Chest pain-resolved with stent placement. Patient has previous stents in place. Labs rechecked today are improved from yesterday. 2. [id number] #1 3. Acute kidney injury-improved from admission. 4. Hypertension-controlled with medications. 5. Hyperlipidemia-continue atorvastatin From a cardiology standpoint the patient can be discharged home at this time. We will sign off on the patient. Please do not hesitate to reconsult us if further recommendations are needed. Objective - Vital Signs Vital signs: Vital Signs Temp 97.6 F 12/11/21 08:00 Pulse 73 12/11/21 08:00 Resp 17 12/11/21 08:00 BP 126/60 12/11/21 08:00 Pulse Ox 94 L 12/11/21 08:00 Intake & Output 12/10/21 12/11/21 12/11/21 18:59 06:59 18:59 Intake Total 1805.282 240 Output Total 500 700 Balance 1305.282 -460 Weight 124 kg Intake: IV 100 Intake, IV Titration 1465.282 Amount Heparin Sod,Pork in 0.45% 215.282 NaCl 25,000 unit In 0.45 % NaCl 1 250ml.bag @ 8.33 UNITS/KG/HR 9.996 mls/hr IV .Q24H [facility] Rx#: [id number] Sodium Chloride 0.9% 1, 500 000 ml In Empty Bag 1 bag @ 1 ML/KG/HR 116 mls/hr IV .Q8H38M [facility] Rx#: [id number] Sodium Chloride 0.9% 1, 750 000 ml In Empty Bag 1 bag @ 1 ML/KG/HR 124 mls/hr IV .Q8H4M [facility] Rx#: [id number] Oral 240 240 Output: Urine 500 700 Other: Voiding Method External Catheter External Catheter External Catheter - Labs CBC & Chem 7: 12/10/21 08:23 12/11/21 10:36 Labs: Abnormal Lab Results - Last 24 Hours (Table) 12/10/21 12/10/21 12/11/21 Range/Units 16:52 19:56 05:58 BUN (9-20) mg/dL Glucose (74-99) mg/dL POC Glucose (mg/dL) 170 H 145 H 134 H (75-99) mg/dL Calcium (8.4-10.2) mg/dL 12/11/21 12/11/21 Range/Units 10:36 11:30 BUN 22 H (9-20) mg/dL Glucose 145 H (74-99) mg/dL POC Glucose (mg/dL) 146 H (75-99) mg/dL Calcium 8.0 L (8.4-10.2) mg/dL
== END 2021-12-11 14:19 | disposition home or self-care (01) | DRG 247 ==
LOC: EC 20:29 → 3SCARD 23:23 → OBSVTOIN 12-08 12:39
PROVIDERS: ADMIT Family Medicine; ATTEND Family Medicine
PROC: 4A023N7 Measurement of Cardiac Sampling and Pressure, Left Heart, Percutaneous Approach (ICD-10-PCS; principal; 2021-12-10 11:07)
PROC: B2111ZZ Fluoroscopy of Multiple Coronary Arteries using Low Osmolar Contrast (ICD-10-PCS; principal; 2021-12-10 11:07)
PROC: 027035Z Dilation of Coronary Artery, One Artery with Two Drug-eluting Intraluminal Devices, Percutaneous Approach (ICD-10-PCS; principal; 2021-12-10 11:07)
DX: I21.4 Non-ST elevation (NSTEMI) myocardial infarction (principal); N17.9 Acute kidney failure, unspecified; Z68.41 Body mass index [BMI] 40.0-44.9, adult; I27.20 Pulmonary hypertension, unspecified; E11.9 Type 2 diabetes mellitus without complications; G20 Parkinson's disease; E66.01 Morbid (severe) obesity due to excess calories; I25.10 Atherosclerotic heart disease of native coronary artery without angina pectoris; E78.5 Hyperlipidemia, unspecified; I10 Essential (primary) hypertension; I25.2 Old myocardial infarction; M19.90 Unspecified osteoarthritis, unspecified site; Z79.82 Long term (current) use of aspirin; Z79.84 Long term (current) use of oral hypoglycemic drugs; Z79.899 Other long term (current) drug therapy; Z95.5 Presence of coronary angioplasty implant and graft; Z90.89 Acquired absence of other organs; Z96.643 Presence of artificial hip joint, bilateral; Z98.52 Vasectomy status; Z98.1 Arthrodesis status; Z87.891 Personal history of nicotine dependence; Z98.890 Other specified postprocedural states; Z71.3 Dietary counseling and surveillance; Z88.5 Allergy status to narcotic agent; Z82.49 Family history of ischemic heart disease and other diseases of the circulatory system; Z81.8 Family history of other mental and behavioral disorders
CPT/HCPCS: 36415; 71046; 80048; 80053; 80061; 81001; 83036; 83735; 84484; 85025; 85610; 85730; 93005; 93306; 93458; 96372; 99285

== ENCOUNTER 2022-06-09 23:18 | Observation (INO) | payer MEDICARE ==
[2022-06-09] MEDS ORDERED: ASPIRIN 81 MG PO STA (23:35)
[2022-06-09] MEDS ORDERED: NITROGLYCERIN SL TABS 0.4 MG TAB SUBLINGUAL STA (23:35)
[2022-06-10 00:22] LABS: Basophils % (A) 1 %; Eosinophils # (A) 0.1 k/uL (0-0.7); Eosinophils % (A) 2 %; HCT 39.4 % (39.0-53.0); HGB 13.6 gm/dL (13.0-17.5); Lymphocytes # (A) 0.9 k/uL (1.0-4.8); Lymphocytes % (A) 17 %; MCH 32.8 pg (25.0-35.0); MCHC 34.4 g/dL (31.0-37.0); MCV 95.2 fL (80.0-100.0); Mean Platelet Volume 8.5; Monocytes # (A) 0.3 k/uL (0-1.0); Monocytes % (A) 6 %; Neutrophils # (A) 3.7 k/uL (1.3-7.7); Neutrophils % (A) 74 %; Platelet Count 157 k/uL (150-450); RBC 4.14 m/uL (4.30-5.90); RDW 14.1 % (11.5-15.5); WBC 5.1 k/uL (3.8-10.6)
--- NOTE | 2022-06-10 00:44 | XR ---
EXAM: XR Chest, 2 Views CLINICAL HISTORY: Chest Pain TECHNIQUE: Frontal and lateral views of the chest. COMPARISON: Chest 2 views dated 12/07/2021 FINDINGS: Lungs: The pulmonary vasculature appears equalized. No radiographic evidence for florid CHF. No definite focal airspace consolidation. Pleural space: Unremarkable. No pneumothorax. No large pleural effusion. Heart: The cardiac silhouette appears larger from the previous examination and now appears to be enlarged. Mediastinum: Unremarkable. No significant abnormality identified. The trachea is midline. Bones/joints: Similar hypertrophic changes involving the acromioclavicular joints. Similar bridging osteophytes anteriorly in the thoracic spine. No acute osseous abnormality. IMPRESSION: The cardiac silhouette appears larger from the previous examination and now appears to be enlarged. The pulmonary vasculature appears somewhat equalized and subtle vascular congestion cannot be excluded. No radiographic evidence for florid CHF. No focal airspace consolidation. No pleural effusion or pneumothorax.
[2022-06-10 00:45] LABS: INR 1.1 (<1.2); Partial Thromboplastin Time 22.5 sec (22.0-30.0); Prothrombin Time 11.9 sec (9.0-12.0)
--- NOTE | 2022-06-10 00:49 | ED ---
General Adult HPI - General Chief complaint: Chest Pain Stated complaint: Chest pain Time Seen by Provider: 06/09/22 23:40 Source: EMS, RN notes reviewed, old records reviewed Mode of arrival: EMS Limitations: no limitations - History of Present Illness Initial comments: Patient is a 76-year-old male with past history remarkable for multiple heart attacks, multiple cardiac stents, diabetes, hypertension, obesity who presents emergency Department complaining of approximately one hour of chest pain. States it is somewhat substernal and left-sided and sharp in nature. States it was an 8 out of 10 at home and started while he was sitting in a chair watching TV. Denies any other associated complaints including diaphoresis. States it does radiate somewhat towards his left jaw. Denies any shortness of breath. Denies any worsening lower extremity edema but does have chronic lower extremity edema. Denies any lightheadedness. Denies any sore throat. Denies any fevers, chills. EMS arrived and provided him with 2 nitroglycerin tablets which improved his pain to a 4-5 out of 10. Presents the emergency department for further evaluation. Is on aspirin and Plavix at baseline. - Related Data Home Medications Medication Instructions Recorded Confirmed Metoprolol Tartrate [Lopressor] 100 mg PO BID@1000,0 07/01/15 12/07/21 Multivitamin [Men's Multi-Vitamin] 1 tab PO DAILY@1000 07/01/15 12/07/21 Verapamil HCl [Verapamil ER] 180 mg PO BID@1000,0 07/01/15 12/07/21 Aspirin EC [Ecotrin Low Dose] 81 mg PO DAILY@1000 09/28/16 12/07/21 metFORMIN HCL [Glucophage] 1,000 mg PO BID@1000,0 12/14/16 12/07/21 Atorvastatin [Lipitor] 40 mg PO DAILY@1000 12/13/19 12/07/21 Bacillus Coagulans/Inulin 1 cap PO DAILY@1000 12/13/19 12/07/21 [Probiotic with Prebiotic Cap] Carbidopa-Levodopa 25-100 mg 2 tab PO TID@0900,1300,1700 12/13/19 12/07/21 [Sinemet 25-100 mg] DULoxetine HCL [Cymbalta] 60 mg PO BID@1000,2200 12/13/19 12/07/21 Donepezil [Aricept] 10 mg PO DAILY@1700 12/13/19 12/07/21 Glimepiride [Amaryl] 1 mg PO BID@1000,2200 12/13/19 12/07/21 Losartan Potassium [Cozaar] 100 mg PO DAILY@1000 12/13/19 12/07/21 hydroCHLOROthiazide 25 mg PO DAILY@1000 12/13/19 12/07/21 Cyanocobalamin (Vitamin B-12) 1,000 mcg PO DAILY@1000 03/06/20 12/07/21 [Vitamin B-12] Pregabalin [Lyrica] 75 mg PO BID@0900,1700 03/06/20 12/07/21 Tamsulosin HCl [Flomax] 0.4 mg PO DAILY@1200 03/06/20 12/07/21 Cholecalciferol [Vitamin D3 (25 50 mcg PO DAILY@1000 12/07/21 12/07/21 Mcg = 1000 Iu)] Isosorbide Mononitrate ER [Imdur] 30 mg PO DAILY@1000 12/07/21 12/07/21 amantadine HCL [Amantadine] 100 mg PO DAILY@0900 12/07/21 12/07/21 Previous Rx's Medication Instructions Recorded Clopidogrel [Plavix] 75 mg PO DAILY #30 tab 12/11/21 Nitroglycerin Sl Tabs [Nitrostat] 0.4 mg SUBLINGUAL Q5M PRN #30 tab 12/11/21 Allergies Allergy/AdvReac Type Severity Reaction Status Date / Time narcotics AdvReac Hallucinati Uncoded 06/09/22 23:43 ons opiates AdvReac Hallucinati Uncoded 06/09/22 23:43 ons Review of Systems ROS Statement: Those systems with pertinent positive or pertinent negative responses have been documented in the HPI. Review of Systems: CONST: Denies fever EYES: Denies blurry vision ENT: Denies nasal congestion C/V: Endorses chest pain RESP: Denies shortness of breath GI: Denies abdominal pain : Denies dysuria SKIN: Denies rash. MSK: Denies joint pain. NEURO: Denies headache ROS Other: All systems not noted in ROS Statement are negative. Past Medical History Past Medical History: Coronary Artery Disease (CAD), Diabetes Mellitus, Hyperlipidemia, Hypertension, Myocardial Infarction ([place]), Osteoarthritis (OA) Additional Past Medical History / Comment(s): NIDDM type II, vertigo in September 2016 thought to be labyrinthitis-also had elevated troponins-stress test done and was negative, arthritis multiple joints. Last Myocardial Infarction Date:: 1996 History of Any Multi-Drug Resistant Organisms: None Reported Past Surgical History: Heart Catheterization With Stent, Joint Replacement, Tonsillectomy Additional Past Surgical History / Comment(s): 1996 PCI with stent, L/RT HIP REPLACEMENTS, EXPLORATORY LAP with spleen injury, EPIDURAL INJ. in back, lumbar fusion, colonoscopy, vasectomy. Past Anesthesia/Blood Transfusion Reactions: Previous Problems w/ Anesthesia Additional Past Anesthesia/Blood Transfusion Reaction / Comment(s): STATES POST EPIDURAL INJ HAD A HARD TIME WAKING UP.pt /family stated pt can't take any narcotics-becomes very confused. pt can take tylenol extra strength for pain. Date of Last Stent Placement:: 1996 Past Psychological History: No Psychological Hx Reported Smoking Status: Never smoker Past Alcohol Use History: None Reported Past Drug Use History: None Reported - Past Family History Mother Family Medical History: Congestive Heart Failure (CHF), Hypertension Additional Family Medical History / Comment(s): bipolar Father Family Medical History: Coronary Artery Disease (CAD), Myocardial Infarction ([place]) General Exam - General Exam Comments Initial Comments: General: Appears in no acute distress. HEAD: Normal with no signs of head trauma. EYES: PERRLA, EOMI, conjunctiva normal, no discharge. ENT: Hearing grossly intact, normal oropharynx. RESPIRATORY: Clear breath sounds bilaterally. No wheezes, rales, or rhonchi. C/V: Regular rate and rhythm. S1 and S2 auscultated, significant bilateral lower extremity pitting edema which is chronic for the patient, peripheral pulses 2+ and intact throughout ABD: Abd is soft, nontender, nondistended EXT: Normal range of motion, no obvious deformity SKIN: No rashes or lesions observed on exposed skin. NEURO: Alert and oriented x 4. Cranial nerves II-XII intact. No focal sensory or strength deficits. Limitations: no limitations Course Vital Signs 06/09/22 06/10/22 23:25 02:49 Temperature 97.7 F Pulse Rate 82 63 Respiratory 18 18 Rate Blood Pressure 150/76 147/75 O2 Sat by Pulse 95 97 Oximetry Medical Decision Making - Medical Decision Making Based on the patient's presentation and physical exam, I'm concerned for acute cardiopulmonary etiology for his current symptoms. We will obtain cardiac workup. He will be given 2 additional nitroglycerin tablets as well as aspirin. We'll monitor and cardiac monitoring and pulse oximetry. Chest x-ray and EKG will be obtained. Patient was in agreement with this plan. Patient's pain resolved following 2 nitroglycerin tablets. Chest x-ray shows cardiomegaly. Laboratory studies are remarkable for a undetectable troponin. Magnesium is slightly decreased to 1.5 and will be replenished. Remainder of the labs are unremarkable. EKG showed no signs of acute ischemia. I will give the patient the results of his workup. I would like to admit the hospital. I am concerned for an ACS cause for his symptoms, including unstable angina. We will start the patient on a heparin drip. Nitropaste was placed as this did improve his symptoms. We will trend the troponin. Cardiology will be consulted to evaluate him in the morning. He was in agreement this plan. I spoke with the admitting physician, Dr. Nava of [facility] who was covering for Dr. Cheatham who accepted the patient. - Lab Data Result diagrams: 06/09/22 23:50 06/10/22 01:20 Lab Results 06/09/22 06/09/22 06/09/22 Range/Units 23:50 23:50 23:50 WBC 5.1 (3.8-10.6) k/uL RBC 4.14 L (4.30-5.90) m/uL Hgb 13.6 (13.0-17.5) gm/dL Hct 39.4 (39.0-53.0) % MCV 95.2 (80.0-100.0) fL MCH 32.8 (25.0-35.0) pg MCHC 34.4 (31.0-37.0) g/dL RDW 14.1 (11.5-15.5) % Plt Count 157 (150-450) k/uL MPV 8.5 Neutrophils % 74 % Lymphocytes % 17 % Monocytes % 6 % Eosinophils % 2 % Basophils % 1 % Neutrophils # 3.7 (1.3-7.7) k/uL Lymphocytes # 0.9 L (1.0-4.8) k/uL Monocytes # 0.3 (0-1.0) k/uL Eosinophils # 0.1 (0-0.7) k/uL Basophils # 0.0 (0-0.2) k/uL PT 11.9 (9.0-12.0) sec INR 1.1 (<1.2) APTT 22.5 (22.0-30.0) sec Sodium (137-145) mmol/L Potassium (3.5-5.1) mmol/L Chloride (98-107) mmol/L Carbon Dioxide (22-30) mmol/L Anion Gap mmol/L BUN (9-20) mg/dL Creatinine (0.66-1.25) mg/dL Est GFR (CKD-EPI)AfAm (>60 ml/min/1.73 sqM) Est GFR (CKD-EPI)NonAf (>60 ml/min/1.73 sqM) Glucose (74-99) mg/dL Calcium (8.4-10.2) mg/dL Magnesium (1.6-2.3) mg/dL Total Bilirubin (0.2-1.3) mg/dL AST (17-59) U/L ALT (4-49) U/L Alkaline Phosphatase (38-126) U/L Troponin I <0.012 (0.000-0.034) ng/mL Total Protein (6.3-8.2) g/dL Albumin (3.5-5.0) g/dL Amylase (30-110) U/L Lipase (23-300) U/L 06/10/22 Range/Units 01:20 WBC (3.8-10.6) k/uL RBC (4.30-5.90) m/uL Hgb (13.0-17.5) gm/dL Hct (39.0-53.0) % MCV (80.0-100.0) fL MCH (25.0-35.0) pg MCHC (31.0-37.0) g/dL RDW (11.5-15.5) % Plt Count (150-450) k/uL MPV Neutrophils % % Lymphocytes % % Monocytes % % Eosinophils % % Basophils % % Neutrophils # (1.3-7.7) k/uL Lymphocytes # (1.0-4.8) k/uL Monocytes # (0-1.0) k/uL Eosinophils # (0-0.7) k/uL Basophils # (0-0.2) k/uL PT (9.0-12.0) sec INR (<1.2) APTT (22.0-30.0) sec Sodium 139 (137-145) mmol/L Potassium 3.8 (3.5-5.1) mmol/L Chloride 98 (98-107) mmol/L Carbon Dioxide 29 (22-30) mmol/L Anion Gap 12 mmol/L BUN 31 H (9-20) mg/dL Creatinine 1.11 (0.66-1.25) mg/dL Est GFR (CKD-EPI)AfAm 75 (>60 ml/min/1.73 sqM) Est GFR (CKD-EPI)NonAf 65 (>60 ml/min/1.73 sqM) Glucose 187 H (74-99) mg/dL Calcium 8.6 (8.4-10.2) mg/dL Magnesium 1.5 L (1.6-2.3) mg/dL Total Bilirubin 0.4 (0.2-1.3) mg/dL AST 17 (17-59) U/L ALT 15 (4-49) U/L Alkaline Phosphatase 150 H (38-126) U/L Troponin I (0.000-0.034) ng/mL Total Protein 5.5 L (6.3-8.2) g/dL Albumin 3.4 L (3.5-5.0) g/dL Amylase 39 (30-110) U/L Lipase 90 (23-300) U/L - EKG Data -: EKG Interpreted by Me EKG Comments: 12-lead Electrocardiogram Interpretation Note EKG was reviewed and interpreted by myself. 12-lead ECG performed at 2335 is interpreted by me as revealing normal sinus rhythm at a rate of 69 beats per minute. [place] is normal. MS interval is 176 ms, QRS duration is 101 ms, QTc is 384 ms.. There were no ST or T wave abnormalities to suggest myocardial ischemia or injury. Patient does have Q-wave in III and aVF which appeared to be new since most recent stenting in November 2021. R wave progression across the precordium was satisfactory. By my interpretation this EKG is non-diagnostic for acute ischemia. Disposition Clinical Impression: Chest pain, Unstable angina, Hypomagnesemia Disposition: ADMITTED IP TO THIS HOSP Condition: Stable Time of Disposition: 01:30
[2022-06-10] MEDS ORDERED: HEPARIN SODIUM 1,000 UN/ML (10ML VL) IV ONE (01:10)
[2022-06-10] MEDS ORDERED: HEPARIN SODIUM 1,000 UN/ML (10ML VL) IV PRN (01:10)
[2022-06-10] MEDS ORDERED: HEPARIN SOD,PORK IN 0.45% NACL 25,000 UNIT in 0.45% NACL 1 250ML.BAG IV SCH (01:15)
[2022-06-10 01:42] LABS: Albumin 3.4 g/dL (3.5-5.0); Calcium 8.6 mg/dL (8.4-10.2); Magnesium 1.5 mg/dL (1.6-2.3); Potassium 3.8 mmol/L (3.5-5.1); Total Bilirubin 0.4 mg/dL (0.2-1.3); Total Protein 5.5 g/dL (6.3-8.2)
[2022-06-10] MEDS ORDERED: NALOXONE 0.4 MG/ML 1 ML VIAL IV PRN (01:55)
[2022-06-10] MEDS ORDERED: NITROGLYCERIN OINT 1 INCH/GM PACKET TOPICAL STA (01:57)
[2022-06-10] MEDS: MAGNESIUM SULFATE-D5W PMX 1 GM in DEXTROSE/WATER 1 100ML.BAG IVPB SCH ×2 (02:45→08:45)
[2022-06-10 07:37] LABS: Glucose,Whole Blood 142 mg/dL (70-110)
[2022-06-10] MEDS ORDERED: METOPROLOL TARTRATE 50 MG TAB PO SCH (09:00)
[2022-06-10] MEDS ORDERED: ISOSORBIDE MONONITRATE ER 30 MG TAB.ER.24H PO SCH (09:00)
[2022-06-10] MEDS ORDERED: metFORMIN 500 MG TAB PO SCH (09:00)
[2022-06-10] MEDS ORDERED: CLOPIDOGREL 75 MG TAB PO SCH (09:00)
[2022-06-10] MEDS ORDERED: GLIMEPIRIDE 1 MG TAB PO SCH (09:00)
[2022-06-10] MEDS ORDERED: CARBIDOPA-LEVODOPA 25-100 MG 1 EACH TAB PO SCH (09:00)
[2022-06-10] MEDS ORDERED: FAMOTIDINE 20 MG/2 ML VIAL IV SCH (09:00)
[2022-06-10] MEDS ORDERED: ASPIRIN 81 MG PO SCH (09:00)
[2022-06-10] MEDS ORDERED: LOSARTAN 50 MG TAB PO SCH (09:00)
[2022-06-10] MEDS ORDERED: hydroCHLOROthiazide 25 MG TAB PO SCH (09:00)
--- NOTE | 2022-06-10 09:13 | P.CRDCN ---
History of Present Illness History of present illness: HISTORY OF PRESENTING ILLNESS This is a pleasant 76-year-old male past medical history significant for coronary artery disease status post PCI of the mid LAD in 1996, PCI to proximal OM1, mid RCA and proximal RCA in 2017, PCI most recently to the OM1 11/2021, type 2 diabetes, hypertension, dyslipidemia, former tobacco use, Parkinson's disease. He follows in the office with Dr. Calzada. We have been asked to see in consultation for chest pain Patient presents to the emergency department with episode yesterday where he was sitting in his chair and he had acute onset left face/neck pain, radiating to his right side of his chest and to right upper abdomen. He describes it as sharp. He states it continued and was not getting any better. He had associated mild shortness of breath. His called EMS. She noted him to be slightly clammy. He states it lasted for about 23 hours. He states it is different from his prior [place] where he his pain was not as sharp or severe. He was given Nitro in the ER with relief. He states after a few hours it went away on its own. He did have some aggravation with deep breathing. He is currently chest pain free. He denies any associated nausea, palpitations. He denies cough, fever, chills, symptoms of orthopnea or PND. He denies any nausea or vomiting. Patient is not very active at home secondary to Parkinson's disease. No recent changes to his medications. DIAGNOSTICS * EKG reveals sinus rhythm, heart rate 69, nonspecific STT wave abnormalities * Last Cardiac Catheterization 11/2021 revealed critical stenosis in obtuse marginal branch, moderate disease in the LAD, chronically occluded RCA, collaterals to the right PDA and PLV. Patient underwent PCI to the OM1 * Echocardiogram 11/2021 revealed EF 5560 percent, mild tricuspid regurgitation * Telemetry tracings indicate sinus rhythm * Chest xray no overt heart failure or consolidation noted. * Laboratory reviewed, troponin negative 2, sodium 139, potassium 3.8, BUN 31, Serevent 1.1, magnesium 1.5, CBC unremarkable * Current home medications include nitroglycerin, metformin, hydrochlorothiazide 25 mg daily, verapamil 180 mg twice a day, metoprolol titrate 100 mg twice a day, losartan 100 mg daily, Imdur 30 mg daily, Aricept, Cymbalta, vitamin B12, Plavix 75 mg daily, Sinemet, atorvastatin 40 mg daily, aspirin 80 mg daily REVIEW OF SYSTEMS At the time of my exam symptoms have resolved. CONSTITUTIONAL: Denies fever or chills. CARDIOVASCULAR: Denies chest pain, shortness of breath, orthopnea, PND or palpitations. RESPIRATORY: Denies cough. GASTROINTESTINAL: Denies abdominal pain, diarrhea, constipation, nausea or vomiting. MUSCULOSKELETAL: Denies myalgias. NEUROLOGIC: Denies numbness, tingling, headache or weakness. ENDOCRINE: Denies fatigue, weight change, polydipsia or polyurina. GENITOURINARY: Denies burning, hematuria or urgency with micturation. HEMATOLOGIC: Denies history of anemia or bleeding. PHYSICAL EXAMINATION Blood pressure 130/69, heart rate 53, afebrile, saturation 95% on room air CONSTITUTIONAL: No apparent distress. HEENT: Head is normocephalic. Pupils are equal, round. Sclerae anicteric. Mucous membranes of the mouth are moist. No JVD. No carotid bruit. CHEST EXAMINATION: Lungs are clear to auscultation. No chest wall tenderness is noted on palpation or with deep breathing. HEART EXAMINATION: Regular rate and rhythm. S1, S2 heard. No murmurs, gallops or rub. ABDOMEN: Soft, nontender. Positive bowel sounds. EXTREMITIES: 2+ peripheral pulses, moderate bilateral lower extremity edema and no calf tenderness. SKIN: warm, dry NEUROLOGIC EXAMINATION: Patient is awake, alert and oriented x3. ASSESSMENT Episode of left facial/neck sharp pain with radiation to chest and abdomen, patient with some aggravation with deep breathing Parkinson's disease Coronary artery disease status post PCI of the mid LAD in 1996, PCI to proximal OM1, mid RCA and proximal RCA in 2016, PCI most recently to the OM1 11/2021 Type 2 diabetes Hypertension Dyslipidemia Former tobacco use PLAN An acute coronary event or cardiac etiology appears unlikely, no EKG evidence of ischemia and 2 negative cardiac enzymes Recommend repeat 1 troponin Check D-dimer, if abnormal will check CTA chest Obtain 2D echocardiogram and doppler study to assess cardiac structure and function. If above work up with no acute findings, no further inpatient workup from a cardiology perspective and close follow up outpatient with Dr. Calzada Thank you kindly for this consultation. Nurse practitioner note has been reviewed by physician. Signing provider agrees with the documented findings, assessment, and plan of care. Past Medical History Past Medical History: Coronary Artery Disease (CAD), Diabetes Mellitus, Hyperlipidemia, Hypertension, Myocardial Infarction ([place]), Osteoarthritis (OA) Additional Past Medical History / Comment(s): NIDDM type II, vertigo in September 2016 thought to be labyrinthitis-also had elevated troponins-stress test done and was negative, arthritis multiple joints. Last Myocardial Infarction Date:: 1996 History of Any Multi-Drug Resistant Organisms: None Reported Past Surgical History: Heart Catheterization With Stent, Joint Replacement, Tonsillectomy Additional Past Surgical History / Comment(s): 1996 PCI with stent, L/RT HIP REPLACEMENTS, EXPLORATORY LAP with spleen injury, EPIDURAL INJ. in back, lumbar fusion, colonoscopy, vasectomy. Past Anesthesia/Blood Transfusion Reactions: Previous Problems w/ Anesthesia Additional Past Anesthesia/Blood Transfusion Reaction / Comment(s): STATES POST EPIDURAL INJ HAD A HARD TIME WAKING UP.pt /family stated pt can't take any narcotics-becomes very confused. pt can take tylenol extra strength for pain. Date of Last Stent Placement:: 1996 Past Psychological History: No Psychological Hx Reported Smoking Status: Never smoker Past Alcohol Use History: None Reported Past Drug Use History: None Reported - Past Family History Mother Family Medical History: Congestive Heart Failure (CHF), Hypertension Additional Family Medical History / Comment(s): bipolar Father Family Medical History: Coronary Artery Disease (CAD), Myocardial Infarction ([place]) Medications and Allergies Home Medications Medication Instructions Recorded Confirmed Type Metoprolol Tartrate [Lopressor] 100 mg PO BID@1000,2200 07/01/15 06/10/22 History Multivitamin [Men's Multi-Vitamin] 1 tab PO DAILY@99907/01/15 06/10/22 History Verapamil HCl [Verapamil ER] 180 mg PO BID@1000,0 07/01/15 06/10/22 History Aspirin EC [Ecotrin Low Dose] 81 mg PO DAILY@1000 09/28/16 06/10/22 History metFORMIN HCL [Glucophage] 1,000 mg PO BID@1000,0 12/14/16 06/10/22 History Atorvastatin [Lipitor] 40 mg PO DAILY@1000 12/13/19 06/10/22 History Carbidopa-Levodopa 25-100 mg 2 tab PO TID@0900,1300,1700 12/13/19 06/10/22 History [Sinemet 25-100 mg] DULoxetine HCL [Cymbalta] 60 mg PO BID@1000,2200 12/13/19 06/10/22 History Donepezil [Aricept] 10 mg PO DAILY@1700 12/13/19 06/10/22 History Glimepiride [Amaryl] 1 mg PO BID@1000,2200 12/13/19 06/10/22 History Losartan Potassium [Cozaar] 100 mg PO DAILY@1000 12/13/19 06/10/22 History hydroCHLOROthiazide 25 mg PO DAILY@1000 12/13/19 06/10/22 History Cyanocobalamin (Vitamin B-12) 1,000 mcg PO DAILY@1000 03/06/20 06/10/22 History [Vitamin B-12] Pregabalin [Lyrica] 75 mg PO BID@0900,1700 03/06/20 06/10/22 History Tamsulosin HCl [Flomax] 0.4 mg PO DAILY@1200 03/06/20 06/10/22 History Cholecalciferol [Vitamin D3 (25 50 mcg PO DAILY@1000 12/07/21 06/10/22 History Mcg = 1000 Iu)] Isosorbide Mononitrate ER [Imdur] 30 mg PO DAILY@1000 12/07/21 06/10/22 History amantadine HCL [Amantadine] 100 mg PO DAILY@0900 12/07/21 06/10/22 History Clopidogrel [Plavix] 75 mg PO DAILY #30 tab 12/11/21 06/10/22 Rx Nitroglycerin Sl Tabs [Nitrostat] 0.4 mg SL Q5M PRN 06/10/22 06/10/22 History Zinc Gluconate [Zinc] 50 mg PO DAILY@1000 06/10/22 06/10/22 History Allergies Allergy/AdvReac Type Severity Reaction Status Date / Time narcotics AdvReac Hallucinati Uncoded 06/09/22 23:43 ons opiates AdvReac Hallucinati Uncoded 06/09/22 23:43 ons Physical Exam Vitals: Vital Signs Temp Pulse Pulse Resp BP BP Pulse Ox 06/10/22 08:00 97.6 F 53 L 18 130/69 95 06/10/22 07:03 60 06/10/22 07:02 70 15 133/66 100 06/10/22 02:49 63 18 147/75 97 06/09/22 23:25 97.7 F 82 18 150/76 95 Intake and Output 06/09/22 06/10/22 06/10/22 22:59 06:59 14:59 Other: Weight 117.934 kg Results 06/09/22 23:50 06/10/22 01:20 Cardiac Enzymes 06/09/22 06/10/22 06/10/22 Range/Units 23:50 01:20 05:28 AST 17 (17-59) U/L Troponin I <0.012 <0.012 (0.000-0.034) ng/mL Coagulation 06/09/22 06/10/22 Range/Units 23:50 05:28 PT 11.9 (9.0-12.0) sec APTT 22.5 48.4 H (22.0-30.0) sec CBC 06/09/22 Range/Units 23:50 WBC 5.1 (3.8-10.6) k/uL RBC 4.14 L (4.30-5.90) m/uL Hgb 13.6 (13.0-17.5) gm/dL Hct 39.4 (39.0-53.0) % Plt Count 157 (150-450) k/uL Comprehensive Metabolic Panel 06/10/22 Range/Units 01:20 Sodium 139 (137-145) mmol/L Potassium 3.8 (3.5-5.1) mmol/L Chloride 98 (98-107) mmol/L Carbon Dioxide 29 (22-30) mmol/L BUN 31 H (9-20) mg/dL Creatinine 1.11 (0.66-1.25) mg/dL Glucose 187 H (74-99) mg/dL Calcium 8.6 (8.4-10.2) mg/dL AST 17 (17-59) U/L ALT 15 (4-49) U/L Alkaline Phosphatase 150 H (38-126) U/L Total Protein 5.5 L (6.3-8.2) g/dL Albumin 3.4 L (3.5-5.0) g/dL Current Medications Generic Name Dose Route Start Last Admin Trade Name Freq PRN Reason Stop Dose Admin Aspirin 81 mg 06/10/22 09:00 06/10/22 08:46 Aspirin 81 Mg PO 81 mg DAILY DAVID Administration Carbidopa/Levodopa 2 each 06/10/22 09:00 Carbidopa-Levodopa 25-100 Mg 1 Each Tab PO TID DAVID Clopidogrel Bisulfate 75 mg 06/10/22 09:00 06/10/22 08:46 Clopidogrel 75 Mg Tab PO 75 mg DAILY DAVID Administration Famotidine 20 mg 06/10/22 09:00 06/10/22 08:46 Famotidine 20 Mg/2 Ml Vial IV 20 mg Q12HR DAVID Administration Glimepiride 1 mg 06/10/22 09:00 Glimepiride 1 Mg Tab PO BID DAVID Heparin Sodium (Porcine) 0 unit 06/10/22 01:10 Heparin Sodium 1,000 Un/Ml (10ml Vl) IV PER PROTOCOL PRN Low PTT Protocol Hydrochlorothiazide 25 mg 06/10/22 09:00 Hydrochlorothiazide 25 Mg Tab PO DAILY [facility] Heparin Sodium/Sodium Chloride 250 mls @ 10 mls/hr 06/10/22 01:15 06/10/22 02:44 25,000 unit/ Sodium Chloride IV 8.4793 units/kg/hr .Q24H DAVID 10 mls/hr Administration Protocol 8.4793 UNITS/KG/HR Isosorbide Mononitrate 30 mg 06/10/22 09:00 06/10/22 08:47 Isosorbide Mononitrate Er 30 Mg Tab.Er.24h PO 30 mg DAILY DAVID Administration Losartan Potassium 100 mg 06/10/22 09:00 06/10/22 08:47 Losartan 50 Mg Tab PO 100 mg DAILY DAVID Administration Metformin HCl 1,000 mg 06/10/22 09:00 06/10/22 08:47 Metformin 500 Mg Tab PO 1,000 mg BID DAVID Administration Metoprolol Tartrate 100 mg 06/10/22 09:00 06/10/22 08:47 Metoprolol Tartrate 50 Mg Tab PO 100 mg BID DAVID Administration Naloxone HCl 0.2 mg 06/10/22 01:55 Naloxone 0.4 Mg/Ml 1 Ml Vial IV Q2M PRN Opioid Reversal Intake and Output 06/09/22 06/10/22 06/10/22 22:59 06:59 14:59 Other: Weight 117.934 kg 06/09/22 23:50 06/10/22 01:20
--- NOTE | 2022-06-10 09:43 | P.HPIM ---
History of Present Illness This is a pleasant 76 years old male with past medical history of Coronary Artery Disease status post stent, Diabetes Mellitus, Hyperlipidemia, Hypertension, Osteoarthritis , Parkinson disease, BPH, dementia. His PCP is Dr. Cheatham program facilitator Dr. Calzada History was obtained with the help of at bedside. Patient states that yesterday he was sitting where he started developing central chest pain around 11 PM, was radiating to his left neck, rated as 8/10 in severity by the patient felt like sharp pain. And he has been told by his program facilitator Dr. Calzada to watch for such symptoms and to seek medical attention if they happen. Patient was in the emergency room and his chest pain after 2 sublingual nitro pills as he described and as per ED staff and physician YDr. Patient denies dyspnea or coughing. No lightheadedness or dizziness or headache. No weakness or numbness. No GI or urinary symptoms, no vomiting diar thien or abdominal pain or increased frequency. Patient is on Sinemet and he is known history of Parkinson disease, his neurologist from [facility] and he sees him every 3-4 months and his been stable as per . Also patient is on or sharp L4 his bilateral leg swelling by his PCP Dr. Linden Cope he was admitted the patient for program facilitator evaluation. Vitals stable. CBC is unremarkable, BMP and liver enzymes are unremarkable as well. Magnesium 1.5 Troponin 2 are negative less than 0.012. Lipase normal EKG showing normal sinus rhythm at [address]-T changes Chest x-ray: No acute process. The cardiac surgical diabetes large and from previous examination and now appears to be enlarged. Pulmonary vasculature appears somewhat equalized and septal vascular congestion cannot be excluded. No radiographic evidence for florid CHF. No focal airspace consolidation. 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 D-dimer came back normal 0.23 Review of Systems Review of systems CONSTITUTIONAL: No fever, no malaise, no fatigue. HEENT: No recent visual problems or hearing problems. Denied any sore throat. CARDIOVASCULAR: No orthopnea, PND, no palpitations, no syncope. PULMONARY: No shortness of breath, no cough, no hemoptysis. GASTROINTESTINAL: No diarrhea, no nausea, no vomiting, no abdominal pain. Normoactive bowel sounds. NEUROLOGICAL: No headaches, no weakness, no numbness. HEMATOLOGICAL: Denies any bleeding or petechiae. GENITOURINARY: Denies any burning micturition, frequency, or urgency. MUSCULOSKELETAL/RHEUMATOLOGICAL: Denies any joint pain, swelling, or any muscle pain. ENDOCRINE: Denies any polyuria or polydipsia. Past Medical History Past Medical History: Coronary Artery Disease (CAD), Diabetes Mellitus, Hyperlipidemia, Hypertension, Myocardial Infarction ([place]), Osteoarthritis (OA) Additional Past Medical History / Comment(s): NIDDM type II, vertigo in September 2016 thought to be labyrinthitis-also had elevated troponins-stress test done and was negative, arthritis multiple joints. Last Myocardial Infarction Date:: 1996 History of Any Multi-Drug Resistant Organisms: None Reported Past Surgical History: Heart Catheterization With Stent, Joint Replacement, Tonsillectomy Additional Past Surgical History / Comment(s): 1996 PCI with stent, L/RT HIP REPLACEMENTS, EXPLORATORY LAP with spleen injury, EPIDURAL INJ. in back, lumbar fusion, colonoscopy, vasectomy. Past Anesthesia/Blood Transfusion Reactions: Previous Problems w/ Anesthesia Additional Past Anesthesia/Blood Transfusion Reaction / Comment(s): STATES POST EPIDURAL INJ HAD A HARD TIME WAKING UP.pt /family stated pt can't take any narcotics-becomes very confused. pt can take tylenol extra strength for pain. Date of Last Stent Placement:: 1996 Past Psychological History: No Psychological Hx Reported Smoking Status: Never smoker Past Alcohol Use History: None Reported Past Drug Use History: None Reported - Past Family History Mother Family Medical History: Congestive Heart Failure (CHF), Hypertension Additional Family Medical History / Comment(s): bipolar Father Family Medical History: Coronary Artery Disease (CAD), Myocardial Infarction ([place]) Medications and Allergies Home Medications Medication Instructions Recorded Confirmed Type Metoprolol Tartrate [Lopressor] 100 mg PO BID@999,219907/01/15 06/10/22 History Multivitamin [Men's Multi-Vitamin] 1 tab PO DAILY@99907/01/15 06/10/22 History Verapamil HCl [Verapamil ER] 180 mg PO BID@999,219907/01/15 06/10/22 History Aspirin EC [Ecotrin Low Dose] 81 mg PO DAILY@1000 09/28/16 06/10/22 History metFORMIN HCL [Glucophage] 1,000 mg PO BID@999,219912/14/16 06/10/22 History Atorvastatin [Lipitor] 40 mg PO DAILY@1000 12/13/19 06/10/22 History Carbidopa-Levodopa 25-100 mg 2 tab PO TID@0900,1300,1700 12/13/19 06/10/22 History [Sinemet 25-100 mg] DULoxetine HCL [Cymbalta] 60 mg PO BID@1000,2200 12/13/19 06/10/22 History Donepezil [Aricept] 10 mg PO DAILY@1700 12/13/19 06/10/22 History Glimepiride [Amaryl] 1 mg PO BID@1000,2200 12/13/19 06/10/22 History Losartan Potassium [Cozaar] 100 mg PO DAILY@1000 12/13/19 06/10/22 History hydroCHLOROthiazide 25 mg PO DAILY@1000 12/13/19 06/10/22 History Cyanocobalamin (Vitamin B-12) 1,000 mcg PO DAILY@1000 03/06/20 06/10/22 History [Vitamin B-12] Pregabalin [Lyrica] 75 mg PO BID@0900,1700 03/06/20 06/10/22 History Tamsulosin HCl [Flomax] 0.4 mg PO DAILY@1200 03/06/20 06/10/22 History Cholecalciferol [Vitamin D3 (25 50 mcg PO DAILY@1000 12/07/21 06/10/22 History Mcg = 1000 Iu)] Isosorbide Mononitrate ER [Imdur] 30 mg PO DAILY@1000 12/07/21 06/10/22 History amantadine HCL [Amantadine] 100 mg PO DAILY@0900 12/07/21 06/10/22 History Clopidogrel [Plavix] 75 mg PO DAILY #30 tab 12/11/21 06/10/22 Rx Nitroglycerin Sl Tabs [Nitrostat] 0.4 mg SL Q5M PRN 06/10/22 06/10/22 History Zinc Gluconate [Zinc] 50 mg PO DAILY@1000 06/10/22 06/10/22 History Allergies Allergy/AdvReac Type Severity Reaction Status Date / Time narcotics AdvReac Hallucinati Uncoded 06/09/22 23:43 ons opiates AdvReac Hallucinati Uncoded 06/09/22 23:43 ons Physical Exam Vitals: Vital Signs Temp Pulse Pulse Resp BP BP Pulse Ox 06/10/22 08:00 97.6 F 53 L 18 130/69 95 06/10/22 07:03 60 06/10/22 07:02 70 15 133/66 100 06/10/22 02:49 63 18 147/75 97 06/09/22 23:25 97.7 F 82 18 150/76 95 Intake and Output 06/09/22 06/10/22 06/10/22 22:59 06:59 14:59 Other: Weight 117.934 kg GENERAL: The patient is alert and oriented x3, not in any acute distress. Well developed, well nourished. HEENT: Pupils are round and equally reacting to light. EOMI. No scleral icterus. No conjunctival pallor. Normocephalic, atraumatic. No pharyngeal erythema. No thyromegaly. CARDIOVASCULAR: S1 and S2 present. No murmurs, rubs, or gallops. PULMONARY: Chest is clear to auscultation, no wheezing or crackles. ABDOMEN: Soft, nontender, nondistended, normoactive bowel sounds. No palpable or ganomegaly. MUSCULOSKELETAL: No joint swelling or deformity. EXTREMITIES: No cyanosis, clubbing, or pedal edema. NEUROLOGICAL: Gross neurological examination did not reveal any focal deficits. Patient with hypokinesia, resting tremor and stiffness (all are chronic) SKIN: No rashes. no petechiae. Results CBC & Chem 7: 06/09/22 23:50 06/10/22 01:20 Labs: Abnormal Lab Results - Last 24 Hours (Table) 06/09/22 06/10/22 06/10/22 Range/Units 23:50 01:20 05:28 RBC 4.14 L (4.30-5.90) m/uL Lymphocytes # 0.9 L (1.0-4.8) k/uL APTT 48.4 H (22.0-30.0) sec BUN 31 H (9-20) mg/dL Glucose 187 H (74-99) mg/dL POC Glucose (mg/dL) (70-110) mg/dL Magnesium 1.5 L (1.6-2.3) mg/dL Alkaline Phosphatase 150 H (38-126) U/L Total Protein 5.5 L (6.3-8.2) g/dL Albumin 3.4 L (3.5-5.0) g/dL 06/10/22 Range/Units 07:35 RBC (4.30-5.90) m/uL Lymphocytes # (1.0-4.8) k/uL APTT (22.0-30.0) sec BUN (9-20) mg/dL Glucose (74-99) mg/dL POC Glucose (mg/dL) 142 H (70-110) mg/dL Magnesium (1.6-2.3) mg/dL Alkaline Phosphatase (38-126) U/L Total Protein (6.3-8.2) g/dL Albumin (3.5-5.0) g/dL Assessment and Plan Assessment: Chest pain, rule out cardiac causes. D-dimer is negative Bilateral leg edema Diabetes mellitus hypertension hyperlipidemia Parkinson disease, chronic and stable History of Coronary artery disease status post stenting History of osteoarthritis History of BPH benign prostatic hypertrophy Dementia, possible Alzheimer dementia Plan: This is a pleasant 76 years old male who presents with chest pain Check echocardiogram Cardiology consult Continue with aspirin states Dr. Cheatham prescribed furosemide for his leg swelling, while hydrochlorothiazide was in his home medication list and he got 1 dose this morning, so no Lasix was given today. But we added fluid restriction Labs and medication were reviewed.. Continue same treatment. Continue with symptomatic treatment. Resume home medication. Monitor lytes and vitals. DVT and GI prophylaxis. Further recommendations as per clinical course of the patient DVT prophylaxis: heparin GI Prophylaxis: Pepcid
[2022-06-10] MEDS ORDERED: FUROSEMIDE 10 MG/ML 4 ML VIAL IV SCH (09:45)
--- NOTE | 2022-06-10 12:05 | US ---
EXAMINATION TYPE: US venous doppler duplex LE DATE OF EXAM: 06/10/2022 9:39 AM COMPARISON: NONE CLINICAL HISTORY: leg swelling. History of bilateral leg swelling. On IV heparin. Inpatient. SIDE PERFORMED: Bilateral TECHNIQUE: The lower extremity deep venous system is examined utilizing real time linear array sonog mindy with graded compression, doppler sonography and color-flow sonography. VESSELS IMAGED: Common Femoral Vein Deep Femoral Vein Greater Saphenous Vein * Femoral Vein Popliteal Vein Small Saphenous Vein * Proximal Calf Veins (* superficial vessels) Suboptimal due to patient body habitus, pt shaking and edema Right Leg: Negative for DVT Left Leg: Negative for DVT Grayscale, color doppler, spectral doppler imaging performed of the deep veins of the lower extremiti es. There is normal flow, compressibility, vascular waveforms. IMPRESSION: No evidence of deep vein thrombosis of the lower extremities.
[2022-06-10] MEDS ORDERED: MAGNESIUM SULFATE-D5W PMX 1 GM in DEXTROSE/WATER 1 100ML.BAG IVPB ONE (12:29)
--- NOTE | 2022-06-10 12:40 | CA ---
Transthoracic Echo Report Name: Abdoulaye Ennis Age: 76 Gender: M : 1945 Exam Date: 06/10/2022 09:01 Exam Location: [facility] Ht (in): 69 Wt (lb): 260 Ordering Physician: Rachelle Workman Attending/Referring Phys: Barrel Driller Caridad Caal, VI Procedure CPT: Indications: chest pain, LV function Cardiac Hx: Technical Quality: Contrast 1: Total Dose (mL): Contrast 2: Total Dose (mL): MEASUREMENTS (Male / Female) Normal Values 2D ECHO LV Diastolic Diameter PLAX 5.6 cm 4.2 - 5.9 / 3.9 - 5.3 cm LV Systolic Diameter PLAX 3.3 cm IVS Diastolic Thickness 1.0 cm 0.6 - 1.0 / 0.6 - 0.9 cm LVPW Diastolic Thickness 1.3 cm 0.6 - 1.0 / 0.6 - 0.9 cm LV Relative Wall Thickness 0.4 RV Internal Dim ED PLAX 2.4 cm LA Systolic Diameter LX 3.8 cm 3.0 - 4.0 / 2.7 - 3.8 cm DOPPLER MV Area PHT 3.9 cm??? Mitral E Point Velocity 79.8 cm/s Mitral A Point Velocity 57.3 cm/s Mitral E to A Ratio 1.4 MV Deceleration Time 195.7 ms MV E' Velocity 6.4 cm/s Mitral E to MV E' Ratio 12.6 TR Peak Velocity 184.5 cm/s TR Peak Gradient 13.6 mmHg Right Ventricular Systolic Press 18.6 mmHg FINDINGS Left Ventricle Left ventricular ejection fraction is estimated at 50%. Mildly increased left ventricular wall thickness. Right Ventricle Normal right ventricular size and function. Right Atrium Normal right atrial size. Left Atrium Normal left atrial size. Mitral Valve Structurally normal mitral valve. Mild mitral regurgitation. Aortic Valve Trileaflet aortic valve. Aortic valve sclerosis. Tricuspid Valve Structurally normal tricuspid valve. Mild tricuspid regurgitation. Pulmonic Valve Pulmonic valve not well visualized. Pericardium Echo free space anterior to the right ventricle likely represents a fat pad. Aorta Normal size aortic root and proximal ascending aorta. CONCLUSIONS Left ventricular ejection fraction 50% Mild increased left ventricular wall thickness Mild mitral regurgitation Mild tricuspid regurgitation No pericardial effusion Previewed by: Dr. Blake Barron DO (Electronically Signed) Final Date: 10 June 2022 12:39
[2022-06-10 12:43] LABS: Glucose,Whole Blood 90 mg/dL (70-110)
[2022-06-10 14:05] VITALS: RESP 17
[2022-06-10 15:38] VITALS: BP 135/58; PULSE 59; TEMP 97.6
[2022-06-10] MEDS ORDERED: FAMOTIDINE 20 MG TAB PO SCH (21:00)
== END 2022-06-10 16:20 | disposition home health service (06) ==
LOC: EC 23:18 → 6NMEDSUR 06-10 01:55
PROVIDERS: ADMIT Internal Medicine; ATTEND Internal Medicine
DX: R07.89 Other chest pain (principal); I25.10 Atherosclerotic heart disease of native coronary artery without angina pectoris; E11.9 Type 2 diabetes mellitus without complications; E78.5 Hyperlipidemia, unspecified; I10 Essential (primary) hypertension; G20 Parkinson's disease; N40.0 Benign prostatic hyperplasia without lower urinary tract symptoms; F03.90 Unspecified dementia, unspecified severity, without behavioral disturbance, psychotic disturbance, mood disturbance, and anxiety; I25.2 Old myocardial infarction; R60.0 Localized edema; M19.90 Unspecified osteoarthritis, unspecified site; E83.42 Hypomagnesemia; E66.9 Obesity, unspecified; Z95.5 Presence of coronary angioplasty implant and graft; Z87.891 Personal history of nicotine dependence; Z79.02 Long term (current) use of antithrombotics/antiplatelets; Z79.82 Long term (current) use of aspirin; Z79.84 Long term (current) use of oral hypoglycemic drugs; Z79.899 Other long term (current) drug therapy; Z88.5 Allergy status to narcotic agent; Z82.49 Family history of ischemic heart disease and other diseases of the circulatory system
CPT/HCPCS: 96366 ×2; 96375 ×2; 96365; 99285; 36415; 93005; 93306; 85379; 80053; 82150; 83690; 83735; 84484; 85025; 85610; 85730; 71046; 93970; G0378; J1644 ×2; J3475

== ENCOUNTER 2022-08-06 19:16 | Inpatient (IN) | payer MEDICARE ==
[2022-08-06 20:36] LABS: Basophils % (A) 0 %; Eosinophils % (A) 1 %; HCT 41.4 % (39.0-53.0); HGB 14.4 gm/dL (13.0-17.5); Lymphocytes # (A) 0.7 k/uL (1.0-4.8); Lymphocytes % (A) 14 %; MCH 32.7 pg (25.0-35.0); MCHC 34.8 g/dL (31.0-37.0); MCV 94.1 fL (80.0-100.0); Mean Platelet Volume 7.8; Monocytes # (A) 0.4 k/uL (0-1.0); Monocytes % (A) 8 %; Neutrophils # (A) 3.5 k/uL (1.3-7.7); Neutrophils % (A) 76 %; Platelet Count 139 k/uL (150-450); RDW 14.1 % (11.5-15.5); WBC 4.6 k/uL (3.8-10.6)
[2022-08-06 20:51] LABS: INR 1.1 (<1.2); Prothrombin Time 11.1 sec (9.0-12.0)
[2022-08-06 21:00] LABS: ALT 76 U/L (4-49); AST 93 U/L (17-59); African American GFR (CKD) >90 (>60 ml/min/1.73 sqM); Albumin 3.7 g/dL (3.5-5.0); Alkaline Phosphatase 95 U/L (38-126); Anion Gap 10 mmol/L; Blood Urea Nitrogen 17 mg/dL (9-20); Calcium 8.2 mg/dL (8.4-10.2); Carbon Dioxide 27 mmol/L (22-30); Chloride 103 mmol/L (98-107); Glucose 101 mg/dL (74-99); Magnesium 1.7 mg/dL (1.6-2.3); Non-African American GFR(CKD) 87 (>60 ml/min/1.73 sqM); Potassium 3.6 mmol/L (3.5-5.1); Sodium 140 mmol/L (137-145); Total Bilirubin 1.1 mg/dL (0.2-1.3); Total Protein 6.5 g/dL (6.3-8.2)
--- NOTE | 2022-08-06 21:01 | XR ---
EXAMINATION TYPE: XR chest 2V DATE OF EXAM: 08/06/2022 8:56 PM COMPARISON: Chest x-ray 06/10/2022 TECHNIQUE: XR chest 2V . CLINICAL INDICATION:Male, 76 years old with history of Weakness; FINDINGS: Lungs/Pleura: Low lung volumes are present. There is no evidence of pleural effusion, focal consolida tion, or pneumothorax. Pulmonary vascularity: Pulmonary vascular congestion. Heart/mediastinum: Cardiomediastinal silhouette is enlarged and stable. Musculoskeletal: Multiple level degenerative disc disease changes seen throughout the spine. Degenera tive changes of the acromioclavicular joints. IMPRESSION: Cardiomegaly and mild pulmonary vascular congestion. Correlate with BNP for congestive heart failure.
--- NOTE | 2022-08-06 21:05 | CT ---
EXAMINATION TYPE: CT brain wo con CT DLP: 1279.4 mGycm, Automated exposure control for dose reduction was used. DATE OF EXAM: 08/06/2022 8:56 PM COMPARISON: CT IAC study 12/31/2018, CT brain 09/01/2017. CLINICAL INDICATION:Male, 76 years old with history of altered mental status, altered mental status TECHNIQUE: Brain: Axial CT images of the brain were obtained with coronal and sagittal reformats created and rev iewed. Contrast used: None. Oral contrast used: None. FINDINGS: Brain: Extra-axial spaces: No abnormal extra-axial fluid collections. Ventricular system: Dilatation in proportion to cerebral atrophy. Cerebral parenchyma: Cerebral atrophy. No acute intraparenchymal hemorrhage or mass effect. The flores -white junction is well differentiated. Scattered hypoattenuating areas are seen within the white mat ter. Cerebellum: Unremarkable. Mass effect: No evidence of midline shift. Intracranial vasculature: Atherosclerotic calcifications of the intracranial vessels. Soft tissues: Normal. Calvarium/osseous structures: No depressed skull fracture. Paranasal sinuses and mastoid air cells: Mild scattered paranasal sinus disease. Visualized orbits: Orbital contents are intact. IMPRESSION: 1. No acute intracranial process. 2. Nonspecific white matter changes, likely secondary to chronic small vessel ischemic disease.
[2022-08-06] MEDS ORDERED: HEPARIN SODIUM 1,000 UN/ML (10ML VL) IV ONE (21:19)
[2022-08-06] MEDS ORDERED: ASPIRIN 81 MG PO STA (21:19)
[2022-08-06] MEDS ORDERED: HEPARIN SODIUM 1,000 UN/ML (10ML VL) IV PRN (21:19)
[2022-08-06] MEDS ORDERED: HEPARIN SOD,PORK IN 0.45% NACL 25,000 UNIT in 0.45% NACL 1 250ML.BAG IV SCH (21:30)
--- NOTE | 2022-08-06 21:35 | ED ---
General Adult HPI - General Chief complaint: Weakness Stated complaint: Weakness Source: EMS Mode of arrival: EMS Limitations: altered mental status, physical limitation - History of Present Illness Initial comments: This patient is a 76-year-old man here to have evaluation for weakness, suspected dehydration, and known code at exposure. The patient's had sent him in but she has COVID-19 so she cannot accompanying him. It was reported that the patient has been having increased generalized weakness and fatigue and decreased oral intake. When I interview the patient, he is able to answer specific yes no questions but is not giving a lot more information than that. Patient is denying pain. No dyspnea. No vomiting. Onset/Timin -: days(s) Severity scale (1-10): 0 Consistency: constant Improves with: none Worsens with: none Associated Symptoms: loss of appetite Treatments Prior to Arrival: none - Related Data Home Medications Medication Instructions Recorded Confirmed Metoprolol Tartrate [Lopressor] 100 mg PO BID@1000,219907/01/15 08/10/22 Multivitamin [Men's Multi-Vitamin] 1 tab PO DAILY@99907/01/15 08/10/22 Verapamil HCl [Verapamil ER] 180 mg PO BID@1000,219907/01/15 08/10/22 Aspirin EC [Ecotrin Low Dose] 81 mg PO DAILY@99909/28/16 08/10/22 metFORMIN HCL [Glucophage] 1,000 mg PO BID@1000,219912/14/16 08/10/22 Atorvastatin [Lipitor] 40 mg PO DAILY@99912/13/19 08/10/22 Carbidopa-Levodopa 25-100 mg 2 tab PO TID@0900,1300,169912/13/19 08/10/22 [Sinemet 25-100 mg] DULoxetine HCL [Cymbalta] 60 mg PO BID@1000,219912/13/19 08/10/22 Donepezil [Aricept] 10 mg PO DAILY@169912/13/19 08/10/22 Glimepiride [Amaryl] 1 mg PO BID@1000,219912/13/19 08/10/22 Losartan Potassium [Cozaar] 100 mg PO DAILY@1000 12/13/19 08/10/22 hydroCHLOROthiazide 25 mg PO DAILY@1000 12/13/19 08/10/22 Cyanocobalamin (Vitamin B-12) 1,000 mcg PO DAILY@1000 03/06/20 08/10/22 [Vitamin B-12] Pregabalin [Lyrica] 75 mg PO BID@0900,1700 03/06/20 08/10/22 Tamsulosin HCl [Flomax] 0.4 mg PO DAILY@1200 03/06/20 08/10/22 Cholecalciferol [Vitamin D3 (25 50 mcg PO DAILY@1000 12/07/21 08/10/22 Mcg = 1000 Iu)] Isosorbide Mononitrate ER [Imdur] 30 mg PO DAILY@1000 12/07/21 08/10/22 amantadine HCL [Amantadine] 100 mg PO DAILY@0900 12/07/21 08/10/22 Nitroglycerin Sl Tabs [Nitrostat] 0.4 mg SL Q5M PRN 06/10/22 08/10/22 Zinc Gluconate [Zinc] 50 mg PO DAILY@1000 06/10/22 08/10/22 Omeprazole 40 mg PO DAILY 08/06/22 08/10/22 Previous Rx's Medication Instructions Recorded Clopidogrel [Plavix] 75 mg PO DAILY #30 tab 12/11/21 Allergies Allergy/AdvReac Type Severity Reaction Status Date / Time narcotics AdvReac Hallucinati Uncoded 08/06/22 22:00 ons opiates AdvReac Hallucinati Uncoded 08/06/22 22:00 ons Review of Systems ROS Statement: Those systems with pertinent positive or pertinent negative responses have been documented in the HPI. ROS Other: All systems not noted in ROS Statement are negative. Constitutional: Reports: weakness Respiratory: Denies: dyspnea Cardiovascular: Denies: chest pain Gastrointestinal: Denies: abdominal pain, vomiting Neurological: Denies: headache Past Medical History Past Medical History: Coronary Artery Disease (CAD), Diabetes Mellitus, Hyperlipidemia, Hypertension, Myocardial Infarction ([place]), Osteoarthritis (OA) Additional Past Medical History / Comment(s): NIDDM type II, vertigo in September 2016 thought to be labyrinthitis-also had elevated troponins-stress test done and was negative, arthritis multiple joints. Last Myocardial Infarction Date:: 1996 History of Any Multi-Drug Resistant Organisms: None Reported Past Surgical History: Heart Catheterization With Stent, Joint Replacement, Tonsillectomy Additional Past Surgical History / Comment(s): 1996 PCI with stent, L/RT HIP REPLACEMENTS, EXPLORATORY LAP with spleen injury, EPIDURAL INJ. in back, lumbar fusion, colonoscopy, vasectomy. Past Anesthesia/Blood Transfusion Reactions: Previous Problems w/ Anesthesia Additional Past Anesthesia/Blood Transfusion Reaction / Comment(s): STATES POST EPIDURAL INJ HAD A HARD TIME WAKING UP.pt /family stated pt can't take any narcotics-becomes very confused. pt can take tylenol extra strength for pain. Date of Last Stent Placement:: 1996 Past Psychological History: No Psychological Hx Reported Smoking Status: Never smoker Past Alcohol Use History: None Reported Past Drug Use History: None Reported - Past Family History Mother Family Medical History: Congestive Heart Failure (CHF), Hypertension Additional Family Medical History / Comment(s): bipolar Father Family Medical History: Coronary Artery Disease (CAD), Myocardial Infarction ([place]) General Exam Limitations: altered mental status, physical limitation General appearance: other (Patient is somnolent but arouses to voice.) Head exam: Present: atraumatic, normocephalic Eye exam: Present: normal appearance. Absent: scleral icterus, conjunctival injection ENT exam: Present: mucous membranes dry Neck exam: Present: normal inspection, full ROM. Absent: tenderness, meningismus Respiratory exam: Present: rhonchi. Absent: respiratory distress, wheezes, rales, stridor Cardiovascular Exam: Present: regular rate, normal rhythm, normal heart sounds. Absent: systolic murmur, diastolic murmur, rubs, gallop GI/Abdominal exam: Present: soft. Absent: distended, tenderness, guarding, rebound, rigid, mass Extremities exam: Present: normal inspection, normal capillary refill, pedal edema. Absent: calf tenderness Back exam: Present: normal inspection. Absent: vertebral tenderness Neurological exam: Present: altered, CN II-XII intact, other (Patient is somnolent but arouses to voice. He is able to answer direct questions with shor t phrases. There is no focal weakness). Absent: oriented X3, motor sensory deficit Skin exam: Present: warm, dry, intact, normal color. Absent: rash Course Vital Signs 08/06/22 08/06/22 08/06/22 19:20 20:30 21:00 Temperature 99.4 F Pulse Rate 98 96 98 Pulse Rate [ Pulse Oximetery ] Respiratory 20 18 18 Rate Blood Pressure 176/98 135/85 130/79 Blood Pressure [Right Arm] O2 Sat by Pulse 99 99 99 Oximetry 08/06/22 08/07/22 08/07/22 21:39 00:30 05:00 Temperature 98.5 F Pulse Rate 96 98 97 Pulse Rate [ Pulse Oximetery ] Respiratory 22 20 Rate Blood Pressure 128/76 118/82 151/82 Blood Pressure [Right Arm] O2 Sat by Pulse 96 95 96 Oximetry 08/07/22 08/07/22 08/07/22 09:48 11:40 12:05 Temperature 98.9 F 97.6 F 96.6 F L Pulse Rate 93 78 Pulse Rate [ 72 Pulse Oximetery ] Respiratory 20 18 19 Rate Blood Pressure 156/100 106/86 Blood Pressure 108/56 [Right Arm] O2 Sat by Pulse 96 98 96 Oximetry - Reevaluation(s) Reevaluation #1: 08/06/22 21:34 Case is discussed with Dr. Calzada who does recall the patient and his treatment recommendations are incorporated. The patient was re-evaluated just prior to the phone call and again remains asymptomatic. He denies pain in the chest. He denies dyspnea, nausea and vomiting. Again the ECG is very limited by baseline artifact due to the Parkinson's disease. Reevaluation #2: 08/07/22 00:02 I did discuss patient's care with his as well. She provide additional history. She stated that they continue to want him to be no code. She also stated that he seems to do better in the hospital if he is in a reclining chair rather than the bed because he has a lot of pain if he is lying supine. Also recommended ice pack to Left hip EKG Findings - EKG Comments: EKG Findings:: The 12-lead ECG is very limited based on baseline artifact. Underlying rhythm appears to be atrial fibrillation. There are Q waves concerning for inferior OH but these are present on the comparison ECG. No definite acute ischemia. - EKG Results: EKG: interpreted by [facility] Medical Decision Making - Medical Decision Making Patient is 76-year-old man here for decreased oral intake and suspected dehydration as well as mental status change. He did have known cold exposure and did test positive here. In addition patient has elevated troponin I. This is discussed with cardiology. There recommendations are incorporated. - Lab Data Result diagrams: 08/08/22 06:10 08/08/22 06:10 Lab Results 08/06/22 08/06/22 08/06/22 Range/Units 20:25 20:25 20:25 WBC 4.6 (3.8-10.6) k/uL RBC 4.40 (4.30-5.90) m/uL Hgb 14.4 (13.0-17.5) gm/dL Hct 41.4 (39.0-53.0) % MCV 94.1 (80.0-100.0) fL MCH 32.7 (25.0-35.0) pg MCHC 34.8 (31.0-37.0) g/dL RDW 14.1 (11.5-15.5) % Plt Count 139 L (150-450) k/uL MPV 7.8 Neutrophils % 76 % Lymphocytes % 14 % Monocytes % 8 % Eosinophils % 1 % Basophils % 0 % Neutrophils # 3.5 (1.3-7.7) k/uL Lymphocytes # 0.7 L (1.0-4.8) k/uL Monocytes # 0.4 (0-1.0) k/uL Eosinophils # 0.0 (0-0.7) k/uL Basophils # 0.0 (0-0.2) k/uL PT 11.1 (9.0-12.0) sec INR 1.1 (<1.2) APTT 26.0 (22.0-30.0) sec Sodium 140 (137-145) mmol/L Potassium 3.6 (3.5-5.1) mmol/L Chloride 103 (98-107) mmol/L Carbon Dioxide 27 (22-30) mmol/L Anion Gap 10 mmol/L BUN 17 (9-20) mg/dL Creatinine 0.82 (0.66-1.25) mg/dL Est GFR (CKD-EPI)AfAm >90 (>60 ml/min/1.73 sqM) Est GFR (CKD-EPI)NonAf 87 (>60 ml/min/1.73 sqM) Glucose 101 H (74-99) mg/dL Plasma Lactic Acid [place] (0.7-2.0) mmol/L Calcium 8.2 L (8.4-10.2) mg/dL Magnesium 1.7 (1.6-2.3) mg/dL Total Bilirubin 1.1 (0.2-1.3) mg/dL AST 93 H (17-59) U/L ALT 76 H (4-49) U/L Alkaline Phosphatase 95 (38-126) U/L Troponin I (0.000-0.034) ng/mL NT-Pro-B Natriuret Pep pg/mL Total Protein 6.5 (6.3-8.2) g/dL Albumin 3.7 (3.5-5.0) g/dL Urine Color Urine Appearance (Clear) Urine pH (5.0-8.0) Ur Specific [place] (1.001-1.035) Urine Protein (Negative) Urine Glucose (UA) (Negative) Urine Ketones (Negative) Urine Blood (Negative) Urine Nitrite (Negative) Urine Bilirubin (Negative) Urine Urobilinogen (<2.0) mg/dL Ur Leukocyte Esterase (Negative) Urine RBC (0-5) /hpf Urine WBC (0-5) /hpf Ur Squamous Epith Cells (0-4) /hpf Urine Mucus (None) /hpf Coronavirus (PCR) (Not Detectd) 08/06/22 08/06/22 08/06/22 Range/Units 20:25 20:25 20:25 WBC (3.8-10.6) k/uL RBC (4.30-5.90) m/uL Hgb (13.0-17.5) gm/dL Hct (39.0-53.0) % MCV (80.0-100.0) fL MCH (25.0-35.0) pg MCHC (31.0-37.0) g/dL RDW (11.5-15.5) % Plt Count (150-450) k/uL MPV Neutrophils % % Lymphocytes % % Monocytes % % Eosinophils % % Basophils % % Neutrophils # (1.3-7.7) k/uL Lymphocytes # (1.0-4.8) k/uL Monocytes # (0-1.0) k/uL Eosinophils # (0-0.7) k/uL Basophils # (0-0.2) k/uL PT (9.0-12.0) sec INR (<1.2) APTT (22.0-30.0) sec Sodium (137-145) mmol/L Potassium (3.5-5.1) mmol/L Chloride (98-107) mmol/L Carbon Dioxide (22-30) mmol/L Anion Gap mmol/L BUN (9-20) mg/dL Creatinine (0.66-1.25) mg/dL Est GFR (CKD-EPI)AfAm (>60 ml/min/1.73 sqM) Est GFR (CKD-EPI)NonAf (>60 ml/min/1.73 sqM) Glucose (74-99) mg/dL Plasma Lactic Acid [place] 1.3 (0.7-2.0) mmol/L Calcium (8.4-10.2) mg/dL Magnesium (1.6-2.3) mg/dL Total Bilirubin (0.2-1.3) mg/dL AST (17-59) U/L ALT (4-49) U/L Alkaline Phosphatase (38-126) U/L Troponin I 2.130 H* (0.000-0.034) ng/mL NT-Pro-B Natriuret Pep 6200 pg/mL Total Protein (6.3-8.2) g/dL Albumin (3.5-5.0) g/dL Urine Color Urine Appearance (Clear) Urine pH (5.0-8.0) Ur Specific [place] (1.001-1.035) Urine Protein (Negative) Urine Glucose (UA) (Negative) Urine Ketones (Negative) Urine Blood (Negative) Urine Nitrite (Negative) Urine Bilirubin (Negative) Urine Urobilinogen (<2.0) mg/dL Ur Leukocyte Esterase (Negative) Urine RBC (0-5) /hpf Urine WBC (0-5) /hpf Ur Squamous Epith Cells (0-4) /hpf Urine Mucus (None) /hpf Coronavirus (PCR) (Not Detectd) 08/06/22 08/06/22 Range/Units 21:44 23:14 WBC (3.8-10.6) k/uL RBC (4.30-5.90) m/uL Hgb (13.0-17.5) gm/dL Hct (39.0-53.0) % MCV (80.0-100.0) fL MCH (25.0-35.0) pg MCHC (31.0-37.0) g/dL RDW (11.5-15.5) % Plt Count (150-450) k/uL MPV Neutrophils % % Lymphocytes % % Monocytes % % Eosinophils % % Basophils % % Neutrophils # (1.3-7.7) k/uL Lymphocytes # (1.0-4.8) k/uL Monocytes # (0-1.0) k/uL Eosinophils # (0-0.7) k/uL Basophils # (0-0.2) k/uL PT (9.0-12.0) sec INR (<1.2) APTT (22.0-30.0) sec Sodium (137-145) mmol/L Potassium (3.5-5.1) mmol/L Chloride (98-107) mmol/L Carbon Dioxide (22-30) mmol/L Anion Gap mmol/L BUN (9-20) mg/dL Creatinine (0.66-1.25) mg/dL Est GFR (CKD-EPI)AfAm (>60 ml/min/1.73 sqM) Est GFR (CKD-EPI)NonAf (>60 ml/min/1.73 sqM) Glucose (74-99) mg/dL Plasma Lactic Acid [place] (0.7-2.0) mmol/L Calcium (8.4-10.2) mg/dL Magnesium (1.6-2.3) mg/dL Total Bilirubin (0.2-1.3) mg/dL AST (17-59) U/L ALT (4-49) U/L Alkaline Phosphatase (38-126) U/L Troponin I (0.000-0.034) ng/mL NT-Pro-B Natriuret Pep pg/mL Total Protein (6.3-8.2) g/dL Albumin (3.5-5.0) g/dL Urine Color Yellow Urine Appearance Cloudy (Clear) Urine pH 6.0 (5.0-8.0) Ur Specific [place] 1.030 (1.001-1.035) Urine Protein 4+ H (Negative) Urine Glucose (UA) Negative (Negative) Urine Ketones 3+ H (Negative) Urine Blood Large H (Negative) Urine Nitrite Negative (Negative) Urine Bilirubin 1+ H (Negative) Urine Urobilinogen <2.0 (<2.0) mg/dL Ur Leukocyte Esterase Negative (Negative) Urine RBC >182 H (0-5) /hpf Urine WBC 3 (0-5) /hpf Ur Squamous Epith Cells <1 (0-4) /hpf Urine Mucus Rare H (None) /hpf Coronavirus (PCR) Detected A (Not Detectd) Disposition Clinical Impression: COVID-19, Altered mental status, Elevated troponin I level Narrative: Code myocarditis versus NSTEMI Disposition: ADMITTED IP TO THIS HOSP Condition: Poor Is patient prescribed a controlled substance at d/c from ED?: No
[2022-08-06 23:44] LABS: Appearance,Urine Cloudy (Clear); Bilirubin,Urine 1+ (Negative); Blood,Urine Large (Negative); Color,Urine Yellow; Glucose,Urine (UA) Negative (Negative); Ketones,Urine 3+ (Negative); Leukocyte Esterase,Urine Negative (Negative); Mucus,Urine Rare /hpf; Nitrite,Urine Negative (Negative); Protein,Urine 4+ (Negative); RBC,Urine >182 /hpf (0-5); Squamous Epithelial Cell,Urine <1 /hpf (0-4); Urobilinogen,Urine <2.0 mg/dL (<2.0); WBC,Urine 3 /hpf (0-5)
[2022-08-06] MEDS ORDERED: NITROGLYCERIN SL TABS 0.4 MG TAB SUBLINGUAL PRN (23:56)
[2022-08-07 04:17] LABS: Basophils % (A) 1 %; Eosinophils % (A) 1 %; HCT 39.8 % (39.0-53.0); HGB 13.9 gm/dL (13.0-17.5); Lymphocytes # (A) 0.7 k/uL (1.0-4.8); Lymphocytes % (A) 16 %; MCH 33.1 pg (25.0-35.0); MCHC 34.8 g/dL (31.0-37.0); MCV 95.1 fL (80.0-100.0); Mean Platelet Volume 7.6; Monocytes # (A) 0.4 k/uL (0-1.0); Monocytes % (A) 8 %; Neutrophils # (A) 3.3 k/uL (1.3-7.7); Neutrophils % (A) 73 %; Platelet Count 130 k/uL (150-450); RBC 4.19 m/uL (4.30-5.90); RDW 14.2 % (11.5-15.5); WBC 4.5 k/uL (3.8-10.6)
[2022-08-07 04:42] LABS: INR 1.1 (<1.2); Partial Thromboplastin Time 36.2 sec (22.0-30.0); Prothrombin Time 11.5 sec (9.0-12.0)
[2022-08-07] MEDS ORDERED: metFORMIN 500 MG TAB PO SCH (09:00)
[2022-08-07] MEDS ORDERED: LOSARTAN 50 MG TAB PO SCH (09:00)
[2022-08-07] MEDS ORDERED: ASPIRIN 81 MG PO SCH (09:00)
[2022-08-07] MEDS ORDERED: VERAPAMIL SR 180 MG TABLET.ER PO SCH (09:00)
[2022-08-07] MEDS ORDERED: ASPIRIN 325 MG TAB PO SCH (09:00)
[2022-08-07] MEDS: CARBIDOPA-LEVODOPA 25-100 MG 1 EACH TAB PO SCH ×3 (09:49→20:45)
[2022-08-07] MEDS: METOPROLOL TARTRATE 50 MG TAB PO SCH ×2 (09:50→20:45)
[2022-08-07] MEDS: PANTOPRAZOLE 40 MG TABLET PO SCH (09:52)
[2022-08-07] MEDS: CLOPIDOGREL 75 MG TAB PO SCH (09:53)
[2022-08-07] MEDS: ATORVASTATIN 40 MG TAB PO SCH (09:53)
[2022-08-07] MEDS: DULoxetine HCL 60 MG CAPSULE.DR PO SCH ×2 (09:54→20:45)
[2022-08-07] MEDS: ISOSORBIDE MONONITRATE ER 30 MG TAB.ER.24H PO SCH (09:55)
[2022-08-07] MEDS: GLIMEPIRIDE 1 MG TAB PO SCH (09:55)
[2022-08-07] MEDS: PREGABALIN 75 MG CAP PO SCH ×2 (09:56→18:26)
[2022-08-07] MEDS: MAGNESIUM SULFATE-D5W PMX 1 GM in DEXTROSE/WATER 1 100ML.BAG IVPB SCH ×2 (11:44→15:33)
[2022-08-07] MEDS: TAMSULOSIN 0.4 MG CAP.ER.24H PO SCH (11:44)
--- NOTE | 2022-08-07 13:24 | P.CRDCN ---
History of Present Illness Consult date: 08/07/22 History of present illness: History of Present Illness: The patient is a 76-year-old male with a known history of CAD, post stenting of the LAD 1997, obtuse margin branch and RCA and underwent stenting of the OM in November of this year, history of hypertension, hyperlipidemia, diabetes mellitus and Parkinson disease who presented to the emergency room with change in mental status and he was exposed to Covid 19 infection and tested positive. His cardiac enzymes were mildly elevated. The patient denies any chest discomfort or change in his breathing. He denies any dizziness or palpitations. He denies any nausea or vomiting. He is in sinus mechanism with no evidence of malignant arrhythmia. He is not very active physically because of his Parkinson's disease. His systolic function has been normal in the past. His troponin on presentation was 2.1 it is down to 1.7 today. His NT proBNP 6200. Medications: Lipitor 40 mg daily, Sinemet, Plavix, Aricept, Imdur 30 mg daily, Cozaar 100 mg daily, Lopressor 20 mg twice a day, aspirin, verapamil, Flomax, Seroquel Review of Systems: Respiratory: He has no recent wheezing or cough GI: No nausea or vomiting . No history of peptic ulcer disease. No recent GI bleed. : No hematuria or dysuria. Nervous System: He has a history of Parkinson with limited physical activity Physical Examination: 76-year-old male, alert oriented appears tired ,Blood pressure 106/80, Heart rate 70 Head: Normocephalic. Eyes: Sclerae nonicteric. Neck: Good carotid upstroke, no bruit, no jugular venous distention. Lungs: Clear to auscultation. Heart: Regular rate and rhythm, S1-S2, no S3, no rub. Systolic ejection murmur. Abdomen: Soft nontender, positive bowel sounds no organomegaly. Extremities: +1 edema, intact distal pulses. Labs: Hemoglobin 13.9, potassium 3.6, BUN 17, creatinine 0.82. Peak troponin on presentation 2.1. Chest x-ray shows evidence of congestive heart failure. Computed tomography scan of the head shows no acute event EKG: Sinus mechanism with nonspecific ST-T wave changes Impression: 1. Progressive weakness and change in mental status, Covid 19 positive 2. Troponin elevation, probable secondary to the infection, no symptoms of chest pain or evidence to suggest acute myocardial infarction 3. Mild CHF was preserved systolic function 4. History of CAD 5. History of hypertension 6. History of Parkinson disease 7. History of hyperlipidemia Plan: 1. Stop IV heparin 2. Continue dual antiplatelets treatment 3. Diuresis with IV Lasix for 24 hours 4. Follow renal functions 5. Depending on his progress further recommendations will be made. Thank you for this consult we will follow with you. Past Medical History Past Medical History: Coronary Artery Disease (CAD), Diabetes Mellitus, Hyperlipidemia, Hypertension, Myocardial Infarction ([place]), Osteoarthritis ([place]) Additional Past Medical History / Comment(s): NIDDM type II, vertigo in September 2016 thought to be labyrinthitis-also had elevated troponins-stress test done and was negative, arthritis multiple joints. Last Myocardial Infarction Date:: 1996 History of Any Multi-Drug Resistant Organisms: None Reported Past Surgical History: Heart Catheterization With Stent, Joint Replacement, Tonsillectomy Additional Past Surgical History / Comment(s): 1996 PCI with stent, L/RT HIP REPLACEMENTS, EXPLORATORY LAP with spleen injury, EPIDURAL INJ. in back, lumbar fusion, colonoscopy, vasectomy. Past Anesthesia/Blood Transfusion Reactions: Previous Problems w/ Anesthesia Additional Past Anesthesia/Blood Transfusion Reaction / Comment(s): STATES POST EPIDURAL INJ HAD A HARD TIME WAKING UP.pt /family stated pt can't take any narcotics-becomes very confused. pt can take tylenol extra strength for pain. Date of Last Stent Placement:: 1996 Past Psychological History: No Psychological Hx Reported Smoking Status: Never smoker Past Alcohol Use History: None Reported Past Drug Use History: None Reported - Past Family History Mother Family Medical History: Congestive Heart Failure (CHF), Hypertension Additional Family Medical History / Comment(s): bipolar Father Family Medical History: Coronary Artery Disease (CAD), Myocardial Infarction ([place]) Medications and Allergies Home Medications Medication Instructions Recorded Confirmed Type Metoprolol Tartrate [Lopressor] 100 mg PO BID@1000,2200 07/01/15 08/06/22 History Multivitamin [Men's Multi-Vitamin] 1 tab PO DAILY@1000 07/01/15 08/06/22 History Verapamil HCl [Verapamil ER] 180 mg PO BID@1000,2200 07/01/15 08/06/22 History Aspirin EC [Ecotrin Low Dose] 81 mg PO DAILY@1000 09/28/16 08/06/22 History metFORMIN HCL [Glucophage] 1,000 mg PO BID@1000,2200 12/14/16 08/06/22 History Atorvastatin [Lipitor] 40 mg PO DAILY@1000 12/13/19 08/06/22 History Carbidopa-Levodopa 25-100 mg 2 tab PO TID@0900,1300,1700 12/13/19 08/06/22 History [Sinemet 25-100 mg] DULoxetine HCL [Cymbalta] 60 mg PO BID@1000,2200 12/13/19 08/06/22 History Donepezil [Aricept] 10 mg PO DAILY@1700 12/13/19 08/06/22 History Glimepiride [Amaryl] 1 mg PO BID@1000,2200 12/13/19 08/06/22 History Losartan Potassium [Cozaar] 100 mg PO DAILY@1000 12/13/19 08/06/22 History hydroCHLOROthiazide 25 mg PO DAILY@1000 12/13/19 08/06/22 History Cyanocobalamin (Vitamin B-12) 1,000 mcg PO DAILY@1000 03/06/20 08/06/22 History [Vitamin B-12] Pregabalin [Lyrica] 75 mg PO BID@0900,1700 03/06/20 08/06/22 History Tamsulosin HCl [Flomax] 0.4 mg PO DAILY@1200 03/06/20 08/06/22 History Cholecalciferol [Vitamin D3 (25 50 mcg PO DAILY@1000 12/07/21 08/06/22 History Mcg = 1000 Iu)] Isosorbide Mononitrate ER [Imdur] 30 mg PO DAILY@1000 12/07/21 08/06/22 History amantadine HCL [Amantadine] 100 mg PO DAILY@0900 12/07/21 08/06/22 History Clopidogrel [Plavix] 75 mg PO DAILY #30 tab 12/11/21 08/06/22 Rx Nitroglycerin Sl Tabs [Nitrostat] 0.4 mg SL Q5M PRN 06/10/22 08/06/22 History Zinc Gluconate [Zinc] 50 mg PO DAILY@1000 06/10/22 08/06/22 History Omeprazole 40 mg PO DAILY 08/06/22 08/06/22 History Allergies Allergy/AdvReac Type Severity Reaction Status Date / Time narcotics AdvReac Hallucinati Uncoded 08/06/22 22:00 ons opiates AdvReac Hallucinati Uncoded 08/06/22 22:00 ons Physical Exam Vitals: Vital Signs Temp Pulse Resp BP Pulse Ox 08/07/22 11:40 97.6 F 78 18 106/86 98 08/07/22 09:48 98.9 F 93 20 156/100 96 08/07/22 05:00 98.5 F 97 20 151/82 96 08/07/22 00:30 98 22 118/82 95 08/06/22 21:39 96 128/76 96 08/06/22 21:00 98 18 130/79 99 08/06/22 20:30 96 18 135/85 99 08/06/22 19:20 99.4 F 98 20 176/98 99 Intake and Output 08/06/22 08/07/22 08/07/22 22:59 06:59 14:59 Intake Total 74.333 0 Balance 74.333 0 Intake: Intake, IV Titration 74.333 0 Amount Heparin Sod,Pork in 0.45% 74.333 0 NaCl 25,000 unit In 0.45 % NaCl 1 250ml.bag @ 8. 3193 UNITS/KG/HR 10 mls/ hr IV .Q24H [facility] Rx#: [id number] Other: Weight 120.202 kg Results 08/07/22 03:54 08/06/22 20:25 Cardiac Enzymes 08/06/22 08/06/22 08/07/22 Range/Units 20:25 20:25 00:09 AST 93 H (17-59) U/L Troponin I 2.130 H* 1.940 H* (0.000-0.034) ng/mL 08/07/22 Range/Units 03:54 AST (17-59) U/L Troponin I 1.770 H* (0.000-0.034) ng/mL Coagulation 08/06/22 08/07/22 Range/Units 20:25 03:54 PT 11.1 11.5 (9.0-12.0) sec APTT 26.0 36.2 H (22.0-30.0) sec CBC 08/06/22 08/07/22 Range/Units 20:25 03:54 WBC 4.6 4.5 (3.8-10.6) k/uL RBC 4.40 4.19 L (4.30-5.90) m/uL Hgb 14.4 13.9 (13.0-17.5) gm/dL Hct 41.4 39.8 (39.0-53.0) % Plt Count 139 L 130 L (150-450) k/uL Comprehensive Metabolic Panel 08/06/22 Range/Units 20:25 Sodium 140 (137-145) mmol/L Potassium 3.6 (3.5-5.1) mmol/L Chloride 103 (98-107) mmol/L Carbon Dioxide 27 (22-30) mmol/L BUN 17 (9-20) mg/dL Creatinine 0.82 (0.66-1.25) mg/dL Glucose 101 H (74-99) mg/dL Calcium 8.2 L (8.4-10.2) mg/dL AST 93 H (17-59) U/L ALT 76 H (4-49) U/L Alkaline Phosphatase 95 (38-126) U/L Total Protein 6.5 (6.3-8.2) g/dL Albumin 3.7 (3.5-5.0) g/dL Current Medications Generic Name Dose Route Start Last Admin Trade Name Mattiq PRN Reason Stop Dose Admin Amantadine HCl 100 mg 08/07/22 09:00 08/07/22 09:51 Amantadine Hcl 100 Mg Cap PO 100 mg DAILY@0900 DAVID Administration Aspirin 325 mg 08/07/22 09:00 08/07/22 09:52 Aspirin 325 Mg Tab PO 325 mg DAILY DAVID Administration Atorvastatin Calcium 40 mg 08/07/22 09:00 08/07/22 09:53 Atorvastatin 40 Mg Tab PO 40 mg DAILY DAVID Administration Carbidopa/Levodopa 2 each 08/07/22 09:00 08/07/22 09:49 Carbidopa-Levodopa 25-100 Mg 1 Each Tab PO 2 each TID DAVID Administration Clopidogrel Bisulfate 75 mg 08/07/22 09:00 08/07/22 09:53 Clopidogrel 75 Mg Tab PO 75 mg DAILY DAVID Administration Donepezil HCl 10 mg 08/07/22 17:00 Donepezil 10 Mg Tab PO DAILY@1700 [facility] Duloxetine HCl 60 mg 08/07/22 09:00 08/07/22 09:54 Duloxetine Hcl 60 Mg Capsule.Dr PO 60 mg BID DAVID Administration Glimepiride 1 mg 08/07/22 09:00 08/07/22 09:55 Glimepiride 1 Mg Tab PO 1 mg BID DAVID Administration Heparin Sodium (Porcine) 0 unit 08/06/22 21:19 Heparin Sodium 1,000 Un/Ml (10ml Vl) IV PER PROTOCOL PRN Low PTT Protocol Heparin Sodium/Sodium Chloride 250 mls @ 10 mls/hr 08/06/22 21:30 08/07/22 11:15 25,000 unit/ Sodium Chloride IV 8.32 units/kg/hr .Q24H DAVID 10 mls/hr Titration Protocol 8.3193 UNITS/KG/HR Isosorbide Mononitrate 30 mg 08/07/22 09:00 08/07/22 09:55 Isosorbide Mononitrate Er 30 Mg Tab.Er.24h PO 30 mg DAILY DAVID Administration Losartan Potassium 100 mg 08/07/22 09:00 08/07/22 09:50 Losartan 50 Mg Tab PO 100 mg DAILY DAVID Administration Metoprolol Tartrate 100 mg 08/07/22 09:00 08/07/22 09:50 Metoprolol Tartrate 50 Mg Tab PO 100 mg BID DAVID Administration Nitroglycerin 0.4 mg 08/06/22 23:56 Nitroglycerin Sl Tabs 0.4 Mg Tab SUBLINGUAL Q5M PRN Chest Pain Pantoprazole Sodium 40 mg 08/07/22 07:30 08/07/22 09:52 Pantoprazole 40 Mg Tablet PO 40 mg [id number] DAVID Administration Pregabalin 75 mg 08/07/22 09:00 08/07/22 09:56 Pregabalin 75 Mg Cap PO 75 mg BID@0900,1700 DAVID Administration Quetiapine Fumarate 25 mg 08/07/22 10:46 Quetiapine 25 Mg Tab PO HS PRN Agitation Tamsulosin HCl 0.4 mg 08/07/22 12:00 08/07/22 11:44 Tamsulosin 0.4 Mg Cap.Er.24h PO 0.4 mg DAILY@1200 DAVID Administration Verapamil HCl 180 mg 08/07/22 09:00 08/07/22 09:57 Verapamil Sr 180 Mg Tablet.Er PO 180 mg BID DAVID Administration Intake and Output 08/06/22 08/07/22 08/07/22 22:59 06:59 14:59 Intake Total 74.333 0 Balance 74.333 0 Intake: Intake, IV Titration 74.333 0 Amount Heparin Sod,Pork in 0.45% 74.333 0 NaCl 25,000 unit In 0.45 % NaCl 1 250ml.bag @ 8. 3193 UNITS/KG/HR 10 mls/ hr IV .Q24H [facility] Rx#: [id number] Other: Weight 120.202 kg 08/07/22 03:54 08/06/22 20:25
--- NOTE | 2022-08-07 14:07 | P.CNPUL ---
History of Present Illness Consult date: 08/07/22 Chief complaint: Covid 19 infection History of present illness: 76-year-old male patient was hospitalized for generalized weakness, altered mentation, Covid 19 infection and incentive the patient was found to have an elevated troponin level. The patient is known to have coronary artery and CHF with preserved LV function. The patient also has hypertension, hyperlipidemia and Parkinson's disease. The patient has undergone previous stenting of the LAD back in 1986 and subsequent stenting of the OM branch of RCA in November 2001. Patient been having generalized weakness. Some limited cough. No dizziness. No chest pain. The patient's was getting progressively more dehydrated and the made recommendations to send to the hospital. The patient is a poor historian. He himself denies having any shortness of breath. The blood work is current admission shows a WBC count of 4.6 hemoglobin of 14.4 sodium of 1 4317- 0.8, normal coagulation profile, LFTs show an AST of 93, AST of 76, alkaline phosphatase 95, proBNP level of 6200, troponin peaked at 2.1 and the lactic acid level of 1.3. UA showed RBCs and plus for protein. The chest x-rays showing some mild pulmonary vascular congestion. Patient is currently on room air oxygen. Review of Systems Constitutional: Reports fatigue, Reports poor appetite, Reports weakness Eyes: denies as per HPI, denies blurred vision, denies bulging eye, denies decreased vision, denies diplopia, denies discharge, denies dry eye, denies irritation, denies itching, denies pain, denies photophobia, denies loss of peripheral vision, denies loss of vision, denies tunnel vision/blind spots Ears: bilateral: decreased hearing, deny: ear discharge, earache, tinnitus Ears, nose, mouth and throat: Reports as per HPI Breasts: absent: as per HPI, gynecomastia Cardiovascular: Reports decreased exercise tolerance Respiratory: Reports as per HPI Gastrointestinal: Reports as per HPI Genitourinary: Reports as per HPI Musculoskeletal: Reports as per HPI Musculoskeletal: absent: ankle pain, ankle stiffness, ankle swelling Integumentary: Reports as per HPI Neurological: Reports weakness Psychiatric: Reports as per HPI Endocrine: Reports as per HPI, Reports fatigue Hematologic/Lymphatic: Reports as per HPI Allergic/Immunologic: Reports as per HPI Past Medical History Past Medical History: Coronary Artery Disease (CAD), Diabetes Mellitus, Hyperlipidemia, Hypertension, Myocardial Infarction ([place]), Osteoarthritis (OA) Additional Past Medical History / Comment(s): NIDDM type II, vertigo in September 2016 thought to be labyrinthitis-also had elevated troponins-stress test done and was negative, arthritis multiple joints. Last Myocardial Infarction Date:: 1996 History of Any Multi-Drug Resistant Organisms: None Reported Past Surgical History: Heart Catheterization With Stent, Joint Replacement, Tonsillectomy Additional Past Surgical History / Comment(s): 1996 PCI with stent, L/RT HIP REPLACEMENTS, EXPLORATORY LAP with spleen injury, EPIDURAL INJ. in back, lumbar fusion, colonoscopy, vasectomy. Past Anesthesia/Blood Transfusion Reactions: Previous Problems w/ Anesthesia Additional Past Anesthesia/Blood Transfusion Reaction / Comment(s): STATES POST EPIDURAL INJ HAD A HARD TIME WAKING UP.pt /family stated pt can't take any narcotics-becomes very confused. pt can take tylenol extra strength for pain. Date of Last Stent Placement:: 1996 Past Psychological History: No Psychological Hx Reported Smoking Status: Never smoker Past Alcohol Use History: None Reported Past Drug Use History: None Reported - Past Family History Mother Family Medical History: Congestive Heart Failure (CHF), Hypertension Additional Family Medical History / Comment(s): bipolar Father Family Medical History: Coronary Artery Disease (CAD), Myocardial Infarction ([place]) Medications and Allergies Home Medications Medication Instructions Recorded Confirmed Type Metoprolol Tartrate [Lopressor] 100 mg PO BID@1000,0 07/01/15 08/06/22 History Multivitamin [Men's Multi-Vitamin] 1 tab PO DAILY@99907/01/15 08/06/22 History Verapamil HCl [Verapamil ER] 180 mg PO BID@1000,0 07/01/15 08/06/22 History Aspirin EC [Ecotrin Low Dose] 81 mg PO DAILY@99909/28/16 08/06/22 History metFORMIN HCL [Glucophage] 1,000 mg PO BID@1000,219912/14/16 08/06/22 History Atorvastatin [Lipitor] 40 mg PO DAILY@1000 12/13/19 08/06/22 History Carbidopa-Levodopa 25-100 mg 2 tab PO TID@0900,1300,1700 12/13/19 08/06/22 History [Sinemet 25-100 mg] DULoxetine HCL [Cymbalta] 60 mg PO BID@1000,2200 12/13/19 08/06/22 History Donepezil [Aricept] 10 mg PO DAILY@1700 12/13/19 08/06/22 History Glimepiride [Amaryl] 1 mg PO BID@1000,2200 12/13/19 08/06/22 History Losartan Potassium [Cozaar] 100 mg PO DAILY@1000 12/13/19 08/06/22 History hydroCHLOROthiazide 25 mg PO DAILY@1000 12/13/19 08/06/22 History Cyanocobalamin (Vitamin B-12) 1,000 mcg PO DAILY@1000 03/06/20 08/06/22 History [Vitamin B-12] Pregabalin [Lyrica] 75 mg PO BID@0900,1700 03/06/20 08/06/22 History Tamsulosin HCl [Flomax] 0.4 mg PO DAILY@1200 03/06/20 08/06/22 History Cholecalciferol [Vitamin D3 (25 50 mcg PO DAILY@1000 12/07/21 08/06/22 History Mcg = 1000 Iu)] Isosorbide Mononitrate ER [Imdur] 30 mg PO DAILY@1000 12/07/21 08/06/22 History amantadine HCL [Amantadine] 100 mg PO DAILY@0900 12/07/21 08/06/22 History Clopidogrel [Plavix] 75 mg PO DAILY #30 tab 12/11/21 08/06/22 Rx Nitroglycerin Sl Tabs [Nitrostat] 0.4 mg SL Q5M PRN 06/10/22 08/06/22 History Zinc Gluconate [Zinc] 50 mg PO DAILY@1000 06/10/22 08/06/22 History Omeprazole 40 mg PO DAILY 08/06/22 08/06/22 History Allergies Allergy/AdvReac Type Severity Reaction Status Date / Time narcotics AdvReac Hallucinati Uncoded 08/06/22 22:00 ons opiates AdvReac Hallucinati Uncoded 08/06/22 22:00 ons Physical Exam Vitals: Vital Signs Temp Pulse Resp BP Pulse Ox 08/07/22 11:40 97.6 F 78 18 106/86 98 08/07/22 09:48 98.9 F 93 20 156/100 96 08/07/22 05:00 98.5 F 97 20 151/82 96 08/07/22 00:30 98 22 118/82 95 08/06/22 21:39 96 128/76 96 08/06/22 21:00 98 18 130/79 99 08/06/22 20:30 96 18 135/85 99 08/06/22 19:20 99.4 F 98 20 176/98 99 Intake and Output 08/06/22 08/07/22 08/07/22 22:59 06:59 14:59 Intake Total 74.333 0 Balance 74.333 0 Intake: Intake, IV Titration 74.333 0 Amount Heparin Sod,Pork in 0.45% 74.333 0 NaCl 25,000 unit In 0.45 % NaCl 1 250ml.bag @ 8. 3193 UNITS/KG/HR 10 mls/ hr IV .Q24H [facility] Rx#: [id number] Other: Weight 120.202 kg The patient appeared well nourished and normally developed. Vital signs as docu mented. Head exam is unremarkable. No scleral icterus or corneal arcus noted. Neck is without jugular venous distension, thyromegaly, or carotid bruits. Carotid upstrokes are brisk bilaterally. Lungs are clear to auscultation and percussion. Cardiac exam reveals the PMI to be normally sized and situated. Rhythm is regular. First and second heart sounds normal. No murmurs, rubs or gallops. Abdominal exam reveals normal bowel sounds, no masses, no organomegaly and no aortic enlargement. Extremities are nonedematous and both femoral and pedal pulses are normal. Examination of the skin revealed no evidence of significant rashes, suspicious appearing nevi or other concerning lesions. Results - Laboratory Findings CBC and BMP: 08/07/22 03:54 08/06/22 20:25 PT/INR, D-dimer PT 11.5 sec (9.0-12.0) 08/07/22 03:54 INR 1.1 (<1.2) 08/07/22 03:54 Abnormal lab findings: Abnormal Labs 08/06/22 08/06/22 08/06/22 20:25 20:25 20:25 RBC Plt Count 139 L Lymphocytes # 0.7 L APTT Glucose 101 H Calcium 8.2 L AST 93 H ALT 76 H Troponin I 2.130 H* Urine Protein Urine Ketones Urine Blood Urine Bilirubin Urine RBC Urine Mucus Coronavirus (PCR) 08/06/22 08/06/22 08/07/22 21:44 23:14 00:09 RBC Plt Count Lymphocytes # APTT Glucose Calcium AST ALT Troponin I 1.940 H* Urine Protein 4+ H Urine Ketones 3+ H Urine Blood Large H Urine Bilirubin 1+ H Urine RBC >182 H Urine Mucus Rare H Coronavirus (PCR) Detected A 08/07/22 08/07/22 08/07/22 03:54 03:54 03:54 RBC 4.19 L Plt Count 130 L Lymphocytes # 0.7 L APTT 36.2 H Glucose Calcium AST ALT Troponin I 1.770 H* Urine Protein Urine Ketones Urine Blood Urine Bilirubin Urine RBC Urine Mucus Coronavirus (PCR) - Diagnostic Findings Chest x-ray: image reviewed Assessment and Plan Plan: Acute Covid 19 infection, no evidence of pneumonia and the patient is currently on room air oxygen. No significant shortness of breath Weakness and dehydration probably related to Covid 19 infection Coronary artery disease with previous coronary intervention and stenting of the LAD and OM1 and RCA CHF with preserved LV function Elevated troponins, awaiting a cardiology recommendation Hypertension Hyperlipidemia Parkinson disease Diabetes mellitus type 2 Previous history of vertigo Osteoarthritis BPH Plan Monitor oxygenation Check inflammatory markers regarding Covid 19 infection including LDH, CRP of d- dimer Echocardiogram Cardiology consult regarding abnormal troponins Resume all medications We'll follow
--- NOTE | 2022-08-07 14:17 | P.HPIM ---
History of Present Illness 76-year-old male with known history of coronary artery disease he came in with the complaints of altered mental status although patient has advanced dementia patient appears to have not in lucid and allphases. Patient is also found to have "90 infection significant to begin to some of the delirium. Patient was having progressive weakness and troponins were done which are elevated to around 2.2 which are believed to be secondary to influenza viral infection patient is not a good historian although denied any chest discomfort are difficult in breathing patient had a BNP of 6200 is presently on IV Lasix. REVIEW OF SYSTEMS: Not a reliable historian PHYSICAL EXAMINATION: GENERAL: The patient is alert and oriented x1, not in any acute distress. Well developed, well nourished. HEENT: Pupils are round and equally reacting to light. EOMI. No scleral icterus. No conjunctival pallor. Normocephalic, atraumatic. No pharyngeal erythema. No thyromegaly. CARDIOVASCULAR: S1 and S2 present. No murmurs, rubs, or gallops. PULMONARY: Chest is clear to auscultation, no wheezing or crackles. ABDOMEN: Soft, nontender, nondistended, normoactive bowel sounds. No palpable organomegaly. MUSCULOSKELETAL: No joint swelling or deformity. EXTREMITIES: No cyanosis, clubbing, or pedal edema. NEUROLOGICAL: Gross neurological examination did not reveal any focal deficits. She has generalized weakness patient is confused appears to be baseline or slightly worse SKIN: No rashes. Assessment and plan -Altered mental status secondary to toxic encephalopathy from influenza infection patient may have site slight CHF exacerbation. does have dementia -Troponin elevation believed to be secondary to influenza -Can start failure chronic diastolic dysfunction with mild acute exacerbation patient can you done IV Lasix -History of coronary artery disease Hypertension -Parkinson disease -Hyperlipidemia -Dementia appears to be advanced probably vascular dementia DVT prophylaxis: Lovenox Past Medical History Past Medical History: Coronary Artery Disease (CAD), Diabetes Mellitus, Hyperlipidemia, Hypertension, Myocardial Infarction ([place]), Osteoarthritis ([place]) Additional Past Medical History / Comment(s): NIDDM type II, vertigo in September 2016 thought to be labyrinthitis-also had elevated troponins-stress test done and was negative, arthritis multiple joints. Last Myocardial Infarction Date:: 1996 History of Any Multi-Drug Resistant Organisms: None Reported Past Surgical History: Heart Catheterization With Stent, Joint Replacement, Tonsillectomy Additional Past Surgical History / Comment(s): 1996 PCI with stent, L/RT HIP REPLACEMENTS, EXPLORATORY LAP with spleen injury, EPIDURAL INJ. in back, lumbar fusion, colonoscopy, vasectomy. Past Anesthesia/Blood Transfusion Reactions: Previous Problems w/ Anesthesia Additional Past Anesthesia/Blood Transfusion Reaction / Comment(s): STATES POST EPIDURAL INJ HAD A HARD TIME WAKING UP.pt /family stated pt can't take any narcotics-becomes very confused. pt can take tylenol extra strength for pain. Date of Last Stent Placement:: 1996 Past Psychological History: No Psychological Hx Reported Smoking Status: Never smoker Past Alcohol Use History: None Reported Past Drug Use History: None Reported - Past Family History Mother Family Medical History: Congestive Heart Failure (CHF), Hypertension Additional Family Medical History / Comment(s): bipolar Father Family Medical History: Coronary Artery Disease (CAD), Myocardial Infarction ([place]) Medications and Allergies Home Medications Medication Instructions Recorded Confirmed Type Metoprolol Tartrate [Lopressor] 100 mg PO BID@1000,219907/01/15 08/06/22 History Multivitamin [Men's Multi-Vitamin] 1 tab PO DAILY@99907/01/15 08/06/22 History Verapamil HCl [Verapamil ER] 180 mg PO BID@1000,0 07/01/15 08/06/22 History Aspirin EC [Ecotrin Low Dose] 81 mg PO DAILY@1000 09/28/16 08/06/22 History metFORMIN HCL [Glucophage] 1,000 mg PO BID@1000,0 12/14/16 08/06/22 History Atorvastatin [Lipitor] 40 mg PO DAILY@99912/13/19 08/06/22 History Carbidopa-Levodopa 25-100 mg 2 tab PO TID@0900,1300,1700 12/13/19 08/06/22 History [Sinemet 25-100 mg] DULoxetine HCL [Cymbalta] 60 mg PO BID@1000,219912/13/19 08/06/22 History Donepezil [Aricept] 10 mg PO DAILY@1700 12/13/19 08/06/22 History Glimepiride [Amaryl] 1 mg PO BID@1000,2200 12/13/19 08/06/22 History Losartan Potassium [Cozaar] 100 mg PO DAILY@1000 12/13/19 08/06/22 History hydroCHLOROthiazide 25 mg PO DAILY@1000 12/13/19 08/06/22 History Cyanocobalamin (Vitamin B-12) 1,000 mcg PO DAILY@1000 03/06/20 08/06/22 History [Vitamin B-12] Pregabalin [Lyrica] 75 mg PO BID@0900,1700 03/06/20 08/06/22 History Tamsulosin HCl [Flomax] 0.4 mg PO DAILY@1200 03/06/20 08/06/22 History Cholecalciferol [Vitamin D3 (25 50 mcg PO DAILY@1000 12/07/21 08/06/22 History Mcg = 1000 Iu)] Isosorbide Mononitrate ER [Imdur] 30 mg PO DAILY@1000 12/07/21 08/06/22 History amantadine HCL [Amantadine] 100 mg PO DAILY@0900 12/07/21 08/06/22 History Clopidogrel [Plavix] 75 mg PO DAILY #30 tab 12/11/21 08/06/22 Rx Nitroglycerin Sl Tabs [Nitrostat] 0.4 mg SL Q5M PRN 06/10/22 08/06/22 History Zinc Gluconate [Zinc] 50 mg PO DAILY@1000 06/10/22 08/06/22 History Omeprazole 40 mg PO DAILY 08/06/22 08/06/22 History Allergies Allergy/AdvReac Type Severity Reaction Status Date / Time narcotics AdvReac Hallucinati Uncoded 08/06/22 22:00 ons opiates AdvReac Hallucinati Uncoded 08/06/22 22:00 ons Physical Exam Vitals: Vital Signs Temp Pulse Resp BP Pulse Ox 08/07/22 11:40 97.6 F 78 18 106/86 98 08/07/22 09:48 98.9 F 93 20 156/100 96 08/07/22 05:00 98.5 F 97 20 151/82 96 08/07/22 00:30 98 22 118/82 95 08/06/22 21:39 96 128/76 96 08/06/22 21:00 98 18 130/79 99 08/06/22 20:30 96 18 135/85 99 08/06/22 19:20 99.4 F 98 20 176/98 99 Intake and Output 12/08/07/22 08/07/22 22:59 06:59 14:59 Intake Total 74.333 0 Balance 74.333 0 Intake: Intake, IV Titration 74.333 0 Amount Heparin Sod,Pork in 0.45% 74.333 0 NaCl 25,000 unit In 0.45 % NaCl 1 250ml.bag @ 8. 3193 UNITS/KG/HR 10 mls/ hr IV .Q24H [facility] Rx#: [id number] Other: Weight 120.202 kg Results CBC & Chem 7: 08/07/22 03:54 08/06/22 20:25 Labs: Abnormal Lab Results - Last 24 Hours (Table) 08/06/22 08/06/22 08/06/22 Range/Units 20:25 20:25 20:25 RBC (4.30-5.90) m/uL Plt Count 139 L (150-450) k/uL Lymphocytes # 0.7 L (1.0-4.8) k/uL APTT (22.0-30.0) sec Glucose 101 H (74-99) mg/dL Calcium 8.2 L (8.4-10.2) mg/dL AST 93 H (17-59) U/L ALT 76 H (4-49) U/L Troponin I 2.130 H* (0.000-0.034) ng/mL Urine Protein (Negative) Urine Ketones (Negative) Urine Blood (Negative) Urine Bilirubin (Negative) Urine RBC (0-5) /hpf Urine Mucus (None) /hpf Coronavirus (PCR) (Not Detectd) 08/06/22 08/06/22 08/07/22 Range/Units 21:44 23:14 00:09 RBC (4.30-5.90) m/uL Plt Count (150-450) k/uL Lymphocytes # (1.0-4.8) k/uL APTT (22.0-30.0) sec Glucose (74-99) mg/dL Calcium (8.4-10.2) mg/dL AST (17-59) U/L ALT (4-49) U/L Troponin I 1.940 H* (0.000-0.034) ng/mL Urine Protein 4+ H (Negative) Urine Ketones 3+ H (Negative) Urine Blood Large H (Negative) Urine Bilirubin 1+ H (Negative) Urine RBC >182 H (0-5) /hpf Urine Mucus Rare H (None) /hpf Coronavirus (PCR) Detected A (Not Detectd) 08/07/22 08/07/22 08/07/22 Range/Units 03:54 03:54 03:54 RBC 4.19 L (4.30-5.90) m/uL Plt Count 130 L (150-450) k/uL Lymphocytes # 0.7 L (1.0-4.8) k/uL APTT 36.2 H (22.0-30.0) sec Glucose (74-99) mg/dL Calcium (8.4-10.2) mg/dL AST (17-59) U/L ALT (4-49) U/L Troponin I 1.770 H* (0.000-0.034) ng/mL Urine Protein (Negative) Urine Ketones (Negative) Urine Blood (Negative) Urine Bilirubin (Negative) Urine RBC (0-5) /hpf Urine Mucus (None) /hpf Coronavirus (PCR) (Not Detectd)
[2022-08-07] MEDS: FUROSEMIDE 10 MG/ML 2 ML VIAL IV SCH ×2 (15:33→20:45)
[2022-08-07 16:53] LABS: C Reactive Protein 3.6 mg/dL (<1.0)
[2022-08-07 17:01] LABS: Glucose,Whole Blood 156 mg/dL (70-110)
[2022-08-07] MEDS: DONEPEZIL 10 MG TAB PO SCH (18:26)
[2022-08-07 20:18] LABS: Glucose,Whole Blood 154 mg/dL (70-110)
[2022-08-07] MEDS: FAMOTIDINE 20 MG TAB PO SCH (20:45)
[2022-08-07] MEDS: QUEtiapine 25 MG TAB PO PRN (20:45)
[2022-08-07 22:29] LABS: Chol/HDL Ratio 2.93 Ratio; LDL Cholesterol,Calculated 40.4 mg/dL (0.0-131.0)
[2022-08-08] MEDS: GLIMEPIRIDE 1 MG TAB PO SCH ×3 (03:00→21:05)
[2022-08-08 06:22] LABS: Glucose,Whole Blood 131 mg/dL (70-110)
[2022-08-08] MEDS: PANTOPRAZOLE 40 MG TABLET PO SCH (07:01)
[2022-08-08 07:07] LABS: HCT 32.1 % (39.0-53.0); HGB 11.1 gm/dL (13.0-17.5); MCH 33.1 pg (25.0-35.0); MCHC 34.5 g/dL (31.0-37.0); Mean Platelet Volume 7.8; Platelet Count 116 k/uL (150-450); RBC 3.35 m/uL (4.30-5.90); RDW 14.1 % (11.5-15.5); WBC 3.3 k/uL (3.8-10.6)
[2022-08-08 07:23] LABS: Albumin 2.9 g/dL (3.5-5.0); Calcium 7.5 mg/dL (8.4-10.2); Potassium 3.6 mmol/L (3.5-5.1); Total Bilirubin 0.9 mg/dL (0.2-1.3); Total Protein 5.1 g/dL (6.3-8.2)
[2022-08-08] MEDS: LOSARTAN 50 MG TAB PO SCH (09:09)
[2022-08-08] MEDS: FAMOTIDINE 20 MG TAB PO SCH ×2 (09:09→21:05)
[2022-08-08] MEDS: DULoxetine HCL 60 MG CAPSULE.DR PO SCH ×2 (09:09→21:04)
[2022-08-08] MEDS: ISOSORBIDE MONONITRATE ER 30 MG TAB.ER.24H PO SCH (09:09)
[2022-08-08] MEDS: CARBIDOPA-LEVODOPA 25-100 MG 1 EACH TAB PO SCH ×3 (09:09→21:04)
[2022-08-08] MEDS: CLOPIDOGREL 75 MG TAB PO SCH (09:09)
[2022-08-08] MEDS: VERAPAMIL SR 180 MG TABLET.ER PO SCH (09:09)
[2022-08-08] MEDS: PREGABALIN 75 MG CAP PO SCH ×2 (09:09→15:44)
[2022-08-08] MEDS: ATORVASTATIN 40 MG TAB PO SCH (09:10)
[2022-08-08] MEDS: ASPIRIN 81 MG PO SCH (09:10)
[2022-08-08] MEDS: ENOXAPARIN 40 MG/0.4 ML SYRINGE SQ SCH (09:11)
[2022-08-08] MEDS: FUROSEMIDE 10 MG/ML 2 ML VIAL IV SCH (09:11)
[2022-08-08] MEDS: METOPROLOL TARTRATE 50 MG TAB PO SCH ×2 (09:27→21:04)
[2022-08-08 11:17] LABS: Glucose,Whole Blood 145 mg/dL (70-110)
[2022-08-08 11:56] VITALS: BMI 36.9
--- NOTE | 2022-08-08 12:55 | P.PN ---
Subjective History of Present Illness: The patient is a 76-year-old male with a known history of CAD, post stenting of the LAD 1996, obtuse margin branch and RCA and underwent stenting of the OM in November of this year, history of hypertension, hyperlipidemia, diabetes mellitus and Parkinson disease who presented to the emergency room with change in mental status and he was exposed to Covid 19 infection and tested positive. His cardiac enzymes were mildly elevated. The patient denies any chest discomfort or change in his breathing. He denies any dizziness or palpitations. He denies any nausea or vomiting. He is in sinus mechanism with no evidence of malignant arrhythmia. He is not very active physically because of his Parkinson's disease. His systolic function has been normal in the past. His troponin on presentation was 2.1 it is down to 1.7 today. His NT proBNP 6200. Medications: Lipitor 40 mg daily, Sinemet, Plavix, Aricept, Imdur 30 mg daily, Cozaar 100 mg daily, Lopressor 20 mg twice a day, aspirin, verapamil, Flomax, Seroquel 08/08 Patient seen and examined. Patient somnolent however arousable. Not answering questions appropriately. Heparin drip was discontinued yesterday. Physical Examination: Vitals reviewed Head: Normocephalic. Eyes: Sclerae nonicteric. Neck: Good carotid upstroke, no bruit, no jugular venous distention. Lungs: Clear to auscultation. Heart: Regular rate and rhythm, S1-S2, no S3, no rub. Systolic ejection murmur. Abdomen: Soft nontender, positive bowel sounds no organomegaly. Extremities: +1 edema, intact distal pulses. Impression: 1. Progressive weakness and change in mental status, Covid 19 positive 2. Troponin elevation, probable secondary to the infection, no symptoms of chest pain or evidence to suggest acute myocardial infarction 3. Mild CHF was preserved systolic function 4. History of CAD 5. History of hypertension 6. History of Parkinson disease 7. History of hyperlipidemia Plan: Continue with current supportive care. He did receive IV Lasix and creatinine fairly stable 0.8- 1.0. Monitor for any angina-type symptoms however elevated troponins appear related to Covid. We will place patient on maintence Lasix PO however if decreased oral intake may need to hold. Further recs to follow. Objective - Vital Signs Vital signs: Vital Signs Temp 97.5 F L 08/08/22 12:00 Pulse 70 08/08/22 12:00 Resp 20 08/08/22 12:00 BP 110/56 08/08/22 12:00 Pulse Ox 91 L 08/08/22 12:00 FiO2 Intake & Output 08/07/22 08/08/22 08/08/22 18:59 06:59 18:59 Intake Total 10 Balance 10 Weight 120.202 kg 120.202 kg Intake: IV 10 Invasive Line 2 10 Intake, IV Titration 0 Amount Heparin Sod,Pork in 0.45% 0 NaCl 25,000 unit In 0.45 % NaCl 1 250ml.bag @ 8. 3193 UNITS/KG/HR 10 mls/ hr IV .Q24H [facility] Rx#: [id number] Other: Voiding Method Incontinent Diaper Diaper Incontinent Incontinent # Voids 1 - Labs CBC & Chem 7: 08/08/22 06:10 08/08/22 06:10 Labs: Abnormal Lab Results - Last 24 Hours (Table) 08/07/22 08/07/22 08/07/22 Range/Units 03:54 16:25 16:59 WBC (3.8-10.6) k/uL RBC (4.30-5.90) m/uL Hgb (13.0-17.5) gm/dL Hct (39.0-53.0) % Plt Count (150-450) k/uL Glucose (74-99) mg/dL POC Glucose (mg/dL) 156 H (70-110) mg/dL Calcium (8.4-10.2) mg/dL Lactate Dehydrogenase 698 H (313-618) U/L C-Reactive Protein 3.6 H (<1.0) mg/dL Total Protein (6.3-8.2) g/dL Albumin (3.5-5.0) g/dL Triglycerides 160.00 H (0.00-149.00) mg/dL HDL Cholesterol 37.60 L (40.00-60.00) mg/dL 08/07/22 08/08/22 08/08/22 Range/Units 20:17 06:10 06:10 WBC 3.3 L (3.8-10.6) k/uL RBC 3.35 L (4.30-5.90) m/uL Hgb 11.1 L (13.0-17.5) gm/dL Hct 32.1 L (39.0-53.0) % Plt Count 116 L (150-450) k/uL Glucose 125 H (74-99) mg/dL POC Glucose (mg/dL) 154 H (70-110) mg/dL Calcium 7.5 L (8.4-10.2) mg/dL Lactate Dehydrogenase (313-618) U/L C-Reactive Protein (<1.0) mg/dL Total Protein 5.1 L (6.3-8.2) g/dL Albumin 2.9 L (3.5-5.0) g/dL Triglycerides (0.00-149.00) mg/dL HDL Cholesterol (40.00-60.00) mg/dL 08/08/22 08/08/22 Range/Units 06:21 11:15 WBC (3.8-10.6) k/uL RBC (4.30-5.90) m/uL Hgb (13.0-17.5) gm/dL Hct (39.0-53.0) % Plt Count (150-450) k/uL Glucose (74-99) mg/dL POC Glucose (mg/dL) 131 H 145 H (70-110) mg/dL Calcium (8.4-10.2) mg/dL Lactate Dehydrogenase (313-618) U/L C-Reactive Protein (<1.0) mg/dL Total Protein (6.3-8.2) g/dL Albumin (3.5-5.0) g/dL Triglycerides (0.00-149.00) mg/dL HDL Cholesterol (40.00-60.00) mg/dL
[2022-08-08] MEDS ORDERED: POTASSIUM CHLORIDE ER 20 MEQ TAB.ER PO STA (13:45)
--- NOTE | 2022-08-08 14:27 | P.PN ---
Subjective Progress Note Date: 08/08/22 76-year-old male patient was hospitalized for generalized weakness, altered mentation, Covid 19 infection and incentive the patient was found to have an elevated troponin level. The patient is known to have coronary artery and CHF with preserved LV function. The patient also has hypertension, hyperlipidemia and Parkinson's disease. The patient has undergone previous stenting of the LAD back in 1986 and subsequent stenting of the OM branch of RCA in November 2001. Patient been having generalized weakness. Some limited cough. No dizziness. No chest pain. The patient's was getting progressively more dehydrated and the made recommendations to send to the hospital. The patient is a poor hist orian. He himself denies having any shortness of breath. The blood work is current admission shows a WBC count of 4.6 hemoglobin of 14.4 sodium of 1 4317- 0.8, normal coagulation profile, LFTs show an AST of 93, AST of 76, alkaline phosphatase 95, proBNP level of 6200, troponin peaked at 2.1 and the lactic acid level of 1.3. UA showed RBCs and plus for protein. The chest x-rays showing some mild pulmonary vascular congestion. Patient is currently on room air oxygen. The patient is seen today 08/08/2022 in follow-up in the selective care unit. He is currently resting comfortably in bed. Awake and alert in no acute distress. He is maintaining O2 saturations in the 90s on room air. He does appear quite dry today his lips are dry. Dry oral mucosa. White count 3.3. Hemoglobin 11.1. Platelets 116. Sodium 142. Potassium 3.6. Bicarb 20. Creatinine 1.05. Glucose 125. He is continued on diuretics. Lovenox for DVT prophylaxis. Objective - Vital Signs Vital signs: Vital Signs Temp 97.5 F L 08/08/22 12:00 Pulse 70 08/08/22 12:00 Resp 20 08/08/22 12:00 BP 110/56 08/08/22 12:00 Pulse Ox 91 L 08/08/22 12:00 FiO2 Intake & Output 08/07/22 08/08/22 08/08/22 18:59 06:59 18:59 Intake Total 10 Balance 10 Weight 120.202 kg 120.202 kg Intake: IV 10 Invasive Line 2 10 Intake, IV Titration 0 Amount Heparin Sod,Pork in 0.45% 0 NaCl 25,000 unit In 0.45 % NaCl 1 250ml.bag @ 8. 3193 UNITS/KG/HR 10 mls/ hr IV .Q24H [facility] Rx#: [id number] Other: Voiding Method Incontinent Diaper Diaper Incontinent Incontinent # Voids 1 - Exam The patient is a 76-year-old male patient, currently on room air. Appeared well nourished and normally developed. Vital signs as documented. Head exam is unremarkable. No scleral icterus or corneal arcus noted. Neck is without jugular venous distension, thyromegaly, or carotid bruits. Carotid upstrokes are brisk bilaterally. Lungs are clear to auscultation and percussion. Cardiac exam reveals the PMI to be normally sized and situated. Rhythm is regular. First and second heart sounds normal. No murmurs, rubs or gallops. Abdominal exam reveals normal bowel sounds, no masses, no organomegaly and no aortic enlargement. Extremities are nonedematous and both femoral and pedal pulses are normal. Examination of the skin revealed no evidence of significant rashes, suspicious appearing nevi or other concerning lesions. - Labs CBC & Chem 7: 08/08/22 06:10 08/08/22 06:10 Labs: Abnormal Lab Results - Last 24 Hours (Table) 08/07/22 08/07/22 08/07/22 Range/Units 03:54 16:25 16:59 WBC (3.8-10.6) k/uL RBC (4.30-5.90) m/uL Hgb (13.0-17.5) gm/dL Hct (39.0-53.0) % Plt Count (150-450) k/uL Glucose (74-99) mg/dL POC Glucose (mg/dL) 156 H (70-110) mg/dL Calcium (8.4-10.2) mg/dL Lactate Dehydrogenase 698 H (313-618) U/L C-Reactive Protein 3.6 H (<1.0) mg/dL Total Protein (6.3-8.2) g/dL Albumin (3.5-5.0) g/dL Triglycerides 160.00 H (0.00-149.00) mg/dL HDL Cholesterol 37.60 L (40.00-60.00) mg/dL 08/07/22 08/08/22 08/08/22 Range/Units 20:17 06:10 06:10 WBC 3.3 L (3.8-10.6) k/uL RBC 3.35 L (4.30-5.90) m/uL Hgb 11.1 L (13.0-17.5) gm/dL Hct 32.1 L (39.0-53.0) % Plt Count 116 L (150-450) k/uL Glucose 125 H (74-99) mg/dL POC Glucose (mg/dL) 154 H (70-110) mg/dL Calcium 7.5 L (8.4-10.2) mg/dL Lactate Dehydrogenase (313-618) U/L C-Reactive Protein (<1.0) mg/dL Total Protein 5.1 L (6.3-8.2) g/dL Albumin 2.9 L (3.5-5.0) g/dL Triglycerides (0.00-149.00) mg/dL HDL Cholesterol (40.00-60.00) mg/dL 08/08/22 08/08/22 Range/Units 06:21 11:15 WBC (3.8-10.6) k/uL RBC (4.30-5.90) m/uL Hgb (13.0-17.5) gm/dL Hct (39.0-53.0) % Plt Count (150-450) k/uL Glucose (74-99) mg/dL POC Glucose (mg/dL) 131 H 145 H (70-110) mg/dL Calcium (8.4-10.2) mg/dL Lactate Dehydrogenase (313-618) U/L C-Reactive Protein (<1.0) mg/dL Total Protein (6.3-8.2) g/dL Albumin (3.5-5.0) g/dL Triglycerides (0.00-149.00) mg/dL HDL Cholesterol (40.00-60.00) mg/dL Assessment and Plan Assessment: Acute Covid 19 infection, no evidence of pneumonia and the patient is currently on room air oxygen. No significant shortness of breath Weakness and dehydration probably related to Covid 19 infection Coronary artery disease with previous coronary intervention and stenting of the LAD and OM1 and RCA CHF with preserved LV function Elevated troponins, awaiting a cardiology recommendation Hypertension Hyperlipidemia Parkinson disease Diabetes mellitus type 2 Previous history of vertigo Osteoarthritis BPH Plan: The patient was seen and evaluated Medications and labs reviewed Currently stable and on room air Discontinue IV diuretics Increase normal saline to 75 ML's per hour We will continue to follow I have personally seen and examined the patient, performed the documentation and the assessment and plan as written. Number of minutes spent on the visit: 10.
--- NOTE | 2022-08-08 15:02 | P.PN ---
Subjective Progress Note Date: 08/08/22 76-year-old male with known history of coronary artery disease he came in with the complaints of altered mental status although patient has advanced dementia patient appears to have not in lucid and aphasia. Patient is also found to have Covid 19 infection significant to begin to some of the delirium. Patient was having progressive weakness and troponins were done which are elevated to around 2.2 which are believed to be secondary to influenza viral infection patient is not a good historian although denied any chest discomfort are difficult in breathing patient had a BNP of 6200 is presently on IV Lasix. 08/08/2022 Patient is seen and evaluated in follow-up this morning continues to be confused and obtunded and appears dry with cardiology and pulmonary following for Covid 19. Concerns for a mild acute exacerbation and was started on IV Lasix although appears dry as mentioned previously and will give gentle saline hydration and follow-up with repeat labs. Potassium slightly low and will replace per protocol. Case management following and working with spouse and working on possible ECF. Patient to continue with anticoagulation in the form of Lovenox for DVT prophylaxis. Patient is currently afebrile and not requiring oxygen 91- 95% on room air. Patient has not eating and continues to be confused and mostly somnolent. No reports of chest pain or shortness of breath noted. REVIEW OF SYSTEMS: Not a reliable historian PHYSICAL EXAMINATION: GENERAL: The patient is alert and oriented x1, not in any acute distress somnolent but arousable continues to be confused. Well developed, well nourished. HEENT: Pupils are round and equally reacting to light. EOMI. No scleral icterus. No conjunctival pallor. Normocephalic, atraumatic. No pharyngeal erythema. No thyromegaly. CARDIOVASCULAR: S1 and S2 present. No murmurs, rubs, or gallops. PULMONARY: Chest is clear to auscultation, no wheezing or crackles. ABDOMEN: Soft, nontender, nondistended, normoactive bowel sounds. No palpable organomegaly. MUSCULOSKELETAL: No joint swelling or deformity. EXTREMITIES: No cyanosis, clubbing, or pedal edema. NEUROLOGICAL: Gross neurological examination did not reveal any focal deficits. She has generalized weakness patient is confused appears to be baseline or slightly worse SKIN: No rashes. Assessment: -Altered mental status secondary to toxic encephalopathy from COVID-19 infection and also a component of possible slight CHF exacerbation. -Troponin elevation believed to be secondary to COVID-19 infection, ACS ruled out by cardiology -Acute COVID-19 infection with no respiratory symptoms -Congestive heart failure failure chronic diastolic dysfunction with mild acute exacerbation -History of coronary artery disease -Hypertension -Parkinson disease -Hyperlipidemia -Dementia appears to be advanced probably vascular dementia -DVT prophylaxis: Lovenox -No code Plan: Recommend continue with current medications and management with pulmonary and cardiology following. Patient appears dry and not eating or drinking will give some gentle IV hydration and follow-up on repeat labs Potassium 3.3 and will replace per protocol PT/OT to evaluate the patient for possible ECF in case management is following Cardiology evaluated the patient recommending diuretics and low-dose oral being transitioned as patient was on IV Lasix Prognosis is guarded The impression and plan of care has been dictated by Janet Rehman, Nurse Practitioner as directed. MD Kinsey I have performed a history and examination and MDM of this patient, discussed the same with the dictator, and agree with the dictator's assessment and plan as written ,documented as a scribe. Based on total visit time, I have performed more than 50% of the visit. Objective - Vital Signs Vital signs: Vital Signs Temp 97.5 F L 08/08/22 12:00 Pulse 70 08/08/22 12:00 Resp 20 08/08/22 12:00 BP 110/56 08/08/22 12:00 Pulse Ox 91 L 08/08/22 12:00 FiO2 Intake & Output 08/07/22 08/08/22 08/08/22 18:59 06:59 18:59 Intake Total 10 Balance 10 Weight 120.202 kg 120.202 kg Intake: IV 10 Invasive Line 2 10 Intake, IV Titration 0 Amount Heparin Sod,Pork in 0.45% 0 NaCl 25,000 unit In 0.45 % NaCl 1 250ml.bag @ 8. 3193 UNITS/KG/HR 10 mls/ hr IV .Q24H [facility] Rx#: [id number] Other: Voiding Method Incontinent Diaper Diaper Incontinent Incontinent # Voids 1 - Labs CBC & Chem 7: 08/08/22 06:10 08/08/22 06:10 Labs: Abnormal Lab Results - Last 24 Hours (Table) 08/07/22 08/07/2222 Range/Units 03:54 16:25 16:59 WBC (3.8-10.6) k/uL RBC (4.30-5.90) m/uL Hgb (13.0-17.5) gm/dL Hct (39.0-53.0) % Plt Count (150-450) k/uL Glucose (74-99) mg/dL POC Glucose (mg/dL) 156 H (70-110) mg/dL Calcium (8.4-10.2) mg/dL Lactate Dehydrogenase 698 H (313-618) U/L C-Reactive Protein 3.6 H (<1.0) mg/dL Total Protein (6.3-8.2) g/dL Albumin (3.5-5.0) g/dL Triglycerides 160.00 H (0.00-149.00) mg/dL HDL Cholesterol 37.60 L (40.00-60.00) mg/dL 08/07/22 08/08/22 08/08/22 Range/Units 20:17 06:10 06:10 WBC 3.3 L (3.8-10.6) k/uL RBC 3.35 L (4.30-5.90) m/uL Hgb 11.1 L (13.0-17.5) gm/dL Hct 32.1 L (39.0-53.0) % Plt Count 116 L (150-450) k/uL Glucose 125 H (74-99) mg/dL POC Glucose (mg/dL) 154 H (70-110) mg/dL Calcium 7.5 L (8.4-10.2) mg/dL Lactate Dehydrogenase (313-618) U/L C-Reactive Protein (<1.0) mg/dL Total Protein 5.1 L (6.3-8.2) g/dL Albumin 2.9 L (3.5-5.0) g/dL Triglycerides (0.00-149.00) mg/dL HDL Cholesterol (40.00-60.00) mg/dL 08/08/22 08/08/22 Range/Units 06:21 11:15 WBC (3.8-10.6) k/uL RBC (4.30-5.90) m/uL Hgb (13.0-17.5) gm/dL Hct (39.0-53.0) % Plt Count (150-450) k/uL Glucose (74-99) mg/dL POC Glucose (mg/dL) 131 H 145 H (70-110) mg/dL Calcium (8.4-10.2) mg/dL Lactate Dehydrogenase (313-618) U/L C-Reactive Protein (<1.0) mg/dL Total Protein (6.3-8.2) g/dL Albumin (3.5-5.0) g/dL Triglycerides (0.00-149.00) mg/dL HDL Cholesterol (40.00-60.00) mg/dL
[2022-08-08] MEDS: DONEPEZIL 10 MG TAB PO SCH (15:44)
[2022-08-08] MEDS: TAMSULOSIN 0.4 MG CAP.ER.24H PO SCH (15:44)
[2022-08-08] MEDS: FUROSEMIDE 20 MG TAB PO SCH (15:44)
[2022-08-08 16:50] LABS: Glucose,Whole Blood 125 mg/dL (70-110)
[2022-08-08] MEDS: SODIUM CHLORIDE 0.9% 1,000 ML IV SCH (18:19)
[2022-08-08 20:16] LABS: Glucose,Whole Blood 118 mg/dL (70-110)
[2022-08-08] MEDS: QUEtiapine 25 MG TAB PO PRN (21:04)
[2022-08-09 02:35] LABS: Glucose,Whole Blood 127 mg/dL (70-110)
[2022-08-09] MEDS: SODIUM CHLORIDE 0.9% 1,000 ML IV SCH ×2 (04:56→15:11)
[2022-08-09 06:01] LABS: Glucose,Whole Blood 110 mg/dL (70-110)
[2022-08-09] MEDS: PANTOPRAZOLE 40 MG TABLET PO SCH (07:10)
[2022-08-09] MEDS: ENOXAPARIN 40 MG/0.4 ML SYRINGE SQ SCH (09:55)
[2022-08-09] MEDS: VERAPAMIL SR 180 MG TABLET.ER PO SCH (09:56)
[2022-08-09] MEDS: ISOSORBIDE MONONITRATE ER 30 MG TAB.ER.24H PO SCH (09:56)
[2022-08-09] MEDS: PREGABALIN 75 MG CAP PO SCH ×2 (09:56→15:12)
[2022-08-09] MEDS: METOPROLOL TARTRATE 50 MG TAB PO SCH ×2 (09:56→22:28)
[2022-08-09] MEDS: LOSARTAN 50 MG TAB PO SCH (09:56)
[2022-08-09] MEDS: FAMOTIDINE 20 MG TAB PO SCH ×2 (09:57→22:28)
[2022-08-09] MEDS: ASPIRIN 81 MG PO SCH (09:57)
[2022-08-09] MEDS: ATORVASTATIN 40 MG TAB PO SCH (09:57)
[2022-08-09] MEDS: CARBIDOPA-LEVODOPA 25-100 MG 1 EACH TAB PO SCH ×3 (09:57→22:28)
[2022-08-09] MEDS: GLIMEPIRIDE 1 MG TAB PO SCH ×2 (09:57→22:28)
[2022-08-09] MEDS: DULoxetine HCL 60 MG CAPSULE.DR PO SCH ×2 (09:57→22:28)
[2022-08-09] MEDS: FUROSEMIDE 20 MG TAB PO SCH (09:57)
[2022-08-09] MEDS: CLOPIDOGREL 75 MG TAB PO SCH (09:57)
[2022-08-09] MEDS ORDERED: CEFEPIME 1 GM in SODIUM CHLORIDE 0.9% 50 ML IVPB SCH (10:45)
[2022-08-09] MEDS ORDERED: CEFEPIME 2 GM in SODIUM CHLORIDE 0.9% 100 ML IVPB SCH (11:00)
[2022-08-09 11:32] LABS: Glucose,Whole Blood 114 mg/dL (70-110)
--- NOTE | 2022-08-09 12:09 | P.PN ---
Subjective Progress Note Date: 08/09/22 76-year-old male patient was hospitalized for generalized weakness, altered mentation, Covid 19 infection and incentive the patient was found to have an elevated troponin level. The patient is known to have coronary artery and CHF with preserved LV function. The patient also has hypertension, hyperlipidemia and Parkinson's disease. The patient has undergone previous stenting of the LAD back in 1986 and subsequent stenting of the OM branch of RCA in November 2001. Patient been having generalized weakness. Some limited cough. No dizziness. No chest pain. The patient's was getting progressively more dehydrated and the made recommendations to send to the hospital. The patient is a poor hist orian. He himself denies having any shortness of breath. The blood work is current admission shows a WBC count of 4.6 hemoglobin of 14.4 sodium of 1 4317- 0.8, normal coagulation profile, LFTs show an AST of 93, AST of 76, alkaline phosphatase 95, proBNP level of 6200, troponin peaked at 2.1 and the lactic acid level of 1.3. UA showed RBCs and plus for protein. The chest x-rays showing some mild pulmonary vascular congestion. Patient is currently on room air oxygen. The patient is seen today 08/08/2022 in follow-up in the selective care unit. He is currently resting comfortably in bed. Awake and alert in no acute distress. He is maintaining O2 saturations in the 90s on room air. He does appear quite dry today his lips are dry. Dry oral mucosa. White count 3.3. Hemoglobin 11.1. Platelets 116. Sodium 142. Potassium 3.6. Bicarb 20. Creatinine 1.05. Glucose 125. He is continued on diuretics. Lovenox for DVT prophylaxis. The patient is seen today 08/09/2022 in follow-up on the selective care unit. He remains overweight. Maintaining O2 saturations in the 90s on room air. Slightly febrile with a temperature 99.2 axillary. He has a loose nonproductive cough. He did fail a swallow evaluation. He is currently nothing by mouth. Continues on normal saline at 75 ML's per hour. He is initiated on antibiotics in the form of ceftriaxone. Blood, urine and sputum cultures pending. Pro- calcitonin pending. Continued on oral diuretics. Lovenox for DVT prophylaxis. Objective - Vital Signs Vital signs: Vital Signs Temp 99.2 F 08/09/22 08:00 Pulse 83 08/09/22 08:00 Resp 20 08/09/22 08:00 BP 161/78 08/09/22 08:00 Pulse Ox 93 L 08/09/22 08:00 FiO2 Intake & Output 08/08/22 08/09/22 08/09/22 18:59 06:59 18:59 Weight 120.202 kg Other: Voiding Method Diaper Diaper Diaper Incontinent Incontinent Incontinent # Voids 2 - Exam The patient is a 76-year-old male patient, currently on room air. Appeared well nourished and normally developed. Vital signs as documented. Head exam is unremarkable. No scleral icterus or corneal arcus noted. Neck is without jugular venous distension, thyromegaly, or carotid bruits. Carotid upstrokes are brisk bilaterally. Lungs are clear to auscultation and percussion. Cardiac exam reveals the PMI to be normally sized and situated. Rhythm is regular. First and second heart sounds normal. No murmurs, rubs or gallops. Abdominal exam reveals normal bowel sounds, no masses, no organomegaly and no aortic enlargement. Extremities are nonedematous and both femoral and pedal pulses are normal. Examination of the skin revealed no evidence of significant rashes, suspicious appearing nevi. There is significant ecchymosis on the left chest and back secondary to previous fall. - Labs CBC & Chem 7: 08/08/22 06:10 08/08/22 06:10 Labs: Abnormal Lab Results - Last 24 Hours (Table) 08/08/22 08/08/22 08/09/22 Range/Units 16:27 20:15 02:33 POC Glucose (mg/dL) 125 H 118 H 127 H (70-110) mg/dL 08/09/22 Range/Units 11:30 POC Glucose (mg/dL) 114 H (70-110) mg/dL Assessment and Plan Assessment: Acute Covid 19 infection, no evidence of pneumonia and the patient is currently on room air oxygen. No significant shortness of breath Febrile illness secondary to above, rule out underlying bacterial infection. Procalcitonin pending. Initiated on ceftriaxone. Blood, sputum and urine cultures pending. Weakness and dehydration probably related to Covid 19 infection Falls at home secondary to above with ecchymosis on left chest and back Coronary artery disease with previous coronary intervention and stenting of the LAD and OM1 and RCA CHF with preserved LV function Elevated troponins, awaiting a cardiology recommendation Hypertension Hyperlipidemia Parkinson disease Diabetes mellitus type 2 Previous history of vertigo Osteoarthritis BPH Plan: The patient was seen and evaluated Medications and labs reviewed Currently stable and on room air Febrile illness, cultures pending Initiated on ceftriaxone Check a pro-calcitonin Continue normal saline to 75 ML's per hour DO NOT RESUSCITATE/DO NOT INTUBATE CODE STATUS We will continue to follow I have personally seen and examined the patient, performed the documentation and the assessment and plan as written. Number of minutes spent on the visit: 10.
[2022-08-09] MEDS: TAMSULOSIN 0.4 MG CAP.ER.24H PO SCH (12:13)
--- NOTE | 2022-08-09 12:46 | P.PN ---
Subjective History of Present Illness: The patient is a 76-year-old male with a known history of CAD, post stenting of the LAD 1996, obtuse margin branch and RCA and underwent stenting of the OM in November of this year, history of hypertension, hyperlipidemia, diabetes mellitus and Parkinson disease who presented to the emergency room with change in mental status and he was exposed to Covid 19 infection and tested positive. His cardiac enzymes were mildly elevated. The patient denies any chest discomfort or change in his breathing. He denies any dizziness or palpitations. He denies any nausea or vomiting. He is in sinus mechanism with no evidence of malignant arrhythmia. He is not very active physically because of his Parkinson's disease. His systolic function has been normal in the past. His troponin on presentation was 2.1 it is down to 1.7 today. His NT proBNP 6200. Medications: Lipitor 40 mg daily, Sinemet, Plavix, Aricept, Imdur 30 mg daily, Cozaar 100 mg daily, Lopressor 20 mg twice a day, aspirin, verapamil, Flomax, Seroquel 08/08 Patient seen and examined. Patient somnolent however arousable. Not answering questions appropriately. Heparin drip was discontinued yesterday. 08/09 Patient seen and examined. Patient somnolent however arousable. States he is doing "not bad" however not responding more than that. Physical Examination: Vitals reviewed Head: Normocephalic. Eyes: Sclerae nonicteric. Neck: Good carotid upstroke, no bruit, no jugular venous distention. Lungs: Clear to auscultation. Heart: Regular rate and rhythm, S1-S2, no S3, no rub. Systolic ejection murmur. Abdomen: Soft nontender, positive bowel sounds no organomegaly. Extremities: +1 edema, intact distal pulses. Impression: 1. Progressive weakness and change in mental status, Covid 19 positive 2. Troponin elevation, probable secondary to the infection, no symptoms of chest pain or evidence to suggest acute myocardial infarction 3. Mild CHF was preserved systolic function 4. History of CAD 5. History of hypertension 6. History of Parkinson disease 7. History of hyperlipidemia Plan: Bone and elevation and continued weakness and status changes appears related to Covid 19. Continue with current supportive care. No further recommendations from a cardiology standpoint. Please call with any questions. Objective - Vital Signs Vital signs: Vital Signs Temp 99.2 F 08/09/22 08:00 Pulse 83 08/09/22 08:00 Resp 20 08/09/22 08:00 BP 161/78 08/09/22 08:00 Pulse Ox 93 L 08/09/22 08:00 FiO2 Intake & Output 08/08/22 08/09/22 08/09/22 18:59 06:59 18:59 Weight 120.202 kg Other: Voiding Method Diaper Diaper Diaper Incontinent Incontinent Incontinent # Voids 2 - Labs CBC & Chem 7: 08/08/22 06:10 08/08/22 06:10 Labs: Abnormal Lab Results - Last 24 Hours (Table) 08/08/22 08/08/22 08/09/22 Range/Units 16:27 20:15 02:33 POC Glucose (mg/dL) 125 H 118 H 127 H (70-110) mg/dL 08/09/22 Range/Units 11:30 POC Glucose (mg/dL) 114 H (70-110) mg/dL
[2022-08-09] MEDS: DONEPEZIL 10 MG TAB PO SCH (15:11)
[2022-08-09 16:17] LABS: Glucose,Whole Blood 104 mg/dL (70-110)
--- NOTE | 2022-08-09 19:53 | P.PN ---
Subjective Progress Note Date: 08/09/22 76-year-old male with known history of coronary artery disease he came in with the complaints of altered mental status although patient has advanced dementia patient appears to have not in lucid and aphasia. Patient is also found to have Covid 19 infection significant to begin to some of the delirium. Patient was having progressive weakness and troponins were done which are elevated to around 2.2 which are believed to be secondary to influenza viral infection patient is not a good historian although denied any chest discomfort are difficult in breathing patient had a BNP of 6200 is presently on IV Lasix. 08/08/2022 Patient is seen and evaluated in follow-up this morning continues to be confused and obtunded and appears dry with cardiology and pulmonary following for Covid 19. Concerns for a mild acute exacerbation and was started on IV Lasix although appears dry as mentioned previously and will give gentle saline hydration and follow-up with repeat labs. Potassium slightly low and will replace per protocol. Case management following and working with spouse and working on possible ECF. Patient to continue with anticoagulation in the form of Lovenox for DVT prophylaxis. Patient is currently afebrile and not requiring oxygen 91- 95% on room air. Patient has not eating and continues to be confused and mostly somnolent. No reports of chest pain or shortness of breath noted. 08/09/2022 Patient is seen in follow-up today and received IV fluids and awaiting follow-up labs from this morning. Patient with wet gurgling crackles noted in the lung bautista and minimally responsive. Patient is arousable to name but falls back asleep. Patient failed his swallow eval and is currently nothing by mouth. Patient is no code with multiple comorbidities and need to discuss possible ho spice with family. Attempted to call and will attempt again. Pulmonary following with concerns of possible underlying infection although patient is afebrile with no white count. Patient being initiated on ceftriaxone and cultures including blood, urine ordered and pending at this time. Patient is currently having low-grade temps and obtunded but arousable with no reports of chest pain or shortness of breath noted. REVIEW OF SYSTEMS: Not a reliable historian PHYSICAL EXAMINATION: GENERAL: The patient is alert and oriented x1 when aroused by name although falls right back asleep, not in any acute distress, somnolent. Well developed, well nourished. Obese HEENT: Pupils are round and equally reacting to light. EOMI. No scleral icterus. No conjunctival pallor. Normocephalic, atraumatic. No pharyngeal erythema. No thyromegaly. CARDIOVASCULAR: S1 and S2 present. No murmurs, rubs, or gallops. PULMONARY: Audible crackles noted tracheal and also some crackles noted at the bases with scattered rhonchi ABDOMEN: Soft, nontender, obese, nondistended,hypo active bowel sounds. No palpable organomegaly. MUSCULOSKELETAL: No joint swelling or deformity. EXTREMITIES: No cyanosis, clubbing, or pedal edema. Generalized edema noted throughout NEUROLOGICAL: Gross neurological examination did not reveal any focal deficits. Patient has generalized weakness patient is confused appears to be baseline or slightly worse SKIN: No rashes. Large ecchymosis noted on left side of rib cage and upper armpit From recent fall Assessment: -Altered mental status secondary to toxic encephalopathy from COVID-19 infection and also a component of possible slight CHF exacerbation. -Troponin elevation believed to be secondary to COVID-19 infection, ACS ruled out by cardiology -Acute COVID-19 infection with no respiratory symptoms -Congestive heart failure failure chronic diastolic dysfunction with mild acute exacerbation -History of coronary artery disease -Hypertension -Parkinson disease -Hyperlipidemia -Dementia appears to be advanced probably vascular dementia -DVT prophylaxis: Lovenox -No code Plan: Recommend to continue with current medications and management with pulmonary and cardiology following. Patient failed swallow and currently many of medications are the and patient is currently nothing by mouth for now. Attempt to contact spouse and need to talk about overall treatment plan as patient is no code and recommend considering hospice and will discuss further with family and case management. Patient appears dry and not eating or drinking will give some gentle IV hydra tion and follow-up on repeat labs Patient having low-grade temps with continuing worsening condition with concerns for possible infection with pro-calcitonin ordered and patient being started on ceftriaxone and blood and urine cultures ordered Recommend follow-up labs PT/OT to evaluate the patient for possible ECF in case management is following. Patient will need a Covid hub when stable for discharge Radiology and pulmonary following. Need to discuss treatment plan with and family and will call again in the a.m. Overall Prognosis is poor and guarded The impression and plan of care has been dictated by Janet Rehman, Nurse Practitioner as directed. MD Kinsey I have performed a history and examination and MDM of this patient, discussed the same with the dictator, and agree with the dictator's assessment and plan as written ,documented as a scribe. Based on total visit time, I have performed more than 50% of the visit. Objective - Vital Signs Vital signs: Vital Signs Temp 99.2 F 08/09/22 08:00 Pulse 83 08/09/22 08:00 Resp 20 08/09/22 08:00 BP 161/78 08/09/22 08:00 Pulse Ox 93 L 08/09/22 08:00 FiO2 Intake & Output 08/08/22 08/09/22 08/09/22 18:59 06:59 18:59 Weight 120.202 kg Other: Voiding Method Diaper Diaper Diaper Incontinent Incontinent Incontinent # Voids 2 - Labs CBC & Chem 7: 08/08/22 06:10 08/08/22 06:10 Labs: Abnormal Lab Results - Last 24 Hours (Table) 08/08/22 08/08/22 08/08/22 Range/Units 11:15 16:27 20:15 POC Glucose (mg/dL) 145 H 125 H 118 H (70-110) mg/dL 08/09/22 Range/Units 02:33 POC Glucose (mg/dL) 127 H (70-110) mg/dL
[2022-08-09 20:11] LABS: Glucose,Whole Blood 104 mg/dL (70-110)
[2022-08-10] MEDS: SODIUM CHLORIDE 0.9% 1,000 ML IV SCH (06:07)
[2022-08-10] MEDS: PANTOPRAZOLE 40 MG TABLET PO SCH (06:07)
[2022-08-10 06:11] LABS: Glucose,Whole Blood 147 mg/dL (70-110)
[2022-08-10] MEDS: ENOXAPARIN 40 MG/0.4 ML SYRINGE SQ SCH (09:27)
[2022-08-10] MEDS: DULoxetine HCL 60 MG CAPSULE.DR PO SCH (12:04)
[2022-08-10] MEDS: CLOPIDOGREL 75 MG TAB PO SCH (12:04)
[2022-08-10] MEDS: ASPIRIN 81 MG PO SCH (12:04)
[2022-08-10] MEDS: ATORVASTATIN 40 MG TAB PO SCH (12:04)
[2022-08-10] MEDS: FUROSEMIDE 20 MG TAB PO SCH (12:04)
[2022-08-10] MEDS: CARBIDOPA-LEVODOPA 25-100 MG 1 EACH TAB PO SCH (12:04)
[2022-08-10] MEDS: FAMOTIDINE 20 MG TAB PO SCH (12:04)
[2022-08-10] MEDS: LOSARTAN 50 MG TAB PO SCH (12:05)
[2022-08-10] MEDS: GLIMEPIRIDE 1 MG TAB PO SCH (12:05)
[2022-08-10] MEDS: VERAPAMIL SR 180 MG TABLET.ER PO SCH (12:05)
[2022-08-10] MEDS: METOPROLOL TARTRATE 50 MG TAB PO SCH (12:05)
[2022-08-10] MEDS: TAMSULOSIN 0.4 MG CAP.ER.24H PO SCH (12:05)
[2022-08-10] MEDS: ISOSORBIDE MONONITRATE ER 30 MG TAB.ER.24H PO SCH (12:05)
[2022-08-10] MEDS: PREGABALIN 75 MG CAP PO SCH (12:05)
--- NOTE | 2022-08-10 12:14 | P.GSCN ---
History of Present Illness Consult date: 08/10/22 Reason for Consult: sacral decubitus Requesting physician: Violet Lynn History of present illness: this is a very debilitated 76-year-old gentleman who is admitted to the hospital with progressive failure to thrive and mental changes. He has numerous medical comorbidities. The most germane at this time include severely altered mental status and debilitating Parkinson's. He has had a progressive sacral decubiti w hich we've been asked to address. Past Medical History Past Medical History: Coronary Artery Disease (CAD), Diabetes Mellitus, Hyperlipidemia, Hypertension, Myocardial Infarction (NV), Osteoarthritis (OA) Additional Past Medical History / Comment(s): NIDDM type II, vertigo in September 2016 thought to be labyrinthitis-also had elevated troponins-stress test done and was negative, arthritis multiple joints. Last Myocardial Infarction Date:: 1996 History of Any Multi-Drug Resistant Organisms: None Reported Past Surgical History: Heart Catheterization With Stent, Joint Replacement, Tonsillectomy Additional Past Surgical History / Comment(s): 1996 PCI with stent, L/RT HIP REPLACEMENTS, EXPLORATORY LAP with spleen injury, EPIDURAL INJ. in back, lumbar fusion, colonoscopy, vasectomy. Past Anesthesia/Blood Transfusion Reactions: Previous Problems w/ Anesthesia Additional Past Anesthesia/Blood Transfusion Reaction / Comm: STATES POST EPIDURAL INJ HAD A HARD TIME WAKING UP.pt /family stated pt can't take any narcotics-becomes very confused. pt can take tylenol extra strength for pain. Date of Last Stent Placement:: 1996 Past Psychological History: No Psychological Hx Reported Additional Psychological History / Comment(s): Pt resides with his spouse who happens to be recovering from a total knee replacement. Pt is independent. Smoking Status: Never smoker Past Alcohol Use History: None Reported Additional Past Alcohol Use History / Comment(s): started smoking 1965, quit in 1988. Past Drug Use History: None Reported - Past Family History Mother Family Medical History: Congestive Heart Failure (CHF), Hypertension Additional Family Medical History / Comment(s): bipolar Father Family Medical History: Coronary Artery Disease (CAD), Myocardial Infarction (NV) Medications and Allergies Home Medications Medication Instructions Recorded Confirmed Type Metoprolol Tartrate [Lopressor] 100 mg PO BID@1000,2200 07/01/15 08/06/22 History Multivitamin [Men's Multi-Vitamin] 1 tab PO DAILY@1000 07/01/15 08/06/22 History Verapamil HCl [Verapamil ER] 180 mg PO BID@1000,2200 07/01/15 08/06/22 History Aspirin EC [Ecotrin Low Dose] 81 mg PO DAILY@1000 09/28/16 08/06/22 History metFORMIN HCL [Glucophage] 1,000 mg PO BID@1000,2200 12/14/16 08/06/22 History Atorvastatin [Lipitor] 40 mg PO DAILY@1000 12/13/19 08/06/22 History Carbidopa-Levodopa 25-100 mg 2 tab PO TID@0900,1300,1700 12/13/19 08/06/22 History [Sinemet 25-100 mg] DULoxetine HCL [Cymbalta] 60 mg PO BID@1000,2200 12/13/19 08/06/22 History Donepezil [Aricept] 10 mg PO DAILY@1700 12/13/19 08/06/22 History Glimepiride [Amaryl] 1 mg PO BID@1000,2200 12/13/19 08/06/22 History Losartan Potassium [Cozaar] 100 mg PO DAILY@1000 12/13/19 08/06/22 History hydroCHLOROthiazide 25 mg PO DAILY@1000 12/13/19 08/06/22 History Cyanocobalamin (Vitamin B-12) 1,000 mcg PO DAILY@1000 03/06/20 08/06/22 History [Vitamin B-12] Pregabalin [Lyrica] 75 mg PO BID@0900,1700 03/06/20 08/06/22 History Tamsulosin HCl [Flomax] 0.4 mg PO DAILY@1200 03/06/20 08/06/22 History Cholecalciferol [Vitamin D3 (25 50 mcg PO DAILY@1000 12/07/21 08/06/22 History Mcg = 1000 Iu)] Isosorbide Mononitrate ER [Imdur] 30 mg PO DAILY@1000 12/07/21 08/06/22 History amantadine HCL [Amantadine] 100 mg PO DAILY@0900 12/07/21 08/06/22 History Clopidogrel [Plavix] 75 mg PO DAILY #30 tab 12/11/21 08/06/22 Rx Nitroglycerin Sl Tabs [Nitrostat] 0.4 mg SL Q5M PRN 06/10/22 08/06/22 History Zinc Gluconate [Zinc] 50 mg PO DAILY@1000 06/10/22 08/06/22 History Omeprazole 40 mg PO DAILY 08/06/22 08/06/22 History Allergies Allergy/AdvReac Type Severity Reaction Status Date / Time narcotics AdvReac Hallucinati Uncoded 08/06/22 22:00 ons opiates AdvReac Hallucinati Uncoded 08/06/22 22:00 ons Surgical - Exam Osteopathic Statement: *. No significant issues noted on an osteopathic structural exam other than those noted in the History and Physical/Consult. Vital Signs Temp Pulse Resp BP Pulse Ox 99.4 F 98 20 176/98 99 08/06/22 19:20 08/06/22 19:20 08/06/22 19:20 08/06/22 19:20 08/06/22 19:20 the patient has no currently open heel ulcers. He does have, what appears to be, a stage II sacral decubitus over an area about 8 x 8 cm. There is some drainage and mild motion us of the tissues with some epidermal and dermal br eakdown. Results - Labs 08/08/22 06:10 08/08/22 06:10 Abnormal Lab Results - Last 24 Hours (Table) 08/10/22 Range/Units 06:09 POC Glucose (mg/dL) 147 H (70-110) mg/dL Assessment and Plan (1) Sacral decubitus ulcer, stage II Current Visit: Yes Status: Acute Code(s): L89.152 - PRESSURE ULCER OF SACRAL REGION, STAGE 2 SNOMED Code(s): 03990932724227 (2) Type 2 diabetes mellitus with other skin ulcer Current Visit: Yes Status: Acute Code(s): E11.622 - TYPE 2 DIABETES MELLITUS WITH OTHER SKIN ULCER; L98.499 - NON-PRESSURE CHRONIC ULCER OF SKIN OF SITES W UNSP SEVERITY SNOMED Code(s): 152523508 Plan: I discussed with the nurse and have recommended a very simple regimen. I would pad the heels to protect breakdown and for comfort as one is able. I would utilize triad over the sacral decubitus. You could simply cover the triad with the sacral bordered foam as you're able. We appreciate Any to assist in this unfortunate gentleman scare. Contact us if we can be of further assistance.
[2022-08-10] MEDS ORDERED: HYDROPHILIC CREAM 180 GM TUBE TOPICAL SCH (12:15)
[2022-08-10] MEDS ORDERED: MORPHINE SULFATE 4 MG/ML SYRINGE IVP PRN (12:36)
[2022-08-10] MEDS ORDERED: LORazepam 2 MG/ML INJ IV PRN (12:36)
--- NOTE | 2022-08-10 13:18 | P.PN ---
Subjective Progress Note Date: 08/10/22 76-year-old male with known history of coronary artery disease he came in with the complaints of altered mental status although patient has advanced dementia patient appears to have not in lucid and aphasia. Patient is also found to have Covid 19 infection significant to begin to some of the delirium. Patient was having progressive weakness and troponins were done which are elevated to around 2.2 which are believed to be secondary to influenza viral infection patient is not a good historian although denied any chest discomfort are difficult in breathing patient had a BNP of 6200 is presently on IV Lasix. 08/08/2022 Patient is seen and evaluated in follow-up this morning continues to be confused and obtunded and appears dry with cardiology and pulmonary following for Covid 19. Concerns for a mild acute exacerbation and was started on IV Lasix although appears dry as mentioned previously and will give gentle saline hydration and follow-up with repeat labs. Potassium slightly low and will replace per protocol. Case management following and working with spouse and working on possible ECF. Patient to continue with anticoagulation in the form of Lovenox for DVT prophylaxis. Patient is currently afebrile and not requiring oxygen 91- 95% on room air. Patient has not eating and continues to be confused and mostly somnolent. No reports of chest pain or shortness of breath noted. 08/09/2022 Patient is seen in follow-up today and received IV fluids and awaiting follow-up labs from this morning. Patient with wet gurgling crackles noted in the lung bautista and minimally responsive. Patient is arousable to name but falls back asleep. Patient failed his swallow eval and is currently nothing by mouth. Patient is no code with multiple comorbidities and need to discuss possible ho spice with family. Attempted to call and will attempt again. Pulmonary following with concerns of possible underlying infection although patient is afebrile with no white count. Patient being initiated on ceftriaxone and cultures including blood, urine ordered and pending at this time. Patient is currently having low-grade temps and obtunded but arousable with no reports of chest pain or shortness of breath noted. 08/10/2022 Patient is seen in follow-up today with and daughter at the bedside have requested visiting nurses for hospice services. Patient's clinically deteriorating and obtunded unable to swallow and failed his swallow eval yesterday. Patient not taking any oral medications and also now having fevers and being treated with Covid. Patient with a significant history of Parkinson's with dementia and poor quality of life. Family would like to make him comfortable. Will await hospice consultation. REVIEW OF SYSTEMS: Obtunded and minimally responsive PHYSICAL EXAMINATION: GENERAL: The patient is alert and oriented x0 obtunded and unresponsive, somnolent. Well developed, well nourished. Obese. Significant muscle wasting noted HEENT: Pupils are round and equally reacting to light. EOMI. No scleral icterus. No conjunctival pallor. Normocephalic, atraumatic. No pharyngeal erythema. No thyromegaly. CARDIOVASCULAR: S1 and S2 present. No murmurs, rubs, or gallops. PULMONARY: Audible crackles noted tracheal and also some crackles noted at the bases with scattered rhonchi ABDOMEN: Soft, nontender, obese, nondistended,hypo active bowel sounds. No palpable organomegaly. MUSCULOSKELETAL: No joint swelling or deformity. EXTREMITIES: No cyanosis, clubbing, or pedal edema. Generalized edema noted throughout NEUROLOGICAL: Gross neurological examination did not reveal any focal deficits. Patient has generalized weakness patient is confused appears to be baseline or slightly worse SKIN: No rashes. Large ecchymosis noted on left side of rib cage and upper armpit From recent fall Assessment: -Altered mental status secondary to toxic encephalopathy from COVID-19 infection and also a component of possible slight CHF exacerbation. -Troponin elevation believed to be secondary to COVID-19 infection, ACS ruled out by cardiology -Acute COVID-19 infection with no respiratory symptoms -Congestive heart failure failure chronic diastolic dysfunction with mild acute exacerbation -History of coronary artery disease -Hypertension -Parkinson disease -Hyperlipidemia -Dementia appears to be advanced probably vascular dementia -DVT prophylaxis: Lovenox -No code Plan: Recommend to continue with comfort medications and awaiting visiting nurses hospice consult. Family would like possible inpatient GIP or hospice house. Patient clinically is declining and failed his swallow unable to tolerate any by mouth intake with high risk for aspirations. Patient is now having fevers and also being treated for Covid. Patient with significant history of dementia along with Parkinson's and family feels he has no quality of life and would like him comfortable. Will continue with comfort measures and patient will likely need inpatient GIP hospice comfort measures only. Overall Prognosis is poor and guarded The impression and plan of care has been dictated by Janet Rehman, Nurse Practitioner as directed. MD Kinsey I have performed a history and examination and MDM of this patient, discussed the same with the dictator, and agree with the dictator's assessment and plan as written ,documented as a scribe. Based on total visit time, I have performed more than 50% of the visit. Objective - Vital Signs Vital signs: Vital Signs Temp 100.8 F H 08/10/22 08:00 Pulse 122 H 08/10/22 08:00 Resp 26 H 08/10/22 08:00 BP 186/101 08/10/22 08:00 Pulse Ox 96 08/10/22 08:00 FiO2 Intake & Output 08/09/22 08/10/22 08/10/22 18:59 06:59 18:59 Intake Total 200 Balance 200 Intake: Intake, IV Titration 200 Amount Cefepime 2 gm In Sodium 100 Chloride 0.9% 100 ml @ 25 mls/hr IVPB Q8H DAVID Rx#: [id number] cefTRIAXone 1 gm In 100 Sodium Chloride 0.9% 50 ml @ 100 mls/hr IVPB Q24HR DAVID Rx#:[id number] Other: Voiding Method Diaper Diaper Incontinent Incontinent # Voids 1 2 - Labs CBC & Chem 7: 08/08/22 06:10 08/08/22 06:10 Labs: Abnormal Lab Results - Last 24 Hours (Table) 08/09/22 08/10/22 Range/Units 11:30 06:09 POC Glucose (mg/dL) 114 H 147 H (70-110) mg/dL
--- NOTE | 2022-08-10 13:46 | P.PN ---
Subjective Progress Note Date: 08/10/22 76-year-old male patient was hospitalized for generalized weakness, altered mentation, Covid 19 infection and incentive the patient was found to have an elevated troponin level. The patient is known to have coronary artery and CHF with preserved LV function. The patient also has hypertension, hyperlipidemia and Parkinson's disease. The patient has undergone previous stenting of the LAD back in 1986 and subsequent stenting of the OM branch of RCA in November 2001. Patient been having generalized weakness. Some limited cough. No dizziness. No chest pain. The patient's was getting progressively more dehydrated and the made recommendations to send to the hospital. The patient is a poor hist orian. He himself denies having any shortness of breath. The blood work is current admission shows a WBC count of 4.6 hemoglobin of 14.4 sodium of 1 4317- 0.8, normal coagulation profile, LFTs show an AST of 93, AST of 76, alkaline phosphatase 95, proBNP level of 6200, troponin peaked at 2.1 and the lactic acid level of 1.3. UA showed RBCs and plus for protein. The chest x-rays showing some mild pulmonary vascular congestion. Patient is currently on room air oxygen. The patient is seen today 08/08/2022 in follow-up in the selective care unit. He is currently resting comfortably in bed. Awake and alert in no acute distress. He is maintaining O2 saturations in the 90s on room air. He does appear quite dry today his lips are dry. Dry oral mucosa. White count 3.3. Hemoglobin 11.1. Platelets 116. Sodium 142. Potassium 3.6. Bicarb 20. Creatinine 1.05. Glucose 125. He is continued on diuretics. Lovenox for DVT prophylaxis. The patient is seen today 08/09/2022 in follow-up on the selective care unit. He remains overweight. Maintaining O2 saturations in the 90s on room air. Slightly febrile with a temperature 99.2 axillary. He has a loose nonproductive cough. He did fail a swallow evaluation. He is currently nothing by mouth. Continues on normal saline at 75 ML's per hour. He is initiated on antibiotics in the form of ceftriaxone. Blood, urine and sputum cultures pending. Pro- calcitonin pending. Continued on oral diuretics. Lovenox for DVT prophylaxis. Patient is seen today 08/10/2022 followed on the selective care unit. He is currently resting in bed. Minimally arousable at this time. Continues to maintain good O2 saturations in the 90s on 2 L/m per nasal cannula. He is currently febrile with a temperature of 100.8 axillary. Tachycardic. Tachyp neic. Hypertensive. Blood cultures revealed no growth. Blood sugar 147. Pro calcitonin 0.07. He is currently on ceftriaxone. Objective - Vital Signs Vital signs: Vital Signs Temp 100.8 F H 08/10/22 08:00 Pulse 122 H 08/10/22 08:00 Resp 26 H 08/10/22 08:00 BP 186/101 08/10/22 08:00 Pulse Ox 96 08/10/22 08:00 FiO2 Intake & Output 08/09/22 08/10/22 08/10/22 18:59 06:59 18:59 Intake Total 200 Balance 200 Intake: Intake, IV Titration 200 Amount Cefepime 2 gm In Sodium 100 Chloride 0.9% 100 ml @ 25 mls/hr IVPB Q8H DAVID Rx#: [id number] cefTRIAXone 1 gm In 100 Sodium Chloride 0.9% 50 ml @ 100 mls/hr IVPB Q24HR DAVID Rx#:[id number] Other: Voiding Method Diaper Diaper Incontinent Incontinent # Voids 1 2 - Exam The patient is a 76-year-old male patient, currently on 2 L nasal cannula. He is now minimally responsive. Arousable. Appeared well nourished and normally developed. Vital signs as documented. Head exam is unremarkable. No scleral icterus or corneal arcus noted. Neck is without jugular venous distension, thyromegaly, or carotid bruits. Carotid upstrokes are brisk bilaterally. Lungs are clear to auscultation and percussion. Cardiac exam reveals the PMI to be normally sized and situated. Rhythm is regular. First and second heart sounds normal. No murmurs, rubs or gallops. Abdominal exam reveals normal bowel sounds, no masses, no organomegaly and no aortic enlargement. Extremities are nonedematous and both femoral and pedal pulses are normal. Examination of the skin revealed no evidence of significant rashes, suspicious appearing nevi. There is significant ecchymosis on the left chest and back secondary to previous fall. - Labs CBC & Chem 7: 08/08/22 06:10 08/08/22 06:10 Labs: Abnormal Lab Results - Last 24 Hours (Table) 08/10/22 Range/Units 06:09 POC Glucose (mg/dL) 147 H (70-110) mg/dL Microbiology - Last 24 Hours (Table) 08/09/22 10:53 Blood Culture - Preliminary Blood No Growth after 24 hours Assessment and Plan Assessment: Acute Covid 19 infection, no evidence of pneumonia and the patient is currently on 2 L per nasal cannula oxygen. progress to 0.07. Febrile illness secondary to above, rule out underlying bacterial infection. Procalcitonin 0.07. On ceftriaxone. Blood, sputum and urine cultures pending. Weakness and dehydration probably related to Covid 19 infection Falls at home secondary to above with ecchymosis on left chest and back Coronary artery disease with previous coronary intervention and stenting of the LAD and OM1 and RCA CHF with preserved LV function Elevated troponins, awaiting a cardiology recommendation Hypertension Hyperlipidemia Parkinson disease Diabetes mellitus type 2 Previous history of vertigo Osteoarthritis BPH Plan: The patient was seen and evaluated Medications and labs reviewed Febrile illness, cultures pending Currently on ceftriaxone Minimally arousable today Family is meeting with hospice DO NOT RESUSCITATE/DO NOT INTUBATE CODE STATUS We will sign off the case I have personally seen and examined the patient, performed the documentation and the assessment and plan as written. Number of minutes spent on the visit: 10.
[2022-08-10 14:42] VITALS: BP 182/95; PULSE 114; RESP 32; TEMP 101.8
--- NOTE | 2022-08-10 16:13 | P.DS ---
Providers Date of admission: 08/06/22 23:58 Expected date of discharge: 08/10/22 Attending physician: Violet Lynn Consults: 08/06/22 23:15 Consult Physician Routine Consulting Provider: Jeb Villalpando Consult Reason/Comments: covid 19 Do you want consulting provider notified?: Yes Primary care physician: Erick Cheatham Hospital Course: Final diagnosis -Altered mental status secondary to toxic encephalopathy from COVID-19 infection and also a component of possible slight CHF exacerbation. -Troponin elevation believed to be secondary to COVID-19 infection, ACS ruled ou t by cardiology -Acute COVID-19 infection with no respiratory symptoms -Congestive heart failure failure chronic diastolic dysfunction with mild acute exacerbation -History of coronary artery disease -Hypertension -Parkinson disease -Hyperlipidemia -Dementia appears to be advanced probably vascular dementia -DVT prophylaxis: Lovenox -No code Discharge disposition Patient is being made [facility] inpatient hospice with visiting nurses as he meets criteria. Patient will be placed on comfort measures per family request. Please refer to previous dictations for further HPI. Total time taken is gre ater than 35 minutes. Hospital course This is a 76-year-old male who was recently admitted with falls and weakness found to have Covid and was being closely monitored. Patient continued to clinically deteriorate becoming more obtunded with no improvement failing swallow unable to tolerate any oral intake and minimally responsive. Patient was no code with a past medical history of extensive dementia and Parkinson's and family wish to proceed with making him comfortable. Visiting nurses following an being made hospice GIP appropriate. Please refer to previous dictations for further HPI. Currently no reports of chest pain, shortness of breath, or palpitations. Patient is having fevers . Not eating anything and unable to tolerate any oral intake or medicines. Physical exam: Gen: This is a 76-year-old male who is obtunded, unresponsive, ill-appearing, morbidly obese HEENT: Head is atraumatic, normocephalic. Pupils equal, round. Sclerae is anicteric. NECK: Supple. No JVD. No lymphadenopathy. No thyromegaly. LUNGS: Scattered rhonchi and crackles noted throughout with belly breathing noted No intercostal retractions. HEART: S1, S2 are muffled, tachycardia ABDOMEN: Soft. Obese. Bowel sounds are present. No masses. No tenderness. EXTREMITIES: No pedal edema. No calf tenderness. NEUROLOGICAL: Patient is obtunded and unarousable Please refer to medication reconciliation sheet for a list of medications. The impression and plan of care has been dictated by Janet Rehman, Nurse Practitioner as directed. Dr. Winter MD I have performed a history and examination and MDM of this patient, discussed the same with the dictator, and agree with the dictator's assessment and plan as written ,documented as a scribe. Based on total visit time, I have performed more than 50% of the visit. Patient Condition at Discharge: Poor Plan - Discharge Summary Discharge Rx Participant: No New Discharge Prescriptions: No Action Verapamil HCl [Verapamil ER] 180 mg PO BID@1000,2200 Metoprolol Tartrate [Lopressor] 100 mg PO BID@1000,2200 Multivitamin [Men's Multi-Vitamin] 1 tab PO DAILY@1000 Aspirin EC [Ecotrin Low Dose] 81 mg PO DAILY@1000 metFORMIN HCL [Glucophage] 1,000 mg PO BID@1000,2200 hydroCHLOROthiazide 25 mg PO DAILY@1000 Losartan Potassium [Cozaar] 100 mg PO DAILY@1000 Carbidopa-Levodopa 25-100 mg [Sinemet 25-100 mg] 2 tab PO TID@0900,1300,1700 Donepezil [Aricept] 10 mg PO DAILY@1700 DULoxetine HCL [Cymbalta] 60 mg PO BID@1000,2200 Glimepiride [Amaryl] 1 mg PO BID@1000,2200 Atorvastatin [Lipitor] 40 mg PO DAILY@1000 Tamsulosin HCl [Flomax] 0.4 mg PO DAILY@1200 Pregabalin [Lyrica] 75 mg PO BID@0900,1700 Cyanocobalamin (Vitamin B-12) [Vitamin B-12] 1,000 mcg PO DAILY@1000 amantadine HCL [Amantadine] 100 mg PO DAILY@0900 Cholecalciferol [Vitamin D3 (25 Mcg = 1000 Iu)] 50 mcg PO DAILY@1000 Isosorbide Mononitrate ER [Imdur] 30 mg PO DAILY@1000 Clopidogrel [Plavix] 75 mg PO DAILY #30 tab Zinc Gluconate [Zinc] 50 mg PO DAILY@1000 Nitroglycerin Sl Tabs [Nitrostat] 0.4 mg SL Q5M PRN PRN Reason: Chest Pain Omeprazole 40 mg PO DAILY Discharge Medication List Metoprolol Tartrate [Lopressor] 100 mg PO BID@1000,219907/01/15 [History] Multivitamin [Men's Multi-Vitamin] 1 tab PO DAILY@99907/01/15 [History] Verapamil HCl [Verapamil ER] 180 mg PO BID@1000,219907/01/15 [History] Aspirin EC [Ecotrin Low Dose] 81 mg PO DAILY@99909/28/16 [History] metFORMIN HCL [Glucophage] 1,000 mg PO BID@1000,219912/14/16 [History] Atorvastatin [Lipitor] 40 mg PO DAILY@99912/13/19 [History] Carbidopa-Levodopa 25-100 mg [Sinemet 25-100 mg] 2 tab PO TID@0900,1300,169912/13/19 [History] DULoxetine HCL [Cymbalta] 60 mg PO BID@1000,219912/13/19 [History] Donepezil [Aricept] 10 mg PO DAILY@169912/13/19 [History] Glimepiride [Amaryl] 1 mg PO BID@1000,219912/13/19 [History] Losartan Potassium [Cozaar] 100 mg PO DAILY@99912/13/19 [History] hydroCHLOROthiazide 25 mg PO DAILY@99912/13/19 [History] Cyanocobalamin (Vitamin B-12) [Vitamin B-12] 1,000 mcg PO DAILY@99903/06/20 [History] Pregabalin [Lyrica] 75 mg PO BID@0900,1700 03/06/20 [History] Tamsulosin HCl [Flomax] 0.4 mg PO DAILY@1200 03/06/20 [History] Cholecalciferol [Vitamin D3 (25 Mcg = 1000 Iu)] 50 mcg PO DAILY@99912/07/21 [History] Isosorbide Mononitrate ER [Imdur] 30 mg PO DAILY@99912/07/21 [History] amantadine HCL [Amantadine] 100 mg PO DAILY@0912/07/21 [History] Clopidogrel [Plavix] 75 mg PO DAILY #30 tab 12/11/21 [Rx] Nitroglycerin Sl Tabs [Nitrostat] 0.4 mg SL Q5M PRN 06/10/22 [History] Zinc Gluconate [Zinc] 50 mg PO DAILY@1000 06/10/22 [History] Omeprazole 40 mg PO DAILY 08/06/22 [History] Follow up Appointment(s)/Referral(s): Erick Cheatham MD [Primary Care Provider] - 1-2 days Discharge Disposition: DISCH TO [facility]
== END 2022-08-10 14:49 | disposition hospice, inpatient (51) | DRG 177 ==
LOC: EC 19:16 → 3SCARD 23:58
PROVIDERS: ADMIT Hospitalist; ATTEND Hospitalist
DX: U07.1 COVID-19 (principal); G92.9 Unspecified toxic encephalopathy; I50.43 Acute on chronic combined systolic (congestive) and diastolic (congestive) heart failure; F05 Delirium due to known physiological condition; G20 Parkinson's disease; F01.50 Vascular dementia, unspecified severity, without behavioral disturbance, psychotic disturbance, mood disturbance, and anxiety; I11.0 Hypertensive heart disease with heart failure; F02.80 Dementia in other diseases classified elsewhere, unspecified severity, without behavioral disturbance, psychotic disturbance, mood disturbance, and anxiety; E66.01 Morbid (severe) obesity due to excess calories; E11.9 Type 2 diabetes mellitus without complications; L89.152 Pressure ulcer of sacral region, stage 2; J11.81 Influenza due to unidentified influenza virus with encephalopathy; R62.7 Adult failure to thrive; I25.10 Atherosclerotic heart disease of native coronary artery without angina pectoris; M19.90 Unspecified osteoarthritis, unspecified site; N40.0 Benign prostatic hyperplasia without lower urinary tract symptoms; R77.8 Other specified abnormalities of plasma proteins; R53.81 Other malaise; Z51.5 Encounter for palliative care; Z66 Do not resuscitate; S20.212A Contusion of left front wall of thorax, initial encounter; E78.5 Hyperlipidemia, unspecified; S20.222A Contusion of left back wall of thorax, initial encounter; W19.XXXA Unspecified fall, initial encounter; R42 Dizziness and giddiness; M62.50 Muscle wasting and atrophy, not elsewhere classified, unspecified site; J11.1 Influenza due to unidentified influenza virus with other respiratory manifestations; R00.0 Tachycardia, unspecified; R63.0 Anorexia; E86.0 Dehydration; Z96.643 Presence of artificial hip joint, bilateral; Z68.37 Body mass index [BMI] 37.0-37.9, adult; Z79.84 Long term (current) use of oral hypoglycemic drugs; Z79.899 Other long term (current) drug therapy; Z79.82 Long term (current) use of aspirin; Z79.02 Long term (current) use of antithrombotics/antiplatelets; Z88.5 Allergy status to narcotic agent; I25.2 Old myocardial infarction; Z95.5 Presence of coronary angioplasty implant and graft; Z98.1 Arthrodesis status; Z87.891 Personal history of nicotine dependence; Y92.009 Unspecified place in unspecified non-institutional (private) residence as the place of occurrence of the external cause; Z91.81 History of falling
CPT/HCPCS: 36415; 70450; 71046; 80053; 80061; 81001; 83605; 83615; 83735; 83880; 84145; 84484; 85025; 85027; 85379; 85610; 85730; 86140; 87040; 87635; 93005; 96361; 96366; 99285

== ENCOUNTER 2022-08-10 14:56 | Inpatient (IN) | payer OTHER ==
[2022-08-10] MEDS ORDERED: ONDANSETRON 4 MG/2 ML VIAL IVP PRN (15:29)
[2022-08-10] MEDS ORDERED: ATROPINE OPHTH SOLN 1% 5ML BTL SUBLINGUAL PRN (15:29)
[2022-08-10] MEDS ORDERED: haloperidoL 1 MG TAB PO PRN (15:29)
[2022-08-10] MEDS ORDERED: ACETAMINOPHEN IV (For NPO) 1,000 MG in EMPTY BAG 1 BAG IVPB PRN (15:37)
--- NOTE | 2022-08-10 16:16 | P.HPIM ---
History of Present Illness H&P Date: 08/10/22 76-year-old male with known history of coronary artery disease he came in with the complaints of altered mental status although patient has advanced dementia patient appears to have not in lucid and aphasia. Patient is also found to have Covid 19 infection significant to begin to some of the delirium. Patient was having progressive weakness and troponins were done which are elevated to around 2.2 which are believed to be secondary to influenza viral infection patient is not a good historian although denied any chest discomfort are difficult in breathing patient had a BNP of 6200 is presently on IV Lasix. 08/08/2022 Patient is seen and evaluated in follow-up this morning continues to be confused and obtunded and appears dry with cardiology and pulmonary following for Covid 19. Concerns for a mild acute exacerbation and was started on IV Lasix although appears dry as mentioned previously and will give gentle saline hydration and follow-up with repeat labs. Potassium slightly low and will replace per protocol. Case management following and working with spouse and working on poss ible ECF. Patient to continue with anticoagulation in the form of Lovenox for DVT prophylaxis. Patient is currently afebrile and not requiring oxygen 91-95% on room air. Patient has not eating and continues to be confused and mostly somnolent. No reports of chest pain or shortness of breath noted. 08/09/2022 Patient is seen in follow-up today and received IV fluids and awaiting follow-up labs from this morning. Patient with wet gurgling crackles noted in the lung bautista and minimally responsive. Patient is arousable to name but falls back asleep. Patient failed his swallow eval and is currently nothing by mouth. Patient is no code with multiple comorbidities and need to discuss possible hospice with family. Attempted to call and will attempt again. Pulmonary following with concerns of possible underlying infection although patient is afebrile with no white count. Patient being initiated on ceftriaxone and cultures including blood, urine ordered and pending at this time. Patient is currently having low-grade temps and obtunded but arousable with no reports of chest pain or shortness of breath noted. 08/10/2022 Patient is seen in follow-up today with and daughter at the bedside have requested visiting nurses for hospice services. Patient's clinically deteriorating and obtunded unable to swallow and failed his swallow eval yesterday. Patient not taking any oral medications and also now having fevers and being treated with Covid. Patient with a significant history of Parkinson's with dementia and poor quality of life. Family would like to make him comfo rtable. Will await hospice consultation. Update on 08/10/2022 Patient has been made hospice comfort measures only GIP appropriate visiting nurses and been placed on comfort measures only with family at bedside. Refer to previous dictations for further HPI. REVIEW OF SYSTEMS: Obtunded and minimally responsive PHYSICAL EXAMINATION: GENERAL: The patient is alert and oriented x0 obtunded and unresponsive, somnolent. Well developed, well nourished. Obese. Significant muscle wasting noted HEENT: Pupils are round and equally reacting to light. EOMI. No scleral icterus. No conjunctival pallor. Normocephalic, atraumatic. No pharyngeal erythema. No thyromegaly. CARDIOVASCULAR: S1 and S2 present. No murmurs, rubs, or gallops. PULMONARY: Audible crackles noted tracheal and also some crackles noted at the bases with scattered rhonchi ABDOMEN: Soft, nontender, obese, nondistended,hypo active bowel sounds. No palpable organomegaly. MUSCULOSKELETAL: No joint swelling or deformity. EXTREMITIES: No cyanosis, clubbing, or pedal edema. Generalized edema noted throughout NEUROLOGICAL: Gross neurological examination did not reveal any focal deficits. Patient has generalized weakness patient is confused appears to be baseline or slightly worse SKIN: No rashes. Large ecchymosis noted on left side of rib cage and upper armpit From recent fall Assessment: -Altered mental status secondary to toxic encephalopathy from COVID-19 infection and also a component of possible slight CHF exacerbation. -Acute COVID-19 infection -Congestive heart failure failure chronic diastolic dysfunction with mild acute exacerbation -History of coronary artery disease -Hypertension -Parkinson disease -Hyperlipidemia -Dementia appears to be advanced probably vascular dementia -No code Plan: Recommend to continue with comfort medications and patient has been made inpatient hospice with visiting nurses following and will be working on placing comfort measures ordered. Patient is currently on morphine along with Ativan as needed IV as patient is obtunded and unresponsive unable to tolerate any oral intake. We will continue to monitor and follow along with hospice during hospitalization. The impression and plan of care has been dictated by Janet Rehman, Nurse Practitioner as directed. MD Kinsey I have performed a history and examination and MDM of this patient, discussed the same with the dictator, and agree with the dictator's assessment and plan as written ,documented as a scribe. Based on total visit time, I have performed more than 50% of the visit. Past Medical History Past Medical History: Coronary Artery Disease (CAD), Diabetes Mellitus, Hyperlipidemia, Hypertension, Myocardial Infarction (CO), Osteoarthritis (OA) Additional Past Medical History / Comment(s): NIDDM type II, vertigo in September 2016 thought to be labyrinthitis-also had elevated troponins-stress test done and was negative, arthritis multiple joints. Last Myocardial Infarction Date:: 1996 History of Any Multi-Drug Resistant Organisms: None Reported Past Surgical History: Heart Catheterization With Stent, Joint Replacement, Tonsillectomy Additional Past Surgical History / Comment(s): 1996 PCI with stent, L/RT HIP REPLACEMENTS, EXPLORATORY LAP with spleen injury, EPIDURAL INJ. in back, lumbar fusion, colonoscopy, vasectomy. Past Anesthesia/Blood Transfusion Reactions: Previous Problems w/ Anesthesia Additional Past Anesthesia/Blood Transfusion Reaction / Comment(s): STATES POST EPIDURAL INJ HAD A HARD TIME WAKING UP.pt /family stated pt can't take any narcotics-becomes very confused. pt can take tylenol extra strength for pain. Date of Last Stent Placement:: 1996 Past Psychological History: No Psychological Hx Reported Additional Psychological History / Comment(s): Pt resides with his spouse who happens to be recovering from a total knee replacement. Pt is independent. Smoking Status: Never smoker Past Alcohol Use History: None Reported Additional Past Alcohol Use History / Comment(s): started smoking 1965, quit in 1988. Past Drug Use History: None Reported - Past Family History Mother Family Medical History: Congestive Heart Failure (CHF), Hypertension Additional Family Medical History / Comment(s): bipolar Father Family Medical History: Coronary Artery Disease (CAD), Myocardial Infarction (CO) Medications and Allergies Home Medications Medication Instructions Recorded Confirmed Type Metoprolol Tartrate [Lopressor] 100 mg PO BID@1000,0 07/01/15 08/06/22 History Multivitamin [Men's Multi-Vitamin] 1 tab PO DAILY@1000 07/01/15 08/06/22 History Verapamil HCl [Verapamil ER] 180 mg PO BID@1000,0 07/01/15 08/06/22 History Aspirin EC [Ecotrin Low Dose] 81 mg PO DAILY@1000 09/28/16 08/06/22 History metFORMIN HCL [Glucophage] 1,000 mg PO BID@1000,2200 12/14/16 08/06/22 History Atorvastatin [Lipitor] 40 mg PO DAILY@1000 12/13/19 08/06/22 History Carbidopa-Levodopa 25-100 mg 2 tab PO TID@0900,1300,1700 12/13/19 08/06/22 History [Sinemet 25-100 mg] DULoxetine HCL [Cymbalta] 60 mg PO BID@1000,2200 12/13/19 08/06/22 History Donepezil [Aricept] 10 mg PO DAILY@1700 12/13/19 08/06/22 History Glimepiride [Amaryl] 1 mg PO BID@1000,2200 12/13/19 08/06/22 History Losartan Potassium [Cozaar] 100 mg PO DAILY@1000 12/13/19 08/06/22 History hydroCHLOROthiazide 25 mg PO DAILY@1000 12/13/19 08/06/22 History Cyanocobalamin (Vitamin B-12) 1,000 mcg PO DAILY@1000 03/06/20 08/06/22 History [Vitamin B-12] Pregabalin [Lyrica] 75 mg PO BID@0900,1700 03/06/20 08/06/22 History Tamsulosin HCl [Flomax] 0.4 mg PO DAILY@1200 03/06/20 08/06/22 History Cholecalciferol [Vitamin D3 (25 50 mcg PO DAILY@1000 12/07/21 08/06/22 History Mcg = 1000 Iu)] Isosorbide Mononitrate ER [Imdur] 30 mg PO DAILY@1000 12/07/21 08/06/22 History amantadine HCL [Amantadine] 100 mg PO DAILY@0900 12/07/21 08/06/22 History Clopidogrel [Plavix] 75 mg PO DAILY #30 tab 12/11/21 08/06/22 Rx Nitroglycerin Sl Tabs [Nitrostat] 0.4 mg SL Q5M PRN 06/10/22 08/06/22 History Zinc Gluconate [Zinc] 50 mg PO DAILY@1000 06/10/22 08/06/22 History Omeprazole 40 mg PO DAILY 08/06/22 08/06/22 History Allergies Allergy/AdvReac Type Severity Reaction Status Date / Time narcotics AdvReac Hallucinati Uncoded 08/06/22 22:00 ons opiates AdvReac Hallucinati Uncoded 08/06/22 22:00 ons Physical Exam Vitals: Intake and Output 08/10/22 08/10/22 08/10/22 06:59 14:59 22:59 Other: Weight 120.202 kg
[2022-08-10] MEDS: MORPHINE SULFATE (100 MG/2 ML) 100 MG in SODIUM CHLORIDE 0.9% 100 ML IV SCH (16:19)
[2022-08-10] MEDS: LORazepam 2 MG/ML INJ IV PRN ×2 (16:26→20:21)
[2022-08-10] MEDS ORDERED: SCOPOLAMINE 1 MG/72 HR PATCH TRANSDERM SCH (17:00)
[2022-08-10 17:08] LABS: Glucose,Whole Blood 156 mg/dL (70-110)
[2022-08-11] MEDS: LORazepam 2 MG/ML INJ IV PRN (06:47)
[2022-08-11 10:14] VITALS: PULSE 140; RESP 12
[2022-08-11] MEDS: MORPHINE SULFATE (100 MG/2 ML) 100 MG in SODIUM CHLORIDE 0.9% 100 ML IV SCH (11:41)
--- NOTE | 2022-08-15 09:50 | P.DS ---
Providers Date of admission: 08/10/22 14:56 Expected date of discharge: 08/11/22 Attending physician: Violet Lynn Primary care physician: Erick Cheatham Hospital Course: Preliminary cause of COVID-19 infection Final diagnosis -Altered mental status secondary to toxic encephalopathy from COVID-19 infection and also a component of possible slight CHF exacerbation. -Acute COVID-19 infection -Congestive heart failure failure chronic diastolic dysfunction with mild acute exacerbation -History of coronary artery disease -Hypertension -Parkinson disease -Hyperlipidemia -Dementia appears to be advanced probably vascular dementia -No code Discharge disposition Patient has . According to nursing documentation, time of was 1038 on 08/11/2022 and patient had been on hospice comfort measures only with visiting nurses [employer]. Please refer to previous documentations for further HPI. Hospital course This was a 76-year-old male who came in with altered mental status falls and profound weakness found to have COVID-19 infection and having worsening progression along with delirium. Patient had become obtunded and clinically declining with an extensive past medical history of Parkinson's and dementia and family opted for hospice comfort care measures. Visiting nurses following and patient was placed on comfort care measures only. Patient has on 08/11/2022, 10:38 AM. Again please refer to previous dictations for further HPI. The impression and plan of care has been dictated by Janet Rehman, Nurse Practitioner as directed. Dr. roxanna MD I have performed a history and examination and MDM of this patient, discussed the same with the dictator, and agree with the dictator's assessment and plan as written ,documented as a scribe. Based on total visit time, I have performed more than 50% of the visit. Patient Condition at Discharge: Poor Plan - Discharge Summary New Discharge Prescriptions: No Action Verapamil HCl [Verapamil ER] 180 mg PO BID@1000,2200 Metoprolol Tartrate [Lopressor] 100 mg PO BID@1000,2200 Multivitamin [Men's Multi-Vitamin] 1 tab PO DAILY@1000 Aspirin EC [Ecotrin Low Dose] 81 mg PO DAILY@1000 metFORMIN HCL [Glucophage] 1,000 mg PO BID@1000,2200 hydroCHLOROthiazide 25 mg PO DAILY@1000 Losartan Potassium [Cozaar] 100 mg PO DAILY@1000 Carbidopa-Levodopa 25-100 mg [Sinemet 25-100 mg] 2 tab PO TID@0900,1300,1700 Donepezil [Aricept] 10 mg PO DAILY@1700 DULoxetine HCL [Cymbalta] 60 mg PO BID@1000,0 Glimepiride [Amaryl] 1 mg PO BID@1000,2200 Atorvastatin [Lipitor] 40 mg PO DAILY@1000 Tamsulosin HCl [Flomax] 0.4 mg PO DAILY@1200 Pregabalin [Lyrica] 75 mg PO BID@0900,1700 Cyanocobalamin (Vitamin B-12) [Vitamin B-12] 1,000 mcg PO DAILY@1000 amantadine HCL [Amantadine] 100 mg PO DAILY@0900 Cholecalciferol [Vitamin D3 (25 Mcg = 1000 Iu)] 50 mcg PO DAILY@1000 Isosorbide Mononitrate ER [Imdur] 30 mg PO DAILY@1000 Clopidogrel [Plavix] 75 mg PO DAILY #30 tab Zinc Gluconate [Zinc] 50 mg PO DAILY@1000 Nitroglycerin Sl Tabs [Nitrostat] 0.4 mg SL Q5M PRN PRN Reason: Chest Pain Omeprazole 40 mg PO DAILY Discharge Medication List Metoprolol Tartrate [Lopressor] 100 mg PO BID@1000,219907/01/15 [History] Multivitamin [Men's Multi-Vitamin] 1 tab PO DAILY@99907/01/15 [History] Verapamil HCl [Verapamil ER] 180 mg PO BID@1000,219907/01/15 [History] Aspirin EC [Ecotrin Low Dose] 81 mg PO DAILY@1000 09/28/16 [History] metFORMIN HCL [Glucophage] 1,000 mg PO BID@1000,219912/14/16 [History] Atorvastatin [Lipitor] 40 mg PO DAILY@99912/13/19 [History] Carbidopa-Levodopa 25-100 mg [Sinemet 25-100 mg] 2 tab PO TID@0900,1300,17012/13/19 [History] DULoxetine HCL [Cymbalta] 60 mg PO BID@1000,219912/13/19 [History] Donepezil [Aricept] 10 mg PO DAILY@17012/13/19 [History] Glimepiride [Amaryl] 1 mg PO BID@1000,219912/13/19 [History] Losartan Potassium [Cozaar] 100 mg PO DAILY@1000 12/13/19 [History] hydroCHLOROthiazide 25 mg PO DAILY@1000 12/13/19 [History] Cyanocobalamin (Vitamin B-12) [Vitamin B-12] 1,000 mcg PO DAILY@1000 03/06/20 [History] Pregabalin [Lyrica] 75 mg PO BID@0900,1700 03/06/20 [History] Tamsulosin HCl [Flomax] 0.4 mg PO DAILY@1200 03/06/20 [History] Cholecalciferol [Vitamin D3 (25 Mcg = 1000 Iu)] 50 mcg PO DAILY@1000 12/07/21 [History] Isosorbide Mononitrate ER [Imdur] 30 mg PO DAILY@1000 12/07/21 [History] amantadine HCL [Amantadine] 100 mg PO DAILY@0900 12/07/21 [History] Clopidogrel [Plavix] 75 mg PO DAILY #30 tab 12/11/21 [Rx] Nitroglycerin Sl Tabs [Nitrostat] 0.4 mg SL Q5M PRN 06/10/22 [History] Zinc Gluconate [Zinc] 50 mg PO DAILY@1000 06/10/22 [History] Omeprazole 40 mg PO DAILY 08/06/22 [History] Discharge Disposition: - Preliminary Cause of Preliminary Cause of : covid 19 infection
== END 2022-08-11 12:20 | disposition expired | DRG 177 ==
LOC: 3SCARD 14:56
PROVIDERS: ADMIT Hospitalist; ATTEND Hospitalist
DX: U07.1 COVID-19 (principal); G92.9 Unspecified toxic encephalopathy; I50.33 Acute on chronic diastolic (congestive) heart failure; I11.0 Hypertensive heart disease with heart failure; G20 Parkinson's disease; F01.50 Vascular dementia, unspecified severity, without behavioral disturbance, psychotic disturbance, mood disturbance, and anxiety; F02.80 Dementia in other diseases classified elsewhere, unspecified severity, without behavioral disturbance, psychotic disturbance, mood disturbance, and anxiety; E11.9 Type 2 diabetes mellitus without complications; E78.5 Hyperlipidemia, unspecified; I25.10 Atherosclerotic heart disease of native coronary artery without angina pectoris; Z51.5 Encounter for palliative care; Z66 Do not resuscitate; Z96.643 Presence of artificial hip joint, bilateral; I25.2 Old myocardial infarction; Z79.02 Long term (current) use of antithrombotics/antiplatelets; Z79.84 Long term (current) use of oral hypoglycemic drugs; Z79.82 Long term (current) use of aspirin; Z79.899 Other long term (current) drug therapy; Z87.891 Personal history of nicotine dependence; Z95.5 Presence of coronary angioplasty implant and graft; Z98.1 Arthrodesis status
CPT/HCPCS: 94760